=== PATIENT | male | born 1965 | race African-American/Black ===

== ENCOUNTER 2021-11-19 10:07 | Emergency (ER) | payer OTHER, SELFPAY ==
[2021-11-19] VITALS (7 sets, daily range): BP systolic 128–148; BP diastolic 80–95; PULSE 46–59; RESP 17–21; O2SAT 100
--- NOTE | ~2021-11-19 | XR_ITS ---
EXAMINATION: XR chest 2V DATE: 11/19/2021 10:52 INDICATION: Chest pain and difficulty breathing TECHNIQUE: PA and lateral views of the chest were obtained. COMPARISON: None FINDINGS: The lungs are clear with no focal airspace opacities, pulmonary edema, pleural effusion or pneumothor ax. The cardiomediastinal silhouette is normal. There are bridging osteophytes at multiple levels in the spine, consistent with diffuse idiopathic skeletal hyperostosis (DISH). IMPRESSION: 1. No acute cardiopulmonary disease. Reviewed, dictated and finalized at location A.
--- NOTE | 2021-11-19 10:08 | ECG_ITS ---
Measurements Intervals [place] Rate: 58 P: -6 WA: 145 QRS: -30 QRSD: 90 T: 8 QT: 429 QTc: 422 Interpretive Statements SINUS BRADYCARDIA VENTRICULAR TRIGEMINY BORDERLINE R WAVE PROGRESSION, ANTERIOR LEADS BORDERLINE T WAVE ABNORMALITY- INFERIOR LEADS ABNORMAL ECG Electronically Signed On 11-19-2021 12:54:36 CDT by Wes Marx D.O.
[2021-11-19 10:27] LABS: Basophils Percent Auto 0.5 % (0.2-1.2); Eosinophils Absolute Auto 0.1 K/mm3 (0-0.3); Eosinophils Percent Auto 2.1 % (0-4.4); Hematocrit 40.8 % (42.0-52.0); Hemoglobin 13.1 g/dL (14.0-18.0); Immature Granulocyte Absolute 0.01 K/mm3 (0.00-0.031); Immature Granulocyte Percent A 0.2 % (0-0.5); Lymphocytes Absolute Auto 1.36 K/mm3 (0.9-3.2); Lymphocytes Percent Auto 31.4 % (18.3-44.2); Mean Corpuscular HGB Conc 32.1 g/dl (32-36); Mean Corpuscular Hemoglobin 29.8 pg (26-34); Mean Corpuscular Volume 92.7 fl (80-100); Mean Platelet Volume 9.6 fl (7.4-10.4); Monocytes Absolute Auto 0.4 K/mm3 (0.1-0.6); Monocytes Percent Auto 9.2 % (2.6-8.5); Neutrophils Absolute Auto 2.5 K/mm3 (1.3-6.7); Neutrophils Percent Auto 56.6 % (45.5-73.1); Platelet Count Result 197 k/mm3 (150-375); Red Cell Distribution Width 14.6 % (11.5-14.5); White Blood Count 4.3 K/mm3 (4.5-10.0)
[2021-11-19 10:36] LABS: Alanine Aminotransferase 48 U/L (6-50); Albumin Level 3.7 g/dL (3.5-5.1); Alkaline Phosphatase 98 U/L (38-126); Anion Gap 7 mmol/L (8-16); Aspartate Amino Transferase 35 U/L (17-59); Bilirubin,Total 0.2 mg/dL (0.2-1.3); Blood Urea Nitrogen 16 mg/dL (9-20); Calcium 8.6 mg/dL (8.4-10.2); Carbon Dioxide 24 mmol/L (22-30); Chloride 110 mmol/L (98-107); Estimated CRCL calculation 72 ml/min; Estimated Glomerular Filt Rate > 60; Glucose 100 mg/dL (65-110); Potassium 4.1 mmol/L (3.4-5.0); Sodium 141 mmol/L (137-145)
--- NOTE | 2021-11-19 10:58 | ED.CHESTPAIN ---
HPI - Chest Pain General Chief Complaint: Chest Pain <Sushma Nolan PA-C - Last Filed: 11/19/21 15:12> Stated Complaint: difficulty breathing, chest pain <Sushma Nolan PA-C - Last Filed: 11/19/21 15:12> Time Seen by Provider: 11/19/21 10:55 <Sushma Nolan PA-C - Last Filed: 11/19/21 15:12> Source: patient and old records reviewed <MOLLY Avalos Last Filed: 11/19/21 15:12> Mode of arrival: ambulatory <MOLLY Avalos Last Filed: 11/19/21 15:12> Limitations: no limitations <Sushma Nolan PA-C - Last Filed: 11/19/21 15:12> History of Present Illness HPI narrative: Patient is a 56-year-old male who presents the ED with report of chest pain. Patient reports he began to not feel well last Saturday. He reported having diffuse myalgias. He was seen at [facility] emergency department on Saturday and tested negative for COVID at that time. Over the past 2 days, patient has developed pain in his midsternal and right-sided chest. The pain radiates through to his back. He reports having worsening pain with taking a deep breath or with movement, but denies difficulty breathing otherwise. Denies dyspnea on exertion. No exertional CP. Denies any nausea, sweats, fever. Patient has a history of peripheral arterial disease and coronary artery disease. He had a cardiac stent placed in 2004. He does note his current pain seems similar to what he experienced at that time. He sees Dr. Cordvoa and last saw him in August. Patient denies any BLE pain or edema. Denies cough, ZEPEDA, abdominal pain. Per patient's records, patient is on aspirin, Plavix, Xarelto. <MOLLY Avalos Last Filed: 11/19/21 15:12> Related Data Allergies/Adverse Reactions: Allergies Allergy/AdvReac Type Severity Reaction Status Date / Time ibuprofen Allergy Swelling Verified 11/19/21 10:25 nitroglycerin Allergy Swelling Verified 11/19/21 10:25 <Sushma Nolan PA-C - Last Filed: 11/19/21 15:12> Review of Systems Review of Systems: CONSTITUTIONAL: Denies fever, chills, or sweats. CARDIOVASCULAR: Reports midsternal and right-sided chest pain, radiating through to her back. Denies palpitations, BLE edema. RESPIRATORY: Reports pain with taking deep breath. Denies cough or dyspnea. GASTROINTESTINAL: Denies abdominal pain, nausea, vomiting, or diarrhea. MUSCULOSKELETAL: Reports back pain. Denies BLE pain. NEUROLOGIC: Denies headache, numbness, or weakness. <Sushma Nolan PA-C - Last Filed: 11/19/21 15:12> All systems reviewed & are unremarkable except as noted in HPI and below <Sushma Nolan PA-C - Last Filed: 11/19/21 15:12> PMFSH Past Medical History Medical History: Medical History (Updated 11/19/21 @ 15:09 by Mainor Alas DO) Coronary artery disease Hyperlipidemia Hypertension Peripheral arterial disease Peripheral arterial disease with history of revascularization <Sushma Nolan PA-C - Last Filed: 11/19/21 15:12> Surgical History Surgical History: Surgical History (Updated 11/19/21 @ 12:20 by Sushma Nolan PA-C) History of coronary artery stent placement History of heart artery stent <Sushma Nolan PA-C - Last Filed: 11/19/21 15:12> Social History Social History: Social History (Updated 11/19/21 @ 12:20 by Sushma Nolan PA-C) Smoking status: Never smoker <Sushma Nolan PA-C - Last Filed: 11/19/21 15:12> Exam Narrative: GENERAL: Well appearing, well-nourished, non-toxic, in no acute distress. HEAD: Normocephalic, atraumatic. NECK: Supple. No adenopathy, no masses. RESPIRATORY: Airway patent, respirations nonlabored. Clear to auscultation bilaterally, no rales, rhonchi, wheezing. CARDIOVASCULAR: Borderline bradycardic with regular rhythm without murmurs, rubs, or gallops. Peripheral pulses 2+ and equal bilaterally. ABDOMINAL: Soft, nontender, nondistended, no hepatosplenomegaly. Normoactive BS. No pulsatile masses. MUSCULOSKELETAL: M
[2021-11-19 11:23] LABS: D Dimer 0.46 ug/mL (<0.48)
[2021-11-19 11:49] LABS: Troponin I < 0.012 ng/mL (0.000-0.034)
[2021-11-19 13:50] LABS: Troponin I < 0.012 ng/mL (0.000-0.034)
== END 2021-11-19 15:20 | disposition home or self-care (01) ==
PROVIDERS: Physician Assistant; Emergency Provider Emergency Medicine; PCP Family Medicine
DX: J20.9 Acute bronchitis, unspecified (principal); R07.89 Other chest pain; I25.10 Atherosclerotic heart disease of native coronary artery without angina pectoris; I73.9 Peripheral vascular disease, unspecified; E78.5 Hyperlipidemia, unspecified; I10 Essential (primary) hypertension; Z95.5 Presence of coronary angioplasty implant and graft
CPT/HCPCS: 36415; 71046; 80053; 84484; 85025; 85380; 93005; 96365; 99284; J0131

== ENCOUNTER 2022-11-28 19:11 | Emergency (ER) | payer OTHER, MEDICARE, SELFPAY ==
[2022-11-28 19:13] VITALS: BP 117/66; PULSE 75; RESP 16; TEMP 36.8; O2SAT 98
--- NOTE | 2022-11-28 21:08 | ED.BACK ---
HPI - Back Pain/Injury General Chief Complaint: Back Pain/Injury Stated Complaint: back pain Time Seen by Provider: 11/28/22 20:09 History of Present Illness HPI Narrative: 57-year-old male with a history of chronic back pain reports for evaluation of low back pain x3 years, worsening over the past few weeks. Patient states 3 years ago he injured his back at work. He has had multiple x-rays, CT scans and MRIs. States his last MRI was a year ago and showed bulging disks, herniated disks, arthritis. He states his back pain has been flaring up the past few weeks so he came to the ED. He denies new injury or trauma, steroid or immunosuppressant use, fevers, dysuria or hematuria, saddle anesthesia, loss of bowel or bladder control or retention, nuchal rigidity. States his pain starts in his low back and shoots up his neck and down both of his legs to his toes. Reports numbness in both of his feet but states he has had this for 3 years and is unchanged from his baseline. Related Data Allergies Allergy/AdvReac Type Severity Reaction Status Date / Time ibuprofen Allergy Swelling Verified 11/19/21 10:25 nitroglycerin Allergy Swelling Verified 11/19/21 10:25 Review of Systems Review of Systems: CONSTITUTIONAL: Denies fever, chills EYES: Denies visual changes, redness, or discharge. ENT: Denies rhinorrhea, congestion, sore throat, or otalgia. CARDIOVASCULAR: Denies chest pain, palpitations, or edema. RESPIRATORY: Denies cough or dyspnea. GASTROINTESTINAL: Denies abdominal pain, nausea, vomiting, or diarrhea. GENITOURINARY: Denies dysuria or hematuria. SKIN: Denies rash or itching. MUSCULOSKELETAL: See HPI NEUROLOGIC: See HPI PSYCHIATRIC: Denies anxiety or depression. [facility] Past Medical History Medical History Coronary artery disease Hyperlipidemia Hypertension Peripheral arterial disease Peripheral arterial disease with history of revascularization Surgical History Surgical History History of coronary artery stent placement History of heart artery stent Social History Social History Smoking status: Never smoker Exam Narrative: GENERAL: Well-appearing, in no acute distress. Patient resting abdomen exam chair. He is pleasant and conversational HEAD: Normocephalic NECK: Supple. No midline cervical spinous tenderness, step-offs or deformities. Full range of motion of neck. BACK: Midline thoracic and lumbar spinous tenderness without step-offs or deformities. +SLR bilaterally. CHEST: No respiratory distress. Clear to auscultation, no adventitious breath sounds. HEART: Regular rate and rhythm. No murmur heard. Normal peripheral pulses. EXTREMITIES: Normal range of motion. No edema. Sensation intact throughout. No saddle anesthesia. Cap refill less than 2. SKIN: Warm, dry, no rash. NEURO: No focal deficits. Alert and oriented x3. PSYCH: Normal mood and affect. Course Vital Signs Vital signs: Vital Signs Temperature 98.2 F 11/28/22 19:13 Pulse Rate 75 11/28/22 19:13 Respiratory Rate 16 11/28/22 19:13 Blood Pressure 117/66 11/28/22 19:13 Pulse Oximetry 98 11/28/22 19:13 Oxygen Delivery Room Air 11/28/22 19:13 Temperature 98.2 F 11/28/22 19:13 Pulse Rate 61 11/28/22 21:50 Respiratory Rate 14 11/28/22 21:50 Blood Pressure 144/97 H 11/28/22 21:50 Pulse Oximetry 100 11/28/22 21:50 Oxygen Delivery Room Air 11/28/22 19:13 MDM - Back Pain/Injury MDM Narrative Medical decision making narrative: 57-year-old male with a history of chronic back pain reports for evaluation of low back pain x3 years, worsening over the past few weeks. Vital stable, he is afebrile. He is neurovascularly intact on exam, no saddle anesthesia, no loss of bowel or bladder control. No red flag back pain signs. Imagi
[2022-11-28] MEDS: HYDROmorphone HCL INJ (*CRX) 1 MG/ML SYR IM (21:43)
[2022-11-28] MEDS: CYCLOBENZAPRINE HCL 10 MG TABLET PO (21:44)
[2022-11-28 21:50] VITALS: BP 144/97; PULSE 61; RESP 14; O2SAT 100
== END 2022-11-28 21:58 | disposition home or self-care (01) ==
LOC: ANHED 21:16
PROVIDERS: Emergency Provider Physician Assistant; PCP Family Medicine
DX: M54.50 Low back pain, unspecified (principal); G89.21 Chronic pain due to trauma; I25.10 Atherosclerotic heart disease of native coronary artery without angina pectoris; I10 Essential (primary) hypertension; I73.9 Peripheral vascular disease, unspecified; E78.5 Hyperlipidemia, unspecified; Z95.5 Presence of coronary angioplasty implant and graft
CPT/HCPCS: 96372; 99283; A9270; J1170

== ENCOUNTER 2024-06-20 17:39 | Emergency (ER) | payer MEDICARE, OTHER, SELFPAY ==
--- NOTE | ~2024-06-20 | XR_ITS ---
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 RESULT: Lines, tubes, and devices: None. Lungs and pleura: Clear. Cardiomediastinal silhouette: Stable. Other: No acute osseous or upper abdominal finding. IMPRESSION: No acute cardiopulmonary process. Reviewed, dictated and finalized at location K. MBLER ERECTOR
--- OUTSIDE RECORDS SUMMARY | 2024-06-20 17:41 | XMS_ITS | Clinical Summary ---
Author Organization [facility] Address [address] [place] [address] Care Team Providers Care Health Care Facilities Inspector Name Role Phone Unavailable Primary Care Provider Unavailabl e Source Comments [facility],non-owned Affiliates and Associated Physician Practices is amultiple site organization consisting of ambulatory clinics and hospital sitesin [place], [place], [place] and [place]. This disclosure is being madepursuant to the Care Everywhere program and may not contain all information available regarding this patient. Last updated 18.[employer] [facility] Allergies Active Allergy Reactions Criticality Noted Date Comments Oxycodone Other 07/03/2022 Dry throat. Medications * Be aware that medications may not be up to date on this document. Alwaysverify current medications with the patient. Medication Sig Dispensed Refills Start Date End Date Status aspirin (ASPIRIN) 81 MG chew tablet Take 81 mg by mouth DAILY. 02/14/2016 Active Active Problems Problem Noted Date Diagnosed Date Other specified abnormal findings of blood chemi stry 02/13/2016 Social History Tobacco Use Types Packs/Day Years Used Date Smoking Tobacco: Every Day Cigarettes Smokeless Tobacco: Never Tobacco Cessation:Ready to Q uit: Not Asked; Counseling Given: Not Answered Alcohol Use Standard Drinks/Week Comments No 0 (1 standard drink = 0.6 oz pur e alcohol) Sex and Gender Information Value Date Recorded Sex Assigned at Not on file Gender Identity Not on file Sexual Orientation Not on file Last Filed Vital Signs Vital Sign Reading Time Taken Comments Blood Pressure 121/77 07/04/2022 3:58 AM SERVICE DESK SPECIALIST Pulse 71 07/04/2022 3:58 AM SERVICE DESK SPECIALIST Temperature 36.7 C (98 F) 07/04/2022 3:58 AM SERVICE DESK SPECIALIST Respiratory Rate 17 07/04/2022 3:58 AM SERVICE DESK SPECIALIST Oxygen Saturation 98% 07/04/2022 3:58 AM SERVICE DESK SPECIALIST Inhaled Oxygen Concentration - - Weight 85.7 kg (189 lb) 02/14/2016 8:16 AM CDT Height 165.1 cm (5' 5 ) 02/14/2016 8:16 AM CDT Body Mass Index 31.45 02/14/2016 8:16 AM CDT Plan of Treatment Health Maintenance Due Date Last Done Comments COLOGUARD (AGES 45-75) - COL ON CA SCREENING [address] COLONOGRAPHY - COLON CA SCREENING 1965 FIT - COLON CA SCREENING 1965 FLEX SIG - COLON CA SCREENING 1965 LIPID TESTING 1965 MEDICARE AWV 12 MONTHS 1965 HIV SCREENING 1980 HEPATITIS C SCREENING 07/29/1983 DTAP/TDAP/TD VACCINES (1 - Tdap) 1984 HEPATITIS B VACCINE (1 of 3 - 19+ 3-dose series) 1984 PNEUMOCOCCAL VACCINE 50+ (1 of 2 - PCV) 1984 PNEUMOCOCCAL VACCINE (1 of 2 - PCV) 1984 ZOSTER VACCINE (1 of 2) 08/03/2015 COVID-19 VACCINE (1 - 2023-2 5 season) 2024 INFLUENZA VACCINE (#1) 2024 DEPRESSION SCREENING 05/13/2024 COLONOSCOPY - COLON CA SCREENING 06/07/2032 06/07/19 Colorectal Cancer Screening 06/07/2032 HIB VACCINE Aged Out No longer eligi ble based on patient's age to complete this topic HPV VACCINE Aged Out No longer eligi ble based on patient's age to complete this topic MENINGOCOCCAL (Group B) VACCINE Aged Out No longer eligible based on patient's age to complete this topic MENINGOCOCCAL VACCINE Aged Out No christel lily eligible based on patient's age to complete this topic
--- OUTSIDE RECORDS SUMMARY | 2024-06-20 17:41 | XMS_ITS | Referral Summary ---
Author Organization [facility] Address [address] [place] [address] Care Team Providers Care Avionics Systems Repairer Name Role Phone Unavailable Primary Care Provider Unavailabl e Source Comments [facility],non-owned Affiliates and Associated Physician Practices is amultiple site organization consisting of ambulatory clinics and hospital sitesin [place], [place], [place] and [place]. This disclosure is being madepursuant to the Care Everywhere program and may not contain all information available regarding this patient. Last updated 18.[employer] [facility] Allergies Active Allergy Reactions Criticality Noted Date [...] Comments Blood Pressure 121/77 07/04/2022 3:58 AM TILE GRADER Pulse 71 07/04/2022 3:58 AM TILE GRADER Temperature 36.7 C (98 F) 07/04/2022 3:58 AM TILE GRADER Respiratory Rate 17 07/04/2022 3:58 AM TILE GRADER Oxygen Saturation 98% 07/04/2022 3:58 AM TILE GRADER Inhaled Oxygen Concentration - - Weight 85.7 kg (189 lb) 02/14/2016 8:16 AM CDT Height 165.1 cm (5' 5 ) 02/14/2016 8:16 AM CDT Body Mass Index 31.45 02/14/2016 8:16 AM CDT Plan of Treatment Not on file
--- OUTSIDE RECORDS SUMMARY | 2024-06-20 17:41 | XMS_ITS | Encounter Summary ---
Author Organization [facility] Address Formerly [facility] [place] [address] Care Team Providers Care Director Of Vocational Training Name Role Phone None, Provider Primary Care Provider Romaine Minaya PA-C Primary Care Provider Alex Kohli MD Primary Care Provider [phone] Encounter Details Date Type Department Care Team (Late st Contact Info) Description 03/22/2022 [employer] Message Enc [facility] - [address], [address] [place] [id number] [facility], [facility] Provider Information Social History Tobacco Use Types Packs/Day Years Used Date Smoking Tobacco: Some Days Cigarettes Last attempted to quit: 2014 Cigars Smokeless Tobacco: Never Comments:uses an e cigarette with no nicotine Alcohol Use Standard Drinks/Week Comments No 0 (1 standard drink = 0.6 oz pur e alcohol) haven't drank since 2011 AUDIT-C Answer Date Recorded Frequency of Alcohol Consumption Never 02/06/2019 Average Number of Drinks Not on file 019 Frequency of Binge Drinking Not on file 01/12 PHQ-2 Answer Date Recorded PHQ-2 Score - If the patient scores above 3, please move on to questions 3-9 0 03/26/2022 Sex and Gender Information Value Date Recorded Sex Assigned at Male 06/19/2024 8:28 PM WIRE COMMUNICATIONS ENGINEER Legal Sex Male 10:42 PM CDT Gender Identity Not on file Sexual Orientation Straight 06/19/2024 8: 26 PM WIRE COMMUNICATIONS ENGINEER 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 No / Unsure 03/06/2022 11:41 AM CDT documented as of this encounter Functional Status * RETIRED Are you deaf or do you have serious difficulty hearing Answer Date of Assessment Author Status No 02/06/2019 8:07 PM CDT Activ e * RETIRED Are you blind or do you have serious difficulty seeing, even when wearing glasses? Answer Date of Assessment Author Status No 02/06/2019 8:07 PM CDT Activ e * Do you have serious difficulty walking or climbing stairs? Answer Date of Assessment Author Status No 02/06/2019 8:07 PM CDT Natividad Kaiser LPN Active * Do you have difficulty dressing or bathing? Answer Date of Assessment Author Status No 02/06/2019 8:07 PM CDT Natividad Kaiser LPN Active * Because of a physical, mental, or emotional condition, do you have difficulty doing errands alone such as visiting a doctor's office or shopping? Answer Date of Assessment Author Status No 02/06/2019 8:07 PM CDT Natividad Kaiser LPN Active documented as of this encounter Mental Status * Because of a physical, mental, or emotional condition, do you have serious difficulty concentrating, remembering, or making decisions? Answer Entry Date Author Status No 02/06/2019 8:07 PM CDT Natividad Kaiser LPN Active documented in this encounter Plan of Treatment Not on file documented as of this encounter Visit Diagnoses Not on filedocumented in this encounter Additional Health Concerns Assessment Noted Time PHQ-9 Depression Total Score: 5 04/18/20 21 11:10 AM WIRE COMMUNICATIONS ENGINEER documented as of this encounter Care Teams Director Of Vocational Training Relationship Specialty Start Date End Date None, Provider, PCP - General UNKNOWN PHYSICIAN SPECIALTY 03/06/22 05/06/22 Romaine Salguero PA-C [address] [place] [address] PCP - General PHYSICIAN TOUR MANAGER 05/07/22 11/30/22 Alex Kohli MD [address] [address] PCP - General FAMILY PRACTICE 12/01/22 documented as of this encounter
--- OUTSIDE RECORDS SUMMARY | 2024-06-20 17:41 | XMS_ITS | CONTINUITY OF CARE DOCUMENT ---
Author Name rylan fagan Address Unknown Organization [facility] Address [address] [place] [address] Phone [phone] Care Team Providers Care Aoc Plans Intelligence Officer Chief Name Role Phone Franklin DIOP, Delfino Unavailable INSURANCE PROVIDERS Payer name Policy type / Coverage type Rahul red constitution party ID [employer] Medicaid 1 [id number] [place] Medicare [id number]
--- OUTSIDE RECORDS SUMMARY | 2024-06-20 17:41 | XMS_ITS | Patient Health Summary ---
Author Organization [facility] Address [address] [place] [address] Care Team Providers Care Tack Puller Name Role Phone Unavailable Primary Care Provider Unavailabl e Note from [facility],non-owned Affiliates and Associated Physician Practices is amultiple site organization consisting of ambulatory clinics and hospital sitesin [place], [place], [place] and [place]. This disclosure is being madepursuant to the Care Everywhere program and may not contain all information available regarding this patient. Last updated 18.[facility] [employer] Allergies * Oxycodone(Other) Medications * Be aware that medications may not be up to date on this document. Alwaysverify current medications with the patient. * aspirin (ASPIRIN) 81 MG chew tablet(Started 02/14/2016) Take 81 mg by mouth DAILY. Active Problems Problem Noted Date Diagnosed Date [...] Comments Blood Pressure 121/77 07/04/2022 3:58 AM [employer]OCERY TEAM MEMBER Pulse 71 07/04/2022 3:58 AM [employer]OCERY TEAM MEMBER Temperature 36.7 C (98 F) 07/04/2022 3:58 AM [employer]ERY TEAM MEMBER Respiratory Rate 17 07/04/2022 3:58 AM [employer]ERY TEAM MEMBER Oxygen Saturation 98% 07/04/2022 3:58 AM [employer]OCERY TEAM MEMBER Inhaled Oxygen Concentration - - Weight 85.7 kg (189 lb) 02/14/2016 8:16 AM CDT Height 165.1 cm (5' 5 ) 02/14/2016 8:16 AM CDT Body Mass Index 31.45 02/14/2016 8:16 AM CDT Procedures * CARDIAC EKG ORDER(Performed 07/05/2022) * TROPONIN-I HIGH SENSITIVE REFLEX 1HOUR(Performed 07/04/2022) * XR CHEST 2VW(Performed 07/04/2022) Performed for Chest pain, unspecified type * LIPASE BLOOD(Performed 07/03/2022) * PT-INR SLH(Performed 07/03/2022) * B-TYPE NATRIURETIC PEPTIDE(Performed 07/03/2022) * TROPONIN-I HIGH SENSITIVE BASELINE + 1HR(Performed 07/03/2022) * CBC W AUTO DIFFERENTIAL(Performed 07/03/2022) * COMPREHENSIVE METABOLIC PANEL(Performed 07/03/2022) * EKG 12-LEAD(Performed 07/03/2022) Performed for Chest pain, unspecified type * CREATINE BLOOD(Performed 02/14/2016) * CREATININE BLOOD(Performed 02/14/2016) * BASIC METABOLIC PANEL (CALCIUM TOTAL)(Performed 02/14/2016) * SODIUM URINE RANDOM(Performed 02/14/2016) * BASIC METABOLIC PANEL (CALCIUM TOTAL)(Performed 02/13/2016) * CT HEAD WO CONTRAST(Performed 02/13/2016) * B-TYPE NATRIURETIC PEPTIDE(Performed 02/13/2016) * TROPONIN I(Performed 02/13/2016) * CK + CKMB PANEL(Performed 02/13/2016) * ALCOHOL ETHYL BLOOD(Performed 02/13/2016) * COMPREHENSIVE METABOLIC PANEL(Performed 02/13/2016) * CBC W AUTO DIFFERENTIAL(Performed 02/13/2016) * CBC W AUTO DIFFERENTIAL(Performed 02/13/2016) * XR CHEST 2VW(Performed 02/13/2016) * EKG 12-LEAD(Performed 02/13/2016) Results * CARDIAC EKG ORDER (07/05/2022 1:45 PM GROCERY TEAM MEMBER) Narrative 07/05/2022 1:45 PM [employer]ERY TEAM MEMBER Ordered by an unspecified provider. Scanned Document CARDIAC SERVICES ORD ERABLES * TROPONIN-I HIGH SENSITIVE REFLEX 1HOUR (07/04/2022 1:31 AM GROCERY TEAM MEMBER) Troponin I High Sensitive 5 <=35 ng/L 07/04/2022 2:20 AM GROCERY TEAM MEMBER [facility] Delta Troponin I HS 07/04/2022 2:20 AM GROCERY TEAM MEMBER [facility] Comment:Delta value intentio román not calculated. Baseline to 1 hour specimen collection interval exceeded. Blood BLOOD SPECIMEN / Unknown Venipuncture / Unknown 07/04/2022 1:31 AM [employer]ERY TEAM MEMBER 07/04/2022 1:41 AM [employer] TEAM MEMBER Melquiades Burkett PA-C LAB - CHEM ISTRY ORDERABLES [facility] [address] [place] [address], [facility] [phone] * XR CHEST 2VW (07/04/2022 12:08 AM [employer] TEAM MEMBER) Only the most recent of2 resultswithin the time period is included. Anatomical Region Laterality Modality Chest Radiographic Shannan ging 07/04/2022 12:5 1 AM [employer] TEAM MEMBER Narrative 07/04/2022 8:57 AM GR[employer]ERY TEAM MEMBER PROCEDURE: XR CHEST 2VW, DATE/TIME OF EXAM: 07/04/2022 12:08 AM, LOCATION [facility] INDICATION: R07.9: Chest pain, unspecified type ADDITIONAL CLINICAL INFORMATION: Ordering Provider Reason For Exam: Pneumothorax COMPARISON: Chest x-ray dated 02/13/2016 FINDINGS/IMPRESSION: There is no focal consolidation, pleural effusion, or pneumothorax. The cardiac silhouette is mildly enlarged. The mediastinal silhouette is normal. The visible bony thorax is intact. Report dictated by Xavier Panda MD, (radiology administrator). I, Joseph Suarez MD have personally reviewed and interpreted this examination/study. > Interpreting Provider: Joseph Suarez MD on 07/04/2022 8:57 AM Procedure Note Joseph Suarez MD - 07/04/2022 PROCEDURE: XR CHEST 2VW, DATE/TIME OF EXAM: 07/04/2022 12:08 AM, LOCATION [facility] INDICATION: R07.9: Chest pain, unspecified type ADDITIONAL CLINICAL INFORMATION: Ordering Provider Reason For Exam: Pneumothorax COMPARISON: Chest x-ray dated 02/13/2016 FINDINGS/IMPRESSION: There is no focal consolidation, pleural effusion, or pneumothorax. The cardiac silhouette is mildly enlarged. The mediastinal silhouette is normal. The visible bony thorax is intact. Report dictated by Xavier Panda MD, (radiology administrator). I, Joseph Suarez MD have personally reviewed and interpreted this examination/study. > Interpreting Provider: Joseph Suarez MD on 38:57 AM Melquiades Burkett PA-C DIAGNOSTIC IMAGING ORDERABLES * LIPASE BLOOD (07/03/2022 11:57 PM [employer] TE[employer] MEMBER) Lipase 37 8 - 78 U/L 07/04/2022 12:30 AM [facility] Blood BLOOD SPECIMEN / Unknown Venipuncture / Unknown 07/03/2022 11:57 PM [employer] TE[employer] MEMBER 07/04/2022 12:20 AM [employer] TEAM MEMBER Narrative [facility] - 07/04/2022 12:30 AM [employer]ERY TEAM MEMBER Lipase results from the Gonzalez Alinity analyzer may not be comparable with other methodologies. Melquiades Burkett PA-C LAB - CHEM ISTRY ORDERABLES Performing Organization Address City/State/[facility] Co de Phone Number [facility] [address] [place] [phone], [facility] [phone] * PT-INR [facility] (07/03/2022 11:56 PM GROCERY TEAM MEMBER) PT 12.2 12.1 - 14.8 Seconds 07/04/2022 1:26 AM [facility] INR 0.9 See Comment 07/04/2022 1:26 AM [facility] Comment:The suggested therap eutic range for standard coumadin (warfarin) therapy is an INR of 2.0-3.0. For high-risk patients (Mechanical Mitral Valve Prosthesis, etc.), the suggested prophylactic therapeutic range is an INR of 2.5-3.5. Blood BLOOD SPECIMEN / Unknown Venipuncture / Unknown 07/03/2022 11:56 PM [employer] TEAM MEMBER 07/04/2022 12:04 AM [employer] TE[employer]BER Melquiades ALVAREZC LAB - COAG ULATION ORDERABLES Performing Organization Address [facility]/ZIP Co de Phone Number [address] [phone], [facility] [phone] * TROPONIN-I HIGH SENSITIVE BASELINE + 1HR (07/03/2022 11:56 PM [employer] TEAM MEMBER) Troponin I High Sensitive 5 <=35 ng/L 07/04/2022 12:52 AM [facility] Blood BLOOD SPECIMEN / Unknown Venipuncture / Unknown 07/03/2022 11:56 PM [employer] TEAM MEMBER 07/04/2022 12:33 AM [employer] TEAM MEMBER Melquiades PIMENTEL-C LAB - CHEM ISTRY ORDERABLES Performing Organization Address [facility] Co de Phone Number [address] [phone], [facility] [phone] * (ABNORMAL) CBC W AUTO DIFFERENTIAL (07/03/2022 11:56 PM GR[employer] TEAM MEMBER) Only the most recent of3 resultswithin the time period is included. WBC 6.7 3.5 - 10.5 10 3/uL 07/04/2022 12:10 AM [facility] RBC 4.88 4.30 - 5.70 10 6/uL 07/04/2022 12:10 AM [facility] Hemoglobin 14.7 12.0 - 17.6 g/dL 07/04/2022 12:10 AM [facility] Hematocrit 44.8 35.2 - 51.7 % 07/04/2022 12:10 AM [facility] MCV 91.8 80.7 - 98.3 fL 07/04/2022 12:10 AM [facility] MCH 30.1 26.7 - 34.0 pg 07/04/2022 12:10 AM [facility] MCHC 32.8 30.8 - 35.9 g/dL 07/04/2022 12:10 AM [facility] RDW-SD 51.1(H) 36.0 - 50.0 fL 07/04/2022 12:10 AM [facility] RDW-CV 15.2(H) 11.2 - 14.8 % 07/04/2022 12:10 AM [facility] Platelet Count 233 150 - 400 10 3/uL 07/04/2022 12:10 AM [facility] MPV 9.3(L) 9.4 - 12.9 fL 07/04/2022 12:10 AM [facility] nRBC Absolute 0.00 0 10 3/uL 07/04/2022 12:10 AM [facility] nRBC Auto 0.0 0 /100 WBC 07/04/2022 12:10 AM [facility] Neutrophils % 57.2 35.0 - 70.0 % 07/04/2022 12:10 AM [facility] Lymphocytes % 33.1 20.0 - 43.0 % 07/04/2022 12:10 AM [facility] Monocytes % 7.1 5.0 - 13.0 % 07/04/2022 12:10 AM [facility] Eosinophils % 1.5 0.0 - 6.0 % 07/04/2022 12:10 AM [facility] Basophil % 0.5 0.0 - 2.0 % 07/04/2022 12:10 AM [facility] Neutrophils Absolute 3.81 1.60 - 7.00 10 3/uL 07/04/2022 12:10 AM [facility] Lymphocyte Absolute 2.20 1.10 - 3.90 10 3/uL 07/04/2022 12:10 AM [facility] Monocytes Absolute 0.47 0.26 - 1.07 10 3/uL 07/04/2022 12:10 AM [facility] Eosinophils Absolute 0.10 0.00 - 0.47 10 3/uL 07/04/2022 12:10 AM [facility] Basophils Absolute 0.03 0.00 - 0.08 10 3/uL 07/04/2022 12:10 AM [facility] Immature Granulocytes % 0.6 0.0 - 1.0 % 07/04/2022 12:10 AM [facility] Immature Granulocytes Absolute 0.04 07/04/2022 12:10 AM [facility] Blood BLOOD SPECIMEN / Unknown Venipuncture / Unknown 07/03/2022 11:56 PM GROCERY TEAM MEMBER 07/04/2022 12:04 AM [employer] TEAM MEMBER Melquiades ALVAREZC LAB - JAMAR TOLOGY ORDERABLES [facility] [address] [place] [address], [place] [phone] * B-TYPE NATRIURETIC PEPTIDE (07/03/2022 11:56 PM GROCERY TEAM MEMBER) Only the most recent of2 resultswithin the time period is included. BNP 50 <100 pg/mL 07/04/2022 12:36 AM [facility] Comment: A decision threshold of 100 pg/mL has been demonstrated to provide the maximal combination of sensitivity, specificity and predictive value for the diagnosis of congestive heart failure (CHF). Virtually all patients with no evidence of CHF have BNP values less than 100 pg/mL. A BNP value greater than 100 pg/mL is consistent with the diagnosis of CHF in the appropriate clinical setting. In a study of 693 patients (male and female) with diagnosed CHF, the following values were determined based on the NYHA functional classification system: NYHA Functional Class Mean Valule (pg/mL) % >100 pg/mL I 320 58.1 II 432 73.0 III 656 79.0 IV 1635 98.3 Blood BLOOD SPECIMEN / Unknown Venipuncture / Unknown 07/03/2022 11:56 PM GROCERY TEAM MEMBER 07/04/2022 12:04 AM GR[employer] TEAM MEMBER Melquiades Burkett PA-C LAB - CHEM ISTRY ORDERABLES [facility] [address] [place] [address], [place] [phone] * (ABNORMAL) COMPREHENSIVE METABOLIC PANEL (07/03/2022 11:56 PM [facility]) Only the most recent of2 resultswithin the time period is included. BUN 13 7 - 26 mg/dL 07/04/2022 12:30 AM [facility] Creatinine 1.23(H) 0.71 - 1.16 mg/dL 07/04/2022 12:30 AM [facility] Sodium 146(H) 136 - 145 mmol/L 07/04/2022 12:30 AM [facility] Potassium 4.2 3.5 - 4.5 mmol/L 07/04/2022 12:30 AM [facility] Chloride 113(H) 98 - 107 mmol/L 07/04/2022 12:30 AM [facility] CO2 19(L) 22 - 29 mmol/L 07/04/2022 12:30 AM [facility] Glucose 87 70 - 115 mg/dL 07/04/2022 12:30 AM [facility] Calcium 9.1 8.4 - 10.2 mg/dL 07/04/2022 12:30 AM [facility] Protein Total 7.3 6.0 - 8.3 g/dL 07/04/2022 12:30 AM [facility] Albumin 3.7 3.4 - 5.0 g/dL 07/04/2022 12:30 AM [facility] Bilirubin Total 0.2 0.2 - 1.2 mg/dL 07/04/2022 12:30 AM [facility] Alkaline Phosphatase 124 40 - 150 U/L 07/04/2022 12:30 AM [facility] ALT 43 5 - 55 U/L 07/04/2022 12:30 AM [facility] AST 20 5 - 34 U/L 07/04/2022 12:30 AM [facility] Anion Gap 18 8 - 18 07/04/2022 12:30 AM [facility] BUN/Creatinine Ratio 11 7 - 23 07/04/2022 12:30 AM [facility] Osmolality Calculated 301(H) 270 - 300 mOsm/kg 07/04/2022 12:30 AM [facility] Albumin/Globulin Ratio 1.0(L) 1.1 - 2.3 07/04/2022 12:30 AM [facility] eGFR by CKD-EPI 69(L) >=90 mL/min/1.7 3 m2 07/04/2022 12:30 AM [facility] Blood BLOOD SPECIMEN / Unknown Venipuncture / Unknown 07/03/2022 11:56 PM GROCERY TEAM MEMBER 07/04/2022 12:04 AM [employer] TEAM MEMBER Melquiades Burkett PA-C LAB - CHEM ISTRY ORDERABLES [facility] [address] [place] [address], [facility] [phone] * EKG 12-LEAD (07/03/2022 11:43 PM GROCERY TEAM MEMBER) Only the most recent of2 resultswithin the time period is included. Ventricular Rate 63 BPM SL MUSE Atrial Rate 63 BPM [facility] MUSE P-R Interval 162 ms [facility] MUSE QRS Duration ms 78 ms [facility] MUSE Q-T Interval ms 408 ms [facility] MUSE QTC Calculation (Bezet) 417 ms SL MUSE Calculated P [place] 33 degrees SL MUSE Calculated R [place] -91 degrees SL MUSE Calculated T [place] 25 degrees SLH MUSE Interpretation EKG NORMAL SINUS RHYTHM RIGHT SUPERIOR AXIS DEVIATION S1-S2-S3 PATTERN, CONSIDER PULMONARY DISEASE, RVH, OR NORMAL VARIANT RSR' OR QR PATTERN IN V1 SUGGESTS RIGHT VENTRICULAR CONDUCTION DELAY Poor R wave progression in precordial leads SEPTAL INFARCT , AGE UNDETERMINED CANNOT RULE OUT INFERIOR INFARCT (CITED ON OR BEFORE 13-FEB-2016) ABNORMAL ECG WHEN COMPARED WITH ECG OF 13-FEB-2016 19:04, QRS AXIS SHIFTED LEFT CRITERIA FOR SEPTAL INFARCT ARE NOW PRESENT RSR' OR QR PATTERN IN V1 SUGGESTS RIGHT VENTRICULAR CONDUCTION DELAY , NEW Confirmed by AZ CARBAJAL MD ([id number]) on 07/04/2022 5:12:51 AM [facility] MUSE 07/03/2022 11:4 3 PM GROCERY TEAM MEMBER 07/04/2022 5:12 AM [employer] TEAM MEMBER Melquiades Burkett PA-C ECG ORDERA BLES [facility] MUSE * CREATINE BLOOD (02/14/2016 12:19 PM CDT) Creatine 0.4 0.0 - 0.7 mg/dL [facility] ([facility]) Comment: This test was developed and its performance characteristics determined by [facility]. It has not been cleared or approved by the Food and Drug Administration. Blood specimen (specimen) BLOOD SPECIMEN / Unknown 02/14/2016 12:19 PM CDT 02/14/2016 12:47 PM CDT Narrative [facility] ([facility]) - 02/16/2016 5:10 PM CDT Performed at: [address] [place] [address] [id number] Marine Pipefitter: Leoncio Vaughn MD, Phone: [phone] Bill Grace MD LAB - CHEMISTRY [place]ARD[place] Performing Organization Address [facility] Co de Phone Number [facility] ([facility]) * (ABNORMAL) CREATININE BLOOD (02/14/2016 12:19 PM CDT) Creatinine 1.8(H) 0.6 - 1.2 mg/dL [facility] eGFR 49(L) >60 mL/min/1.73 m2 [facility] Blood specimen (specimen) BLOOD SPECIMEN / Unknown 02/14/2016 12:19 PM CDT 02/14/2016 2:25 PM CDT Bill Grace MD LAB - CHEMISTRY [place] Performing Organization Address City/[facility]/ZIP Co de Phone Number [address] [phone] * (ABNORMAL) BASIC METABOLIC PANEL (CALCIUM TOTAL) (02/14/2016 6:06 AM CDT) Only the most recent of2 resultswithin the time period is included. BUN 20 7 - 26 mg/dL [facility] Creatinine 1.8(H) 0.6 - 1.2 mg/dL [facility] Sodium 140 136 - 145 mmol/L [facility] Potassium 3.5 3.5 - 4.5 mmol/L [facility] Chloride 111(H) 98 - 107 mmol/L [facility] CO2 23 22 - 29 mmol/L [facility] Glucose 97 70 - 115 mg/dL [facility] Calcium 8.1(L) 8.4 - 10.2 mg/dL [facility] Anion Gap 10 8 - 18 [facility] BUN/Creatinine Ratio 11 7 - 23 [facility] Osmolality Calculated 293 270 - 300 mOsm/kg [facility] eGFR 49(L) >60 mL/min/1.7 3 m2 [facility] Blood specimen (specimen) BLOOD SPECIMEN / Unknown 02/14/2016 6:06 AM CDT 02/14/2016 6:17 AM CDT Az Hall MD LAB - CHEMISTRY ORDE BRENDAN Performing Organization Address [facility]/ZIP Co de Phone Number [address] [phone] * SODIUM URINE RANDOM (02/14/2016 1:36 AM CDT) Sodium Urine 202 Not Established mmol/L [facility] Urine specimen (specimen) URINE / Unknown 02/14/2016 1:36 AM CDT 02/14/2016 1:36 AM CDT Az Hall MD LAB - URINE CHEMISTR Y ORDERABLES Performing Organization Address City/[facility] Co de Phone Number [address] [phone] * CT HEAD WO CONTRAST (02/13/2016 7:51 PM CDT) Anatomical Region Laterality Modality Head Other Impressions 02/14/2016 7:14 AM CDT IMPRESSION: 1. No acute intracranial process. Preliminary results reported by Dr. Onofre on 02/13/2016 at 8:32 PM. This report was electronically signed by TRISTON PATEL M.D. on 02/14/2016 7:14 AM . Narrative 02/14/2016 7:14 AM CDT EXAMINATION: Computed tomography (CT) of the head without contrast HISTORY: Trauma, pain. TECHNIQUE: CT of the head was performed without contrast according to standard protocol. FINDINGS: No prior study is available for comparison. No acute intra- or extra-axial fluid collections are identified. The ventricles are of normal size, shape, and morphology. The basal cisterns are patent. No mass effect or midline shift is seen. Small foci of hypoattenuation in the basal ganglia bilaterally are nonspecific and may represent old lacunar infarctions or small dilated perivascular spaces. The blackwood-white matter differentiation is normal. Mild mucosal thickening in the paranasal sinuses. Otherwise, the visualized portions of the orbits, paranasal sinuses, and mastoids appear normal. No acute fracture is identified. Procedure Note Triston Patel MD - 08/10/2017 EXAMINATION: Computed tomography (CT) of the head without contrast HISTORY: Trauma, pain. TECHNIQUE: CT of the head was performed without contrast according tostandard protocol. FINDINGS: No prior study is available for comparison. No acute intra- or extra-axial fluid collections are identified. Theventricles are of normal size, shape, and morphology. The basal cisternsare patent. No mass effect or midline shift is seen. Small foci ofhypoattenuation in the basal ganglia bilaterally are nonspecific and may represent old lacunar infarctions orsmall dilated perivascular spaces. The blackwood-white matter differentiationis normal. Mild mucosal thickening in the paranasal sinuses. Otherwise,the visualized portions of the orbits, paranasal sinuses, and mastoids appear normal. No acute fractureis identified. IMPRESSION IMPRESSION: 1. No acute intracranial process. Preliminary results reported by Dr. Onofre on 02/13/2016 at 8:32 PM. This report was electronically signed by TRISTON PATEL M.D. on 02/14/20167:14 AM . Az Hall MD CT ORDERABLES * TROPONIN I (02/13/2016 6:49 PM CDT) Troponin I 0.028 <0.032 ng/mL [facility] Blood specimen (specimen) BLOOD SPECIMEN / Unknown 02/13/2016 6:49 PM CDT 02/13/2016 7:00 PM CDT Az Hall MD LAB - CHEMISTRY [place] Performing Organization Address [facility]/[place] [address], [facility] [phone] * CK + CKMB PANEL (02/13/2016 6:49 PM CDT) Pathologist [facility] CK Total 175 30 - 200 Units/L [facility] CK-MB 1.0 0.0 - 6.6 ng/mL [facility] Blood specimen (specimen) BLOOD SPECIMEN / Unknown 02/13/2016 6:49 PM CDT 02/13/2016 7:00 PM CDT Az Hall MD LAB - CHEMISTRY [place] Performing Organization Address [facility] [place] [address], [facility] [phone] * ALCOHOL ETHYL BLOOD (02/13/2016 6:49 PM CDT) [facility] Interpretation Ethanol None Detected None Detected mg/dL [facility] Comment:Ethanol levels less than 10 mg/dL are resulted as None detected . Blood specimen (specimen) BLOOD SPECIMEN / Unknown 02/13/2016 6:49 PM CDT 02/13/2016 7:00 PM CDT Az Hall MD LAB - CHEMISTRY [place] Performing Organization Address [facility]/State/[place] [address], [facility] [phone]
[2024-06-20 17:42] VITALS: BP 157/82; PULSE 62; RESP 20; TEMP 36.8; O2SAT 100
--- OUTSIDE RECORDS SUMMARY | 2024-06-20 17:42 | XMS_ITS | Clinical Summary ---
Author Organization [facility] Address [address] [place] [address] Care Team Providers Care Parliamentary Archivist Name Role Phone Alex Kohli MD Primary Care Provider [phone] Allergies Active Allergy Reactions Criticality Noted Date Comments Ibuprofen Itching,Swelling High 03/27/2018 Nitroglycerin Shortness of Breath High 09/09/2017 Acetaminophen Itching,Nausea Only 03/27/2018 Medications aspirin EC 81 MG tablet Take 1 tablet (81 mg total) by mouth daily. Active amlodipine 10 MG tablet Take 1 tablet (10 mg total) by mouth nightly. 30 tablet 9 Active Additional Information Patient taking differently:10 mg OralDaily, Reported on 03/31/2024 vitamin D3, cholecalciferol , 5000 UNITS capsule Take 1 capsule (5,000 Units total) by mouth daily. 0 Active rosuvastatin 40 MG tablet Take 1 tablet (40 mg total) by mouth nightly at bedtime. 1 Active traZODone (DESYREL) 50 MG tablet Take 1 tablet (50 mg total) by mouth nightly as needed for Sleep. Active clopidogrel (PLAVIX) 75 MG tablet Take 1 tablet (75 mg total) by mouth daily. Active pantoprazole EC (PROTONIX) 20 MG tablet Take 1 tablet (20 mg total) by mouth daily. Active ezetimibe (ZETIA) 10 MG tablet Take 1 tablet (10 mg total) by mouth daily. 3 Active metoprolol succinate ER (TOPROL-XL) 100 MG 24 hr tablet Take 1 tablet (100 mg total) by mouth daily. Active spironolactone (ALDACTONE) 25 MG tablet Take 1 tablet (25 mg total) by mouth daily. 4 Active cloNIDine (CATAPRES) 0.2 MG tablet Take 1 tablet (0.2 mg total) by mouth nightly. 30 tablet 4 Active acetaminophen (TYLENOL) 325 MG tablet Take 2 tablets (650 mg total) by mouth every 4 (four) hours as needed for Pain. 4 Active polyethylene glycol (GLYCOLAX) packet Take 240 mLs (17 g total) by mouth 2 (two) times daily. Dissolve powder in 240 mL water 60 each 4 Active predniSONE (DELTASONE) 20 MG tablet Take 2 tablets (40 mg total) by mouth daily for 5 days. 10 tablet 5 06/25/19 25 Active melatonin 10 MG tablet Take 1 tablet (10 mg total) by mouth nightly as needed for Sleep. 30 tablet 5 Active Active Problems Problem Noted Date Diagnosed Date YUSEF (acute kidney injury) 03/31/2024 Pyelonephritis 03/31/2024 Chest pain 11/14/2021 Light cigarette smoker (1-9 cigarettes per day) 04/18/2021 Primary insomnia 04/18/2021 Major depressive disorder in full remission, unspecified whether recurrent 04/18/2021 Allergic sinusitis 12/06/2020 Calculus of common bile duct and gallbladder Chronic cervical radiculopathy 12/06/2020 Foraminal stenosis of cervical region 12/06/2020 Hypertensive urgency 12/06/2020 Primary osteoarthritis of right shoulder 021 Syncope due to sick sinus syndrome ([facility]) 12/06/2020 Tobacco dependence syndrome 05/28/2019 Arterial occlusion 02/06/2019 Lumbosacral spondylosis without myelopathy 11/19 Facet arthritis of cervical region 11/19/2018 Left ventricular hypertrophy 08/06/2018 Bulging of intervertebral disc between L4 and L5 05/29/2018 Neuropathy of right upper extremity 04/14/2018 Sciatica 04/08/2018 CKD (chronic kidney disease) stage 3, GFR 30-59 ml/min ([facility]) 10/08/2017 Secondary hyperparathyroidism ([facility]) 10/08/2017 Acne keloidalis nuchae 10/08/2017 Renovascular hypertension 09/24/2017 Renal artery stenosis 09/17/2017 Cerebrovascular accident ([facility]) 09/14 Obstructive sleep apnea syndrome 05/18/2017 Gastroesophageal reflux disease with stricture 0 10/23/2016 Obesity 10/23/2016 Dyspnea on exertion 10/22/2016 Migraine 10/22/2016 Peptic ulcer 10/22/2016 Chronic lower back pain 02/27/2016 Overview (02/10/2019): Transitioned From: Acute low back pain due to trauma Atherosclerotic peripheral vascular disease 08/2015 Overview (02/10/2019): Transitioned From: Claudication Dyslipidemia CAD (coronary artery disease) Essential hypertension Encounters Date Type Department Care Team Description 06/19/2024 8:05 PM FINANCIAL AID ADVISOR - 06/20/2024 12:41 AM FINANCIAL AID ADVISOR Emergency [facility] [place] [address] Sheryl Nieto MD Chest Pain Discharge Disposition: Home or Self Care (Routine Discharge) 06/19/2024 Travel 03/31/2024 11:12 PM FINANCIAL AID ADVISOR Anesthesia Event [facility] [place] [address] Vlaeria Hines MD 03/31/2024 11:00 PM FINANCIAL AID ADVISOR - 04/01/2024 12:01 AM FINANCIAL AID ADVISOR Surgery [facility] [place] [address] Remigio Portillo MD CYSTOSCOPY, LEFT RETROGRADE PYELOGRAM, LEFT URETERAL STENT PLACEMENT, HOLMIUM LASER LITHOTRIPSY 03/31/2024 4:53 PM FINANCIAL AID ADVISOR - 04/03/2024 1:13 PM FINANCIAL AID ADVISOR Hospital Encounter [facility] [place] [address] Nathaniel Ventura, Staci Potter, Bob Ann MD Simpson, Stephanie L, DO Tipton Rae L, PRINT PROJECT MANAGER Vomiting; Abdominal Pain Discharge Disposition: Home or Self Care (Routine Discharge) 03/31/2024 Travel from Last 3 Months Immunizations Name Administration Dates Next Due Tdap (Generic) 10/22/2017 Family History Medical History Relation Comments Heart Disease Father of heart at tack at age 47 No Known Problems Mother Family history is positive f or coronary artery disease. Other Relation Status Comments Father Mother Alive Other Social History Tobacco Use Types Packs/Day Years Used Date Smoking Tobacco: Some Days Cigarettes Last attempted to quit: 2014 Cigars Smokeless Tobacco: Never Tobacco Cessation:Ready to Q uit: Not Asked; Counseling Given: Not Answered Comments:uses an e cigarette with no nicotine Alcohol Use Standard Drinks/Week Comments No 0 (1 standard drink = 0.6 oz pur e alcohol) haven't drank since 2011 [facility] Pure Focus Answer Date Recorded In the past 12 months has e [employer], gas, oil, or water [employer] threatened to shut off services in your home? No 04/01/2024 Humiliation, Afraid, Rape, and Kick questionnair e Answer Date Recorded Within the last year, have y ou been afraid of your partner or ex-partner? No 04/01/2024 Within the last year, have y ou been humiliated or emotionally abused in other ways by your partner or ex-partner? No Within the last year, have y ou been kicked, hit, slapped, or otherwise physically hurt by your partner or ex-partner? No 04/01/2024 Within the last year, have y ou been raped or forced to have any kind of sexual activity by your partner or ex-partner? No 04/01/2024 AUDIT-C Answer Date Recorded Frequency of Alcohol Consumption Never 02/06/2019 Average Number of Drinks Not on file 019 Frequency of Binge Drinking Not on file 01/12 Overall Financial Resource Strain (CARDIA) Answe r Date Recorded How hard is it for you to pa y for the very basics like food, housing, medical care, and heating? Not hard at all 04/01/2024 PHQ-2 Answer Date Recorded PHQ-2 Score - If the patient scores above 3, please move on to questions 3-9 0 03/26/2022 Hunger Vital Sign Answer Date Recorded Within the past 12 months, y ou worried that your food would run out before you got the money to buy more. Never true 04/01/20 24 Within the past 12 months, t he food you bought just didn't last and you didn't have money to get more. Never true 04/01/2024 PRAPARE - Transportation Answer Date Re corded In the past 12 months, has l ack of transportation kept you from medical appointments or from getting medications? No 03/14 In the past 12 months, has l ack of transportation kept you from meetings, work, or from getting things needed for daily living? No 04/01/2024 Housing Stability Vital Sign Answer Loy e Recorded In the last 12 months, was t here a time when you were not able to pay the mortgage or rent on time? No 04/01/2024 In the past 12 months, how m any times have you moved where you were living? 1 04/01/2024 At any time in the past 12 m [facility], were you homeless or living in a skilled nursing (including now)? 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 Not on file Not on file Not on file Not on file Not on file Not on file Not on file Last Filed Vital Signs Vital Sign Reading Time Taken Comments Blood Pressure 138/80 06/19/2024 7:52 PM FINANCIAL AID ADVISOR Pulse 62 06/19/2024 7:52 PM FINANCIAL AID ADVISOR Temperature 37.2 C (99 F) 06/19/2024 7:52 PM FINANCIAL AID ADVISOR Respiratory Rate 18 06/19/2024 7:52 PM FINANCIAL AID ADVISOR Oxygen Saturation 98% 06/19/2024 7:55 PM FINANCIAL AID ADVISOR Inhaled Oxygen Concentration - - Weight 84.8 kg (187 lb) 06/19/2024 7:52 PM FINANCIAL AID ADVISOR Height 165.1 cm (5' 5 ) 06/19/2024 7:52 PM FINANCIAL AID ADVISOR Body Mass Index 31.12 06/19/2024 7:52 PM FINANCIAL AID ADVISOR Plan of Treatment Health Maintenance Due Date Last Done Comments ASCVD Statin 1965 Colorectal Cancer Screening Colonoscopy (10 Years) 1965 Pneumococcal Vaccine: Pediatrics (0 to 5 Years) and At-Risk Patients (6 to 64 Years) (1 of 2 - PCV) 08/03/1971 Hepatitis B Vaccines (1 of 3 - 19+ 3-dose series) 1984 Zoster Vaccines (1 of 2) 08/03/2015 Annual Physical 04/18/2022 04/18/2021 ASCVD LDL 04/19/2022 04/19/2021, 01/12, 10/22/2017, Additional history exists COVID-19 Vaccine (2023- season) 2024 Influenza Adult (#1) 2024 PHQ-2 (Physician [place]ot) 05/13/2024 DTaP, Tdap and Td Vaccines (2 - Td or Tdap) 10/23/2027 10/22/2017 Hepatitis C Completed 04/19/2021 Meningococcal B Vaccine Aged Out No l onger eligible based on patient's age to complete this topic Meningococcal Vaccine Aged Out No christel lily eligible based on patient's age to complete this topic RSV Immunizations Under 20 Months Aged Out No longer eligible based on patient's age to complete this topic Goals Goal Patient Goal Type Associated Problems Recent Progress Patient-Stated? Author Health - patient able to perform ADLs independently Lifestyle No Alayna Lang, RN Medical Devices Implanted Type Area Call Center Support Representative Device Identifier Shelf Expiration Date Model / Serial / Lot Stent Ureteral Contour Vl 4.8fr X 22-30cm - [id number] Implanted:Qty: 1 on 03/31/2024 by Remigio Portillo MD at [facility] Stent Left: Ureter [employer] [id number] 12/22/2026 [id number] / / [id number] Cardiovascular Patch Implanted:Qty: 1 on 02/07/2019 by Dipak Long MD at [facility] Right: Groin 05/12/2023 [id number] / [id number] Procedures Procedure Name Priority Date/Time Associated Diagnosis Comments CTA CHEST PE PROTOCOL STAT 06/19/2024 11:53 PM FINANCIAL AID ADVISOR TROPONIN, QUANT STAT 06/19/2024 10:02 PM FINANCIAL AID ADVISOR ECG 12-LEAD STAT 06/19/2024 10:01 PM FINANCIAL AID ADVISOR Procedure Note - 06/19/2024 10:01 PM CSTThis note is in progress. [facility] Test Date: 2024-06-19 Pat Name: SOURAV NAVA Department: 41 Room: [facility] Gender: Male Environmental Engineering Assistant: [id number] : 1965 Requested By: SHERYL NIETO Order Number: [id number] Reading MD: Measurements Intervals [place] Rate: 58 P: 25 CO: 165 QRS: -78 QRSD: 86 T: 10 QT: 422 QTc: 415 Interpretive Statements SINUS BRADYCARDIA LEFT AXIS DEVIATION [QRS AXIS < -30] POSSIBLE RIGHT VENTRICULAR CONDUCTION DELAY [RSR (QR) IN V1/V2] ANTEROSEPTAL MYOCARDIAL INFARCTION , OF INDETERMINATE AGE [40+ ms Q WAVEIN V1-V4] Compared to ECG 06/19/2024 19:52:26 Sinus rhythm no longer present Myocardial infarct finding still present XR CHEST PORTABLE STAT 06/19/2024 8:3 7 PM FINANCIAL AID ADVISOR TROPONIN, QUANT STAT 06/19/2024 8:01 PM FINANCIAL AID ADVISOR COMPREHENSIVE METABOLIC PANEL STAT 06/19/2024 8:01 PM FINANCIAL AID ADVISOR CBC W/DIFF AUTOMATED STAT 06/19/2024 8:01 PM FINANCIAL AID ADVISOR ECG 12-LEAD STAT 06/19/2024 7:52 PM FINANCIAL AID ADVISOR CBC W/DIFF AUTOMATED Routine 04/03/2024 5:00 AM FINANCIAL AID ADVISOR COMPREHENSIVE METABOLIC PANEL Routine 04/03/2024 5:00 AM FINANCIAL AID ADVISOR CBC W/DIFF AUTOMATED Routine 04/02/2024 5:00 AM FINANCIAL AID ADVISOR COMPREHENSIVE METABOLIC PANEL Routine 04/02/2024 5:00 AM FINANCIAL AID ADVISOR URINE BACTERIA CULTURE Routine 04/01/2024 6:30 AM FINANCIAL AID ADVISOR CULTURE, BACTERIA, BLOOD STAT 04/01/2024 6:30 AM FINANCIAL AID ADVISOR LACTIC ACID W REFLEX (SEPSIS) STAT 04/01/2024 6:30 AM FINANCIAL AID ADVISOR HC URINALYSIS AUTO W/O MICRO STAT 04/01/2024 6:30 AM FINANCIAL AID ADVISOR MAGNESIUM Routine 04/01/2024 5:00 AM FINANCIAL AID ADVISOR CBC W/DIFF AUTOMATED Routine 04/01/2024 5:00 AM FINANCIAL AID ADVISOR BASIC METABOLIC PANEL Routine 04/01/2024 5:00 AM FINANCIAL AID ADVISOR SURG XR RETROGRD UROGRAPHY STAT 03/31/2024 11:53 PM FINANCIAL AID ADVISOR STONE ANALYSIS Routine 03/31/2024 11:40 PM FINANCIAL AID ADVISOR CYSTOSCOPY,INSERT URETERAL STENT 03/31/2024 11:11 PM FINANCIAL AID ADVISOR YUSEF (acute kidney injury) (CMS/HCC) CT ABD+PEL WO CON STAT 03/31/2024 6:2 7 PM FINANCIAL AID ADVISOR LIPASE STAT 03/31/2024 5:03 PM FINANCIAL AID ADVISOR COMPREHENSIVE METABOLIC PANEL STAT 03/31/2024 5:03 PM FINANCIAL AID ADVISOR CBC W/DIFF AUTOMATED STAT 03/31/2024 5:03 PM FINANCIAL AID ADVISOR LIPID PANEL Routine 04/19/2021 7:05 AM FINANCIAL AID ADVISOR Atherosclerotic peripheral vascular disease Dyslipidemia HEPATITIS C ANTIBODY Routine 04/19/2021 7:05 AM FINANCIAL AID ADVISOR Need for hepatitis C screening test from Last 3 Months or Most Recently Relevant to Health Maintenance Results * CTA CHEST PE PROTOCOL (06/19/2024 11:53 PM FINANCIAL AID ADVISOR) Anatomical Region Laterality Modality Chest Computed Tomogra phy 06/20/2024 12:0 6 AM FINANCIAL AID ADVISOR Impressions 06/20/2024 12:10 AM FINANCIAL AID ADVISOR IMPRESSION: Poor opacification of the pulmonary arteries. No large or central filling defects are seen. Referred By: Interpreted By: Elio Ramsay MD, 06/20/2024 12:06 AM Narrative 06/20/2024 12:10 AM FINANCIAL AID ADVISOR [place] [id number] EXAMINATION: CTA CHEST WITH CONTRAST, PULMONARY EMBOLISM INDICATION: Shortness of breath. COMPARISON: 11/29/2020 TECHNIQUE: Computed tomography angiography was performed of the chest after administration of intravenous contrast, 80 mL Isovue-370, according to pulmonary embolism protocol. 3-D reformatted MIPS were constructed at a separate workstation under physician supervision and reviewed. Radiation dose reduction technique(s) were used. FINDINGS: There is poor opacification of the pulmonary arteries. No large or central intraluminal filling defects are demonstrated. Airways are patent. Scattered minimal atelectatic changes in lungs. No pleural effusion, pneumothorax, or consolidation. No suspicious nodule or mass. No cardiomegaly or pericardial effusion. Coronary artery calcification. The thoracic aorta and pulmonary artery are normal in caliber. No mediastinal, hilar, or axillary lymphadenopathy. Incidentally noted severe atrophy of the right kidney. The visualized upper abdomen is otherwise unremarkable. No acute osseous abnormality or destructive bone lesions. Procedure Note Elio Ramsay MD - 06/20/2024 [place] [id number] EXAMINATION: CTA CHEST WITH CONTRAST, PULMONARY EMBOLISM INDICATION: Shortness of breath. COMPARISON: 11/29/2020 TECHNIQUE: Computed tomography angiography was performed of the chestafter administration of intravenous contrast, 80 mL Isovue-370, accordingto pulmonary embolism protocol. 3-D reformatted MIPS were constructed madeline separate workstation under physician supervision and reviewed. Radiationdose reduction technique(s) were used. FINDINGS: There is poor opacification of the pulmonary arteries. No large or centralintraluminal filling defects are demonstrated. Airways are patent. Scattered minimal atelectatic changes in lungs. Nopleural effusion, pneumothorax, or consolidation. No suspicious nodule ormass. No cardiomegaly or pericardial effusion. Coronary artery calcification.The thoracic aorta and pulmonary artery are normal in caliber. Nomediastinal, hilar, or axillary lymphadenopathy. Incidentally noted severe atrophy of the right kidney. The visualizedupper abdomen is otherwise unremarkable. No acute osseous abnormality or destructive bone lesions. IMPRESSION: Poor opacification of the pulmonary arteries. No large or central fillingdefects are seen. Referred By: Interpreted By: Elio Ramsay MD, 06/20/2024 12:06 AM us Sheryl Nieto MD CT Final Resul t * TROPONIN, QUANT (06/19/2024 10:02 PM FINANCIAL AID ADVISOR) Only the most recent of2 resultswithin the time period is included. TROPONIN I HIGH SENSITIVITY 18 <79 ng/L 06/19/2024 10:29 PM FINANCIAL AID ADVISOR [facility] Comment: HIGH DOSES OF BIOTIN, TROPONIN-SPECIFIC AUTOANTIBODIES, AND ANTIBODY THERAPY CONTAINING HAMA MAY INTERFERE WITH THIS TEST RESULT. CORRELATION TO CLINICAL HISTORY AND PRESENTATION RECOMMENDED. 06/19/2024 10:0 2 PM FINANCIAL AID ADVISOR us Sheryl Nieto MD LABORATORY Final Resul t [facility] [address] [place] [address], [place] [phone] * XR CHEST PORTABLE (06/19/2024 8:37 PM FINANCIAL AID ADVISOR) Anatomical Region Laterality Modality Chest Radiographic Shannan ging 06/19/2024 8:41 PM FINANCIAL AID ADVISOR Impressions 06/19/2024 8:42 PM FINANCIAL AID ADVISOR IMPRESSION: No radiographic evidence is seen to suggest acute cardiopulmonary abnormality. Referred By: Interpreted By: Louis Brown DO, 06/19/2024 8:41 PM Narrative 06/19/2024 8:42 PM FINANCIAL AID ADVISOR [address] [address] Examination: XR CHEST PORTABLE Exam time: 06/19/2024 8:20 PM Clinical history: Chest pain. Midsternal chest pressure, heaviness with dizziness, and nausea for 2 weeks. Comparison: Chest radiographs 10/16/2023, 06/25/2023, 03/23/2023, and 05/07/2022. Technique: Upright AP portable radiograph of the chest. Findings: Examination is obtained with the patient in lordotic positioning. The cardiomediastinal silhouette is normal in size. Pulmonary vasculature is appropriately distributed. There are atherosclerotic calcifications of the thoracic aorta. The lungs are clear of active opacities. There is no sizable pleural effusion or pneumothorax. Procedure Note Louis Brown DO - 06/19/[address] [address] Examination: XR CHEST PORTABLE Exam time: 06/19/2024 8:20 PM Clinical history: Chest pain. Midsternal chest pressure, heaviness withdizziness, and nausea for 2 weeks. Comparison: Chest radiographs 10/16/2023, 06/25/2023, 03/23/2023, and05/07/2022. Technique: Upright AP portable radiograph of the chest. Findings: Examination is obtained with the patient in lordotic positioning. Thecardiomediastinal silhouette is normal in size. Pulmonary vasculature isappropriately distributed. There are atherosclerotic calcifications ofthe thoracic aorta. The lungs are clear of active opacities. There is nosizable pleural effusion or pneumothorax. IMPRESSION: No radiographic evidence is seen to suggest acute cardiopulmonaryabnormality. Referred By: Interpreted By: Louis Brown DO, 06/19/2024 8:41 PM Sheryl Nieto MD GENERAL IMAGING Final Resul t * (ABNORMAL) COMPREHENSIVE METABOLIC PANEL (06/19/2024 8:01 PM FINANCIAL AID ADVISOR) Only the most recent of4 resultswithin the time period is included. Pathologist [facility] GLUCOSE 79 70 - 99 MG/DL 06/19/2024 8:35 PM [facility] BUN 16 7 - 18 MG/DL 06/19/2024 8:35 PM [facility] CREATININE S/P/B 1.51(H) 0.7 - 1.3 MG/DL 06/19/2024 8:35 PM [facility] SODIUM S/P/B 143 136 - 145 MMOL/L 06/19/2024 8:35 PM [facility] POTASSIUM S/P/B 4.1 3.5 - 5.1 MMOL/L 06/19/2024 8:35 PM [facility] CHLORIDE S/P/B 114 97 - 115 MMOL/L 06/19/2024 8:35 PM [facility] CO2 22.8 21 - 32 MMOL/L 06/19/2024 8:35 PM [facility] CALCIUM S/P/B 9.0 8.5 - 10.1 MG/DL 06/19/2024 8:35 PM [facility] BILIRUBIN TOTAL S/P/B 0.3 0.2 - 1.2 MG/DL 06/19/2024 8:35 PM [facility] Comment: THIS ASSAY IS NOT RECOMMENDED FOR PATIENTS UNDERGOING TREATMENT WITH ELTROMBOPAG DUE TO THE POTENTIAL FOR FALSELY ELEVATED RESULTS. TOTAL PROTEIN S/P/B 7.2 6.4 - 8.2 G/DL 06/19/2024 8:35 PM [facility] ALBUMIN S/P/B 3.2(L) 3.4 - 5.0 G/DL 06/19/2024 8:35 PM [facility] AST 34 15 - 37 U/L 06/19/2024 8:35 PM [facility] ALT 78(H) 16 - 60 U/L 06/19/2024 8:35 PM [facility] ALKALINE PHOSPHATASE S/P/B 134 50 - 136 U/L 06/19/2024 8:35 PM [facility] ANION GAP 6.2 2 - 10 MMOL/L 06/19/2024 8:35 PM [facility] BUN CREATININE RATIO 10.6 6 - 26 06/19/2024 8:35 PM [facility] A/G RATIO 0.8(L) 1.0 - 2.0 RATIO 06/19/2024 8:35 PM [facility] GFR ESTIMATE 53(L) >90 ML/MIN/1.7 3 M2 06/19/2024 8:35 PM [facility] Comment: NOTE: eGFR is not calculated for patients <18 years of age or gender unknown. This is an estimated GFR calculation using the new CKD EPI creatinine equation without race and so does not require a correction factor for race. This estimated GFR should not be used for calculating drug doses. 06/19/2024 8:01 PM FINANCIAL AID ADVISOR us Sheryl Nieto MD LABORATORY Final Resul t [facility] [address] [place] [address], [place] [phone] * (ABNORMAL) CBC W/DIFF AUTOMATED (06/19/2024 8:01 PM FINANCIAL AID ADVISOR) Only the most recent of5 resultswithin the time period is included. WBC 6.89 4.5 - 11.0 x10'3/uL 06/19/2024 8:20 PM [facility] RBC 4.67(L) 4.70 - 6.10 x10'6/uL 06/19/2024 8:20 PM [facility] HGB 14.0 14.0 - 18.0 G/DL 06/19/2024 8:20 PM [facility] HCT 41.7(L) 43.0 - 54.0 % 06/19/2024 8:20 PM [facility] MCV 89.3 80.0 - 94.0 FL 06/19/2024 8:20 PM [facility] MCH 30.0 27.0 - 31.0 PG 06/19/2024 8:20 PM [facility] MCHC 33.6 32.0 - 36.0 G/DL 06/19/2024 8:20 PM [facility] RDW 14.1 11.5 - 14.5 % 06/19/2024 8:20 PM [facility] PLT 251 130 - 400 x10'3/uL 06/19/2024 8:20 PM [facility] MPV 9.3 9.3 - 12.2 FL 06/19/2024 8:20 PM [facility] DIFFERENTIAL TYPE AUTOMATED DIFFERENTIAL 06/19/2024 8:20 PM [facility] NEUTROPHILS % 63.8 % 06/19/2024 8:20 PM [facility] LYMPHOCYTES % 20.9 % 06/19/2024 8:20 PM [facility] MONOCYTES % 11.9 % 06/19/2024 8:20 PM FINANCIAL AID ADVISOR [facility] EOSINOPHILS 3.0 % 06/19/2024 8:20 PM FINANCIAL AID ADVISOR [facility] BASOPHILS 0.3 % 06/19/2024 8:20 PM FINANCIAL AID ADVISOR [facility] IMMATURE GRANS % 0.1 % 06/19/19 8:20 PM FINANCIAL AID ADVISOR [facility] ABS. NEUTROPHILS 4.39 1.80 - 7.70 x10'3/uL 06/19/2024 8:20 PM FINANCIAL AID ADVISOR [facility] ABS. LYMPHOCYTES 1.44 1.00 - 4.80 x10'3/uL 06/19/2024 8:20 PM FINANCIAL AID ADVISOR [facility] ABS. MONOCYTES 0.82 0.30 - 0.82 x10'3/uL 06/19/2024 8:20 PM FINANCIAL AID ADVISOR [facility] ABS. EOSINOPHILS 0.21 0.04 - 0.54 x10'3/uL 06/19/2024 8:20 PM FINANCIAL AID ADVISOR [facility] ABS. BASOPHILS 0.02 0.01 - 0.08 x10'3/uL 06/19/2024 8:20 PM FINANCIAL AID ADVISOR [facility] ABS. IMMATURE GRANULOCYTES 0.01 0.00 - 0.49 x10'3/uL 06/19/2024 8:20 PM FINANCIAL AID ADVISOR [facility] 06/19/2024 8:01 PM FINANCIAL AID ADVISOR us Sheryl Nieto MD LABORATORY Final Resul t [facility] [address] [place] [address], * ECG 12 lead (06/19/2024 7:52 PM FINANCIAL AID ADVISOR) 06/19/2024 7:52 PM FINANCIAL AID ADVISOR Narrative [facility] ([facility] - 06/19/2024 8:[address] [facility] [facility] [address] [place] [address] Test Date: 2024-06-19 Pat Name: SOURAV NAVA Department: 41 Room: Gender: Male Environmental Engineering Assistant: : 1965 Requested By: SHERYL NIETO Order Number: [id number] Reading MD: Anh Griffin Measurements Intervals [place] Rate: 61 P: 18 CO: 150 QRS: -86 QRSD: 85 T: 26 QT: 385 QTc: 390 Interpretive Statements SINUS RHYTHM LEFT AXIS DEVIATION [QRS AXIS < -30] POSSIBLE RIGHT VENTRICULAR CONDUCTION DELAY [RSR (QR) IN V1/V2] ANTEROSEPTAL MYOCARDIAL INFARCTION , OF INDETERMINATE AGE Compared to ECG 10/16/2023 18:44:13 Left-axis deviation now present Right-axis deviation no longer present Myocardial infarct finding still present NCIAL AID ADVISOR Procedure Note Anh Griffin MD - 06/19/2024 [facility] [address] [place] [address] Test Date: 2024-06-19 Pat Name: SOURAV NAVA Department: 41 Room: Gender: Male Environmental Engineering Assistant: : 1965 Requested By: SHERYL NIETO Order Number: [id number] Reading MD: Anh Griffin Measurements Intervals [place] Rate: 61 P: 18 CO: 150 QRS: -86 QRSD: 85 T: 26 QT: 385 QTc: 390 Interpretive Statements SINUS RHYTHM LEFT AXIS DEVIATION [QRS AXIS < -30] POSSIBLE RIGHT VENTRICULAR CONDUCTION DELAY [RSR (QR) IN V1/V2] ANTEROSEPTAL MYOCARDIAL INFARCTION , OF INDETERMINATE AGE Compared to ECG 10/16/2023 18:44:13 Left-axis deviation now present Right-axis deviation no longer present Myocardial infarct finding still present NCIAL AID ADVISOR us Sheryl Nieto MD ECG ORDERABLES Final Resul t [facility] ([facility] * LACTIC ACID W REFLEX (SEPSIS) (04/01/2024 6:30 AM FINANCIAL AID ADVISOR) LACTIC ACID VENOUS 0.9 0.4 - 2.0 MMOL/L 04/01/2024 7:17 AM FINANCIAL AID ADVISOR [facility] 04/01/2024 6:30 AM FINANCIAL AID ADVISOR us Nathaniel Ventura DO LABORATORY Final Result [facility] [address] [place] [address], [place] [phone] * (ABNORMAL) URINALYSIS (04/01/2024 6:30 AM FINANCIAL AID ADVISOR) SPECIMEN TYPE URINE CLEAN CATCH 04/01/2024 6:36 AM FINANCIAL AID ADVISOR [facility] COLOR (U) BROWN 04/01/2024 7:45 AM FINANCIAL AID ADVISOR [facility] TRANSPARENCY TURBID 04/01/2024 7:45 AM FINANCIAL AID ADVISOR [facility] SPECIFIC GRAVITY (U) 1.010 1.001 - 1.030 04/01/2024 7:45 AM FINANCIAL AID ADVISOR [facility] U PH 5.5 5.0 - 9.0 04/01/2024 7:45 AM [facility] LEUKOCYTES (U) 75(A) NEGATIVE 04/01/2024 7:45 AM FINANCIAL AID ADVISOR [facility] NITRITES NEGATIVE NEGATIVE 04/01/2024 7:45 AM [facility] PROTEIN RANDOM (U) 100(H) <30 MG/DL 04/01/2024 7:45 AM [facility] GLUCOSE (U) NORMAL NORMAL MG/DL 04/01/2024 7:45 AM FINANCIAL AID ADVISOR [facility] KETONES MG/DL (U) NEGATIVE NEGATIVE MG/DL 04/01/2024 7:45 AM FINANCIAL AID ADVISOR [facility] UROBILINOGEN NORMAL NORMAL MG/DL 04/01/2024 7:45 AM [facility] BILIRUBIN (U) NEGATIVE NEGATIVE MG/DL 04/01/2024 7:45 AM FINANCIAL AID ADVISOR [facility] BLOOD (U) 3+(A) NEGATIVE 04/01/2024 7:45 AM FINANCIAL AID ADVISOR [facility] WBC/HPF 43(H) <6 /HPF 04/01/2024 7:45 AM [facility] RBC/HPF >100(H) <6 /HPF 04/01/2024 7:45 AM [facility] BACTERIA (U) MANY(A) NONE /HPF 04/01/2024 7:45 AM FINANCIAL AID ADVISOR [facility] URINE SPECIMEN OBTAINED BY CLEAN CATCH PROCEDURE / Unknown 04/01/2024 6:30 AM FINANCIAL AID ADVISOR Andria PIMENTEL URINE ORDERABLES Final Result [facility] [address] [place] [address], * URINE BACTERIA CULTURE (04/01/2024 6:30 AM FINANCIAL AID ADVISOR) SPEC DESCRIPTION URINE CLEAN CATCH 03/31/2024 10:28 PM FINANCIAL AID ADVISOR [facility] SPECIAL REQUESTS NO SPECIAL REQUEST 03/31/2024 10:28 PM FINANCIAL AID ADVISOR [facility] CULTURE RESULT NO GROWTH 2 DAYS 04/03/2024 7:42 AM FINANCIAL AID ADVISOR [facility] URINE SPECIMEN OBTAINED BY CLEAN CATCH PROCEDURE / Unknown 04/01/2024 6:30 AM FINANCIAL AID ADVISOR 04/01/2024 6:43 AM FINANCIAL AID ADVISOR us Staci Villarreal DO MICROBIOLOGY - GENERAL ORDER OCTAVIA Final Result Performing Organization Address [facility]/ZIP Co de Phone Number [facility] [address] [place] [phone], * CULTURE BACTERIA, BLOOD (04/01/2024 6:30 AM FINANCIAL AID ADVISOR) SPEC DESCRIPTION BLOOD 03/31/2024 10:12 PM FINANCIAL AID ADVISOR [facility] SPECIAL REQUESTS NO SPECIAL REQUEST 03/31/2024 10:12 PM FINANCIAL AID ADVISOR [facility] CULTURE RESULT NO GROWTH 5 DAYS 04/06/2024 6:40 AM FINANCIAL AID ADVISOR [facility] BLOOD SPECIMEN OBTAINED FOR BLOOD CULTURE / Unknown 04/01/2024 6:30 AM FINANCIAL AID ADVISOR 04/01/2024 6:42 AM FINANCIAL AID ADVISOR us Nathaniel Ventura DO MICROBIOLOGY - GENERAL ORDERAB LES Final Result Performing Organization Address [facility]/ZIP Co de Phone Number [facility] [address] [place] [phone], * (ABNORMAL) BASIC METABOLIC PANEL (04/01/2024 5:00 AM FINANCIAL AID ADVISOR) GLUCOSE 93 70 - 99 MG/DL 04/01/2024 6:45 AM FINANCIAL AID ADVISOR [facility] BUN 32(H) 7 - 18 MG/DL 04/01/2024 6:45 AM FINANCIAL AID ADVISOR [facility] CREATININE S/P/B 3.62(H) 0.7 - 1.3 MG/DL 04/01/2024 6:45 AM FINANCIAL AID ADVISOR [facility] SODIUM S/P/B 137 136 - 145 MMOL/L 04/01/2024 6:45 AM [facility] POTASSIUM S/P/B 4.1 3.5 - 5.1 MMOL/L 04/01/2024 6:45 AM [facility] CHLORIDE S/P/B 108 97 - 115 MMOL/L 04/01/2024 6:45 AM [facility] CO2 21.5 21 - 32 MMOL/L 04/01/2024 6:45 AM [facility] CALCIUM S/P/B 8.4(L) 8.5 - 10.1 MG/DL 04/01/2024 6:45 AM [facility] ANION GAP 7.5 2 - 10 MMOL/L 04/01/2024 6:45 AM [facility] BUN CREATININE RATIO 8.8 6 - 26 04/01/2024 6:45 AM [facility] GFR ESTIMATE 19(L) >90 ML/MIN/1.7 3 M2 04/01/2024 6:45 AM [facility] Comment: NOTE: eGFR is not calculated for patients <18 years of age or gender unknown. This is an estimated GFR calculation using the new CKD EPI creatinine equation without race and so does not require a correction factor for race. This estimated GFR should not be used for calculating drug doses. 04/01/2024 5:[address] [facility] Staci Villarreal DO LABORATORY Final Result [facility] [address] [place] [address], [place] [phone] * MAGNESIUM (04/01/2024 5:00 AM FINANCIAL AID ADVISOR) MAGNESIUM 2.1 1.8 - 2.4 MG/DL 04/01/2024 6:45 AM [facility] 04/01/2024 5:00 AM FINANCIAL AID ADVISOR us Staci Villarreal DO LABORATORY Final Result [facility] [address] [place] [address], [place] [phone] * SURG XR RETROGRD UROGRAPHY (03/31/2024 11:53 PM FINANCIAL AID ADVISOR) Anatomical Region Laterality Modality Abdomen Radiographic Hsannan ging 04/01/2024 12:1 0 AM FINANCIAL AID ADVISOR Impressions 04/01/2024 12:10 AM FINANCIAL AID ADVISOR IMPRESSION: Fluoroscopy provided, no interpretation requested, see separate operative report Referred By: Interpreted By: Michele Lorenzana MD, 04/01/2024 12:10 AM Narrative 04/01/2024 12:10 AM FINANCIAL AID ADVISOR [place] [address] INDICATION: Fluoroscopic guidance Procedure Note Eduardo Lorenzana MD - 04/01/2024 [place] [address] INDICATION: Fluoroscopic guidance IMPRESSION: Fluoroscopy provided, no interpretation requested, seeseparate operative report Referred By: Interpreted By: Michele Lorenzana MD, 04/01/2024 12:10 AM Remigio Portillo MD IMAGES ONLY Final Result * STONE ANALYSIS (03/31/2024 11:40 PM FINANCIAL AID ADVISOR) SOURCE URETERAL STONE, LEFT 04/01/2024 7:16 AM FINANCIAL AID ADVISOR [facility] STONE ANALYSIS COMPONENT REPORT 04/11/2024 5:26 PM FINANCIAL AID ADVISOR [employer] KATHRYN YOUNG Comment: Calcium Oxalate Dihydrate (Weddellite) 20% Calcium Oxalate Monohydrate (Whewellite) 80% STONE ANALYSIS WEIGHT 0.028 g 04/11/2024 5:26 PM FINANCIAL AID ADVISOR [employer] KATHRYN YOUNG Comment: This test was developed and its analytical performance characteristics have been determined by [employer]. It has not been cleared or approved by FDA. This assay has been validated pursuant to the CLIA regulations and is used for clinical purposes. Test performed by [facility] [address] [place] [address] Legal Compliance Officer: Litzy Gold MD,PHD,JOHANNA Test Reported by [facility], [address] [place] [address] Sergo Mcnulty M.D., Ph.D., Director of Laboratories , CLIA [id number] STONE (OTHER (type in comments)) 03/31/2024 11:40 PM FINANCIAL AID ADVISOR Remigio Portillo MD BODY FLUIDS AND STOOLS ORDERABLE S Final Result [employer] [address] [address], [place] [phone] [facility] [address] [place] [address], [place] [phone] * CT ABD+PEL WO CON (03/31/2024 6:27 PM FINANCIAL AID ADVISOR) Anatomical Region Laterality Modality Abdomen Computed Tomogra phy 03/31/2024 6:35 PM FINANCIAL AID ADVISOR Impressions 03/31/2024 6:42 PM FINANCIAL AID ADVISOR IMPRESSION: 1. Left-sided hydronephrosis and hydroureter secondary to an obstructing 4-5 mm distal left ureteral calculus. Surrounding perinephric and periureteral stranding. 2. Colonic diverticulosis. Ill-defined inflammation/stranding adjacent to the descending colon could reflect mild acute diverticulitis. No free fluid or free air. 3. Marked asymmetric atrophy of the right kidney with nonobstructing right-sided renal calculi. 4. Dependent gallbladder sludge. 5. Atherosclerosis. Coronary artery calcifications and/or stents. 6. Circumferential bladder wall thickening, possibly in part due to underdistention. Could correlate with urinalysis. 7. Please see above for additional chronic, incidental, and nonemergent findings elsewhere. Referred By: Interpreted By: Jayden Garcia MD, 03/31/2024 6:35 PM Narrative 03/31/2024 6:42 PM FINANCIAL AID ADVISOR [place] [address] EXAMINATION: CT Abdomen and Pelvis without contrast CLINICAL HISTORY: Left-sided abdominal pain. COMPARISON: 05/07/2022 TECHNIQUE: Computed tomography of the abdomen and pelvis was obtained without administration of intravenous contrast according to routine protocol. A dose lowering technique was used for this procedure, which may include, but is not limited to, dose reduction technique, automated exposure control, the use of iterative reconstruction, and ALARA (As Low As Reasonably Achievable) / Image Gently techniques. FINDINGS: Images of the lower chest reveal coronary artery calcifications an/or stents. There is left-sided hydronephrosis and hydroureter secondary to an obstructing 4-5 mm calculus in the distal left ureter. Surrounding perinephric and periureteral stranding. Marked asymmetric atrophy of the right kidney. Nonobstructing right renal calculi versus vascular calcifications. No right-sided hydronephrosis or hydroureter. Dependent sludge suggested within the gallbladder. Liver, spleen, and adrenal glands are unremarkable. Pancreatic parenchyma not well evaluated without intravenous contrast. Atherosclerotic calcifications noted along the aorta and its branches. No bulky mesenteric or retroperitoneal lymphadenopathy. Stomach and small bowel loops are nondilated. Normal appendix. Colonic diverticulosis. Subtle stranding/inflammation noted adjacent to the descending: No free fluid or free air in the abdomen. Sigmoid diverticulosis. Pelvic vascular calcifications. Circumferential bladder wall thickening. No pelvic ascites. No bulky pelvic or inguinal lymphadenopathy. Bilateral femoral artery stents. Degenerative changes noted in the spine. Procedure Note Jayden Garcia MD - 03/31/2024 [facility] [address] [place], [place] [address] EXAMINATION: CT Abdomen and Pelvis without contrast CLINICAL HISTORY: Left-sided abdominal pain. COMPARISON: 05/07/2022 TECHNIQUE: Computed tomography of the abdomen and pelvis was obtainedwithout administration of intravenous contrast according to routineprotocol. A dose lowering technique was used for this procedure, which may include,but is not limited to, dose reduction technique, automated exposurecontrol, the use of iterative reconstruction, and ALARA (As Low AsReasonably Achievable) / Image Gently techniques. FINDINGS: Images of the lower chest reveal coronary artery calcifications an/orstents. There is left-sided hydronephrosis and hydroureter secondary to anobstructing 4- 5 mm calculus in the distal left ureter. Surroundingperinephric and periureteral stranding. Marked asymmetric atrophy of theright kidney. Nonobstructing right renal calculi versus vascularcalcifications. No right-sided hydronephrosis or hydroureter. Dependent sludge suggested within the gallbladder. Liver, spleen, andadrenal glands are unremarkable. Pancreatic parenchyma not well evaluatedwithout intravenous contrast. Atherosclerotic calcifications noted alongthe aorta and its branches. No bulky mesenteric or retroperitoneallymphadenopathy. Stomach and small bowel loops are nondilated. Normal appendix. Colonicdiverticulosis. Subtle stranding/inflammation noted adjacent to thedescending: No free fluid or free air in the abdomen. Sigmoid diverticulosis. Pelvic vascular calcifications. Circumferentialbladder wall thickening. No pelvic ascites. No bulky pelvic or inguinallymphadenopathy. Bilateral femoral artery stents. Degenerative changes noted in the spine. IMPRESSION: 1. Left-sided hydronephrosis and hydroureter secondary to an obstructing4-5 mm distal left ureteral calculus. Surrounding perinephric andperiureteral stranding. 2. Colonic diverticulosis. Ill-defined inflammation/stranding adjacent tothe descending colon could reflect mild acute diverticulitis. No freefluid or free air. 3. Marked asymmetric atrophy of the right kidney with nonobstructingright-sided renal calculi. 4. Dependent gallbladder sludge. 5. Atherosclerosis. Coronary artery calcifications and/or stents. 6. Circumferential bladder wall thickening, possibly in part due tounderdistention. Could correlate with urinalysis. 7. Please see above for additional chronic, incidental, and nonemergentfindings elsewhere. Referred By: Interpreted By: Jayden Garcia MD, 03/31/2024 6:[address] Final Result * LIPASE (03/31/2024 5:03 PM FINANCIAL AID ADVISOR) LIPASE 38 13 - 75 UNITS/L 03/31/2024 5:44 PM FINANCIAL AID ADVISOR [facility] 03/31/2024 5:03 PM FINANCIAL AID ADVISOR Andria PIMENTEL LABORATORY Final Result [facility] [address] [place] [address], [place] [phone] * (ABNORMAL) LIPID PANEL (04/19/2021 7:05 AM FINANCIAL AID ADVISOR) CHOLESTEROL 111 <200 MG/DL 04/19/2021 4:01 PM [facility] TRIGLYCERIDES 51 <150 MG/DL 04/19/2021 4:01 PM [facility] HDL 37(L) >40 MG/DL 04/19/2021 4:01 PM [facility] LDL-C 64 <100 MG/DL 04/19/2021 4:01 PM [facility] VLDL CALCULATION 10 5 - 28 MG/DL 04/19/2021 4:01 PM [facility] CHOL/HDL RATIO 3.0 0.0 - 4.0 04/19/2021 4:01 PM FINANCIAL AID ADVISOR [facility] LDL/HDL 1.7 0.41 - 2.13 04/19/2021 4:01 PM FINANCIAL AID ADVISOR [facility] NON HDL CHOLESTEROL 74 <140 MG/DL 04/19/2021 4:01 PM FINANCIAL AID ADVISOR [facility] 04/19/2021 7:05 AM FINANCIAL AID ADVISOR Moy Constantino MD LABORATORY Final Res ult [facility] [address] [place] [address], [place] [phone] * HEPATITIS C ANTIBODY (04/19/2021 7:05 AM FINANCIAL AID ADVISOR) HEPATITIS C AB NON-REACTI VE NON-REACT ADRIANA 04/19/2021 10:08 PM FINANCIAL AID ADVISOR [facility] Comment: ANTIBODIES TO HCV NOT DETECTED. DOES NOT EXCLUDE THE POSSIBILITY OF EXPOSURE TO HCV. 04/19/2021 7:05 AM FINANCIAL AID ADVISOR Moy Constantino MD LABORATORY Final Res ult [facility] [address] [place] [address], [place] [phone] from Last 3 Months or Most Recently Relevant to Health Maintenance Insurance MEDICAID [facility] Advance Directives Documents on File Type Date Recorded Patient Cottage Parent Expl anation Legal Documents 09/15/2019 11:13 AM COMPLET ED ATTY REQ FOR HB BILLS FOR [facility] FOR [employer] * Full Code (Latest Code Status on File) Date Activated Date Inactivated Comments 03/31/2024 10:27 PM 04/03/2024 3:18 PM * Full Code Date Activated Date Inactivated Comments 11/14/2021 12:41 PM 11/14/2021 7:24 PM * Full Code Date Activated Date Inactivated Comments 02/07/2019 5:28 PM 02/11/2019 1:24 PM Care Teams Parliamentary Archivist Relationship Specialty Start Date End Date Alex Kohli MD PCP - General FAMILY PRACTICE 12/01/22
--- OUTSIDE RECORDS SUMMARY | 2024-06-20 17:42 | XMS_ITS | Encounter Summary ---
Author Organization [facility] Address [facility] [place] [address] Care Team Providers Care Optometry Professor Name Role Phone Alex Kohli MD Primary Care Provider [phone] Encounter Details Date Type Department Care Team (Latest Contact Info) Description 06/19/2024 Travel Social History Tobacco Use Types Packs/Day Years Used Date Smoking Tobacco: Some Days Cigarettes Last attempted to quit: 2014 Cigars Smokeless Tobacco: Never Comments:uses an e cigarette with no nicotine Alcohol Use Standard Drinks/Week Comments No 0 (1 standard drink = 0.6 oz pur e alcohol) haven't drank since 2011 [facility] [employer] Answer Date Recorded In the past 12 months has [employer], gas, oil, or water [employer] threatened to shut off services in your [...] any time in the past 12 m [facility], were you homeless or living in a usp (including now)? 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 Answer Date of Assessment Author Status No 04/01/2024 12:57 AM Sandhya Voss RN Active * Do you have serious difficulty walking or climbing stairs? Answer Date of Assessment Author Status No 04/01/2024 12:57 AM Sandhya Voss RN Active * Do you have difficulty dressing or bathing? Answer Date of Assessment Author Status No 04/01/2024 12:57 AM Sandhya Voss RN Active * Because of a physical, mental, or emotional condition, do you have difficulty doing errands alone such as visiting a doctor's office or shopping? Answer Date of Assessment Author Status No 04/01/2024 12:57 AM Sandhya Voss RN Active documented as of this encounter Mental Status * Because of a physical, mental, or emotional condition, do you have serious difficulty concentrating, remembering, or making decisions? Answer Entry Date Author Status No 04/01/2024 12:57 AM Sandhya Voss RN Active documented in this encounter Plan of Treatment Not on file documented as of this encounter Goals Goal Patient Goal Type Associated Problems Recent Progress Patient-Stated? Author Health - patient able to perform ADLs independently Lifestyle No Alayna Lang RN documented as of this encounter Visit Diagnoses Not on filedocumented in this encounter Additional Health Concerns Assessment Noted Time PHQ-9 Depression Total Score: 5 04/18/20 21 11:10 AM WEB METHODS DEVELOPER documented as of this encounter Care Teams Optometry Professor Relationship Specialty Start Date End Date Alex Kohli MD PCP - General FAMILY PRACTICE 12/01/22 documented as of this encounter
--- OUTSIDE RECORDS SUMMARY | 2024-06-20 17:42 | XMS_ITS | Encounter Summary ---
Author Organization [facility] Address [address] [place] [address] Care Team Providers Care Business Transformation Analyst Name Role Phone Alex Kohli MD Primary Care Provider [phone] Moy Constantino MD Unavailable UnavailMoy Haro MD Primary Care Provider Un available Alex Kohli MD Primary Care Provider [phone] None, Provider Primary Care Provider Unavaila Romaine RoseC Primary Care Provider [phone] Alex Kohli MD Primary Care Provider [phone] Encounter Details Date Type Department Care Team (Late st Contact Info) Description 02/13/2019 Hospital Follow-up Call [facility] [place] [address] Any Kam, Director Of Application Development Social History Tobacco Use Types Packs/Day Years Used Date Smoking Tobacco: Former Cigarettes Q uit: 2015 Electronic Cigarettes Smokeless Tobacco: Current Comments:uses an e cigarette with no nicotine Alcohol Use Standard Drinks/Week Comments No 0 (1 standard drink = 0.6 oz pur e alcohol) haven't drank since 2011 [employer] Answer Date Recorded Frequency of Alcohol Consumption Never 02/06/2019 Average Number of Drinks Not on file 019 Frequency of Binge Drinking Not on file 01/12 Sex and Gender Information Value Date Recorded Sex Assigned at Male 06/19/2024 8:28 PM CARROT HARVESTER Legal Sex Male 10:42 PM CDT Gender Identity Not on file Sexual Orientation Straight 06/19/2024 8: 26 PM CARROT HARVESTER 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 Not on file Not [...] filedocumented in this encounter Additional Health Concerns Infection Onset Date Last Indicated Resolved Time COVID-19 Rule Out 11/14/2021 11/14/2021 11/14/2021 8:34 AM CDT documented as of this encounter Care Teams Business Transformation Analyst Relationship Specialty Start Date End Date Alex Kohli MD PCP - General FAMILY PRACTICE 08/01/18 02/08/21 Moy Constantino MD PCP - Med Group - [facility] Attributed Provider 05/13/15 05/12/21 Moy Constantino MD PCP - General FAMILY PRACTICE 02/09/21 11/13/21 Alex Kohli MD PCP - General FAMILY PRACTICE 11/14/21 03/05/22 None, MD Emerson PCP - General UNKNOWN PHYSICIAN SPECIALTY 03/06/22 05/06/22 Romaine Salguero, ANTONIOC [address] [address] PCP - General PHYSICIAN ASSEMBLER ARRANGER 05/07/22 11/30/22 Alex Kohli MD [address] [address] PCP - General FAMILY PRACTICE 12/01/22 documented as of this encounter
--- OUTSIDE RECORDS SUMMARY | 2024-06-20 17:42 | XMS_ITS | Data Portability ---
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 Name Role Phone BRITTANY MULLER Primary Care Provider [phone] Assessment Encounter Date Assessment Date Assessment LastModified by Organization Details LastModified Time 02/07/2023 02/07/2023 Patient Examined by VIKTOR Alexander, Also Documentation reviewed and approved by supervising physician ayana Not available 02/07/2023 10:50:51 03/01/2023 03/01/2023 Patient Examined by VIKTOR Alexander, Also Documentation reviewed and approved by supervising physician paula Not available 02/28/2023 14:26:16 06/19/2023 06/19/2023 Patient Examined by VIKTOR Alexander, Also Documentation reviewed and approved by supervising physician paula Not available 05/28/2023 13:51:26 Plan of Treatment Reminders Order Date Submit Date Provider Last Modified By Organization Details Last Modified Time Details Appointments ESTABLISH ED PATIENT DETAILED 2024 08:00A M Karan Briceño i, MD Not available Not available Not available Lab None recorded. Referral None recorded. Procedures None recorded. Surgeries None recorded. Imaging None recorded. Medication Orders nicotine 21 mg/24 hr daily transderm al patch 2022 023 [facility] [id number], [address], 02/07/2023 10:56:24 spironola ctone 25 mg tablet 2022 023 [facility] [id number] [place], [address], 02/07/2023 10:56:24 Zetia 10 mg tablet 2022 023 [facility] [id number] In [facility], [address] [facility], [place], [address], 03/01/2023 10:37:09 Zetia 10 mg tablet 2023 024 [facility] [address] [facility], [facility] [place], [id number], 05/29/2024 18:14:11 Patient TargetsNo targets recorded. Patient Instructions Encounter Date Encounter Id Patient Instructions Last Modified By Organization Details Last Modified Time 08/09/2022 [id number] Weight loss 10 pounds Exercise advised Low cholesterol diet advised Low sodium diet advised. [email or web address] Not available 08/09/2022 15:17:07 02/07/2023 [id number] Advised against smoking Exercise advised Low cholesterol diet advised Low sodium diet advised. [email or web address] Not available 02/07/2023 10:55:49 03/01/2023 [id number] Exercise advised Low cholesterol diet advised Low sodium diet advised. [email or web address] Not available 03/01/2023 10:36:42 06/19/2023 [id number] Low cholesterol diet advised Low sodium diet advised. eyassin Not available 06/19/2023 14:07:30 Reason for Referral None Reported. Results Created Date Observation Date Name Description Value Unit Range Abnormal Flag Note LastModifiedBy Organization Detail LastModifiedTime 08/04/1908/03/2020 angio gram (PROC ) No observ ation record ed. [email or web address] Not Available 2022 10:14:25 08/14/1908/09/2022 elect erica diogr am No observ ation record ed. [email or web address] Not Available 2022 09:21:30 09/27/19 23 09/13/2022 US, doppl er, arter ial No observ ation record ed. [email or web address] Not Available 2022 13:46:37 02/14/20 02/07/2023 elect rocar diogr am No observ ation record ed. [email or web address] Not Available 2022 10:53:22 03/11/20 23 03/02/2023 exerc ise stres s test No observ ation record ed. [email or web address] Not Available 2022 12:31:54 11/26/19 24 11/26/2023 elect rocar diogr am No observ ation record ed. [email or web address] Not Available 2023 15:49:33 Result Notes None recorded. Problems Name Problem SNOMED Code Status Onset Date Resolution Date Notes Provider Name and Address Organization Details Recorded Time Chest pain 04745598 Active 2016 Not Available [facility] 4 08:37:14 Syncope 190541108 Active 2016 Not Available [facility] 4 08:37:14 Dyspnea 200644522 Active 2016 Not Available [facility] 4 08:37:14 Benign essential hypertens ion 6331233 Active 2016 Not Available [facility] 4 08:37:14 Hyperlipi demia 58219366 Completed 201607/10/2017 Keri paredes [place] - [facility] 8 13:40:49 Coronary arteriosc lerosis 74343410 Active 2016 s/p PCI/Melecio nting to the LAD Not Available [facility] 4 08:37:15 Peptic ulcer 16009081 Active 2016 Not Available [facility] 4 08:37:14 Osteoarth ritis 649310414 Active 2016 Not Available [facility] 4 08:37:15 Migraine 81349811 Active 2016 Not Available [facility] 4 08:37:15 Obesity 057647032 Active 2016 Not Available [facility] 4 08:37:15 Gastroeso phageal reflux disease 283331584 Active 2016 Not Available [facility] 4 08:37:14 Obstructi ve sleep apnea syndrome 94175396 Active 2017 Not Available [facility] 4 08:37:15 Cerebrova scular accident 090068635 Active 2017 heat stroke per pt Not Available [facility] 4 08:37:14 Hyperlipi demia 52141729 Active 2017 Not Available [facility] 4 08:37:15 Dyspnea on exertion 57160674 Active 2018 Not Available [facility] 4 08:37:15 Near syncope 159278120 Active 2018 Not Available [facility] 4 08:37:15 Left ventricul ar hypertrop hy 87698568 Active 2018 Not Available [facility] 4 08:37:15 Tobacco dependenc e syndrome 87704185 Active 2019 Not Available [facility] 4 08:37:15 Periphera l vascular disease 900968123 Active 2020 Not Available [facility] 4 08:37:15 Notes:Some problems listed i n Documents: #[id number], #[id number], #[id number] could not be added to this patient's chart. Please review these documents and add these problems to the patient's chart manually as needed. Problem Notes None recorded. Procedures Surgical History Date Name Laterality Status Provider Name and Address Organization Details Recorded Time Cardiac Catheterization completed [facility] 05/28/2019 13:46:04 Hernia Repair completed [facility] 10/22/2016 13:39:21 Coronary Artery Stent completed [facility] 10/22/2016 19:26:24 Imaging Results Imaging Date Name Status LastModified by Organization Details LastModified Time 08/03/2020 angiogram (PROC) completed [email or web address] Informat ion not available 08/03/2022 10:14:25 08/09/2022 electrocardiogram completed Informa tion not available 08/13/2022 09:21:30 09/13/2022 US, doppler, arterial completed Information not available 09/26/2022 13:46:37 02/07/2023 electrocardiogram completed Informa tion not available 02/13/2023 10:53:22 03/02/2023 exercise stress test completed Info rmation not available 03/11/2023 12:31:54 11/26/2023 electrocardiogram completed Informa tion not available 11/26/2023 15:49:33 Procedure Notes None recorded. Medical Equipment None Reported. Allergies Allergen ID Allergen Name Allergen Category Reaction Reaction Severity Criticality Documentation Date Start Date Code Code System Note Provider Name and Address Organization Details Recorded Time 4426 nitroglyc sam medicatio n facial swelling severe Not available 10/22/2016 4917 RxNorm Gayle Mesto null, [facility] 7 13:40:11 6204 ibuprofen medicatio n facial swelling severe Not available 09/14/2017 5640 RxNorm Hala Tesfaye null, [facility] 8 13:41:04 Medications Name Sig Start Date Stop Date Status Note LastModified by Organization Details LastModified Time clopidogr el 75 mg tabs 11/26 completed Not Available Not Available Not Available amitripty line hcl 25 mg tabs 04/22 completed Not Available Not Available Not Available baclofen 20 mg tabs 04/22 completed Not Available Not Available Not Available dexametha sone 2 mg tabs 04/22 completed Not Available Not Available Not Available atorvasta tin calcium 80 mg tabs 1 tab qd 01/10 completed Not Available Not Available Not Available pantopraz ole sodium 40 mg tbec 04/22 completed Not Available Not Available Not Available cyclobenz aprine hcl 10 mg tabs 10/08 completed No longer take it 08/06/18 : MA Not Available Not Available Not Available cyclobenz aprine hydrochlo ride 10 mg tabs 10/08 completed No longer take it 08/06/18 : MA Not Available Not Available Not Available amlodipin e besylate 5 mg tabs pt unsure of this med 12/06 completed Not Available Not Available Not Available fluticaso ne propionat e 50 mcg/act susp 03/28 completed 02/22/21 pt doesn't think he is taking this - cji Not Available Not Available Not Available rosuvasta tin calcium 20 mg tabs 10/08 completed Pt take 1 tab 20 mg every 24 hours . 08/06/18 : MA Not Available Not Available Not Available losartan potassium 50 mg tabs 01/10 completed Not Available Not Available Not Available ibuprofen 800 mg tabs 1 TAB QD PRN 01/10 completed Not Available Not Available Not Available hydroxyzi ne hydrochlo ride 25 mg tabs 06/28 completed pt no longer taking 05/27/20 SP Not Available Not Available Not Available atenolol 25 mg tabs 04/22 completed Not Available Not Available Not Available triamtere ne/hydroc hlorothia zide 37.5-25 mg tabs 1 TAB QD 01/10 completed Not Available Not Available Not Available losartan potassium 100 mg tabs 10/08 completed Pt take 1 tab 100 mg every 24 hours . 08/06/18 : MA Not Available Not Available Not Available rosuvasta tin calcium 40 mg tabs 05/27 completed Not Available Not Available Not Available amlodipin e besylate 10 mg tabs 1 tab qd 10/08 completed Pt take 1 tab 10 mg every 24 hours . 08/06/18 : MA Not Available Not Available Not Available sumatript an succinate 25 mg tabs 04/22 completed Not Available Not Available Not Available naproxen 500 mg tabs 01/24 completed Not Available Not Available Not Available clonidine hcl 0.1 mg tabs 05/27 completed Not Available Not Available Not Available gabapenti n 300 mg caps 04/22 completed Not Available Not Available Not Available amlodipin e besylate 10 mg tabs 05/27 completed Not Available Not Available Not Available oxycodone /acetamin ophen 7.5-325 mgtabs 01/24 completed Not Available Not Available Not Available sulfameth oxazole/t rimethopr im ds 800-160 mg tabs 12/24 completed Not Available Not Available Not Available ibuprofen 600 mg tabs 01/24 completed Not Available Not Available Not Available azithromy aman 250 mg tabs 09/17 completed Not Available Not Available Not Available hydrocodo ne/acetam inophen 5-325 mgtabs 10/08 completed No longer take it 08/06/18 : MA Not Available Not Available Not Available calcitrio l 0.25 mcg caps 1 tab qd 10/08 completed No longer take it 08/06/18 : MA Not Available Not Available Not Available tramadol hcl 50 mg tabs 10/08 completed No longer take it 06/23/18 : MA Not Available Not Available Not Available metoprolo l succinate er 50 mg tb24 1 TAB QD 05/21 completed in am Not Available Not Available Not Available metoprolo l succinate er 100 mg tb24 08/06 completed Pt take 1 tab 100 mg every 24 hours . 08/06/18 : MA Not Available Not Available Not Available ramipril 10 mg caps 09/17 completed Not Available Not Available Not Available lisinopri l 10 mg tabs pt unsure of this med 06/23 completed No longer take it 06/23/18 : MA Not Available Not Available Not Available losartan 50 mg tablet TAKE 1 TABLET BY MOUTH EVERY DAY active Not Available Not Available No t Available cyclobenz aprine 10 mg tablet TAKE 1 TABLET BY MOUTH THREE TIMES A DAY NEEDED FOR MUSCLE SPASMS active Not Available Not Available No t Available furosemid e 40 mg tablet TAKE 0.5 TABLETS (20 MG TOTAL) BY MOUTH DAILY NEEDED (LOWER EXTREMIT Y EDEMA SHORTNES S OF BREATHS) active Not Available Not Available No t Available atorvasta tin 80 mg tablet Take 1 tablet every day by oral route. 09/17 completed Not Available Not Available Not Available clonidine HCl 0.1 mg tablet TAKE 1 TABLET BY MOUTH TWICE A DAY 08/09 completed Not Available Not Available Not Available tizanidin e 2 mg tablet TAKE 1 TABLET BY MOUTH EVERY 6 HOURS NEEDED. 08/09 completed Not Available Not Available Not Available trazodone 50 mg tablet TAKE 1.5 TABLETS BY MOUTH EVERY DAY NEEDED FOR 30 DAYS. active Not Available Not Available No t Available azithromy aman 250 mg tablet TAKE 2 TABLETS BY MOUTH TODAY, THEN TAKE 1 TABLET DAILY FOR 4 DAYS 08/09 completed Not Available Not Available Not Available tramadol 37.5 mg-acetam inophen 325 mg tablet TAKE 1 TABLET BY MOUTH EVERY 8 HOURS NEEDED 03/28 completed no longer take Not Available Not Available Not Available tizanidin e 4 mg tablet TAKE 2 TABLETS BY MOUTH EVERY 8 HOURS NEEDED. 08/09 completed Not Available Not Available Not Available metoprolo l succinate ER 50 mg tablet,ex tended release 24 hr TAKE 1 TABLET BY MOUTH EVERY DAY 05/21 completed Not Available Not Available Not Available hydrocodo ne 5 mg-acetam inophen 325 mg tablet TAKE 1 TABLET BY MOUTH EVERY 8 HOURS NEEDED FOR PAIN 08/09 completed Not Available Not Available Not Available sucralfat e 1 gram tablet TAKE 1 TABLET BY MOUTH 4 TIMES DAILY BEFORE MEALS AND NIGHTLY. active Not Available Not Available No t Available prednison e 20 mg tablet TAKE 2 TABLETS BY MOUTH EVERY DAY FOR 5 DAYS active Not Available Not Available No t Available metoprolo l succinate ER 100 mg tablet,ex tended release 24 hr TAKE 1 TABLET BY MOUTH EVERY DAY active Not Available Not Available No t Available hydralazi ne 25 mg tablet Take 1 tablet twice a day by oral route as directed . 11/26 completed pt. no longer takes 0 FH Not Available Not Available Not Available metronida zole 500 mg tablet 11/26 completed pt. no longer takes 0 FH Not Available Not Available Not Available acetamino phen 300 mg-codein e 30 mg tablet TAKE 1 TABLET BY MOUTH EVERY 6 HOURS 03/28 completed Not Available Not Available Not Available clopidogr el 75 mg tablet TAKE ONE TABLET BY MOUTH DAILY AT 9 AM active Not Available Not Available No t Available ciproflox acin 500 mg tablet 11/26 completed pt. no longer takes 0 FH Not Available Not Available Not Available aspirin 81 mg tablet,de layed release TAKE 1 TABLET BY MOUTH EVERY DAY DIRECTED 12/05 completed Not Available Not Available Not Available tramadol 50 mg tablet TAKE 1 TABLET BY MOUTH TWICE A DAY active Not Available Not Available No t Available spironola ctone 25 mg tablet TAKE ONE TABLET BY MOUTH EVERY DAY active Not Available Not Available No t Available pantopraz ole 20 mg tablet,de layed release TAKE 1 TABLET BY MOUTH EVERY DAY DIRECTED FOR 1 MONTH active Not Available Not Available No t Available clonidine HCl 0.2 mg tablet TAKE 1 TABLET BY MOUTH NIGHTLY active Not Available Not Available No t Available amitripty line 10 mg tablet TAKE 1 TABLET BY MOUTH EVERY DAY FOR 30 DAYS active Not Available Not Available No t Available baclofen 10 mg tablet TAKE 1 TABLET (10 MG TOTAL) BY MOUTH 3 (THREE) TIMES DAILY NEEDED (SPASMS) . 08/09 completed Not Available Not Available Not Available amlodipin e 10 mg tablet TAKE ONE TABLET BY MOUTH DAILY AT 9 AM active Not Available Not Available No t Available cephalexi n 500 mg capsule TAKE 1 CAPSULE (500 MG TOTAL) BY MOUTH TWICE A DAY FOR 4 DAYS active Not Available Not Available No t Available pantopraz ole 40 mg tablet,de layed release TAKE 1 TABLET BY MOUTH EVERY DAY active Not Available Not Available No t Available erythromy aman 5 mg/gram (0.5 %) eye ointment PLACE INTO THE RIGHT EYE EVERY 6 (SIX) HOURS FOR 5 DAYS. 06/28 completed Not Available Not Available Not Available lisinopri l 10 mg tablet Take 1 tablet every day by oral route. 10/25 completed Not Available Not Available Not Available losartan 25 mg tablet TAKE 1 TABLET BY MOUTH EVERY DAY 08/19 completed Not Available Not Available Not Available bupropion HCl 75 mg tablet TAKE 1 TABLET BY MOUTH TWICE A DAY active Not Available Not Available No t Available nicotine 21 mg/24 hr daily transderm al patch Apply 1 patch every day by transder mal route. 2022 active Not Available Not Available Not Avai lable gabapenti n 300 mg capsule TAKE TWO CAPSULES BY MOUTH EVERY 8 HOURS @ 6AM-2PM- 10PM active Not Available Not Available No t Available sertralin e 25 mg tablet 10/08 completed Pt take 1 tab 25 mg every 24 hours . 08/06/18 : MA Not Available Not Available Not Available triamtere ne 37.5 mg-hydroc hlorothia zide 25 mg tablet TAKE 1 TABLET BY MOUTH EVERY DAY 06/23 completed No longer take it 06/23/18 : MA Not Available Not Available Not Available omeprazol e 20 mg capsule,d elayed release TAKE 1 CAPSULE BY MOUTH EVERY DAY 12/27 completed 02/22/21 pt says he doesn't take this anymore due to constipa tion - cji Not Available Not Available Not Available hydralazi ne 50 mg tablet Take 1 tablet twice a day by oral route. 08/06 completed Not Available Not Available Not Available furosemid e 20 mg tablet TAKE 1 TABLET BY MOUTH EVERY DAY active Not Available Not Available No t Available levofloxa aman 500 mg tablet TAKE 1 TABLET BY MOUTH EVERY DAY FOR 10 DAYS 03/28 completed Not Available Not Available Not Available zolpidem 10 mg tablet TAKE 1 TABLET BY MOUTH NIGHTLY NEEDED FOR SLEEP active Not Available Not Available No t Available methylpre dnisolone 4 mg tablets in a dose pack TAKE 6 TABLETS ON DAY 1 DIRECTED ON PACKAGE AND DECREASE BY 1 TAB EACH DAY FOR A TOTAL OF 6 DAYS active Not Available Not Available No t Available albuterol sulfate HFA 90 mcg/actua tion aerosol inhaler INHALE 2 PUFFS EVERY 6 HOURS NEEDED FOR WHEEZING active Not Available Not Available No t Available hydroxyzi ne HCl 10 mg tablet 06/28 completed pt no longer taking 05/27/20 SP Not Available Not Available Not Available losartan 100 mg tablet Take 1 tablet every day by oral route. 10/08 completed NOT TAKING;A L 10/08/18 Not Available Not Available Not Available cholecalc iferol (vitamin D3) 125 mcg (5,000 unit) capsule TAKE 1 CAPSULE (5,000 UNITS TOTAL) BY MOUTH DAILY TAKES 125MCG DAILY active Not Available Not Available No t Available calcitrio l 0.25 mcg capsule 06/28 completed pt no longer taking 05/27/20 SP Not Available Not Available Not Available amoxicill in 875 mg-potass ium clavulana te 125 mg tablet 11/26 completed pt. no longer takes 0 FH Not Available Not Available Not Available amoxicill in 500 mg-potass ium clavulana te 125 mg tablet TAKE 1 TABLET BY MOUTH THREE TIMES A DAY 03/28 completed no longer take Not Available Not Available Not Available tobramyci n 0.3 %-dexamet hasone 0.1 % eye drops,[place] [employer] INSTILL 1 DROP INTO AFFECTED EYE(S) EVERY 6 HOURS FOR 5 DAYS active Not Available Not Available No t Available ezetimibe 10 mg tablet TAKE ONE TABLET BY MOUTH DAILY AT 9 AM active Not Available Not Available No t Available rosuvasta tin 20 mg tablet TAKE 1 TABLET BY MOUTH EVERY DAY at bedtime 10/08 completed Not Available Not Available Not Available rosuvasta tin 40 mg tablet TAKE 1 TABLET BY MOUTH EVERYDAY AT BEDTIME 2024 active Not Available Not Available Not Avai lable coenzyme Q10 200 mg capsule Take 1 capsule every day by oral route. 2022 active Not Available Not Available Not Avai lable calcitrio l 0.25 mcg tab, 3 tablet once a week 06/28 completed pt no longer taking 05/27/20 SP Not Available Not Available Not Available Vitamin D3 5000 iu once a day 03/28 completed pt. needs refill Not Available Not Available Not Available Chantix Continuin g Month Box 1 mg tablet Take 1 tablet twice a day by oral route. 12/27 completed Pt is no more on this medicati on 12/06/19 21 sm Not Available Not Available Not Available Chantix Starting Month Box 0.5 mg (11)-1 mg (42) tablets in dose pack Take 1 startr pk by oral route. 12/27 completed Not Available Not Available Not Available One-A-Day Men's 50Plus(gi nkgo) 1 tab qd 06/28 completed No longer take it 06/23/18 : MA Not Available Not Available Not Available Linzess 72 mcg capsule TAKE 1 CAPSULE( S) BY MOUTH DAILY X 3 MONTHS 2022 active Not Available Not Available Not Avai lable Xarelto 2.5 mg tablet TAKE 1 TABLET BY MOUTH TWICE A DAY active Not Available Not Available No t Available aspirin 81 mg capsule Take 1 capsule every day by oral route in the morning. active Not Available Not Available No t Available Vitals Date Recorded Body height Body mass index (BMI) Body weight Heart rate Respiratory rate Oxygen saturation Oxygen saturation in Arterial blood by Pulse oximetry Systolic blood pressure Diastolic blood pressure Provider Name and Address Organization Details Last Updated DateTime 3 165.1 cm 30.6 kg/m2 09050 g 65 /min 16 /min 98 % 98 % 122 mm[Hg] 80 mm[Hg] Ramón Gallegos [facility] 3 14:48:40 Date Recorded Body height Body mass index (BMI) Body weight Heart rate Respiratory rate Oxygen saturation Oxygen saturation in Arterial blood by Pulse oximetry Systolic blood pressure Diastolic blood pressure Provider Name and Address Organization Details Last Updated DateTime 3 165.1 cm 30.5 kg/m2 94809.4 g 67 /min 16 /min 97 % 97 % 140 mm[Hg] 78 mm[Hg] Ramón Gallegos [facility] 3 10:13:24 Date Recorded Body height Body mass index (BMI) Body weight Oxygen saturation Oxygen saturation in Arterial blood by Pulse oximetry Heart rate Systolic blood pressure Diastolic blood pressure Provider Name and Address Organization Details Last Updated DateTime 3 165.1 cm 31.1 kg/m2 23483.7 7 g 97 % 97 % 58 /min 102 mm[Hg] 62 mm[Hg] Skye Mazaran [facility] 3 09:59:43 Date Recorded Body height Body mass index (BMI) Body weight Heart rate Oxygen saturation Oxygen saturation in Arterial blood by Pulse oximetry Systolic blood pressure Diastolic blood pressure Provider Name and Address Organization Details Last Updated DateTime 4 165.1 cm 31.5 kg/m2 84011.0 4 g 65 /min 96 % 96 % 139 mm[Hg] 86 mm[Hg] Krystyna Bah [facility] 4 13:56:40 Date Recorded Body height Body mass index (BMI) Body weight Heart rate Oxygen saturation Oxygen saturation in Arterial blood by Pulse oximetry Systolic blood pressure Diastolic blood pressure Provider Name and Address Organization Details Last Updated DateTime 4 165.1 cm 31.4 kg/m2 33199.1 6 g 64 /min 100 % 100 % 121 mm[Hg] 81 mm[Hg] Krystyna Bah [facility] 4 10:11:00 Social History Question Answer Notes LastModified by Organizat ion Details LastModified Time Tobacco Smoking Status Former Smoker quit 3 years ago Nalini paredes [facility] 10/22/2016 13:41:33 What Is Your Level Of Alcohol Consumption? None Information not available 10/22/2016 What Is Your Level Of Caffeine Consumption? None Information not available 10/25/2016 Do You Or Have You Ever Used E-cigarettes Or Vape? Never Used Electronic Cigarettes Information not available 05/28/2019 Marital Status Informatio n not available 10/22/2016 What Was The Date Of Your Most Recent Tobacco Screening? 10/08/2018 Information not available 12/04/2018 Do You Or Have You Ever Used Smokeless Tobacco? Former Smokeless Tobacco User Information not available 05/28/2019 How Much Tobacco Do You Smoke? 1 PPD Information not available 10/22/2016 How Many Years Have You Smoked Tobacco? 31 Information not available 04/12/2017 Sex: Unknown Functional Status Question Answer Note LastModified by Organization D etails LastModified Time What is your exercise level? None Information not available 10/25/2016 Mental Status None recorded. Family History Relationship Description Onset Age of this Age Resolved Age Notes LastModified by Organization Details LastModified Time Father Father 48 At age 48 of Myocar dial infarc tion . [email or web address] Not available 10/22/2016 13:43:12 Unspecified Relation Hypertensive disorder hmesto Not available 2019 13:47:04 Notes:Hypertension, Prematur e CAD , DM Medical History Condition Response Coronary Artery Disease Y Gastrointestinal Disease Y Hyperlipidemia Y Sleep Apnea Y GERD/Reflux Y Hypertension Y Past Encounters Encounter ID Performer Location Encounter Start Date Encounter Closed Date Diagnosis/Indication Diagnosis SNOMED-CT Code Diagnosis ICD10 Code Diagnosis Note [id number] MD [facility] [address] [place] [address] 10/25/2016 09:36:11 10/25/2016 14:57:30 Syncope 267661577 R55 no recurrence Chest pain 78151068 R07. 9 Cath with patent stent Dyspnea 900280349 R06.00 Hyperlipidemia 80472910 E78.5 with fair control Benign hypertension 1072 5009 I10 Blood pressure is elevated today, but this is only one reading, will keep close follow up, and consider medication change if blood pressure is still elevated next visit. [id number] MD [facility] [address] [facility] [address] [place] [address] 01/24/2017 09:55:05 01/25/2017 12:13:18 Benign essential hypertension 8643021 I10 Coronary arteriosclerosis 83215593 I25.10 [id number] Karan Cordova MD [facility] [address] [place] [address] 04/22/2017 15:31:28 04/23/2017 17:44:45 Benign essential hypertension 1617771 I10 with fair control Coronary arteriosclerosis 50660567 I25.10 Treadmill Myoview Stress test, has high [place] Risk score. Has Known CAD, or CAD risk equivalent . To look for any ischemia. Obstructiv e sleep apnea syndrome 60668365 G47.33 [id number] Karan Cordova MD [facility] [place] [address] 09/17/2017 16:11:02 09/18/2017 15:49:14 Benign essential hypertension 4818898 I10 With fair control Coronary arteriosclerosis 28281436 I25.10 05/14/17 Had negative stress test. Obstructiv e sleep apnea syndrome 00593929 G47.33 sleep study [id number] Karan Cordova MD [facility] [address] [place] [address] 12/06/2017 11:17:23 12/20/2017 03:51:21 Benign essential hypertension 7981042 I10 NO controlled He did not take his meds yetBlood pressure is elevated today, but this is only one reading, will keep close follow up, and consider medication change if blood pressure is still elevated next visit. Coronary arteriosclerosis 23564999 I25.10 05/14/17 Had negative stress test. Cath in 2015 with patent stent Obstructiv e sleep apnea syndrome 40417354 G47.33 sleep study He seems to have snoring with fatigue Dyslipidemia 326164372 E 78.5 25427 Karan Cordova MD [facility] [place] [address] 12/24/2017 09:38:06 05/15/2018 16:13:05 Benign essential hypertension 0802759 I10 Not controlled , 142/98. Stop Lisinopril due to cough, will start Losartan 50 mg once daily. Will get CMP and Mag for follow up. Coronary arteriosclerosis 51014156 I25.10 05/14/17 Had negative stress test. Cath in 2015 with patent stent Obstructiv e sleep apnea syndrome 54282437 G47.33 Was found to have Moderate GURVINDER, will sent him CPAP. He seems to have snoring with fatigue. Dyslipidemia 114574937 E 78.5 Needs to keep LDL less than 70, and HDL more than 40 08/26/17: LDL 113On Atorvastat in 80 mg qd, will change to Crestor 20 Will repeat FLP in 1-2 months [id number] Karan Cordova MD [facility] [address] [place] [address] 01/10/2018 09:24:50 05/19/2018 17:22:16 Benign essential hypertension 2297281 I10 Not controlled , 158/80. Will increase Losartan to 50 bid 01/03/18 CR 1.7 and Mag 2.1 Will get repeat CMP and Mag for follow up. Coronary arteriosclerosis 99617772 I25.10 05/14/17 Had negative stress test. Cath in 2015 with patent stent to LAD Obstructiv e sleep apnea syndrome 46888219 G47.33 Was found to have Moderate GURVINDER, will set him up for a CPAP. He seems to have snoring with fatigue. Dyslipidemia 819730748 E 78.5 Needs to keep LDL less than 70, and HDL more than 40 10/22/17 LDL 52 On Crestor 20 mg 41402 Karan Cordova MD [facility] [place] [address] 04/01/2018 11:38:45 04/01/2018 12:58:10 Benign essential hypertension 8921148 I10 Will increase Losartan to 50 bid 01/03/18 CR 1.7 and Mag 2.1 Will get repeat CMP and Mag for follow up. Coronary arteriosclerosis 91067345 I25.10 05/14/17 Had negative stress test. Cath in 2015 with patent stent to LAD Obstructiv e sleep apnea syndrome 55163748 G47.33 Was found to have Moderate GURVINDER, will set him up for a CPAP. Dyslipidemia 178000612 E 78.5 Needs to keep LDL less than 70, and HDL more than 40 10/22/17 LDL 52 On Crestor 20 mg 39970 Tom Caputo [facility] [address] [place] [address] 06/23/2018 15:33:08 06/23/2018 17:02:41 Benign essential hypertension 6166054 I10 Patient's blood pressure is {{well-con trolled so mewhat well-contr olled not well-contr olled*}} on present medical therapy. Patient is {{tolerati ng, without difficulty ,* having side effects with}} the current medication s. I have {{not made made the following* }} changes to the current regimen. {{ Patient is advised to maintain a blood pressure diary.*}} Patient was advised to eat a low-sodium diet (2 grams sodium or less daily). Previously , had increased Losartan to 50mg bid, but he is not taking. 01/03/18 CR 1.7 and Mag 2.1 Will get repeat CMP and Mag for follow up. He was in [facility] 06/19/18 for hypertensi ve emergency with associated confustion . Had headache 3 weeks prior. Obtain [facility] ED records. Continue metoprolol succinate 100 mg qd.Continu e amlodipine 10 mg qd. Resumed losartan 100 mg qd 06/23/18.Ob tain BMP, Mg 3 wks. Coronary arteriosclerosis 36372009 I25.10 Reports recent resting chest pain. Had 05/14/17 negative stress test. Cath in 2016 with patent stent to LAD. Continue ASA. Obstructiv e sleep apnea syndrome 42011064 G47.33 Was found to have Moderate GURVINDER 1 year ago at [facility]. Begin CPAP. Obtain sleep report. Dyslipidemia 264621070 E 78.5 Needs to keep LDL less than 70, and HDL more than 40 10/22/17 LDL 52 on Crestor 20 mg. Patient stopped Crestor. Resumed Crestor 20 mg qhs 06/23/18. Obtain FLP. Dyspnea on exertion 6084 5006 R06.09 Obtain echo to evaluate for structural /functiona l disease. Near syncope 547942317 R 55 Obtain carotid U/S and 24 Hr. Holter. Obesity 224868705 E66.9 20 lb. weight loss recommende d over the next 2 months. Chest pain 75760680 R07. 2 Patient presents with {{chest* a rm back ja w}} pain {{typical of angina wit h atypical features*} } and exertional dyspnea which can be an anginal equivalent . Given the history, exam findings and {{high* in termediate low}} cardiac risk factors, I {{feel* do not feel}} additional investigat ion is warranted. I have made arrangemen ts in the near future for {{an exercise stress echocardio gram to evaluate for any ischemia, structural heart disease, or exercise induced arrythmia an exercise stress nuclear test an exercise stress nuclear test (stress echo not possible due to COPD or obesity) a n exercise stress nuclear test and an echocardio gram to evaluate for any ischemia or structural heart disease* a pharmacolo gic stress nuclear test due to reduced functional capacity or conduction abnormalit y cardiac catheteriz ation an echocardio gram to evaluate left ventricula r function and any structural heart disease or valvular abnormalit y}}. The procedure was discussed with the patient, and risks, benefits, and alternativ e options were explained. {{ The patient was informed about heart catheteriz ation and interventi onal procedures and agrees to proceed.}} Appropriat e labwork {{has has not*}} been performed recently, therefore I {{have not have*} } made arrangemen ts for further testing: FLP, BMP, Mg in 3 wks. I have asked the patient to curtail exercise and activities until our investigat ion is complete. I have {{made no made the following* }} adjustment s to the present medical regimen. {{ Patient has been started on daily aspirin.}} {{ Patient has been given a prescripti on for sublingual nitroglyce rin.}} [id number] [facility] [place] [address] 08/06/2018 15:24:26 08/06/2018 17:20:52 Coronary arteriosclerosis 35040269 I25.10 No recent chest pain. Had Jennifer Stress 07/09/2018 Adequate stress with lexiscan. Negative lexiscan stress test for ischemia. Normal LV systolic function. Artifact noted. Compared to last study in 05/14/2017 there are no changes Had 05/14/17 negative stress test. Cath in 2015 with patent stent to LAD. Continue ASA. Chest pain 79144071 R07. 2 Resolved. Mitral valve prolapse cannot be ruled out. Had ECHO 07/09/18: LV chamber size is normal, LV wall thickness is moderately increased, there is normal global systolic function, EF 55-60%, Normal LV atrial pressure with grade I diastolic dysfunctio n, Left atrium chamber is mildly dilated,mi tral valve prolapse cannot be ruled out, there is mild thickening of mitral valve anterior and posterior leaflets,t here is trace mitral regurgitat ion,there is mild pulmonic regurgitat ion. Regular exercise, caffeine reduction, stress reduction advised. Had Jennifer Stress 07/09/2018 Adequate stress with lexiscan. Negative lexiscan stress test for ischemia. Normal LV systolic function. Artifact noted. Compared to last study in 05/14/2017 there are no changes Obtain TSH, Mg, BMP, FLP. {{ Patient has been given a prescripti on for sublingual nitroglyce rin.}} Dyspnea on exertion 6084 5006 R06.09 Stable. Had ECHO 07/09/18: LV chamber size is normal, LV wall thickness is moderately increased, there is normal global systolic function, EF 55-60%, Normal LV atrial pressure with grade I diastolic dysfunctio n, Left atrium chamber is mildly dilated,mi tral valve prolapse cannot be ruled out, there is mild thickening of mitral valve anterior and posterior leaflets,t here is trace mitral regurgitat ion,there is mild pulmonic regurgitat ion. Benign ess ential hypertension 4903194 I10 LV wall thickness is moderately increased. Patient's blood pressure is {{well-con trolled so mewhat well-contr olled not well-contr olled*}} on present medical therapy. Patient is {{tolerati ng, without difficulty ,* having side effects with}} the current medication s. I have {{not made made the following* }} changes to the current regimen. {{ Patient is advised to maintain a blood pressure diary.*}} Patient was advised to eat a low-sodium diet (2 grams sodium or less daily). Previously , had increased Losartan to 50mg bid, but he is not taking. 01/03/18 CR 1.7 and Mag 2.1 Will get repeat CMP and Mag for follow up. He was in [facility] ED 06/19/18 for hypertensi ve emergency with associated confustion . Had headache 3 weeks prior. Obtain [facility] ED records. Continue metoprolol succinate 100 mg qd.Continu e amlodipine 10 mg qd. Resumed losartan 100 mg qd 06/23/18.Ob tain BMP, Mg, TSH 3 wks. Began hydralazin e 25 mg bid 08/06/18. Obstructiv e sleep apnea syndrome 15009968 G47.33 Was found to have Moderate GURVINDER 1 year ago at [facility]. Begin CPAP. Dyslipidemia 709832470 E 78.5 Needs to keep LDL less than 70, and HDL more than 40 10/22/17 LDL 52 on Crestor 20 mg. Patient stopped Crestor. Resumed Crestor 20 mg qhs 06/23/18. Obtain FLP. Near syncope 823283513 R 55 Resolved. Carotid US 07/09/2018 Antegrade flow noted in both vertebral arteries. Very mild bilateral internal carotid artery stenosis with less than 15% diameter stenosis. Had Holter done in 07/09/18 showed Normal sinus rhythm. Frequent PVC's and PAC's but not correlated with symptoms. Sinus virgilio and tachycardi a. 1 episode of SVT run (7 beats @ 148 bpm). Obtain TSH, Mg, BMP, FLP. Obesity 388365025 E66.9 20 lb. weight loss recommende d over the next 2 months. Left ventr icular hypertrophy 22402647 I51.7 LV wall thickness is moderately increased. Optimize BP control. 49697 Tom Colonhman [facility] [address] [place] [address] 10/08/2018 12:45:22 10/08/2018 14:23:06 Coronary arteriosclerosis 58357232 I25.10 No recent chest pain. Had Jennifer Stress 07/09/2018 Adequate stress with lexiscan. Negative lexiscan stress test for ischemia. Normal LV systolic function. Artifact noted. Compared to last study in 05/14/2017 there are no changes Had 05/14/17 negative stress test. Cath in 2015 with patent stent to LAD. Continue ASA and statin. Chest pain 35844457 R07. 2 Resolved. Mitral valve prolapse cannot be ruled out. Had ECHO 07/09/18: LV chamber size is normal, LV wall thickness is moderately increased, there is normal global systolic function, EF 55-60%, Normal LV atrial pressure with grade I diastolic dysfunctio n, Left atrium chamber is mildly dilated,mi tral valve prolapse cannot be ruled out, there is mild thickening of mitral valve anterior and posterior leaflets,t here is trace mitral regurgitat ion,there is mild pulmonic regurgitat ion. Regular exercise, caffeine reduction, stress reduction advised. Had Jennifer Stress 07/09/2018 Adequate stress with lexiscan. Negative lexiscan stress test for ischemia. Normal LV systolic function. Artifact noted. Compared to last study in 05/14/2017 there are no changes Had 08/26/18: Cr 1.3, K 3.8, LDL 89. {{ Patient has been given a prescripti on for sublingual nitroglyce rin.}} Dyspnea on exertion 6084 5006 R06.09 Stable. Had ECHO 07/09/18: LV chamber size is normal, LV wall thickness is moderately increased, there is normal global systolic function, EF 55-60%, Normal LV atrial pressure with grade I diastolic dysfunctio n, Left atrium chamber is mildly dilated,mi tral valve prolapse cannot be ruled out, there is mild thickening of mitral valve anterior and posterior leaflets,t here is trace mitral regurgitat ion,there is mild pulmonic regurgitat ion. Left ventr icular hypertrophy 25695892 I51.7 LV wall thickness is moderately increased. Optimize BP control. Benign ess ential hypertension 5353062 I10 LV wall thickness is moderately increased. Patient's blood pressure is {{well-con trolled so mewhat well-contr olled not well-contr olled*}} on present medical therapy. Patient is {{tolerati ng, without difficulty ,* having side effects with}} the current medication s. I have {{not made made the following* }} changes to the current regimen. {{ Patient is advised to maintain a blood pressure diary.*}} Patient was advised to eat a low-sodium diet (2 grams sodium or less daily). Previously , had increased Losartan to 50mg bid, but he is not taking. 01/03/18 CR 1.7 and Mag 2.1 Will get repeat CMP and Mag for follow up. He was in [facility] ED 06/19/18 for hypertensi ve emergency with associated confustion . Had headache 3 weeks prior. Obtain [facility] ED records. Continue metoprolol succinate 100 mg qd.Continu e amlodipine 10 mg qd. Resumed losartan 100 mg qd 06/23/18.Ob tain BMP, Mg, TSH 3 wks. Began hydralazin e 25 mg bid 08/06/18 but patient not sure if took recently. Patient missed one of his BP meds for 2 days due to cost. Bring all meds in bag. Obstructiv e sleep apnea syndrome 22034253 G47.33 Was found to have Moderate GURVINDER 1 year ago at [facility]. Begin CPAP. Dyslipidemia 472260152 E 78.5 Needs to keep LDL less than 70, and HDL more than 40 10/22/17 LDL 52 on Crestor 20 mg. Patient stopped Crestor. Resumed Crestor 20 mg qhs 06/23/18. Had 08/26/18: LDL 89. Increased to Crestor 40 mg qHS 10/08/18. Needs FLP 1 mo. Near syncope 644488094 R 55 Resolved. Carotid US 07/09/2018 Antegrade flow noted in both vertebral arteries. Very mild bilateral internal carotid artery stenosis with less than 15% diameter stenosis. Had Holter done in 07/09/18 showed Normal sinus rhythm. Frequent PVC's and PAC's but not correlated with symptoms. Sinus virgilio and tachycardi a. 1 episode of SVT run (7 beats @ 148 bpm). Had 08/26/18: Cr 1.3, K 3.8, LDL 89. Obtain TSH, Mg, with next blood draw for FLP. Obesity 770059207 E66.9 20 lb. weight loss recommende d over the next 2 months. [id number] MD [facility] [address] [facility] [address] 03/04/2019 14:19:10 03/04/2019 15:23:08 Coronary arteriosclerosis 74816128 I25.10 No recent chest pain. Had Jennifer Stress 07/09/2018 Adequate stress with lexiscan. Negative lexiscan stress test for ischemia. Normal LV systolic function. Artifact noted. Compared to last study in 05/14/2017 there are no changes Had 05/14/17 negative stress test. Cath in 2015 with patent stent to LAD. Continue ASA and statin. Chest pain 05983552 R07. 2 Resolved. Mitral valve prolapse cannot be ruled out. Had ECHO 07/09/18: LV chamber size is normal, LV wall thickness is moderately increased, there is normal global systolic function, EF 55-60%, Normal LV atrial pressure with grade I diastolic dysfunctio n, Left atrium chamber is mildly dilated,mi tral valve prolapse cannot be ruled out, there is mild thickening of mitral valve anterior and posterior leaflets,t here is trace mitral regurgitat ion,there is mild pulmonic regurgitat ion. Regular exercise, caffeine reduction, stress reduction advised. Had Jennifer Stress 07/09/2018 Adequate stress with lexiscan. Negative lexiscan stress test for ischemia. Normal LV systolic function. Artifact noted. Compared to last study in 05/14/2017 there are no changes Had 08/26/18: Cr 1.3, K 3.8, LDL 89. {{ Patient has been given a prescripti on for sublingual nitroglyce rin.}} Dyspnea on exertion 6084 5006 R06.09 Stable. Had ECHO 07/09/18: LV chamber size is normal, LV wall thickness is moderately increased, there is normal global systolic function, EF 55-60%, Normal LV atrial pressure with grade I diastolic dysfunctio n, Left atrium chamber is mildly dilated,mi tral valve prolapse cannot be ruled out, there is mild thickening of mitral valve anterior and posterior leaflets,t here is trace mitral regurgitat ion,there is mild pulmonic regurgitat ion. Left ventr icular hypertrophy 42734697 I51.7 LV wall thickness is moderately increased. Optimize BP control. Benign ess ential hypertension 7816360 I10 LV wall thickness is moderately increased. Patient's blood pressure is {{well-con trolled so mewhat well-contr olled not well-contr olled*}} on present medical therapy. Patient is {{tolerati ng, without difficulty ,* having side effects with}} the current medication s. I have {{not made made the following* }} changes to the current regimen. {{ Patient is advised to maintain a blood pressure diary.*}} Patient was advised to eat a low-sodium diet (2 grams sodium or less daily). Previously , had increased Losartan to 50mg bid, but he is not taking. 01/03/18 CR 1.7 and Mag 2.1 Will get repeat CMP and Mag for follow up. He was in [facility] ED 06/19/18 for hypertensi ve emergency with associated confustion . Had headache 3 weeks prior. Obtain [facility] ED records. Continue metoprolol succinate 100 mg qd.Continu e amlodipine 10 mg qd. Resumed losartan 100 mg qd 06/23/18.Ob tain BMP, Mg, TSH 3 wks. Began hydralazin e 25 mg bid 08/06/18 but patient not sure if took recently. Patient missed one of his BP meds for 2 days due to cost. Bring all meds in bag. Obstructiv e sleep apnea syndrome 53274165 G47.33 Was found to have Moderate GURVINDER 1 year ago at [facility]. Begin CPAP. Dyslipidemia 418338812 E 78.5 Needs to keep LDL less than 70, and HDL more than 40 10/22/17 LDL 52 on Crestor 20 mg. Patient stopped Crestor. Resumed Crestor 20 mg qhs 06/23/18. Had 08/26/18: LDL 89. Increased to Crestor 40 mg qHS 10/08/18. Needs FLP 1 mo. Near syncope 021795534 R 55 Resolved. Carotid US 07/09/2018 Antegrade flow noted in both vertebral arteries. Very mild bilateral internal carotid artery stenosis with less than 15% diameter stenosis. Had Holter done in 07/09/18 showed Normal sinus rhythm. Frequent PVC's and PAC's but not correlated with symptoms. Sinus virgilio and tachycardi a. 1 episode of SVT run (7 beats @ 148 bpm). Had 08/26/18: Cr 1.3, K 3.8, LDL 89. Obtain TSH, Mg, with next blood draw for FLP. Obesity 458232614 E66.9 20 lb. weight loss recommende d over the next 2 months. Peripheral vascular disease 058263145 I73.9 Had angiogram at [facility] will review and plan [employer] with atherectom [place] [id number] Karan Cordova MD [facility] [address] [place] [address] 03/31/2019 14:40:50 04/01/2019 16:44:37 Coronary arteriosclerosis 39804761 I25.10 No recent chest pain. Had Jennifer Stress 07/09/2018 Adequate stress with lexiscan. Negative lexiscan stress test for ischemia. Normal LV systolic function. Artifact noted. Compared to last study in 05/14/2017 there are no changes Had 05/14/17 negative stress test. Cath in 2016 with patent stent to LAD. Continue ASA and statin. Chest pain 02898296 R07. 2 Resolved. Mitral valve prolapse cannot be ruled out. Had ECHO 07/09/18: LV chamber size is normal, LV wall thickness is moderately increased, there is normal global systolic function, EF 55-60%, Normal LV atrial pressure with grade I diastolic dysfunctio n, Left atrium chamber is mildly dilated,mi tral valve prolapse cannot be ruled out, there is mild thickening of mitral valve anterior and posterior leaflets,t here is trace mitral regurgitat ion,there is mild pulmonic regurgitat ion. Regular exercise, caffeine reduction, stress reduction advised. Had Jennifer Stress 07/09/2018 Adequate stress with lexiscan. Negative lexiscan stress test for ischemia. Normal LV systolic function. Artifact noted. Compared to last study in 05/14/2017 there are no changes Had 08/26/18: Cr 1.3, K 3.8, LDL 89. {{ Patient has been given a prescripti on for sublingual nitroglyce rin.}} Dyspnea on exertion 6084 5006 R06.09 Stable. Had ECHO 07/09/18: LV chamber size is normal, LV wall thickness is moderately increased, there is normal global systolic function, EF 55-60%, Normal LV atrial pressure with grade I diastolic dysfunctio n, Left atrium chamber is mildly dilated,mi tral valve prolapse cannot be ruled out, there is mild thickening of mitral valve anterior and posterior leaflets,t here is trace mitral regurgitat ion,there is mild pulmonic regurgitat ion. Left ventr icular hypertrophy 67139743 I51.7 LV wall thickness is moderately increased. Optimize BP control. Benign ess ential hypertension 6358636 I10 LV wall thickness is moderately increased. Patient's blood pressure is {{well-con trolled so mewhat well-contr olled not well-contr olled*}} on present medical therapy. Patient is {{tolerati ng, without difficulty ,* having side effects with}} the current medication s. I have {{not made made the following* }} changes to the current regimen. {{ Patient is advised to maintain a blood pressure diary.*}} Patient was advised to eat a low-sodium diet (2 grams sodium or less daily). Previously , had increased Losartan to 50mg bid, but he is not taking. 01/03/18 CR 1.7 and Mag 2.1 Will get repeat CMP and Mag for follow up. He was in [facility] ED 06/19/18 for hypertensi ve emergency with associated confustion . Had headache 3 weeks prior. Obtain [facility] ED records. Continue metoprolol succinate 100 mg qd.Continu e amlodipine 10 mg qd. Resumed losartan 100 mg qd 06/23/18.Ob tain BMP, Mg, TSH 3 wks. Began hydralazin e 25 mg bid 08/06/18 but patient not sure if took recently. Patient missed one of his BP meds for 2 days due to cost. Bring all meds in bag. Obstructiv e sleep apnea syndrome 10166823 G47.33 Was found to have Moderate GURVINDER 1 year ago at [facility]. Begin CPAP. Dyslipidemia 516913386 E 78.5 Needs to keep LDL less than 70, and HDL more than 40 10/22/17 LDL 52 on Crestor 20 mg. Patient stopped Crestor. Resumed Crestor 20 mg qhs 06/23/18. Had 08/26/18: LDL 89. Increased to Crestor 40 mg qHS 10/08/18. Will order fasting lipids for follow up. Near syncope 138444457 R 55 Resolved. Carotid US 07/09/2018 Antegrade flow noted in both vertebral arteries. Very mild bilateral internal carotid artery stenosis with less than 15% diameter stenosis. Had Holter done in 07/09/18 showed Normal sinus rhythm. Frequent PVC's and PAC's but not correlated with symptoms. Sinus virgilio and tachycardi a. 1 episode of SVT run (7 beats @ 148 bpm). Had 08/26/18: Cr 1.3, K 3.8, LDL 89. Obtain TSH, Mg, with next blood draw for FLP. Obesity 618258825 E66.9 20 lb. weight loss recommende d over the next 2 months. Peripheral vascular disease 926737367 I73.9 Will schedule patient for [employer]STRUCTION ENGINEER to left SFA ( 9) He has bilateral total occlusion of SFA Tobacco de pendence syndrome 81663223 F17.200 Patient agrees to take Chantix [id number] Karan Cordova MD [facility] [address] [place] [address] 04/14/2019 09:53:47 04/16/2019 17:16:02 Peripheral vascular disease 789264033 I73.9 s/p CONSTRUCTION ENGINEER to left SFA with balloon angioplast y and stenting x2 ( 9) with improvemen t in claudicati on. Will plan for CONSTRUCTION ENGINEER of right SFA in 2 weeks. Continue ASA and Plavix. Coronary arteriosclerosis 16532950 I25.10 No recent chest pain. Had Jennifer Stress 07/09/2018 Adequate stress with lexiscan. Negative lexiscan stress test for ischemia. Normal LV systolic function. Artifact noted. Compared to last study in 05/14/2017 there are no changes Had 05/14/17 negative stress test. Cath in 2015 with patent stent to LAD. Continue ASA and statin. Left ventr icular hypertrophy 87534591 I51.7 LV wall thickness is moderately increased. Optimize BP control. Benign ess ential hypertension 3906622 I10 Blood pressure is elevated today, but this is only one reading, will keep close follow up, and consider medication change if blood pressure is still elevated next visit. He did not take his medication s this AM. Blood pressure diary. Obstructiv e sleep apnea syndrome 04236950 G47.33 Was found to have Moderate GURVINDER 1 year ago at [facility]. Reports improved sleeping now with weight loss. Dyslipidemia 473778539 E 78.5 Needs to keep LDL less than 70, and HDL more than 40 10/22/17 LDL 52 on Crestor 20 mg. Patient stopped Crestor. Resumed Crestor 20 mg qhs 06/23/18. Had 08/26/18: LDL 89. Increased to Crestor 40 mg qHS 10/08/18. Will order fasting lipids for follow up. Tobacco de pendence syndrome 51106328 F17.200 Recently picked up Chantix Rx, will start today. [id number] Karan Cordova MD [facility] [address] [place] [address] 06/05/2019 09:10:53 06/05/2019 09:58:40 Peripheral vascular disease 525966192 I73.9 s/p CONSTRUCTION ENGINEER to Jose Rafael SFA with balloon angioplast y and stenting x2 ( 9) with improvemen t in claudicati on. Follow up duplex in 3 months Coronary arteriosclerosis 51446536 I25.10 No recent chest pain. Had Jennifer Stress 07/09/2018 Adequate stress with lexiscan. Negative lexiscan stress test for ischemia. Normal LV systolic function. Artifact noted. Compared to last study in 05/14/2017 there are no changes Had 05/14/17 negative stress test. Cath in 2015 with patent stent to LAD. Continue ASA and statin. Left ventr icular hypertrophy 54964941 I51.7 LV wall thickness is moderately increased. Optimize BP control. Benign ess ential hypertension 2627099 I10 Blood pressure is elevated today, but this is only one reading, will keep close follow up, and consider medication change if blood pressure is still elevated next visit. He did not take his medication s this AM. Blood pressure diary. Obstructiv e sleep apnea syndrome 02420998 G47.33 Was found to have Moderate GURVINDER 1 year ago at [facility]. Reports improved sleeping now with weight loss. Dyslipidemia 546301741 E 78.5 Needs to keep LDL less than 70, and HDL more than 40 10/22/17 LDL 52 on Crestor 20 mg. Patient stopped Crestor. Resumed Crestor 20 mg qhs 06/23/18. Had 08/26/18: LDL 89. Increased to Crestor 40 mg qHS 10/08/18. Will order fasting lipids for follow up. Tobacco de pendence syndrome 10172458 F17.200 he quit [id number] [facility] [address] [place] [address] 11/27/2019 11:00:46 11/27/2019 11:39:21 Peripheral vascular disease 989141855 I73.9 11/27/2019H as started taking his medication s as ordered, reports dramatic decrease in pain. s/p CONSTRUCTION ENGINEER to Jose Rafael SFA with balloon angioplast y and stenting x2 ( 9) with improvemen t in claudicati on. Follow up duplex in 3 months Coronary arteriosclerosis 95924910 I25.10 11/27/2019N o recent chest pain. Had Jennifer Stress 07/09/2018 Adequate stress with lexiscan. Negative lexiscan stress test for ischemia. Normal LV systolic function. Artifact noted. Compared to last study in 05/14/2017 there are no changes Had 05/14/17 negative stress test. Cath in 2016 with patent stent to LAD. Continue ASA and statin. Left ventr icular hypertrophy 61274576 I51.7 LV wall thickness is moderately increased. Optimize BP control. Benign ess ential hypertension 1204964 I10 11/27/2019R eports has started taking medication as ordered. Obstructiv e sleep apnea syndrome 17475120 G47.33 11/27/2019D oes not own a CPAP Was found to have Moderate GURVINDER 1 year ago at [facility]. Reports improved sleeping now with weight loss. Dyslipidemia 622690347 E 78.5 11/27/2019 LDL 51. Keep taking Crestor. Needs to keep LDL less than 70, and HDL more than 40 10/22/17 LDL 52 on Crestor 20 mg. Patient stopped Crestor. Resumed Crestor 20 mg qhs 06/23/18. Had 08/26/18: LDL 89. Increased to Crestor 40 mg qHS 10/08/18. Will order fasting lipids for follow up. Tobacco de pendence syndrome 75492914 F17.200 11/27/2019R eports occasional use of e-cigarett e. Educated on the options and need to quit. [id number] Karan Cordova MD [facility] [address] [place] [address] 05/27/2020 10:31:26 05/27/2020 11:00:28 Peripheral vascular disease 285392412 I73.9 Obtain Arterial duplex s/p CONSTRUCTION ENGINEER to Jose Rafael SFA with balloon angioplast y and stenting x2 ( 9) with improvemen t in claudicati on. Follow up duplex Coronary arteriosclerosis 93516623 I25.10 Treadmill Myoview Stress test, has high [place] Risk score. Has Known CAD, or CAD risk equivalent . To look for any ischemia. Left ventr icular hypertrophy 78723906 I51.7 LV wall thickness is moderately increased. Optimize BP control. Benign ess ential hypertension 1882387 I10 Blood pressure is elevated today, but this is only one reading, will keep close follow up, and consider medication change if blood pressure is still elevated next visit. Obstructiv e sleep apnea syndrome 02185193 G47.33 Does not own a CPAP Was found to have Moderate GURVINDER 1 year ago at [facility]. Reports improved sleeping now with weight loss. Dyslipidemia 492904276 E 78.17 May 2019 LDL 51. Keep taking Crestor. Needs to keep LDL less than 70, and HDL more than 40 10/22/17 LDL 52 on Crestor 20 mg. Patient stopped Crestor. Resumed Crestor 20 mg qhs 06/23/18. Had 08/26/18: LDL 89. Increased to Crestor 40 mg qHS 10/08/18. Will order fasting lipids for follow up. Tobacco de pendence syndrome 08944470 F17.200 Reports occasional use of e-cigarett e. Educated on the options and need to quit. [id number] Antoinette Schafer [employer] [facility] [place] [address] 07/12/2020 11:45:15 07/12/2020 12:08:09 Peripheral vascular disease 930190259 I73.9 Arterial duplex 06/21/2020 : Mild PVD. Patent bilateral SFA stent with left sided moderate to severe in stent restenosis . s/p CONSTRUCTION ENGINEER to bilateral SFA with balloon angioplast y and stenting x 2 ( 9) Coronary arteriosclerosis 72676767 I25.10 s/p LAD stent [facility] 10/17/2016 : Patent stent in the LAD with mild LAD disease. Normal LV systolic function. Mild to moderate valve regurgitat ion. TDM 06/13/2020 : Positive stress test. Reversible defect consistent with ischemia in anterior area. Exercise tolerance: Average. LVEF 45%. The patient will be scheduled for left heart catheteriz ation, with coronary angiogram, and possible PTCA/Stent . The procedure was discussed with the patient, and risks, benefits, and alternativ e options were explained. The patient was given informatio n about heart catheteriz ation and interventi onal procedures . The patient agrees to proceed. Left ventr icular hypertrophy 80055758 I51.7 Echo 07/09/2018 : LV chamber size is normal. LV wall thickness is moderately increased. There is normal global systolic function. EF 55-60%. Normal LV atrial pressure with grade I diastolic dysfunctio n. Left atrium chamber is mildly dilated. Mitral valve prolapse cannot be ruled out. There is mild thickening of mitral valve anterior and posterior leaflets. There is trace mitral regurgitat ion. There is mild pulmonic regurgitat ion. Benign ess ential hypertension 4689274 I10 Increase losartan to 50mg 07/12/2020 Obstructiv e sleep apnea syndrome 69776703 G47.33 Not using CPAP following weight loss Dyslipidemia 085359579 E 78.5 Needs to keep LDL less than 70, and HDL more than 40. 06/05/2019 LDL 51 Continue Crestor 40 mg nightly Will get fasting lipids for follow-up. Tobacco de pendence syndrome 06740282 F17.200 Reports occasional use of e-cigarett e. Educated on the options and need to quit. [id number] Lisa Sanders [facility] [address] [place] [address] 08/19/2020 09:37:00 08/19/2020 14:42:05 Peripheral vascular disease 972801437 I73.9 Arterial duplex 06/21/2020 : Mild PVD. Patent bilateral SFA stent with left sided moderate to severe in stent restenosis . s/p CONSTRUCTION ENGINEER to bilateral SFA with balloon angioplast y and stenting x 2 ( 9) Coronary arteriosclerosis 45200186 I25.10 s/p LAD stent [facility] 10/17/2016 : Patent stent in the LAD with mild LAD disease. Normal LV systolic function. Mild to moderate valve regurgitat ion. TDM 06/13/2020 : Positive stress test. Reversible defect consistent with ischemia in anterior area. Exercise tolerance: Average. LVEF 45%. Had [facility] 08/03 without interventi on. Report pending. Left ventr icular hypertrophy 69028986 I51.7 Echo 07/09/2018 : LV chamber size is normal. LV wall thickness is moderately increased. There is normal global systolic function. EF 55-60%. Normal LV atrial pressure with grade I diastolic dysfunctio n. Left atrium chamber is mildly dilated. Mitral valve prolapse cannot be ruled out. There is mild thickening of mitral valve anterior and posterior leaflets. There is trace mitral regurgitat ion. There is mild pulmonic regurgitat ion. Benign ess ential hypertension 9911054 I10 Increase losartan to 50mg 07/12/2020 Obstructiv e sleep apnea syndrome 43415187 G47.33 Not using CPAP following weight loss Dyslipidemia 782023066 E 78.5 Needs to keep LDL less than 70, and HDL more than 40. 06/05/2019 LDL 51 Continue Crestor 40 mg nightly Will get fasting lipids for follow-up. Tobacco de pendence syndrome 58945095 F17.200 Reports occasional use of e-cigarett e. Educated on the options and need to quit. 328[address] Lisa Sanders [facility] [address] [place] [address] 09/16/2020 09:46:10 09/16/2020 11:33:09 Peripheral vascular disease 012513326 I73.9 Reports increase in pain to bilateral legs, worse on the left, both worse with walking. Will schedule for Left SFA with IVUS Arterial duplex 06/21/2020 : Mild PVD. Patent bilateral SFA stent with left sided moderate to severe in stent restenosis . s/p CONSTRUCTION ENGINEER to bilateral SFA with balloon angioplast y and stenting x 2 ( 9) Coronary arteriosclerosis 96542648 I25.10 s/p LAD stent [facility] 10/17/2016 : Patent stent in the LAD with mild LAD disease. Normal LV systolic function. Mild to moderate valve regurgitat ion. TDM 06/13/2020 : Positive stress test. Reversible defect consistent with ischemia in anterior area. Exercise tolerance: Average. LVEF 45%. Had [facility] 08/03 without interventi on. Report pending. Left ventr icular hypertrophy 69222703 I51.7 Echo 07/09/2018 : LV chamber size is normal. LV wall thickness is moderately increased. There is normal global systolic function. EF 55-60%. Normal LV atrial pressure with grade I diastolic dysfunctio n. Left atrium chamber is mildly dilated. Mitral valve prolapse cannot be ruled out. There is mild thickening of mitral valve anterior and posterior leaflets. There is trace mitral regurgitat ion. There is mild pulmonic regurgitat ion. Benign ess ential hypertension 1978239 I10 Increase losartan to 50mg 07/12/2020 Obstructiv e sleep apnea syndrome 25086483 G47.33 Not using CPAP following weight loss Dyslipidemia 896732737 E 78.5 Needs to keep LDL less than 70, and HDL more than 40. 06/05/2019 LDL 51 Continue Crestor 40 mg nightly Will get fasting lipids for follow-up. Tobacco de pendence syndrome 14128593 F17.200 Reports occasional use of e-cigarett e. Educated on the options and need to quit. Requests help to quit. Will start Chantix [id number] Antoinette Schafer [facility] [address] [place] [address] 10/20/2020 10:09:06 10/20/2020 10:40:57 Peripheral vascular disease 738022619 I73.9 s/p CONSTRUCTION ENGINEER to proximal and mid SFA (06/02/202 1) s/p CONSTRUCTION ENGINEER to bilateral SFA with balloon angioplast y and stenting x 2 ( 9) Now asymptomat ic, maximal medical treatment Coronary arteriosclerosis 82784498 I25.10 s/p LAD stent Stable, remains asymptomat ic. [facility] 08/03/2020: 1. No significan t obstructiv e coronary artery disease. One mild vessel coronary artery disease, mid LAD 40% stenosis 2. Normal left ventricula r size and systolic function. TDM 06/13/2020 : Positive stress test. Reversible defect consistent with ischemia in anterior area. Exercise tolerance: Average. LVEF 45%. Continue maximal medical treatment Left ventr icular hypertrophy 90528926 I51.7 Echo 07/09/2018 : LV chamber size is normal. LV wall thickness is moderately increased. There is normal global systolic function. EF 55-60%. Normal LV atrial pressure with grade I diastolic dysfunctio n. Left atrium chamber is mildly dilated. Mitral valve prolapse cannot be ruled out. There is mild thickening of mitral valve anterior and posterior leaflets. There is trace mitral regurgitat ion. There is mild pulmonic regurgitat ion. Benign ess ential hypertension 5403283 I10 Well controlled on current regimen Obstructiv e sleep apnea syndrome 30159488 G47.33 Not using CPAP following weight loss Dyslipidemia 666806824 E 78.5 Needs to keep LDL less than 70, and HDL more than 40. 2020 LDL 52 Continue Crestor 40 mg nightly Will get fasting lipids for follow-up. Tobacco de pendence syndrome 85809663 F17.200 Now on Chantix, has not smoked in ~ 1 week. [id number] Lisa Franc[facility] Office [address] [address] 12/05/2020 10:58:45 12/05/2020 11:50:05 Benign essential hypertension 7116899 I10 Well controlled on current regimen Cerebrovas cular accident 815479913 I63.9 On Plavix and Xarelto.No t on ASA Obstructiv e sleep apnea syndrome 31662359 G47.33 Not using CPAP following weight loss Peripheral vascular disease 774142276 I73.9 s/p CONSTRUCTION ENGINEER to proximal and mid SFA ( 1) s/p CONSTRUCTION ENGINEER to bilateral SFA with balloon angioplast y and stenting x 2 ( 9) Now asymptomat ic, maximal medical treatment Coronary arteriosclerosis 60182927 I25.10 s/p LAD stent Stable, remains asymptomat ic. [facility] 08/03/2020: 1. No significan t obstructiv e coronary artery disease. One mild vessel coronary artery disease, mid LAD 40% stenosis 2. Normal left ventricula r size and systolic function. TDM 06/13/2020 : Positive stress test. Reversible defect consistent with ischemia in anterior area. Exercise tolerance: Average. LVEF 45%. Continue maximal medical treatmentE R visit for chest pain. Start Omeprazole . Reports that it happens after eating, when he lays down at night. Left ventr icular hypertrophy 43802738 I51.7 Echo 07/09/2018 : LV chamber size is normal. LV wall thickness is moderately increased. There is normal global systolic function. EF 55-60%. Normal LV atrial pressure with grade I diastolic dysfunctio n. Left atrium chamber is mildly dilated. Mitral valve prolapse cannot be ruled out. There is mild thickening of mitral valve anterior and posterior leaflets. There is trace mitral regurgitat ion. There is mild pulmonic regurgitat ion. Dyslipidemia 855770006 E 78.5 Needs to keep LDL less than 70, and HDL more than 40. 2020 LDL 52 Continue Crestor 40 mg nightly Tobacco de pendence syndrome 71358526 F17.200 Reports recall on chantix and has not taken. He is going to ask PCP for wellbutrin . [id number] MD [facility] [address] [place] [address] 02/22/2021 13:41:25 02/22/2021 14:27:14 Benign essential hypertension 7119292 I10 Well controlled on current regimen Cerebrovas cular accident 452941166 I63.9 On Plavix and Xarelto.No t on ASA Obstructiv e sleep apnea syndrome 52131810 G47.33 Not using CPAP following weight loss Peripheral vascular disease 454172909 I73.9 s/p CONSTRUCTION ENGINEER to proximal and mid SFA () s/p CONSTRUCTION ENGINEER to bilateral SFA with balloon angioplast y and stenting x 2 ( 9)Will get arterial duplex, to evaluate severity of peripheral vascular disease Coronary arteriosclerosis 69079144 I25.10 s/p LAD stent Stable, remains asymptomat ic. [facility] 08/03/2020: 1. No significan t obstructiv e coronary artery disease. One mild vessel coronary artery disease, mid LAD 40% stenosis 2. Normal left ventricula r size and systolic function. TDM 06/13/2020 : Positive stress test. Reversible defect consistent with ischemia in anterior area. Exercise tolerance: Average. LVEF 45%. Continue maximal medical treatmentE R visit for chest pain. Start Omeprazole . Reports that it happens after eating, when he lays down at night. Left ventr icular hypertrophy 86135945 I51.7 Echo 07/09/2018 : LV chamber size is normal. LV wall thickness is moderately increased. There is normal global systolic function. EF 55-60%. Normal LV atrial pressure with grade I diastolic dysfunctio n. Left atrium chamber is mildly dilated. Mitral valve prolapse cannot be ruled out. There is mild thickening of mitral valve anterior and posterior leaflets. There is trace mitral regurgitat ion. There is mild pulmonic regurgitat ion. Dyslipidemia 517553857 E 78.5 Needs to keep LDL less than 70, and HDL more than 40. 2020 LDL 52 Continue Crestor 40 mg nightly Tobacco de pendence syndrome 84054367 F17.200 Reports recall on chantix and has not taken. He is going to ask PCP for wellbutrin . [id number] Mega Francois Office [address] [place] [address] 05/29/2021 11:36:48 05/29/2021 12:20:17 Benign essential hypertension 7892976 I10 Well controlled on current regimen Cerebrovas cular accident 419557917 I63.9 On Plavix and Xarelto.No t on ASA Obstructiv e sleep apnea syndrome 00371722 G47.33 Not using CPAP following weight loss Peripheral vascular disease 314778629 I73.9 s/p CONSTRUCTION ENGINEER to proximal and mid SFA ( 1) s/p CONSTRUCTION ENGINEER to bilateral SFA with balloon angioplast y and stenting x 2 ( 9)Will get arterial duplex, to evaluate severity of peripheral vascular disease Coronary arteriosclerosis 64367690 I25.10 s/p LAD stent Stable, remains asymptomat ic. [facility] 08/03/2020: 1. No significan t obstructiv e coronary artery disease. One mild vessel coronary artery disease, mid LAD 40% stenosis 2. Normal left ventricula r size and systolic function. TDM 06/13/2020 : Positive stress test. Reversible defect consistent with ischemia in anterior area. Exercise tolerance: Average. LVEF 45%. Continue maximal medical treatmentE R visit for chest pain. Start Omeprazole . Reports that it happens after eating, when he lays down at night. Left ventr icular hypertrophy 61297171 I51.7 Echo 07/09/2018 : LV chamber size is normal. LV wall thickness is moderately increased. There is normal global systolic function. EF 55-60%. Normal LV atrial pressure with grade I diastolic dysfunctio n. Left atrium chamber is mildly dilated. Mitral valve prolapse cannot be ruled out. There is mild thickening of mitral valve anterior and posterior leaflets. There is trace mitral regurgitat ion. There is mild pulmonic regurgitat ion. Dyslipidemia 862784934 E 78.5 Needs to keep LDL less than 70, and HDL more than 40. 2020 LDL 52 Continue Crestor 40 mg nightly Tobacco de pendence syndrome 99590535 F17.200 Reports recall on chantix and has not taken. He is going to ask PCP for wellbutrin . [id number] MD [facility] [address] [place] [address] 08/28/2021 11:01:19 08/28/2021 11:35:36 Benign essential hypertension 0250854 I10 Well controlled on current regimen Cerebrovas cular accident 230804378 I63.9 On Plavix and Xarelto.No t on ASA Obstructiv e sleep apnea syndrome 63326697 G47.33 Not using CPAP following weight loss Peripheral vascular disease 150798739 I73.9 s/p CONSTRUCTION ENGINEER to proximal and mid SFA ( 1) s/p CONSTRUCTION ENGINEER to bilateral SFA with balloon angioplast y and stenting x 2 ( 9)Will get arterial duplex, to evaluate severity of peripheral vascular disease Coronary arteriosclerosis 47261209 I25.10 s/p LAD stent Stable, remains asymptomat ic. [facility] 08/03/2020: 1. No significan t obstructiv e coronary artery disease. One mild vessel coronary artery disease, mid LAD 40% stenosis 2. Normal left ventricula r size and systolic function. TDM 06/13/2020 : Positive stress test. Reversible defect consistent with ischemia in anterior area. Exercise tolerance: Average. LVEF 45%. Continue maximal medical treatmentE R visit for chest pain. Start Omeprazole . Reports that it happens after eating, when he lays down at night. Left ventr icular hypertrophy 12669212 I51.7 Echo 07/09/2018 : LV chamber size is normal. LV wall thickness is moderately increased. There is normal global systolic function. EF 55-60%. Normal LV atrial pressure with grade I diastolic dysfunctio n. Left atrium chamber is mildly dilated. Mitral valve prolapse cannot be ruled out. There is mild thickening of mitral valve anterior and posterior leaflets. There is trace mitral regurgitat ion. There is mild pulmonic regurgitat ion. Dyslipidemia 171926996 E 78.5 Needs to keep LDL less than 70, and HDL more than 40. 2020 LDL 52 Continue Crestor 40 mg nightly Tobacco de pendence syndrome 33715082 F17.200 Reports recall on chantix and has not taken. He is going to ask PCP for wellbutrin . [id number] RYAN Francois Office [address] [address] 12/27/2021 13:45:33 12/27/2021 14:49:42 Benign essential hypertension 2059203 I10 Blood pressure is elevated today, but this is only one reading, will keep close follow up, and consider medication change if blood pressure is still elevated next visit. Cerebrovas cular accident 946227575 I63.9 On Plavix and ASAHe stopped xarelto Obstructiv e sleep apnea syndrome 76461875 G47.33 need to be fitted for CPAP if he did not loss weight by next visit Peripheral vascular disease 553133664 I73.9 s/p CONSTRUCTION ENGINEER to proximal and mid SFA ( 1) s/p CONSTRUCTION ENGINEER to bilateral SFA with balloon angioplast y and stenting x 2 ( 9) Coronary arteriosclerosis 57003037 I25.10 s/p LAD stent Stable, remains asymptomat ic. [facility] 08/03/2020: 1. No significan t obstructiv e coronary artery disease. One mild vessel coronary artery disease, mid LAD 40% stenosis 2. Normal left ventricula r size and systolic function. TDM 06/13/2020 : Positive stress test. Reversible defect consistent with ischemia in anterior area. Exercise tolerance: Average. LVEF 45%. Continue maximal medical treatmentE R visit for chest pain. Start Omeprazole . Reports that it happens after eating, when he lays down at night. Left ventr icular hypertrophy 49057985 I51.7 US, echocardio gramECHO 06/12/21:L V chamber size a normal,LV wall thickness is mildly increased, LVEF is 65-70%,LV relaxation is impaired,l eft atrium is mildly dilated . sinus bradycardi a. Dyslipidemia 682840287 E 78.5 Needs to keep LDL less than 70, and HDL more than 40. 2020 LDL 52 Continue Crestor 40 mg nightlywe will order fasting blood work to evaluate Tobacco de pendence syndrome 24262761 F17.200 advised to stop smoking [id number] MD [facility] Office [address] [place] [address] 03/28/2022 14:38:58 03/28/2022 15:05:01 Benign essential hypertension 6754539 I10 Blood pressure is elevated today, but this is only one reading, will keep close follow up, and consider medication change if blood pressure is still elevated next visit. Cerebrovas cular accident 346048325 I63.9 On Plavix and ASAHe stopped xarelto Obstructiv e sleep apnea syndrome 16278696 G47.33 need to be fitted for CPAP if he did not loss weight by next visit Peripheral vascular disease [id number] I73.9 s/p CONSTRUCTION ENGINEER to proximal and mid SFA () s/p CONSTRUCTION ENGINEER to bilateral SFA with balloon angioplast y and stenting x 2 ( 9) Coronary arteriosclerosis [id number] I25.10 s/p LAD stent Stable, remains asymptomat ic. [facility] 08/03/2020: 1. No significan t obstructiv e coronary artery disease. One mild vessel coronary artery disease, mid LAD 40% stenosis 2. Normal left ventricula r size and systolic function. TDM 06/13/2020 : Positive stress test. Reversible defect consistent with ischemia in anterior area. Exercise tolerance: Average. LVEF 45%. Continue maximal medical treatmentE R visit for chest pain. Start Omeprazole . Reports that it happens after eating, when he lays down at night. Left ventr icular hypertrophy 11520489 I51.7 US, echocardio gramECHO 06/12/21:L V chamber size a normal,LV wall thickness is mildly increased, LVEF is 65-70%,LV relaxation is impaired,l eft atrium is mildly dilated . sinus bradycardi a. Dyslipidemia 670673943 E 78.5 Needs to keep LDL less than 70, and HDL more than 40. 2020 LDL 52 Continue Crestor 40 mg nightlywe will order fasting blood work to evaluate Tobacco de pendence syndrome [id number] F17.200 advised to stop smoking [id number] Karan Cordova MD [facility] [address] [place] [address] 08/09/2022 14:33:57 08/09/2022 15:21:06 Benign essential hypertension 9485816 I10 Blood pressure is elevated today, but this is only one reading, will keep close follow up, and consider medication change if blood pressure is still elevated next visit. Cerebrovas cular accident [id number] I63.9 On Plavix and ASAHe stopped xarelto Obstructiv e sleep apnea syndrome 52355061 G47.33 need to be fitted for CPAP if he did not loss weight by next visit Peripheral vascular disease 190757679 I73.9 s/p CONSTRUCTION ENGINEER to proximal and mid SFA ( 1) s/p CONSTRUCTION ENGINEER to bilateral SFA with balloon angioplast y and stenting x 2 ( 9)Will get arterial doppler, to evaluate severity of peripheral vascular disease Coronary arteriosclerosis 11805538 I25.10 s/p LAD stent Stable, remains asymptomat ic. [facility] 08/03/2020: 1. No significan t obstructiv e coronary artery disease. One mild vessel coronary artery disease, mid LAD 40% stenosis 2. Normal left ventricula r size and systolic function. TDM 06/13/2020 : Positive stress test. Reversible defect consistent with ischemia in anterior area. Exercise tolerance: Average. LVEF 45%. Continue maximal medical treatmentE R visit for chest pain. Start Omeprazole . Reports that it happens after eating, when he lays down at night. Left ventr icular hypertrophy 53127090 I51.7 US, echocardio gramECHO 06/12/21:L V chamber size a normal,LV wall thickness is mildly increased, LVEF is 65-70%,LV relaxation is impaired,l eft atrium is mildly dilated . sinus bradycardi a. Dyslipidemia 036533426 E 78.5 Needs to keep LDL less than 70, and HDL more than 40. 2020 LDL 52 Continue Crestor 40 mg nightlywe will order fasting blood work to evaluate Tobacco de pendence syndrome 14512974 F17.200 advised to stop smoking [id number] [facility] [address] [place] [address] 02/07/2023 09:57:27 02/07/2023 10:57:00 Benign essential hypertension 2472922 I10 mildly elevated today 140/78will start him on spironolac tone 25 mg Cerebrovas cular accident 813600216 I63.9 On Plavix and ASAHe stopped xarelto Obstructiv e sleep apnea syndrome 87196930 G47.33 on CPAP Peripheral vascular disease 695990625 I73.9 s/p CONSTRUCTION ENGINEER to proximal and mid SFA () s/p CONSTRUCTION ENGINEER to bilateral SFA with balloon angioplast y and stenting x 2 ( 9)US, doppler, arterial Severe peripheral arterial disease of the right lower extremity. Severe peripheral arterial disease of the left lower extremity. stop smoking and continue with aspirin and plavix Coronary arteriosclerosis 19498157 I25.10 Treadmill Myoview Stress test, has high Marl[place] Risk score. Has Known CAD, or CAD risk equivalent . To look for any ischemia. s/p LAD stent Stable, remains asymptomat ic. [facility] 08/03/2020: 1. No significan t obstructiv e coronary artery disease. One mild vessel coronary artery disease, mid LAD 40% stenosis 2. Normal left ventricula r size and systolic function. TDM 06/13/2020 : Positive stress test. Reversible defect consistent with ischemia in anterior area. Exercise tolerance: Average. LVEF 45%. Continue maximal medical treatmentE R visit for chest pain. Start Omeprazole . Reports that it happens after eating, when he lays down at night. Left ventr icular hypertrophy 89757751 I51.7 US, echocardio gram ECHO 06/12/21:L V chamber size a normal,LV wall thickness is mildly increased, LVEF is 65-70%,LV relaxation is impaired,l eft atrium is mildly dilated . sinus bradycardi a. Dyslipidemia 018114338 E 78.5 Needs to keep LDL less than 70, and HDL more than 40. 2020 LDL 52 Continue Crestor 40 mg nightlywe will order fasting blood work to evaluate Tobacco de pendence syndrome 89271249 F17.200 advised to stop smokingsta rt nicotine patches [id number] [facility] [address] [place] [address] 03/01/2023 09:45:01 03/01/2023 10:41:21 Benign essential hypertension 2369246 I10 well controlled today Cerebrovas cular accident [id number] I63.9 On Plavix and ASAHe stopped xarelto Obstructiv e sleep apnea syndrome 16290183 G47.33 not using his CPAP Peripheral vascular disease 795449599 I73.9 improving after he stopped smoking s/p CONSTRUCTION ENGINEER to proximal and mid SFA ( 1) s/p CONSTRUCTION ENGINEER to bilateral SFA with balloon angioplast y and stenting x 2 ( 9)US, doppler, arterial Severe peripheral arterial disease of the right lower extremity. Severe peripheral arterial disease of the left lower extremity. continue with aspirin and plavix Coronary arteriosclerosis 91673037 I25.10 Treadmill Myoview Stress test, has high [place] Risk score. Has Known CAD, or CAD risk equivalent . To look for any ischemia. s/p LAD stent Stable, remains asymptomat ic. [facility] 08/03/2020: 1. No significan t obstructiv e coronary artery disease. One mild vessel coronary artery disease, mid LAD 40% stenosis 2. Normal left ventricula r size and systolic function. TDM 06/13/2020 : Positive stress test. Reversible defect consistent with ischemia in anterior area. Exercise tolerance: Average. LVEF 45%. Continue maximal medical treatmentE R visit for chest pain. Start Omeprazole . Reports that it happens after eating, when he lays down at night. Left ventr icular hypertrophy 35955960 I51.7 US, echocardio gram ECHO 06/12/21:L V chamber size a normal,LV wall thickness is mildly increased, LVEF is 65-70%,LV relaxation is impaired,l eft atrium is mildly dilated . sinus bradycardi a. Dyslipidemia 968213325 E 78.5 Needs to keep LDL less than 70, and HDL more than 40. 02/2023 , LDL 86 Continue Crestor 40 mg nightly and start zetiawe will order fasting blood work to evaluate [id number] RYAN TENAGUMARO [facility] [address] [place] [address] 06/19/2023 13:43:35 06/19/2023 14:12:10 Benign essential hypertension 2297694 I10 well controlled today Cerebrovas cular accident 500915893 I63.9 On Plavix and ASAHe stopped xarelto Obstructiv e sleep apnea syndrome 47367681 G47.33 not using his CPAP Peripheral vascular disease 354478378 I73.9 improving after he stopped smoking s/p CONSTRUCTION ENGINEER to proximal and mid SFA () s/p CONSTRUCTION ENGINEER to bilateral SFA with balloon angioplast y and stenting x 2 ( 9)US, doppler, arterial Severe peripheral arterial disease of the right lower extremity. Severe peripheral arterial disease of the left lower extremity. continue with aspirin and plavix Coronary arteriosclerosis 60580207 I25.10 negative stress test 2022 s/p LAD stent Stable, remains asymptomat ic. [facility] 08/03/2020: 1. No significan t obstructiv e coronary artery disease. One mild vessel coronary artery disease, mid LAD 40% stenosis 2. Normal left ventricula r size and systolic function. TDM 06/13/2020 : Positive stress test. Reversible defect consistent with ischemia in anterior area. Exercise tolerance: Average. LVEF 45%. Continue maximal medical treatmentE R visit for chest pain. Start Omeprazole . Reports that it happens after eating, when he lays down at night. Left ventr icular hypertrophy 22954479 I51.7 US, echocardio gram ECHO 06/12/21:L V chamber size a normal,LV wall thickness is mildly increased, LVEF is 65-70%,LV relaxation is impaired,l eft atrium is mildly dilated . sinus bradycardi a. Dyslipidemia 029792645 E 78.5 Needs to keep LDL less than 70, and HDL more than 40. 02/2023 , LDL 86 Continue Crestor 40 mg nightly and start zetiawe will order fasting blood work to evaluate [id number] Karan Cordova MD [facility] [address] [place] [address] 11/26/2023 09:48:53 11/26/2023 10:40:49 Benign essential hypertension 4488819 I10 well controlled today Cerebrovas cular accident 897249461 I63.9 On Plavix and ASAHe stopped xarelto Obstructiv e sleep apnea syndrome 91691092 G47.33 not using his CPAP Peripheral vascular disease 451141719 I73.9 improving after he stopped smoking s/p CONSTRUCTION ENGINEER to proximal and mid SFA () s/p CONSTRUCTION ENGINEER to bilateral SFA with balloon angioplast y and stenting x 2 ( 9)US, doppler, arterial Severe peripheral arterial disease of the right lower extremity. Severe peripheral arterial disease of the left lower extremity. continue with aspirin and plavix Coronary arteriosclerosis 06858796 I25.10 negative stress test 2022 s/p LAD stent Stable, remains asymptomat ic. [facility] 08/03/2020: 1. No significan t obstructiv e coronary artery disease. One mild vessel coronary artery disease, mid LAD 40% stenosis 2. Normal left ventricula r size and systolic function. TDM 06/13/2020 : Positive stress test. Reversible defect consistent with ischemia in anterior area. Exercise tolerance: Average. LVEF 45%. Continue maximal medical treatmentE R visit for chest pain. Start Omeprazole . Reports that it happens after eating, when he lays down at night. Left ventr icular hypertrophy 12060241 I51.7 US, echocardio gram ECHO 06/12/21:L V chamber size a normal,LV wall thickness is mildly increased, LVEF is 65-70%,LV relaxation is impaired,l eft atrium is mildly dilated . sinus bradycardi a. Dyslipidemia 650350465 E 78.5 Needs to keep LDL less than 70, and HDL more than 40. 02/2023 , LDL 86 Continue Crestor 40 mg nightly and start zetia [facility] Concerns Section Related Observation LastModified by Organization Detai ls LastModified Time None Recorded Concern Status LastModified by Organization Details LastModified Time None Recorded Advance Directives Directive None Recorded Payers Encounter Date Sequence Insurance Name Policy Number Policy Elliott Covered Member ID Elliott Member ID Guarantor Name 08/09/2022 2 [place] [facility] Sourav D D Maitland [id number] Sourav D Elijah 08/09/2022 1 [place] Sourav D Maitland [id number] Sourav D Maitland 02/07/2023 2 [place] [facility] Sourav D D Maitland [id number] Sourav D Elijah 02/07/2023 1 [place] Sourav D Maitland [id number] Sourav D Elijah 03/01/2023 2 [place] [employer] Sourav D D Elijah [id number] Sourav D Elijah 03/01/2023 1 [place] Sourav D Maitland [id number] Sourav D Elijah 06/19/2023 1 [facility] (MEDICARE REPLACEMENT/A DVANTAGE - PPO) [id number] Sourav D Elijah [id number] Sourav D Elijah 06/19/2023 2 [place] Sourav D D Maitland [id number] Sourav D Elijah 11/26/2023 1 [facility] (MEDICARE REPLACEMENT/A DVANTAGE - PPO) [id number] Sourav D Maitland [id number] Sourav D Elijah 11/26/2023 2 [place] [facility] Sourav D D Elijah [id number] Sourav D Elijah Notes Date Note Type Note Provider Name and Address Organization Details Recorded Time 3 text/html 08/09/22CC : Cardiac follow upHPI: 57-year-old -Italian man with h/o Coronary artery disease s/p Myocardial infarction and s/p PCI/Stenting to LAD ([address] @ [facility] by Dr Dewayne Perez), Hypertension, Hyperlipidemia, GURVINDER, and alcohol dependence (quit alcohol 8 yrs ago), is here for 6 month follow-up.He was last seen in the clinic on 03/28/22, since then he is can't beath after taking 1 of his night pills Denies chest pain.Denies shortness of breath at rest. Has mild dyspnea on exertion.No orthopnea. No PNDs.Denies heart palpitations.Denies dizziness. Denies syncope or near syncope.No ankle or leg edema.No major bleeding events.No reported side effects from medications. Taking medications as prescribed with no missed doses.Denies snoring, daytime somnolence and AM headache.*Last LDL was 55 done on 12/28/21.Pt takes rosuvastatin 40 mg. Previously:He went to the ED with dyspnea and chest pain.He recently diagnosed with sleep apnea and need CPAP but he is willing to loss weight before he he got fitted for CPAP.He is waking up in the middle of the night with SOB. His blood pressure is elevated today. *Had ECHO done on 06/12/21 showed LV chamber size a normal,LV wall thickness is mildly increased,LVEF is 65-70%,LV relaxation is impaired,left atrium is mildly dilated . sinus bradycardia. He had CONSTRUCTION ENGINEER and stents to SFA, now he feels better, but he gets left leg pain with exertion *Peripheral angiogram 10/12/2020: 1. Severe peripheral vascular disease with total occlusion of the ostium of the SFA extending all the way to the distal portion of the SFA. 2. Successful laser atherectomy, balloon angioplasty stent placement to the distal SFA and proximal popliteal and successful drug eluting balloon to the proximal and mid SFA with final good result. *06/13/20 TDM STRESS TEST: Positive stress test. Reversible defect consistent with ischemia in anterior area. Exercise tolerance: Average. LVEF 45%. *Had Carotid US done in 07/09/18 showed Antegrade flow noted in both vertebral arteries. Very mild bilateral internal carotid artery stenosis with less than 15% diameter stenosis. *Had CATH on 10/18/15 revealed patent stent in the LAD (2004) with mild LAD disease , Normal LV systolic function, Mild to moderate mitral valve regurgitationResults from this visit, or from the past:10/11/2020 PTT 27 CMP, serum or plasma 10-11-2020 NA 140, K 4.3, Chloride 108, Co2 26, Anion Gap 6(L), Glucose 97, BUN 17, Cr 1.2, GFR 81, Calcium 9.2 CBC w/ diff 10-11-2020 WBC 5.3, RBC 4.77, HGB 14.3, HCT 43.7, PLT 195 08/02/20:Na 144,k 4.5,Cl 111,Co2 27,Glu 102,Bun 18,Cr 1.4 CBC 2020 WBC 7.0 RBC 4.91 HGB 14.8 HCT 45.6 PLT 221 LIPID 2020 TR 62 CH 108 HDL 44 LDL 52 BMP 2020 NA 144 K 4.5 CH 111 CO2 27 GL 102 BUN 18 CR 1.4 CA 8.9 PT 13.4 INR 0.98 PTT 24 lipid panel, blood 06-05-2019 06/05/19: TC 105 ,TG 49 ,HDL 44,LDL 51 , CMP, serum or plasma 06-05-2019 06/05/19: Na 141 ,K 4.4, CL 107 ,CO2 26 , GLU 97 ,BUN 14 , CR 1.3, AST 21,ALT 49,CK 168 PT/INR 03-31-2019 03/31/19: PT 13.4 , INR 0.99, PTT 26 CMP, serum or plasma 03-31-2019 03/31/19: Na 143 , K 4.0, CL 108 ,CO2 24, GLU 87 , BUN 16, CR 1.2, PT 13.4, INR 0.99 CBC w/ diff 03-31-2019 03/31/19: HB 14.0, HT 42.7 BMP, serum or plasma 03-16-2019 PT/INR 03-16-2019 03/16/19 PT/INR: PT 13.2, INR 0.97 CBC w/ diff 03-04-2019 03/04/19 ; WBC 5.3,RBC 4.67,HGB 13.7,HCT 42.3,PLT 259 Vitamin D 26,PTH intact 91 09/24/18 CMP: NA 139, K 4.2, CL 101, CO2 30, GLU 150, BUN 10, CR .7, AST 13, ALT 10 08/26/18 LIPID: TC 154, TR 81, HDL 49, LDL 89 08/26/18 CBC: WBC 6.7, HGB 14.8, HCT 45.7, PLT 257 08/07/18 BMP: NA 143, K 4, CL 107, CO2 26, GLU 92, BUN 15, CR 1.3 Vitamin D 05/28/2018 13 BMP 05/28/2018 NA 144 K 4.1 GL 87 05/28/2018 Vitamin D 13 CBC 05/28/2018 WBC 5.6 RBC 4.83 HGB 14.2 HCT 43.6 PLT 262 01/03/18: Na 143 ,K 5.0 ,CL 108 ,CO2 28 ,GLU 90 ,BUN 20 , CR 1.7,AST 33 ,ALT 95, 11/12/2017: SOD 143, K 4.0, CL 106, CO2 25, GL 86, BUN 17, CR 1. 11/12/2017: WBC 5.1, HGB 13.6, HCT 40.2, PLT 271 08/26/17:SOD 139,K 3.5,CL 102,CO2 23,GLU 116,BUN 17,CR 1.4,AST 14,ALT 23 . 08/26/17: TG 132,TC 180,HDL 41,LDL 113. 04/13/17: SOD 139, K 4.1, CL 103, CO2 25, GL 93, BUN 18, CR 1.3 04/11/17: PT 12.9, INR 0.97, PTT 26 10/17/16 : PT 13.2, INR 0.99, PTT 28. 10/16/16 : SOD 143,K 3.4,CL 104,CO2 22,GLU 110,BUN 16,CR 1.3,AST 22,ALT 51,TC 132,TG 54,HDL 46,LDL 75.Angiogram 10/12/2020 Severe peripheral vascular disease with total occlusion of the ostium of the SFA extending all the way to the distal portion of the SFA. Successful laser artherectomy, balloon angioplasty stent placement to the distal SFA and proximal popliteal and successful drug eluting balloon to the proximal and mid SFA with final good result.angiogram (PROC) 08-03-2020 Peripheral Angiogram: Patent stents with mild in stent re-stenosis. Maximal medical treatment with risk factor modification. 03/18/19 Peripheral Angiogram: Bilateral SFA total occlusion. [facility] renal artery total occlustion. Will plan CONSTRUCTION ENGINEER to right and left SFA. Will consult with 06/21/20 LE ARTERIAL DUPLEX: Mild PVD. Patent Jose Rafael SFA stent with left sided moderate to severe in stent restenosis. 06/13/20 TDM STRESS TEST: Positive stress test. Reversible defect consistent with ischemia in anterior area. Exercise tolerance: Average. LVEF 45% 05/22/2019 Arterial Doppler Study ; Normal ankle brachial index (JENIFER) ankle brachial index 02-06-2019 JENIFER 02/06/2019 JENIFER right leg 0.47 with toe index 0.25 in the range of severe ischemia, rest pain, possible ulceration. JENIFER left leg 0.82 with toe index Holter Monitor 07/09/18 : Normal sinus rhythm. Frequent PVC's and PAC's but not correlated with symptoms. Sinus virgilio and tachycardia. 1 07/09/18-Adequate Stress with Lexiscan. Negative Lexiscan stress test for ischemia. Normal LV systolic function. Artifact noted. Compared to last study in 09/16/20 EKG P normal QRS extreme right inferior axis deviation RVH R/S >1 in V1 R/S <1 in V# V$ V% septal infarct QS in V2 R < 0.[address]-T normal conclusion abnormal ECG 05/27/20 EKG: NSR 03/04/19 : EKG Probably old anterior myocardial infarction EKG 06/23/18 : Probably old anterior myocardial infarction. EKG 12/06/17: right ventricular hypertrophy Probably old myocardial infarction Non-Specific Inverted T waves inferior leads EKG 08/26/17: Normal sinus rhythm,possible left atrial enlargement,right superior axis deviation,inferior infarct in or before 04/11/17, abnormal EKG . EK04/12/17 Normal sinus rhythm. Right superior axis deviation. Inferior infarct cited on or before 11-APR-2017. T wave abnormality, consider lateral ischemia. Abnormal ECG when compared with ECG of 11-APR-2017. T wave inversion now evident in lateral leads. EK01/24/17 Sinus rhythm. Right sided conduction defect and right axis. Possible right ventricular hypertrophy or posterior fascicular block. Old anteroseptal infarct. Negative T waves. Possible anterolateral ischemia. EKG 10/16/16 : Normal sinus rhythm , right axis deviation , abnormal QRS-T angle consider primary T wave abnormality . US, duplex, arterial, lower extremity 06-21-2020 06/21/20 LE ARTERIAL DUPLEX: Mild PVD. Patent Jose Rafael SFA stent with left sided moderate to severe in stent restenosis. 06/30/19 Lower Ext Arterial Duplex-Patent bilateral SFA stents Holter Monitor 07/09/18 : Normal sinus rhythm. Frequent PVC's and PAC's but not correlated with symptoms. Sinus virgilio and tachycardia. 1 episode of SV run (7 beats @ 148 bpm). CHEST: 04/11/17 No acute cardiopulmonary process. Had positive stress test done in 06/13/20 with ischemia in anterior area.LVEF 45%. 07/09/18-Adequate Stress with Lexiscan. Negative Lexiscan stress test for ischemia. Normal LV systolic function. Artifact noted. Compared to last study in 05/14/2017, there are no changes. Carotid US 07/09/2018 Antegrade flow noted in both vertebral arteries. Very mild bilateral internal carotid artery stenosis with less than 15% diameter stenosis. Had Holter done in 07/09/18 showed Normal sinus rhythm. Frequent PVC's and PAC's but not correlated with symptoms. Sinus virgilio and tachycardia. 1 episode of SVT run (7 beats @ 148 bpm). Had ECHO 07/09/18: LV chamber size is normal, LV wall thickness is moderately increased,there is normal global systolic function, EF 55-60%, Normal LV atrial pressure with grade I diastolic dysfunction, Left atrium chamber is mildly dilated,mitral valve prolapse cannot be ruled out, there is mild thickening of mitral valve anterior and posterior leaflets,there is trace mitral regurgitation,there is mild pulmonic regurgitation. ECHO: 04/12/17 Compared to prior study, there is no significant change. The study was technically difficult. The left ventricle is normal in size. There is borderline concentric left ventricular hypertrophy. Left ventricular systolic function is normal. Ejection Fraction = 55-60%. The left atrium is moderately dilated. There is trace mitral regurgitation. There is mild tricuspid regurgitation. Trace pulmonic valvular regurgitation. Grade I diastolic dysfunction (abnormal relaxation pattern). ECHO 10/17/16 : mild LVH, LV systolic function is normal , EF 55-60% . Treadmill Nuclear Stress Test 05/14/17 : negative stress test. Normal LV systolic function. Exercise tolerance is average. LVEF 44%. Myocardial Perfusion Study 10/17/16: Abnormal myocardial perfusion study, findings suspicious for ischemia , 5% lateral wall left circumflex distribution , Left ventricular EF 67% poststress, normal LV wall motion . 08/03/20 [facility] 1. No significant obstructive coronary artery disease. One mild vessel coronary artery disease, mid 40% stenosis 2. Normal left ventricular size and systolic function. CATH 10/17/16 : Patent stent in the LAD with mild LAD disease, normal LV systolic function, Mild to moderate valve regurgitation. 06/30/19 Lower Ext Arterial Duplex-Patent bilateral SFA stent 05/22/2019 Arterial Doppler Study ; Normal ankle brachial index venography Successful treatment of the chronic total occlusion of the SFA with long occlusion but treated with laser atherectomy then balloon angioplasty and then stent placement with excellent results. 03/18/19 Peripheral Angiogram: Bilateral SFA total occlusion. [facility] renal artery total occlustion. Will plan CONSTRUCTION ENGINEER to right and left SFA. Will consult with nephrology about benefit of right renal occlution treatment. JENIFER 02/06/2019 JENIFER right leg 0.47 with toe index 0.25 in the range of severe ischemia, rest pain, possible ulceration. JENIFER left leg 0.82 with toe index 0.53 in the range of mild ischemia, asymptomatic PAD. Waveforms suggestive of femoral popliteal disease, infrageniculate disease. XR, Chest 08/26/17 : No acute cardiopulmonary abnormality . Myocardial Perfusion Study 10/17/16: Abnormal myocardial perfusion study, findings suspicious for ischemia , 5% lateral wall left circumflex distribution , Left ventricular EF 67% poststress, normal LV wall motion . Karan Cordova MD [address] [place], [address], [facility] 08/09/2022 15:17:25 3 text/html 02/07/23CC : Cardiac follow up dyspnea on exertionHPI: 57-year-old -Italian man with h/o Coronary artery disease s/p Myocardial infarction and s/p PCI/Stenting to LAD ([address] [facility] by Dr Dewayne Perez), Hypertension, Hyperlipidemia, GURVINDER, and alcohol dependence (quit alcohol 8 yrs ago), is here for 6 month follow-up.He was last seen in the clinic on 08/09/22, since then he is doing. He went to ED due to SOB and he got lasix IV and his SOB improved. *Last LDL was 55 done on 12/28/21.Pt takes rosuvastatin 40 mg.He denies ER visits and hospitalizations since he was last seen. Today reports:Denies chest pain.Denies shortness of breath at rest. Has mild dyspnea on exertion.No orthopnea. No PNDs.Denies heart palpitations.Denies dizziness. Denies syncope or near syncope.No ankle or leg edema. on lasixNo major bleeding events.No reported side effects from medications. Taking medications as prescribed with no missed doses.Denies snoring, daytime somnolence and AM headache.*Last LDL was 55 done on 12/28/21.Pt takes rosuvastatin 40 mg. *Had Us, Doppler, Arterial on 09/13/22 showed Severe peripheral arterial disease of the right lower extremity. Severe peripheral arterial disease of the left lower extremity. Previously:He is can't beath after taking 1 of his night pillsHe went to the ED with dyspnea and chest pain.He recently diagnosed with sleep apnea and need CPAP but he is willing to loss weight before he he got fitted for CPAP.He is waking up in the middle of the night with SOB. His blood pressure is elevated today. *Had ECHO done on 06/12/21 showed LV chamber size a normal,LV wall thickness is mildly increased,LVEF is 65-70%,LV relaxation is impaired,left atrium is mildly dilated . sinus bradycardia. He had CONSTRUCTION ENGINEER and stents to SFA, now he feels better, but he gets left leg pain with exertion *Peripheral angiogram 10/12/2020: 1. Severe peripheral vascular disease with total occlusion of the ostium of the SFA extending all the way to the distal portion of the SFA. 2. Successful laser atherectomy, balloon angioplasty stent placement to the distal SFA and proximal popliteal and successful drug eluting balloon to the proximal and mid SFA with final good result. *06/13/20 TDM STRESS TEST: Positive stress test. Reversible defect consistent with ischemia in anterior area. Exercise tolerance: Average. LVEF 45%. *Had Carotid US done in 07/09/18 showed Antegrade flow noted in both vertebral arteries. Very mild bilateral internal carotid artery stenosis with less than 15% diameter stenosis. *Had CATH on 10/18/15 revealed patent stent in the LAD (2004) with mild LAD disease , Normal LV systolic function, Mild to moderate mitral valve regurgitationResults from this visit, or from the past:10/11/2020 PTT 27 CMP, serum or plasma 10-11-2020 NA 140, K 4.3, Chloride 108, Co2 26, Anion Gap 6(L), Glucose 97, BUN 17, Cr 1.2, GFR 81, Calcium 9.2 CBC w/ diff 10-11-2020 WBC 5.3, RBC 4.77, HGB 14.3, HCT 43.7, PLT 195 08/02/20:Na 144,k 4.5,Cl 111,Co2 27,Glu 102,Bun 18,Cr 1.4 CBC 2020 WBC 7.0 RBC 4.91 HGB 14.8 HCT 45.6 PLT 221 LIPID 2020 TR 62 CH 108 HDL 44 LDL 52 BMP 2020 NA 144 K 4.5 CH 111 CO2 27 GL 102 BUN 18 CR 1.4 CA 8.9 PT 13.4 INR 0.98 PTT 24 lipid panel, blood 06-05-2019 06/05/19: TC 105 ,TG 49 ,HDL 44,LDL 51 , CMP, serum or plasma 06-05-2019 06/05/19: Na 141 ,K 4.4, CL 107 ,CO2 26 , GLU 97 ,BUN 14 , CR 1.3, AST 21,ALT 49,CK 168 PT/INR 03-31-2019 03/31/19: PT 13.4 , INR 0.99, PTT 26 CMP, serum or plasma 03-31-2019 03/31/19: Na 143 , K 4.0, CL 108 ,CO2 24, GLU 87 , BUN 16, CR 1.2, PT 13.4, INR 0.99 CBC w/ diff 03-31-2019 03/31/19: HB 14.0, HT 42.7 BMP, serum or plasma 03-16-2019 PT/INR 03-16-2019 03/16/19 PT/INR: PT 13.2, INR 0.97 CBC w/ diff 03-04-2019 03/04/19 ; WBC 5.3,RBC 4.67,HGB 13.7,HCT 42.3,PLT 259 Vitamin D 26,PTH intact 91 09/24/18 CMP: NA 139, K 4.2, CL 101, CO2 30, GLU 150, BUN 10, CR .7, AST 13, ALT 10 08/26/18 LIPID: TC 154, TR 81, HDL 49, LDL 89 08/26/18 CBC: WBC 6.7, HGB 14.8, HCT 45.7, PLT 257 08/07/18 BMP: NA 143, K 4, CL 107, CO2 26, GLU 92, BUN 15, CR 1.3 Vitamin D 05/28/2018 13 BMP 05/28/2018 NA 144 K 4.1 GL 87 05/28/2018 Vitamin D 13 CBC 05/28/2018 WBC 5.6 RBC 4.83 HGB 14.2 HCT 43.6 PLT 262 01/03/18: Na 143 ,K 5.0 ,CL 108 ,CO2 28 ,GLU 90 ,BUN 20 , CR 1.7,AST 33 ,ALT 95, 11/12/2017: SOD 143, K 4.0, CL 106, CO2 25, GL 86, BUN 17, CR 1. 11/12/2017: WBC 5.1, HGB 13.6, HCT 40.2, PLT 271 08/26/17:SOD 139,K 3.5,CL 102,CO2 23,GLU 116,BUN 17,CR 1.4,AST 14,ALT 23 . 08/26/17: TG 132,TC 180,HDL 41,LDL 113. 04/13/17: SOD 139, K 4.1, CL 103, CO2 25, GL 93, BUN 18, CR 1.3 04/11/17: PT 12.9, INR 0.97, PTT 26 10/17/16 : PT 13.2, INR 0.99, PTT 28. 10/16/16 : SOD 143,K 3.4,CL 104,CO2 22,GLU 110,BUN 16,CR 1.3,AST 22,ALT 51,TC 132,TG 54,HDL 46,LDL 75.Angiogram 10/12/2020 Severe peripheral vascular disease with total occlusion of the ostium of the SFA extending all the way to the distal portion of the SFA. Successful laser artherectomy, balloon angioplasty stent placement to the distal SFA and proximal popliteal and successful drug eluting balloon to the proximal and mid SFA with final good result.angiogram (PROC) 08-03-2020 Peripheral Angiogram: Patent stents with mild in stent re-stenosis. Maximal medical treatment with risk factor modification. 03/18/19 Peripheral Angiogram: Bilateral SFA total occlusion. [facility] renal artery total occlustion. Will plan CONSTRUCTION ENGINEER to right and left SFA. Will consult with 06/21/20 LE ARTERIAL DUPLEX: Mild PVD. Patent Jose Rafael SFA stent with left sided moderate to severe in stent restenosis. 06/13/20 TDM STRESS TEST: Positive stress test. Reversible defect consistent with ischemia in anterior area. Exercise tolerance: Average. LVEF 45% 05/22/2019 Arterial Doppler Study ; Normal ankle brachial index (JENIFER) ankle brachial index 02-06-2019 JENIFER 02/06/2019 JENIFER right leg 0.47 with toe index 0.25 in the range of severe ischemia, rest pain, possible ulceration. JENIFER left leg 0.82 with toe index Holter Monitor 07/09/18 : Normal sinus rhythm. Frequent PVC's and PAC's but not correlated with symptoms. Sinus virgilio and tachycardia. 1 07/09/18-Adequate Stress with Lexiscan. Negative Lexiscan stress test for ischemia. Normal LV systolic function. Artifact noted. Compared to last study in 09/16/20 EKG P normal QRS extreme right inferior axis deviation RVH R/S >1 in V1 R/S <1 in V# V$ V% septal infarct QS in V2 R < 0.[address]-T normal conclusion abnormal ECG 05/27/20 EKG: NSR 03/04/19 : EKG Probably old anterior myocardial infarction EKG 06/23/18 : Probably old anterior myocardial infarction. EKG 12/06/17: right ventricular hypertrophy Probably old myocardial infarction Non-Specific Inverted T waves inferior leads EKG 08/26/17: Normal sinus rhythm,possible left atrial enlargement,right superior axis deviation,inferior infarct in or before 04/11/17, abnormal EKG . EK04/12/17 Normal sinus rhythm. Right superior axis deviation. Inferior infarct cited on or before 11-APR-2017. T wave abnormality, consider lateral ischemia. Abnormal ECG when compared with ECG of 11-APR-2017. T wave inversion now evident in lateral leads. EK01/24/17 Sinus rhythm. Right sided conduction defect and right axis. Possible right ventricular hypertrophy or posterior fascicular block. Old anteroseptal infarct. Negative T waves. Possible anterolateral ischemia. EKG 10/16/16 : Normal sinus rhythm , right axis deviation , abnormal QRS-T angle consider primary T wave abnormality . US, duplex, arterial, lower extremity 06-21-2020 06/21/20 LE ARTERIAL DUPLEX: Mild PVD. Patent Jose Rafael SFA stent with left sided moderate to severe in stent restenosis. 06/30/19 Lower Ext Arterial Duplex-Patent bilateral SFA stents Holter Monitor 07/09/18 : Normal sinus rhythm. Frequent PVC's and PAC's but not correlated with symptoms. Sinus virgilio and tachycardia. 1 episode of SV run (7 beats @ 148 bpm). CHEST: 04/11/17 No acute cardiopulmonary process. Had positive stress test done in 06/13/20 with ischemia in anterior area.LVEF 45%. 07/09/18-Adequate Stress with Lexiscan. Negative Lexiscan stress test for ischemia. Normal LV systolic function. Artifact noted. Compared to last study in 05/14/2017, there are no changes. Carotid US 07/09/2018 Antegrade flow noted in both vertebral arteries. Very mild bilateral internal carotid artery stenosis with less than 15% diameter stenosis. Had Holter done in 07/09/18 showed Normal sinus rhythm. Frequent PVC's and PAC's but not correlated with symptoms. Sinus virgilio and tachycardia. 1 episode of SVT run (7 beats @ 148 bpm). Had ECHO 07/09/18: LV chamber size is normal, LV wall thickness is moderately increased,there is normal global systolic function, EF 55-60%, Normal LV atrial pressure with grade I diastolic dysfunction, Left atrium chamber is mildly dilated,mitral valve prolapse cannot be ruled out, there is mild thickening of mitral valve anterior and posterior leaflets,there is trace mitral regurgitation,there is mild pulmonic regurgitation. ECHO: 04/12/17 Compared to prior study, there is no significant change. The study was technically difficult. The left ventricle is normal in size. There is borderline concentric left ventricular hypertrophy. Left ventricular systolic function is normal. Ejection Fraction = 55-60%. The left atrium is moderately dilated. There is trace mitral regurgitation. There is mild tricuspid regurgitation. Trace pulmonic valvular regurgitation. Grade I diastolic dysfunction (abnormal relaxation pattern). ECHO 10/17/16 : mild LVH, LV systolic function is normal , EF 55-60% . Treadmill Nuclear Stress Test 05/14/17 : negative stress test. Normal LV systolic function. Exercise tolerance is average. LVEF 44%. Myocardial Perfusion Study 10/17/16: Abnormal myocardial perfusion study, findings suspicious for ischemia , 5% lateral wall left circumflex distribution , Left ventricular EF 67% poststress, normal LV wall motion . 08/03/20 [facility] 1. No significant obstructive coronary artery disease. One mild vessel coronary artery disease, mid 40% stenosis 2. Normal left ventricular size and systolic function. CATH 10/17/16 : Patent stent in the LAD with mild LAD disease, normal LV systolic function, Mild to moderate valve regurgitation. 06/30/19 Lower Ext Arterial Duplex-Patent bilateral SFA stent 05/22/2019 Arterial Doppler Study ; Normal ankle brachial index venography Successful treatment of the chronic total occlusion of the SFA with long occlusion but treated with laser atherectomy then balloon angioplasty and then stent placement with excellent results. 03/18/19 Peripheral Angiogram: Bilateral SFA total occlusion. [facility] renal artery total occlustion. Will plan CONSTRUCTION ENGINEER to right and left SFA. Will consult with nephrology about benefit of right renal occlution treatment. JENIFER 02/06/2019 JENIFER right leg 0.47 with toe index 0.25 in the range of severe ischemia, rest pain, possible ulceration. JENIFER left leg 0.82 with toe index 0.53 in the range of mild ischemia, asymptomatic PAD. Waveforms suggestive of femoral popliteal disease, infrageniculate disease. XR, Chest 08/26/17 : No acute cardiopulmonary abnormality . Myocardial Perfusion Study 10/17/16: Abnormal myocardial perfusion study, findings suspicious for ischemia , 5% lateral wall left circumflex distribution , Left ventricular EF 67% poststress, normal LV wall motion . RYAN paredes [place] - [facility] 02/07/2023 10:56:26 3 text/html 02/07/23CC : Cardiac follow up dyspnea on exertionHPI: 57-year-old -Italian man with h/o Coronary artery disease s/p Myocardial infarction and s/p PCI/Stenting to LAD ([address] @ [facility] by Dr Dewayne Perez), Hypertension, Hyperlipidemia, GURVINDER, and alcohol dependence (quit alcohol 8 yrs ago), is here for 3 week follow-up with labs results.He was last seen in the clinic on 02/07/23, since then he is doing well. He denied chest pain or dyspnea on exertion. He stopped smoking and sleeping well he is not using his CPAP. *Last LDL was 87 done on 02/12/23.Pt takes rosuvastatin 40 mg. He denies ER visits and hospitalizations since he was last seen. Today reports:Denies chest pain.Denies shortness of breath at rest. Has mild dyspnea on exertion.No orthopnea. No PNDs.Denies heart palpitations.Denies dizziness. Denies syncope or near syncope.No ankle or leg edema.No major bleeding events.No reported side effects from medications. Taking medications as prescribed with no missed doses.Denies snoring, daytime somnolence and AM headache.*Last LDL was 87 done on 02/12/23.Pt takes rosuvastatin 40 mg. 3CMP-NA 140 K 4.5 BUN 20 CR 1.40 GL 89 CA 9.3 Total [id number] 160 TRIG 82 HDL 57 LDL 87 ,[id number] Previously:He went to ED due to SOB and he got lasix IV and his SOB improved. *Had Us, Doppler, Arterial on 09/13/22 showed Severe peripheral arterial disease of the right lower extremity. Severe peripheral arterial disease of the left lower extremity. He is can't beath after taking 1 of his night pillsHe went to the ED with dyspnea and chest pain.He recently diagnosed with sleep apnea and need CPAP but he is willing to loss weight before he he got fitted for CPAP.He is waking up in the middle of the night with SOB. His blood pressure is elevated today. *Had ECHO done on 06/12/21 showed LV chamber size a normal,LV wall thickness is mildly increased,LVEF is 65-70%,LV relaxation is impaired,left atrium is mildly dilated . sinus bradycardia. He had CONSTRUCTION ENGINEER and stents to SFA, now he feels better, but he gets left leg pain with exertion *Peripheral angiogram 10/12/2020: 1. Severe peripheral vascular disease with total occlusion of the ostium of the SFA extending all the way to the distal portion of the SFA. 2. Successful laser atherectomy, balloon angioplasty stent placement to the distal SFA and proximal popliteal and successful drug eluting balloon to the proximal and mid SFA with final good result. *06/13/20 TDM STRESS TEST: Positive stress test. Reversible defect consistent with ischemia in anterior area. Exercise tolerance: Average. LVEF 45%. *Had Carotid US done in 07/09/18 showed Antegrade flow noted in both vertebral arteries. Very mild bilateral internal carotid artery stenosis with less than 15% diameter stenosis. *Had CATH on 10/18/15 revealed patent stent in the LAD (2004) with mild LAD disease , Normal LV systolic function, Mild to moderate mitral valve regurgitationResults from this visit, or from the past:10/11/2020 PTT 27 CMP, serum or plasma 10-11-2020 NA 140, K 4.3, Chloride 108, Co2 26, Anion Gap 6(L), Glucose 97, BUN 17, Cr 1.2, GFR 81, Calcium 9.2 CBC w/ diff 10-11-2020 WBC 5.3, RBC 4.77, HGB 14.3, HCT 43.7, PLT 195 08/02/20:Na 144,k 4.5,Cl 111,Co2 27,Glu 102,Bun 18,Cr 1.4 CBC 2020 WBC 7.0 RBC 4.91 HGB 14.8 HCT 45.6 PLT 221 LIPID 2020 TR 62 CH 108 HDL 44 LDL 52 BMP 2020 NA 144 K 4.5 CH 111 CO2 27 GL 102 BUN 18 CR 1.4 CA 8.9 PT 13.4 INR 0.98 PTT 24 lipid panel, blood 06-05-2019 06/05/19: TC 105 ,TG 49 ,HDL 44,LDL 51 , CMP, serum or plasma 06-05-2019 06/05/19: Na 141 ,K 4.4, CL 107 ,CO2 26 , GLU 97 ,BUN 14 , CR 1.3, AST 21,ALT 49,CK 168 PT/INR 03-31-2019 03/31/19: PT 13.4 , INR 0.99, PTT 26 CMP, serum or plasma 03-31-2019 03/31/19: Na 143 , K 4.0, CL 108 ,CO2 24, GLU 87 , BUN 16, CR 1.2, PT 13.4, INR 0.99 CBC w/ diff 03-31-2019 03/31/19: HB 14.0, HT 42.7 BMP, serum or plasma 03-16-2019 PT/INR 03-16-2019 03/16/19 PT/INR: PT 13.2, INR 0.97 CBC w/ diff 03-04-2019 03/04/19 ; WBC 5.3,RBC 4.67,HGB 13.7,HCT 42.3,PLT 259 Vitamin D 26,PTH intact 91 09/24/18 CMP: NA 139, K 4.2, CL 101, CO2 30, GLU 150, BUN 10, CR .7, AST 13, ALT 10 08/26/18 LIPID: TC 154, TR 81, HDL 49, LDL 89 08/26/18 CBC: WBC 6.7, HGB 14.8, HCT 45.7, PLT 257 08/07/18 BMP: NA 143, K 4, CL 107, CO2 26, GLU 92, BUN 15, CR 1.3 Vitamin D 05/28/2018 13 BMP 05/28/2018 NA 144 K 4.1 GL 87 05/28/2018 Vitamin D 13 CBC 05/28/2018 WBC 5.6 RBC 4.83 HGB 14.2 HCT 43.6 PLT 262 01/03/18: Na 143 ,K 5.0 ,CL 108 ,CO2 28 ,GLU 90 ,BUN 20 , CR 1.7,AST 33 ,ALT 95, 11/12/2017: SOD 143, K 4.0, CL 106, CO2 25, GL 86, BUN 17, CR 1. 11/12/2017: WBC 5.1, HGB 13.6, HCT 40.2, PLT 271 08/26/17:SOD 139,K 3.5,CL 102,CO2 23,GLU 116,BUN 17,CR 1.4,AST 14,ALT 23 . 08/26/17: TG 132,TC 180,HDL 41,LDL 113. 04/13/17: SOD 139, K 4.1, CL 103, CO2 25, GL 93, BUN 18, CR 1.3 04/11/17: PT 12.9, INR 0.97, PTT 26 10/17/16 : PT 13.2, INR 0.99, PTT 28. 10/16/16 : SOD 143,K 3.4,CL 104,CO2 22,GLU 110,BUN 16,CR 1.3,AST 22,ALT 51,TC 132,TG 54,HDL 46,LDL 75.Angiogram 10/12/2020 Severe peripheral vascular disease with total occlusion of the ostium of the SFA extending all the way to the distal portion of the SFA. Successful laser artherectomy, balloon angioplasty stent placement to the distal SFA and proximal popliteal and successful drug eluting balloon to the proximal and mid SFA with final good result.angiogram (PROC) 08-03-2020 Peripheral Angiogram: Patent stents with mild in stent re-stenosis. Maximal medical treatment with risk factor modification. 03/18/19 Peripheral Angiogram: Bilateral SFA total occlusion. [facility] renal artery total occlustion. Will plan CONSTRUCTION ENGINEER to right and left SFA. Will consult with 06/21/20 LE ARTERIAL DUPLEX: Mild PVD. Patent Jose Rafael SFA stent with left sided moderate to severe in stent restenosis. 06/13/20 TDM STRESS TEST: Positive stress test. Reversible defect consistent with ischemia in anterior area. Exercise tolerance: Average. LVEF 45% 05/22/2019 Arterial Doppler Study ; Normal ankle brachial index (JENIFER) ankle brachial index 02-06-2019 JENIFER 02/06/2019 JENIFER right leg 0.47 with toe index 0.25 in the range of severe ischemia, rest pain, possible ulceration. JENIFER left leg 0.82 with toe index Holter Monitor 07/09/18 : Normal sinus rhythm. Frequent PVC's and PAC's but not correlated with symptoms. Sinus virgilio and tachycardia. 1 07/09/18-Adequate Stress with Lexiscan. Negative Lexiscan stress test for ischemia. Normal LV systolic function. Artifact noted. Compared to last study in 09/16/20 EKG P normal QRS extreme right inferior axis deviation RVH R/S >1 in V1 R/S <1 in V# V$ V% septal infarct QS in V2 R < 0.[address]-T normal conclusion abnormal ECG 05/27/20 EKG: NSR 03/04/19 : EKG Probably old anterior myocardial infarction EKG 06/23/18 : Probably old anterior myocardial infarction. EKG 12/06/17: right ventricular hypertrophy Probably old myocardial infarction Non-Specific Inverted T waves inferior leads EKG 08/26/17: Normal sinus rhythm,possible left atrial enlargement,right superior axis deviation,inferior infarct in or before 04/11/17, abnormal EKG . EK04/12/17 Normal sinus rhythm. Right superior axis deviation. Inferior infarct cited on or before 11-APR-2017. T wave abnormality, consider lateral ischemia. Abnormal ECG when compared with ECG of 11-APR-2017. T wave inversion now evident in lateral leads. EK01/24/17 Sinus rhythm. Right sided conduction defect and right axis. Possible right ventricular hypertrophy or posterior fascicular block. Old anteroseptal infarct. Negative T waves. Possible anterolateral ischemia. EKG 10/16/16 : Normal sinus rhythm , right axis deviation , abnormal QRS-T angle consider primary T wave abnormality . US, duplex, arterial, lower extremity 06-21-2020 06/21/20 LE ARTERIAL DUPLEX: Mild PVD. Patent Jose Rafael SFA stent with left sided moderate to severe in stent restenosis. 06/30/19 Lower Ext Arterial Duplex-Patent bilateral SFA stents Holter Monitor 07/09/18 : Normal sinus rhythm. Frequent PVC's and PAC's but not correlated with symptoms. Sinus virgilio and tachycardia. 1 episode of SV run (7 beats @ 148 bpm). CHEST: 04/11/17 No acute cardiopulmonary process. Had positive stress test done in 06/13/20 with ischemia in anterior area.LVEF 45%. 07/09/18-Adequate Stress with Lexiscan. Negative Lexiscan stress test for ischemia. Normal LV systolic function. Artifact noted. Compared to last study in 05/14/2017, there are no changes. Carotid US 07/09/2018 Antegrade flow noted in both vertebral arteries. Very mild bilateral internal carotid artery stenosis with less than 15% diameter stenosis. Had Holter done in 07/09/18 showed Normal sinus rhythm. Frequent PVC's and PAC's but not correlated with symptoms. Sinus virgilio and tachycardia. 1 episode of SVT run (7 beats @ 148 bpm). Had ECHO 07/09/18: LV chamber size is normal, LV wall thickness is moderately increased,there is normal global systolic function, EF 55-60%, Normal LV atrial pressure with grade I diastolic dysfunction, Left atrium chamber is mildly dilated,mitral valve prolapse cannot be ruled out, there is mild thickening of mitral valve anterior and posterior leaflets,there is trace mitral regurgitation,there is mild pulmonic regurgitation. ECHO: 04/12/17 Compared to prior study, there is no significant change. The study was technically difficult. The left ventricle is normal in size. There is borderline concentric left ventricular hypertrophy. Left ventricular systolic function is normal. Ejection Fraction = 55-60%. The left atrium is moderately dilated. There is trace mitral regurgitation. There is mild tricuspid regurgitation. Trace pulmonic valvular regurgitation. Grade I diastolic dysfunction (abnormal relaxation pattern). ECHO 10/17/16 : mild LVH, LV systolic function is normal , EF 55-60% . Treadmill Nuclear Stress Test 05/14/17 : negative stress test. Normal LV systolic function. Exercise tolerance is average. LVEF 44%. Myocardial Perfusion Study 10/17/16: Abnormal myocardial perfusion study, findings suspicious for ischemia , 5% lateral wall left circumflex distribution , Left ventricular EF 67% poststress, normal LV wall motion . 08/03/20 [facility] 1. No significant obstructive coronary artery disease. One mild vessel coronary artery disease, mid 40% stenosis 2. Normal left ventricular size and systolic function. CATH 10/17/16 : Patent stent in the LAD with mild LAD disease, normal LV systolic function, Mild to moderate valve regurgitation. 06/30/19 Lower Ext Arterial Duplex-Patent bilateral SFA stent 05/22/2019 Arterial Doppler Study ; Normal ankle brachial index venography Successful treatment of the chronic total occlusion of the SFA with long occlusion but treated with laser atherectomy then balloon angioplasty and then stent placement with excellent results. 03/18/19 Peripheral Angiogram: Bilateral SFA total occlusion. [facility] renal artery total occlustion. Will plan CONSTRUCTION ENGINEER to right and left SFA. Will consult with nephrology about benefit of right renal occlution treatment. JENIFER 02/06/2019 JENIFER right leg 0.47 with toe index 0.25 in the range of severe ischemia, rest pain, possible ulceration. JENIFER left leg 0.82 with toe index 0.53 in the range of mild ischemia, asymptomatic PAD. Waveforms suggestive of femoral popliteal disease, infrageniculate disease. XR, Chest 08/26/17 : No acute cardiopulmonary abnormality . Myocardial Perfusion Study 10/17/16: Abnormal myocardial perfusion study, findings suspicious for ischemia , 5% lateral wall left circumflex distribution , Left ventricular EF 67% poststress, normal LV wall motion . RYAN paredes [place] - [facility] 03/01/2023 10:37:18 4 text/html 06/19/23CC : Cardiac follow up dyspnea on exertionHPI: 57-year-old -Italian man with h/o Coronary artery disease s/p Myocardial infarction and s/p PCI/Stenting to LAD ([address] @ [facility] by Dr Dewayne Perez), Hypertension, Hyperlipidemia, GURVINDER, and alcohol dependence (quit alcohol 8 yrs ago), is here for 3 month follow-up with stress test results.He was last seen in the clinic on 03/01/23, since then he is doing well.He denies ER visits and hospitalizations since he was last seen.*Last LDL was 87 done on 02/12/23.Pt takes rosuvastatin 40 mg. Today reports:pt is complaining about alot of flym in his throat at night .Denies chest pain.Denies shortness of breath at rest. Has mild dyspnea on exertion.No orthopnea. No PNDs.Denies heart palpitations.Denies dizziness. Denies syncope or near syncope.No ankle or leg edema.No major bleeding events.No reported side effects from medications. Taking medications as prescribed with no missed doses.Denies snoring, daytime somnolence and AM headache.*Last LDL was 87 done on 02/12/23.Pt takes rosuvastatin 40 mg. *Had negative stress test on 03/02/23 with Normal LV systolic function. Exercise tolerance: Average. LVEF: 64%. Previously:He was last seen in the clinic on 02/07/23, since then he is doing well. He denied chest pain or dyspnea on exertion. He stopped smoking and sleeping well he is not using his CPAP. *Last LDL was 87 done on 02/12/23.Pt takes rosuvastatin 40 mg. 3CMP-NA 140 K 4.5 BUN 20 CR 1.40 GL 89 CA 9.3 Total [id number] 160 TRIG 82 HDL 57 LDL 87 ,[id number] He went to ED due to SOB and he got lasix IV and his SOB improved. *Had Us, Doppler, Arterial on 09/13/22 showed Severe peripheral arterial disease of the right lower extremity. Severe peripheral arterial disease of the left lower extremity. He is can't beath after taking 1 of his night pillsHe went to the ED with dyspnea and chest pain.He recently diagnosed with sleep apnea and need CPAP but he is willing to loss weight before he he got fitted for CPAP.He is waking up in the middle of the night with SOB. His blood pressure is elevated today. *Had ECHO done on 06/12/21 showed LV chamber size a normal,LV wall thickness is mildly increased,LVEF is 65-70%,LV relaxation is impaired,left atrium is mildly dilated . sinus bradycardia. He had CONSTRUCTION ENGINEER and stents to SFA, now he feels better, but he gets left leg pain with exertion *Peripheral angiogram 10/12/2020: 1. Severe peripheral vascular disease with total occlusion of the ostium of the SFA extending all the way to the distal portion of the SFA. 2. Successful laser atherectomy, balloon angioplasty stent placement to the distal SFA and proximal popliteal and successful drug eluting balloon to the proximal and mid SFA with final good result. *06/13/20 TDM STRESS TEST: Positive stress test. Reversible defect consistent with ischemia in anterior area. Exercise tolerance: Average. LVEF 45%. *Had Carotid US done in 07/09/18 showed Antegrade flow noted in both vertebral arteries. Very mild bilateral internal carotid artery stenosis with less than 15% diameter stenosis. *Had CATH on 10/18/15 revealed patent stent in the LAD (2004) with mild LAD disease , Normal LV systolic function, Mild to moderate mitral valve regurgitationResults from this visit, or from the past:10/11/2020 PTT 27 CMP, serum or plasma 10-11-2020 NA 140, K 4.3, Chloride 108, Co2 26, Anion Gap 6(L), Glucose 97, BUN 17, Cr 1.2, GFR 81, Calcium 9.2 CBC w/ diff 10-11-2020 WBC 5.3, RBC 4.77, HGB 14.3, HCT 43.7, PLT 195 08/02/20:Na 144,k 4.5,Cl 111,Co2 27,Glu 102,Bun 18,Cr 1.4 CBC 2020 WBC 7.0 RBC 4.91 HGB 14.8 HCT 45.6 PLT 221 LIPID 2020 TR 62 CH 108 HDL 44 LDL 52 BMP 2020 NA 144 K 4.5 CH 111 CO2 27 GL 102 BUN 18 CR 1.4 CA 8.9 PT 13.4 INR 0.98 PTT 24 lipid panel, blood 06-05-2019 06/05/19: TC 105 ,TG 49 ,HDL 44,LDL 51 , CMP, serum or plasma 06-05-2019 06/05/19: Na 141 ,K 4.4, CL 107 ,CO2 26 , GLU 97 ,BUN 14 , CR 1.3, AST 21,ALT 49,CK 168 PT/INR 03-31-2019 03/31/19: PT 13.4 , INR 0.99, PTT 26 CMP, serum or plasma 03-31-2019 03/31/19: Na 143 , K 4.0, CL 108 ,CO2 24, GLU 87 , BUN 16, CR 1.2, PT 13.4, INR 0.99 CBC w/ diff 03-31-2019 03/31/19: HB 14.0, HT 42.7 BMP, serum or plasma 03-16-2019 PT/INR 03-16-2019 03/16/19 PT/INR: PT 13.2, INR 0.97 CBC w/ diff 03-04-2019 03/04/19 ; WBC 5.3,RBC 4.67,HGB 13.7,HCT 42.3,PLT 259 Vitamin D 26,PTH intact 91 09/24/18 CMP: NA 139, K 4.2, CL 101, CO2 30, GLU 150, BUN 10, CR .7, AST 13, ALT 10 08/26/18 LIPID: TC 154, TR 81, HDL 49, LDL 89 08/26/18 CBC: WBC 6.7, HGB 14.8, HCT 45.7, PLT 257 08/07/18 BMP: NA 143, K 4, CL 107, CO2 26, GLU 92, BUN 15, CR 1.3 Vitamin D 05/28/2018 13 BMP 05/28/2018 NA 144 K 4.1 GL 87 05/28/2018 Vitamin D 13 CBC 05/28/2018 WBC 5.6 RBC 4.83 HGB 14.2 HCT 43.6 PLT 262 01/03/18: Na 143 ,K 5.0 ,CL 108 ,CO2 28 ,GLU 90 ,BUN 20 , CR 1.7,AST 33 ,ALT 95, 11/12/2017: SOD 143, K 4.0, CL 106, CO2 25, GL 86, BUN 17, CR 1. 11/12/2017: WBC 5.1, HGB 13.6, HCT 40.2, PLT 271 08/26/17:SOD 139,K 3.5,CL 102,CO2 23,GLU 116,BUN 17,CR 1.4,AST 14,ALT 23 . 08/26/17: TG 132,TC 180,HDL 41,LDL 113. 04/13/17: SOD 139, K 4.1, CL 103, CO2 25, GL 93, BUN 18, CR 1.3 04/11/17: PT 12.9, INR 0.97, PTT 26 10/17/16 : PT 13.2, INR 0.99, PTT 28. 10/16/16 : SOD 143,K 3.4,CL 104,CO2 22,GLU 110,BUN 16,CR 1.3,AST 22,ALT 51,TC 132,TG 54,HDL 46,LDL 75.Angiogram 10/12/2020 Severe peripheral vascular disease with total occlusion of the ostium of the SFA extending all the way to the distal portion of the SFA. Successful laser artherectomy, balloon angioplasty stent placement to the distal SFA and proximal popliteal and successful drug eluting balloon to the proximal and mid SFA with final good result.angiogram (PROC) 08-03-2020 Peripheral Angiogram: Patent stents with mild in stent re-stenosis. Maximal medical treatment with risk factor modification. 03/18/19 Peripheral Angiogram: Bilateral SFA total occlusion. [facility] renal artery total occlustion. Will plan CONSTRUCTION ENGINEER to right and left SFA. Will consult with 06/21/20 LE ARTERIAL DUPLEX: Mild PVD. Patent Jose Rafael SFA stent with left sided moderate to severe in stent restenosis. 06/13/20 TDM STRESS TEST: Positive stress test. Reversible defect consistent with ischemia in anterior area. Exercise tolerance: Average. LVEF 45% 05/22/2019 Arterial Doppler Study ; Normal ankle brachial index (JENIFER) ankle brachial index 02-06-2019 JENIFER 02/06/2019 JENIFER right leg 0.47 with toe index 0.25 in the range of severe ischemia, rest pain, possible ulceration. JENIFER left leg 0.82 with toe index Holter Monitor 07/09/18 : Normal sinus rhythm. Frequent PVC's and PAC's but not correlated with symptoms. Sinus virgilio and tachycardia. 1 07/09/18-Adequate Stress with Lexiscan. Negative Lexiscan stress test for ischemia. Normal LV systolic function. Artifact noted. Compared to last study in 09/16/20 EKG P normal QRS extreme right inferior axis deviation RVH R/S >1 in V1 R/S <1 in V# V$ V% septal infarct QS in V2 R < 0.[address]-T normal conclusion abnormal ECG 05/27/20 EKG: NSR 03/04/19 : EKG Probably old anterior myocardial infarction EKG 06/23/18 : Probably old anterior myocardial infarction. EKG 12/06/17: right ventricular hypertrophy Probably old myocardial infarction Non-Specific Inverted T waves inferior leads EKG 08/26/17: Normal sinus rhythm,possible left atrial enlargement,right superior axis deviation,inferior infarct in or before 04/11/17, abnormal EKG . EK04/12/17 Normal sinus rhythm. Right superior axis deviation. Inferior infarct cited on or before 11-APR-2017. T wave abnormality, consider lateral ischemia. Abnormal ECG when compared with ECG of 11-APR-2017. T wave inversion now evident in lateral leads. EK01/24/17 Sinus rhythm. Right sided conduction defect and right axis. Possible right ventricular hypertrophy or posterior fascicular block. Old anteroseptal infarct. Negative T waves. Possible anterolateral ischemia. EKG 10/16/16 : Normal sinus rhythm , right axis deviation , abnormal QRS-T angle consider primary T wave abnormality . US, duplex, arterial, lower extremity 06-21-2020 06/21/20 LE ARTERIAL DUPLEX: Mild PVD. Patent Jose Rafael SFA stent with left sided moderate to severe in stent restenosis. 06/30/19 Lower Ext Arterial Duplex-Patent bilateral SFA stents Holter Monitor 07/09/18 : Normal sinus rhythm. Frequent PVC's and PAC's but not correlated with symptoms. Sinus virgilio and tachycardia. 1 episode of SV run (7 beats @ 148 bpm). CHEST: 04/11/17 No acute cardiopulmonary process. Had positive stress test done in 06/13/20 with ischemia in anterior area.LVEF 45%. 07/09/18-Adequate Stress with Lexiscan. Negative Lexiscan stress test for ischemia. Normal LV systolic function. Artifact noted. Compared to last study in 05/14/2017, there are no changes. Carotid US 07/09/2018 Antegrade flow noted in both vertebral arteries. Very mild bilateral internal carotid artery stenosis with less than 15% diameter stenosis. Had Holter done in 07/09/18 showed Normal sinus rhythm. Frequent PVC's and PAC's but not correlated with symptoms. Sinus virgilio and tachycardia. 1 episode of SVT run (7 beats @ 148 bpm). Had ECHO 07/09/18: LV chamber size is normal, LV wall thickness is moderately increased,there is normal global systolic function, EF 55-60%, Normal LV atrial pressure with grade I diastolic dysfunction, Left atrium chamber is mildly dilated,mitral valve prolapse cannot be ruled out, there is mild thickening of mitral valve anterior and posterior leaflets,there is trace mitral regurgitation,there is mild pulmonic regurgitation. ECHO: 04/12/17 Compared to prior study, there is no significant change. The study was technically difficult. The left ventricle is normal in size. There is borderline concentric left ventricular hypertrophy. Left ventricular systolic function is normal. Ejection Fraction = 55-60%. The left atrium is moderately dilated. There is trace mitral regurgitation. There is mild tricuspid regurgitation. Trace pulmonic valvular regurgitation. Grade I diastolic dysfunction (abnormal relaxation pattern). ECHO 10/17/16 : mild LVH, LV systolic function is normal , EF 55-60% . Treadmill Nuclear Stress Test 05/14/17 : negative stress test. Normal LV systolic function. Exercise tolerance is average. LVEF 44%. Myocardial Perfusion Study 10/17/16: Abnormal myocardial perfusion study, findings suspicious for ischemia , 5% lateral wall left circumflex distribution , Left ventricular EF 67% poststress, normal LV wall motion . 08/03/20 LHC 1. No significant obstructive coronary artery disease. One mild vessel coronary artery disease, mid 40% stenosis 2. Normal left ventricular size and systolic function. CATH 10/17/16 : Patent stent in the LAD with mild LAD disease, normal LV systolic function, Mild to moderate valve regurgitation. 06/30/19 Lower Ext Arterial Duplex-Patent bilateral SFA stent 05/22/2019 Arterial Doppler Study ; Normal ankle brachial index venography Successful treatment of the chronic total occlusion of the SFA with long occlusion but treated with laser atherectomy then balloon angioplasty and then stent placement with excellent results. 03/18/19 Peripheral Angiogram: Bilateral SFA total occlusion. [facility] renal artery total occlustion. Will plan CONSTRUCTION ENGINEER to right and left SFA. Will consult with nephrology about benefit of right renal occlution treatment. JENIFER 02/06/2019 JENIFER right leg 0.47 with toe index 0.25 in the range of severe ischemia, rest pain, possible ulceration. JENIFER left leg 0.82 with toe index 0.53 in the range of mild ischemia, asymptomatic PAD. Waveforms suggestive of femoral popliteal disease, infrageniculate disease. XR, Chest 08/26/17 : No acute cardiopulmonary abnormality . Myocardial Perfusion Study 10/17/16: Abnormal myocardial perfusion study, findings suspicious for ischemia , 5% lateral wall left circumflex distribution , Left ventricular EF 67% poststress, normal LV wall motion . RYAN paredes, [place] - [facility] 06/19/2023 14:09:39 4 text/html fasting blood work11/26/23CC : Cardiac follow upHPI: 58-year-old -Italian man with h/o Coronary artery disease s/p Myocardial infarction and s/p PCI/Stenting to LAD ([address] @ [facility] by Dr Dewayne Perez), Hypertension, Hyperlipidemia, GURVINDER, and alcohol dependence (quit alcohol 8 yrs ago), is here for 6 month follow-up. He was last seen in the clinic on 06/19/23, since then heHe denies ER visits and hospitalizations since he was last seen. Today reports:no ccDenies chest pain.Denies shortness of breath at rest. Has mild dyspnea on exertion.No orthopnea. No PNDs.Denies heart palpitations.Denies dizziness. Denies syncope or near syncope.No ankle or leg edema.No major bleeding events.No reported side effects from medications. Taking medications as prescribed with no missed doses.Denies snoring, daytime somnolence and AM headache.*Last LDL was 87 done on 02/12/23.Pt takes rosuvastatin 40 mg. Previously:*Had negative stress test on 03/02/23 with Normal LV systolic function. Exercise tolerance: Average. LVEF: 64%.He stopped smoking and sleeping well he is not using his CPAP. He went to ED due to SOB and he got lasix IV and his SOB improved. *Had Us, Doppler, Arterial on 09/13/22 showed Severe peripheral arterial disease of the right lower extremity. Severe peripheral arterial disease of the left lower extremity. He recently diagnosed with sleep apnea and need CPAP but he is willing to loss weight before he he got fitted for CPAP. *Had ECHO done on 06/12/21 showed LV chamber size a normal,LV wall thickness is mildly increased,LVEF is 65-70%,LV relaxation is impaired,left atrium is mildly dilated . sinus bradycardia. He had CONSTRUCTION ENGINEER and stents to SFA, now he feels better, but he gets left leg pain with exertion *Peripheral angiogram 10/12/2020: 1. Severe peripheral vascular disease with total occlusion of the ostium of the SFA extending all the way to the distal portion of the SFA. 2. Successful laser atherectomy, balloon angioplasty stent placement to the distal SFA and proximal popliteal and successful drug eluting balloon to the proximal and mid SFA with final good result. *06/13/20 TDM STRESS TEST: Positive stress test. Reversible defect consistent with ischemia in anterior area. Exercise tolerance: Average. LVEF 45%. *Had Carotid US done in 07/09/18 showed Antegrade flow noted in both vertebral arteries. Very mild bilateral internal carotid artery stenosis with less than 15% diameter stenosis. *Had CATH on 10/18/15 revealed patent stent in the LAD (2004) with mild LAD disease , Normal LV systolic function, Mild to moderate mitral valve regurgitationResults from this visit, or from the past:10/11/2020 PTT 27 CMP, serum or plasma 10-11-2020 NA 140, K 4.3, Chloride 108, Co2 26, Anion Gap 6(L), Glucose 97, BUN 17, Cr 1.2, GFR 81, Calcium 9.2 CBC w/ diff 10-11-2020 WBC 5.3, RBC 4.77, HGB 14.3, HCT 43.7, PLT 195 08/02/20:Na 144,k 4.5,Cl 111,Co2 27,Glu 102,Bun 18,Cr 1.4 CBC 2020 WBC 7.0 RBC 4.91 HGB 14.8 HCT 45.6 PLT 221 LIPID 2020 TR 62 CH 108 HDL 44 LDL 52 BMP 2020 NA 144 K 4.5 CH 111 CO2 27 GL 102 BUN 18 CR 1.4 CA 8.9 PT 13.4 INR 0.98 PTT 24 lipid panel, blood 06-05-2019 06/05/19: TC 105 ,TG 49 ,HDL 44,LDL 51 , CMP, serum or plasma 06-05-2019 06/05/19: Na 141 ,K 4.4, CL 107 ,CO2 26 , GLU 97 ,BUN 14 , CR 1.3, AST 21,ALT 49,CK 168 PT/INR 03-31-2019 03/31/19: PT 13.4 , INR 0.99, PTT 26 CMP, serum or plasma 03-31-2019 03/31/19: Na 143 , K 4.0, CL 108 ,CO2 24, GLU 87 , BUN 16, CR 1.2, PT 13.4, INR 0.99 CBC w/ diff 03-31-2019 03/31/19: HB 14.0, HT 42.7 BMP, serum or plasma 03-16-2019 PT/INR 03-16-2019 03/16/19 PT/INR: PT 13.2, INR 0.97 CBC w/ diff 03-04-2019 03/04/19 ; WBC 5.3,RBC 4.67,HGB 13.7,HCT 42.3,PLT 259 Vitamin D 26,PTH intact 91 09/24/18 CMP: NA 139, K 4.2, CL 101, CO2 30, GLU 150, BUN 10, CR .7, AST 13, ALT 10 08/26/18 LIPID: TC 154, TR 81, HDL 49, LDL 89 08/26/18 CBC: WBC 6.7, HGB 14.8, HCT 45.7, PLT 257 08/07/18 BMP: NA 143, K 4, CL 107, CO2 26, GLU 92, BUN 15, CR 1.3 Vitamin D 05/28/2018 13 BMP 05/28/2018 NA 144 K 4.1 GL 87 05/28/2018 Vitamin D 13 CBC 05/28/2018 WBC 5.6 RBC 4.83 HGB 14.2 HCT 43.6 PLT 262 01/03/18: Na 143 ,K 5.0 ,CL 108 ,CO2 28 ,GLU 90 ,BUN 20 , CR 1.7,AST 33 ,ALT 95, 11/12/2017: SOD 143, K 4.0, CL 106, CO2 25, GL 86, BUN 17, CR 1. 11/12/2017: WBC 5.1, HGB 13.6, HCT 40.2, PLT 271 08/26/17:SOD 139,K 3.5,CL 102,CO2 23,GLU 116,BUN 17,CR 1.4,AST 14,ALT 23 . 08/26/17: TG 132,TC 180,HDL 41,LDL 113. 04/13/17: SOD 139, K 4.1, CL 103, CO2 25, GL 93, BUN 18, CR 1.3 04/11/17: PT 12.9, INR 0.97, PTT 26 10/17/16 : PT 13.2, INR 0.99, PTT 28. 10/16/16 : SOD 143,K 3.4,CL 104,CO2 22,GLU 110,BUN 16,CR 1.3,AST 22,ALT 51,TC 132,TG 54,HDL 46,LDL 75.Angiogram 10/12/2020 Severe peripheral vascular disease with total occlusion of the ostium of the SFA extending all the way to the distal portion of the SFA. Successful laser artherectomy, balloon angioplasty stent placement to the distal SFA and proximal popliteal and successful drug eluting balloon to the proximal and mid SFA with final good result.angiogram (PROC) 08-03-2020 Peripheral Angiogram: Patent stents with mild in stent re-stenosis. Maximal medical treatment with risk factor modification. 03/18/19 Peripheral Angiogram: Bilateral SFA total occlusion. [facility] renal artery total occlustion. Will plan CONSTRUCTION ENGINEER to right and left SFA. Will consult with 06/21/20 LE ARTERIAL DUPLEX: Mild PVD. Patent Jose Rafael SFA stent with left sided moderate to severe in stent restenosis. 06/13/20 TDM STRESS TEST: Positive stress test. Reversible defect consistent with ischemia in anterior area. Exercise tolerance: Average. LVEF 45% 05/22/2019 Arterial Doppler Study ; Normal ankle brachial index (JENIFER) ankle brachial index 02-06-2019 JENIFER 02/06/2019 JENIFER right leg 0.47 with toe index 0.25 in the range of severe ischemia, rest pain, possible ulceration. JENIFER left leg 0.82 with toe index Holter Monitor 07/09/18 : Normal sinus rhythm. Frequent PVC's and PAC's but not correlated with symptoms. Sinus virgilio and tachycardia. 1 07/09/18-Adequate Stress with Lexiscan. Negative Lexiscan stress test for ischemia. Normal LV systolic function. Artifact noted. Compared to last study in 09/16/20 EKG P normal QRS extreme right inferior axis deviation RVH R/S >1 in V1 R/S <1 in V# V$ V% septal infarct QS in V2 R < 0.[address]-T normal conclusion abnormal ECG 05/27/20 EKG: NSR 03/04/19 : EKG Probably old anterior myocardial infarction EKG 06/23/18 : Probably old anterior myocardial infarction. EKG 12/06/17: right ventricular hypertrophy Probably old myocardial infarction Non-Specific Inverted T waves inferior leads EKG 08/26/17: Normal sinus rhythm,possible left atrial enlargement,right superior axis deviation,inferior infarct in or before 04/11/17, abnormal EKG . EK04/12/17 Normal sinus rhythm. Right superior axis deviation. Inferior infarct cited on or before 11-APR-2017. T wave abnormality, consider lateral ischemia. Abnormal ECG when compared with ECG of 11-APR-2017. T wave inversion now evident in lateral leads. EK01/24/17 Sinus rhythm. Right sided conduction defect and right axis. Possible right ventricular hypertrophy or posterior fascicular block. Old anteroseptal infarct. Negative T waves. Possible anterolateral ischemia. EKG 10/16/16 : Normal sinus rhythm , right axis deviation , abnormal QRS-T angle consider primary T wave abnormality . US, duplex, arterial, lower extremity 06-21-2020 06/21/20 LE ARTERIAL DUPLEX: Mild PVD. Patent Jose Rafael SFA stent with left sided moderate to severe in stent restenosis. 06/30/19 Lower Ext Arterial Duplex-Patent bilateral SFA stents Holter Monitor 07/09/18 : Normal sinus rhythm. Frequent PVC's and PAC's but not correlated with symptoms. Sinus virgilio and tachycardia. 1 episode of SV run (7 beats @ 148 bpm). CHEST: 04/11/17 No acute cardiopulmonary process. Had positive stress test done in 06/13/20 with ischemia in anterior area.LVEF 45%. 07/09/18-Adequate Stress with Lexiscan. Negative Lexiscan stress test for ischemia. Normal LV systolic function. Artifact noted. Compared to last study in 05/14/2017, there are no changes. Carotid US 07/09/2018 Antegrade flow noted in both vertebral arteries. Very mild bilateral internal carotid artery stenosis with less than 15% diameter stenosis. Had Holter done in 07/09/18 showed Normal sinus rhythm. Frequent PVC's and PAC's but not correlated with symptoms. Sinus virgilio and tachycardia. 1 episode of SVT run (7 beats @ 148 bpm). Had ECHO 07/09/18: LV chamber size is normal, LV wall thickness is moderately increased,there is normal global systolic function, EF 55-60%, Normal LV atrial pressure with grade I diastolic dysfunction, Left atrium chamber is mildly dilated,mitral valve prolapse cannot be ruled out, there is mild thickening of mitral valve anterior and posterior leaflets,there is trace mitral regurgitation,there is mild pulmonic regurgitation. ECHO: 04/12/17 Compared to prior study, there is no significant change. The study was technically difficult. The left ventricle is normal in size. There is borderline concentric left ventricular hypertrophy. Left ventricular systolic function is normal. Ejection Fraction = 55-60%. The left atrium is moderately dilated. There is trace mitral regurgitation. There is mild tricuspid regurgitation. Trace pulmonic valvular regurgitation. Grade I diastolic dysfunction (abnormal relaxation pattern). ECHO 10/17/16 : mild LVH, LV systolic function is normal , EF 55-60% . Treadmill Nuclear Stress Test 05/14/17 : negative stress test. Normal LV systolic function. Exercise tolerance is average. LVEF 44%. Myocardial Perfusion Study 10/17/16: Abnormal myocardial perfusion study, findings suspicious for ischemia , 5% lateral wall left circumflex distribution , Left ventricular EF 67% poststress, normal LV wall motion . 08/03/20 LHC 1. No significant obstructive coronary artery disease. One mild vessel coronary artery disease, mid 40% stenosis 2. Normal left ventricular size and systolic function. CATH 10/17/16 : Patent stent in the LAD with mild LAD disease, normal LV systolic function, Mild to moderate valve regurgitation. 06/30/19 Lower Ext Arterial Duplex-Patent bilateral SFA stent 05/22/2019 Arterial Doppler Study ; Normal ankle brachial index venography Successful treatment of the chronic total occlusion of the SFA with long occlusion but treated with laser atherectomy then balloon angioplasty and then stent placement with excellent results. 03/18/19 Peripheral Angiogram: Bilateral SFA total occlusion. [facility] renal artery total occlustion. Will plan CONSTRUCTION ENGINEER to right and left SFA. Will consult with nephrology about benefit of right renal occlution treatment. JENIFER 02/06/2019 JENIFER right leg 0.47 with toe index 0.25 in the range of severe ischemia, rest pain, possible ulceration. JENIFER left leg 0.82 with toe index 0.53 in the range of mild ischemia, asymptomatic PAD. Waveforms suggestive of femoral popliteal disease, infrageniculate disease. XR, Chest 08/26/17 : No acute cardiopulmonary abnormality . Myocardial Perfusion Study 10/17/16: Abnormal myocardial perfusion study, findings suspicious for ischemia , 5% lateral wall left circumflex distribution , Left ventricular EF 67% poststress, normal LV wall motion . Karan Cordova MD [id number] [place], [id number], [place] - [facility] 11/26/2023 10:39:13
--- OUTSIDE RECORDS SUMMARY | 2024-06-20 17:42 | XMS_ITS | Referral Summary ---
Author Organization [facility] Address [address] [place] [address] Care Team Providers Care Housekeeping Lead Name Role Phone Alex Kohli MD Primary Care Provider [phone] Encounters Date Type Department Care Team Description 04/20/2024 10:05 AM STRATEGY ANALYST Lab [facility] [address] [place] [id number] from Last 3 Months Allergies Active Allergy Reactions Criticality Noted Date Comments Acetaminophen Itching Low 03/27/2018 Ibuprofen Itching Low 03/27/2018 Nitroglycerin Swelling Medium 06/19/2018 Oxycodone Unknown 07/03/2022 Dry throat. Medications clopidogreL (PLAVIX) 75 mg tabletIndications :Vascular claudication (HCC) Take 1 tablet (75 mg total) by mouth daily 90 tablet 3 0 Active aspirin 81 mg enteric coated tablet Take 1 tablet (81 mg total) by mouth daily 90 tablet 3 0 Active amLODIPine (NORVASC) 10 mg tabletIndications :Essential hypertension Take 1 tablet (10 mg total) by mouth daily 90 tablet 3 0 Active losartan (COZAAR) 50 mg tablet Take 1 tablet (50 mg total) by mouth daily 2 Active cholecalciferol (VITAMIN D-3) 1,000 unit capsule Take 1 capsule (1,000 Units total) by mouth nightly Active cloNIDine (CATAPRES) 0.2 mg tablet Take 1 tablet (0.2 mg total) by mouth 2 (two) times a day Active lidocaine (LIDODERM) 5 % Place 1 patch on the skin daily Remove & discard patch within 12 hours or as directed by MD. Active metoprolol XL (TOPROL-XL) 100 mg 24 hr tablet Take 1 tablet (100 mg total) by mouth daily Active rosuvastatin (CRESTOR) 40 mg tablet Take 1 tablet (40 mg total) by mouth nightly Active nicotine (NICODERM CQ) 21 mgIndications:Christopher otine Dependence Place 1 patch on the skin daily for 15 days 15 patch 3 Active albuterol HFA (PROVENTIL HFA,VENTOLIN HFA,PROAIR HFA) 90 mcg/actuation inhaler Inhale 2 puffs every 6 (six) hours as needed for wheezing 1 each 3 Active furosemide (LASIX) 40 mg tablet Take 0.5 tablets (20 mg total) by mouth daily as needed (Lower extremity edema shortness of breaths) 15 tablet 3 Active vitamin E 400 unit capsule Take 1 capsule (400 Units total) by mouth Active Active Problems Problem Noted Date Diagnosed Date Gastroesophageal reflux disease 04/09/2023 Esophageal dysphagia 04/09/2023 CHF (congestive heart failur e), NYHA class I, acute on chronic, combined 01/29/2023 Shortness of breath 01/28/2023 Suspected congestive heart failure 01/28/2023 Lumbar foraminal stenosis 03/14/2022 Assessment & Plan (06/04/2022 4:38 PM STRATEGY ANALYST): Chronic uncontrolled malia siciatic Start norco 5/ 325mg q8 hr prn #60 Refer to [facility] neurosurgical . Assessment & Plan (03/14/2022 2:11 PM CDT): Chronic and worsening Persistent malia leg paresthesia Intermittent weakness in legs Order mri l/s spine [facility] Give Kenalog 80 mg IM Hypersomnia 01/30/2022 Dyslipidemia 09/05/2021 Light cigarette smoker (1-9 cigarettes per day) 04/18/2021 Major depressive disorder in full remission 11/2020 Assessment & Plan (09/12/2021 3:38 PM CDT): Chronic condition stable well controlled continue with Wellbutrin. Primary insomnia 04/18/2021 Assessment & Plan (01/30/2022 11:46 AM CDT): The problem of recurrent insomnia is discussed. Avoidance of caffeine sources is strongly encouraged. The patient will begin cognitive behavior therapy for insomnia. Sleep hygiene issues are reviewed. The use of sedative hypnotics for temporary relief is appropriate; we discussed the addictive nature of these drugs, and the patient was provided a prescription of Ambien 10 mg nightly from primary care physician. The patient was provided 2 pamphlets as written by the [employer] on sleeping better and insomnia. Acute on chronic renal failure 12/06/2020 Atypical exanthem 12/06/2020 Chronic cervical radiculopathy 12/06/2020 Foraminal stenosis of cervical region 12/06/2020 Gastroesophageal reflux disease with stricture 0 12/06/2020 Obesity, Class I, BMI 30-34.9 12/06/2020 Primary osteoarthritis of right shoulder 021 Syncope due to sick sinus syndrome (CMS/HCC) Arteriosclerosis of coronary artery 12/06/2020 Dyslipidemia, goal LDL below 100 12/06/2020 Moderate essential hypertension 12/06/2020 Assessment & Plan (09/12/2021 3:39 PM CDT): Chronic condition stable well controlled. Continue with clonidine amlodipine and losartan Tobacco dependence syndrome 05/28/2019 Facet arthritis of cervical region 11/19/2018 Cervicalgia 11/19/2018 Lumbosacral spondylosis without myelopathy 11/19 Assessment & Plan (10/19/2022 9:10 AM CDT): Chronic refer to neurosurgical CAD (coronary artery disease) 08/15/2018 Hyperlipidemia 08/15/2018 Left ventricular hypertrophy 08/06/2018 Bulging of intervertebral disc between L4 and L5 05/29/2018 Assessment & Plan (10/19/2022 9:11 AM CDT): Chronic secondary to work injury Refer to neurosurgical Assessment & Plan (07/31/2022 3:26 PM CDT): Chronic Order malia ncs/emg malia le Neuropathy of right upper extremity 04/14/2018 Sciatica of left side 04/08/2018 Sciatica, right side 04/08/2018 Essential hypertension 10/08/2017 Assessment & Plan (03/14/2022 2:10 PM CDT): Chronic condition stable well controlled continue amlodipine clonidine metoprolol CKD (chronic kidney disease) stage 3, GFR 30-59 ml/min 10/08/2017 Secondary hyperparathyroidism 10/08/2017 Acne keloidalis nuchae 10/08/2017 Renovascular hypertension 09/24/2017 Assessment & Plan (07/31/2022 3:25 PM CDT): Chronic not well controlled Hold losartan with concern of sob after taking Increase clonidine 0.2mg bid Renal artery stenosis 09/17/2017 Assessment & Plan (11/15/2021 3:16 PM CDT): Refer to vascular with changes on ct scan to show worsening of renal atrophy Refer to nephrology Cerebrovascular accident 09/14/2017 Obstructive sleep apnea syndrome 05/18/2017 Assessment & Plan (01/30/2022 11:45 AM CDT): Due to the hypersomnia and apneic episodes, I have ordered a nocturnal polysomnogram with split night protocol no MSLT. The patient and I also discussed an in-home nocturnal polysomnogram as an option. Both procedures were detailed in depth. Patient is agreeable. Dyspnea on exertion 10/22/2016 Migraine 10/22/2016 Peptic ulcer 10/22/2016 Chronic lower back pain 02/27/2016 Overview (12/06/2020): Transitioned From: Acute low back pain due to trauma Atherosclerotic peripheral vascular disease 08/2015 Overview (12/06/2020): Transitioned From: Claudication Assessment & Plan (07/31/2022 3:24 PM CDT): Order malia le arterial Resolved Problems Problem Noted Date Diagnosed Date Resolved Date SOB (shortness of breath) 01/28/2023 Acute superficial gastritis with hemorrhage 05/09/2022 01/28/2023 Blood in the stool 05/09/2022 3 Snoring 01/30/2022 01/30/2022 Chest pain 11/14/2021 01/28/2023 Allergic sinusitis 12/06/2020 3 Calculus of common bile duct and gallbladder 01/28/2023 Chest pain with high risk fo r cardiac etiology 12/06/2020 01/28/2023 Acute low back pain due to trauma 12/06/2020 01/28/2023 Hypertensive urgency 12/06/2020 023 Pain of lower extremity 12/06/202001/11 New onset of headaches after age 50 12/06/2020 01/28/2023 Arterial occlusion 02/06/2019 3 Immunizations Name Administration Dates Next Due Influenza, Unspecified 01/11/2022(Deferred: Nat ent Refused) Tdap 10/22/2017 Social History Tobacco Use Types Packs/Day Years Used Date Smoking Tobacco: Former Cigarettes 0.1 43.5 S tarted: 12/06/1980 Cigars E-cigarettes Smokeless Tobacco: Never Tobacco Cessation:Counseling Given: Not Answered Comments:started again few days ago. Does smoke e-cigarette Alcohol Use Standard Drinks/Week Comments Not Currently 0 (1 standard drink = 0.6 oz pure alcohol) did 12 step recovery, quit 2012 Social Connection and Isolation Panel [NHANES] A nswer Date Recorded In a typical week, how many times do you talk on the phone with family, friends, or neighbors? Three times a week 01/29/20 How often do you get togethe r with friends or relatives? Three times a week 01/28/2023 How often do you attend chur or hoahaoism services? Never 01/28/2023 Do you belong to any clubs o r organizations such as hindu groups, unions, fraternal or athletic groups, or school groups? No 01/28/2023 How often do you attend meet ings of the clubs or organizations you belong to? Never 01/28/2023 Are you , , di vorced, , never , or living with a partner? Living with partner 01/28/2023 AUDIT-C Answer Date Recorded Q1: How often do you have a drink containing alcohol? Never 10/19/2022 Q2: How many drinks containi ng alcohol do you have on a typical day when you are drinking? Patient does not drink Q3: How often do you have si x or more drinks on one occasion? Never 10/19/2022 Overall Financial Resource Strain (CARDIA) Answe r Date Recorded How hard is it for you to pa y for the very basics like food, housing, medical care, and heating? Not hard at all 01/28/2023 PHQ-2 Answer Date Recorded PHQ-2 Total Score (If total score is 3 or more points, staff should administer the PHQ-9) 0 06/04/2022 Hunger Vital Sign Answer Date Recorded Within the past 12 months, y ou worried that your food would run out before you got the money to buy more. Never true 01/29/20 23 Within the past 12 months, t he food you bought just didn't last and you didn't have money to get more. Never true 01/28/2023 PRAPARE - Transportation Answer Date Re corded In the past 12 months, has l ack of transportation kept you from medical appointments or from getting medications? No 01/11 In the past 12 months, has l ack of transportation kept you from meetings, work, or from getting things needed for daily living? No 01/28/2023 Housing Stability Vital Sign Answer Loy e Recorded In the last 12 months, was t here a time when you were not able to pay the mortgage or rent on time? No 01/28/2023 In the last 12 months, how many places have you lived? 1 01/28/2023 In the last 12 months, was t here a time when you did not have a steady place to sleep or slept in a chcf (including now)? No 01/28/2023 Personal Safety Answer Date Recorded Have you ever been in or are you currently in a harmful physical or emotional relationship or is someone making you feel afraid or unsafe? Denies 04/30/2023 Sex and Gender Information Value Date Recorded Sex Assigned at Not on file Legal Sex Male 1:29 AM STRATEGY ANALYST Gender Identity Not on file Sexual Orientation Not on file Last Filed Vital Signs Vital Sign Reading Time Taken Comments Blood Pressure 133/103 06/20/2023 12:41 AM STRATEGY ANALYST Pulse 69 06/20/2023 12:41 AM STRATEGY ANALYST Temperature 36.7 C (98 F) 06/19/2023 8:38 PM STRATEGY ANALYST Respiratory Rate 20 06/19/2023 8:38 PM STRATEGY ANALYST Oxygen Saturation 98% 06/20/2023 12:41 AM STRATEGY ANALYST Inhaled Oxygen Concentration - - Weight 83.7 kg (184 lb 8.4 oz) 04/16/2023 4:23 A M STRATEGY ANALYST Height 165.1 cm (5' 5 ) 04/16/2023 4:23 AM STRATEGY ANALYST Body Mass Index 30.71 04/16/2023 4:23 AM STRATEGY ANALYST Plan of Treatment Not on file Goals Goal Patient Goal Type Associated Problems Recent Progress Patient-Stated? Author CCM Chronic Pain Care Plan Chronic Care Management No Dory Mcconnell NP Note: Problem: Chronic Pain Goals: 1. Minimize further functional decline 2. Maximize quality of life 3. Control pain Strategies: - Activity/exercise program recommendation - Conservative stepwise pain medicine strategy with multi-disciplinary approach - Recommend healthy lifestyle strategies and compensatory methods as needed Medical Devices Implanted Type Area Publications Writer Device Identifier Shelf Expiration Date Model / Serial / Lot Stent Stent N/A: Heart Procedures Procedure Name Priority Date/Time Associated Diagnosis Comments EGFR Routine 04/20/2024 10:30 AM STRATEGY ANALYST DIFFERENTIAL AUTO Routine 04/20/2024 10: 30 AM STRATEGY ANALYST PSA SCREEN Routine 04/20/2024 10:30 AM STRATEGY ANALYST COMPREHENSIVE METABOLIC PANEL Routine 04/20/2024 10:30 AM STRATEGY ANALYST LIPID PANEL Routine 04/20/2024 10:30 AM STRATEGY ANALYST CBC WITH AUTO DIFFERENTIAL Routine 04/20/2024 10:30 AM STRATEGY ANALYST COLONOSCOPY Routine 06/07/2022 from Last 3 Months or Most Recently Relevant to Health Maintenance Results * eGFR (04/20/2024 10:30 AM STRATEGY ANALYST) eGFR 63 >=60 mL/min/1. 73 m2 Comment: Interpretive Data Reference Interval Normal >/= 90 mL/min/1.73m2 Mildly decreased* 60 - 89 mL/min/1.73m2 Mildly to moderately decreased 45 - 59 mL/min/1.73m2 Moderately to severely decreased 30 - 44 mL/min/1.73m2 Severely decreased 15 - 29 mL/min/1.73m2 Kidney Failure < 15 mL/min/1.73m2 *Relative to young adult level Estimated glomerular filtration rate is determined by the 2020 CKD-EPI equation recommended by the National Kidney Foundation (A Unifying Approach to GFR Estimation: Recommendations of the NKF-ASK Task Force on Reassessing the Inclusion of Race in Diagnosing Kidney Disease, JASN 2020). The CKD-EPI equation should not be used for patients with unstable renal function and has not been validated in children and those over 70. Current interpretive data was last reviewed 2021. Blood 04/20/2024 10:3 0 AM STRATEGY ANALYST 04/20/2024 11:11 AM STRATEGY ANALYST us Alex Kohli MD LAB BLOOD ORDERABLES Final Resu lt [facility] [address] Department [place] [address] * Differential, auto (04/20/2024 10:30 AM STRATEGY ANALYST) Pathologist [facility] Neutrophil abs 4.0 1.5 - 6.5 K/cumm Imm gran abs 0.0 0.0 - 0.1 K/cumm [facility] Lymphocyte abs 1.6 0.8 - 3.3 K/cumm [facility] Monocyte abs 0.7 0.2 - 0.8 K/cumm [facility] Eosinophil abs 0.2 0.0 - 0.5 K/cumm [facility] Basophil abs 0.1 0.0 - 0.1 K/cumm [facility] Neutrophil pct 60.9 % [facility] Comment: Interpretive Data Percent cell count reference ranges are not reported, since discordance with absolute values may lead to misinterpretation of CBC data. Current Interpretive Data was last revised on 2017. Imm gran pct 0.5 % [facility] Comment: Interpretive Data Percent cell count reference ranges are not reported, since discordance with absolute values may lead to misinterpretation of CBC data. Current Interpretive Data was last revised on 2017. Lymphocyte pct 24.2 % [facility] Comment: Interpretive Data Percent cell count reference ranges are not reported, since discordance with absolute values may lead to misinterpretation of CBC data. Current Interpretive Data was last revised on 2017. Monocyte pct 11.3 % [facility] Comment: Interpretive Data Percent cell count reference ranges are not reported, since discordance with absolute values may lead to misinterpretation of CBC data. Current Interpretive Data was last revised on 2017. Eosinophil pct 2.3 % [facility] Comment: Interpretive Data Percent cell count reference ranges are not reported, since discordance with absolute values may lead to misinterpretation of CBC data. Current Interpretive Data was last revised on 2017. Basophil pct 0.8 % [facility] Comment: Interpretive Data Percent cell count reference ranges are not reported, since discordance with absolute values may lead to misinterpretation of CBC data. Current Interpretive Data was last revised on 2017. Blood 04/20/2024 10:3 0 AM STRATEGY ANALYST 04/20/2024 11:11 AM STRATEGY ANALYST us Alex Kohli MD LAB BLOOD ORDERABLES Final Resu lt [facility] [address] [place] [address] * PSA screen (04/20/2024 10:30 AM STRATEGY ANALYST) PSA-Total 1.35 <=3.90 ng/mL Comment: Interpretive Data AGE SEX REFERENCE INTERVAL 0 minutes-150 years Female None 0 minutes-49 years Male None 50-59 years Male 0-3.90 60-69 years Male 0-5.40 70-79 years Male 0-6.20 80-150 years Male 0-6.20 The Reinaldo PSA Total assay procedure was used. Results from different manufacturers or methods may not be comparable. Serial testing should be performed using the same method. Current interpretive data last revised 21. Blood 04/20/2024 10:3 0 AM STRATEGY ANALYST 04/20/2024 11:11 AM STRATEGY ANALYST Alex Kohli MD LAB BLOOD ORDERABLES Final Resu lt Performing Organization Address [facility] de Phone Number [facility] [address] [employer] [place] [address] * (ABNORMAL) CBC with auto differential (04/20/2024 10:30 AM STRATEGY ANALYST) WBC 6.5 3.8 - 9.9 K/cumm Hgb 14.4 13.0 - 17.5 g/dL [facility] Hct 45.0 38.9 - 50.3 % [facility] Plt 222 150 - 400 K/cumm [facility] MPV 9.6 9.1 - 12.3 fL [facility] RBC 4.74 4.30 - 5.80 M/cumm [facility] MCV 94.9 81.3 - 96.4 fL [facility] MCH 30.4 27.1 - 33.3 pg [facility] MCHC 32.0(L) 32.3 - 35.7 g/dL [facility] RDW CV 14.6 11.1 - 14.9 % [facility] RDW SD 51.2(H) 35.7 - 48.1 fL [facility] NRBC abs 0.00 0.00 - 0.01 K/cumm [facility] Blood 04/20/2024 10:3 0 AM STRATEGY ANALYST 04/20/2024 11:11 AM STRATEGY ANALYST Alex Kohli MD LAB BLOOD ORDERABLES Final Resu lt Performing Organization Address [facility] de Phone Number [facility] [address] [employer] [place] [address] * Lipid panel (04/20/2024 10:30 AM STRATEGY ANALYST) Cholesterol 111 30 - 199 mg/dL Comment: Interpretive Data Ages < or = 19 years Acceptable: <170 mg/dL Borderline high: 170-199 mg/dL High: >or= 200 mg/dL Ages > or = 20 years Desirable: <200 mg/dL Borderline high: 200-239 mg/dL High: >or= 240 mg/dL Literature References: 1. Expert Panel on Integrated Guidelines for Cardiovascular Health and Risk Reduction in Children and Adolescents. Pediatrics 2011;128:S213 2. NCEP Expert Panel. Circulation 2004;110:227 Current Interpretive Data was last revised on 2017. Triglycerides 48 <=149 mg/dL [facility] Comment: Interpretive Data Ages < or = 9 years Acceptable: <75 mg/dL Borderline high: 75-99 mg/dL High: >or= 100 mg/dL Ages 10 to 20 years Acceptable: <90 mg/dL Borderline high: 90-129 mg/dL High: >or= 130 mg/dL Ages > or = 20 years Desirable: <150 mg/dL Borderline high: 150-199 mg/dL High: 200-499 mg/dL Very high: >or= 499 mg/dL Literature References: 1. Expert Panel on Integrated Guidelines for Cardiovascular Health and Risk Reduction in Children and Adolescents. Pediatrics 2011;128:S213 2. NCEP Expert Panel. Circulation 2004;110:227 Current Interpretive Data was last revised on 2017. HDL 52 >=40 mg/dL [facility] Comment: Interpretive Data Ages < or = 19 years Acceptable: >45 mg/dL Borderline low: 40-45 mg/dL Low: <40 mg/dL Ages > or = 20 years Desirable: >or= 60 mg/dL Low: <40 mg/dL Literature References: 1. Expert Panel on Integrated Guidelines for Cardiovascular Health and Risk Reduction in Children and Adolescents. Pediatrics 2011;128:S213 2. NCEP Expert Panel. Circulation 2004;110:227 Current Interpretive Data was last revised on 2017. LDL, calculated 47 <=129 mg/dL [facility] Comment: Interpretive Data Ages < or = 19 years Acceptable: <110 mg/dL Borderline high: 110-129 mg/dL High: >or= 130 mg/dL Ages > or = 20 years Optimal: <100 mg/dL Near optimal: 100-129 mg/dL Borderline high: 130-159 mg/dL High: >160 mg/dL Calculated using the Cirilo LDL-C estimating equation. This equation was implemented on 2024. Prior to this date LDL-C was estimated using the Friedewald equation. Literature References: 1. Expert Panel on Integrated Guidelines for Cardiovascular Health and Risk Reduction in Children and Adolescents. Pediatrics 2011;128:S213 2. NCEP Expert Panel. Circulation 2004;110:227 3. Cirilo Hurst et al. MANDI Cardiol. 2020 September 10;5(5):540-548. doi: 10.1001/jamacardio.2020.0013 Current Interpretive Data was last revised on 2024. Non-HDL Cholesterol 59 mg/dL [facility] Comment: Interpretive Data Ages < or = 19 years Acceptable: <120 mg/dL Borderline high: 120-144 mg/dL High: >145 mg/dL Ages > or = 20 years When triglycerides are >200 mg/dL, Non-HDL cholesterol is a secondary target of therapy with treatment goals that are 30 mg/dL greater than the LDL cholesterol target. Literature References: 1. Expert Panel on Integrated Guidelines for Cardiovascular Health and Risk Reduction in Children and Adolescents. Pediatrics 2011;128:S213 2. NCEP Expert Panel. Circulation 2004;110:227 Current Interpretive Data was last revised on 2017. Chol/HDL ratio 2 [facility] Blood 04/20/2024 10:3 0 AM STRATEGY ANALYST 04/20/2024 11:11 AM STRATEGY ANALYST us Alex Kohli MD LAB BLOOD ORDERABLES Final Resu lt [facility] [address] [place] [address] * (ABNORMAL) Comprehensive metabolic panel (04/20/2024 10:30 AM STRATEGY ANALYST) Sodium 142 135 - 145 mmol/L Potassium, pl 4.5 3.3 - 4.9 mmol/L [facility] Chloride 111(H) 97 - 110 mmol/L [facility] CO2 25 22 - 32 mmol/L [facility] Anion gap 6 2 - 15 mmol/L [facility] BUN 13 6 - 25 mg/dL [facility] Creatinine 1.32(H) 0.80 - 1.30 mg/dL [facility] Glucose 97 70 - 199 mg/dL [facility] Comment: Interpretive Data Fasting glucose >/= 126 mg/dl is diagnostic for diabetes. Fasting is defined as no caloric intake for at least 8 hours. Fasting glucose between 100 mg/dl to 125 mg/dl is diagnostic of prediabetes. In a patient with classic symptoms of hyperglycemia or hyperglycemic crisis, a random glucose >/= 200 mg/dl is diagnostic for diabetes. In the absence of unequivocal hyperglycemia, results should be confirmed by repeat testing. The classification and Diagnosis of Diabetes Diabetes Care 202; 46: S19-S40. Current interpretive data was last revised 2022. Calcium 8.9 8.5 - 10.3 mg/dL [facility] Bilirubin, total 0.4 0.1 - 1.2 mg/dL [facility] Protein, pl 6.7 6.5 - 8.5 g/dL [facility] Albumin 3.9 3.5 - 5.0 g/dL [facility] Alk phos 145(H) 40 - 130 Units/L [facility] ALT 111(H) 7 - 55 Units/L [facility] AST 48 10 - 50 Units/L [facility] Blood 04/20/2024 10:3 0 AM STRATEGY ANALYST 04/20/2024 11:11 AM STRATEGY ANALYST Alex Kohli MD LAB BLOOD ORDERABLES Final Resu lt Performing Organization Address City/State/[facility] Co de Phone Number [facility] [address] Department [place] [address] * Colonoscopy (06/07/2022) Anatomical Region Laterality Modality Other Historical Provider ENDOSCOPY PROCEDURES Fela marques Result from Last 3 Months or Most Recently Relevant to Health Maintenance Insurance MEDICARE IDPA MEDICARE IDWI IDPA MEDICARE SOLUTIONS [facility] WORKERS COMPENSATION GENERIC COMPENSATION WORKERS COMPENSATION GENERIC COMPENSATION WORKERS COMPENSATION GENERIC COMPENSATION Advance Directives For more information, please contact: [phone] * Full Code (Latest Code Status on File) Date Activated Date Inactivated Comments 01/28/2023 6:23 AM 01/30/2023 7:18 PM Care Teams Housekeeping Lead Relationship Specialty Start Date End Date Alex Kohli MD PCP - General Family Medicine 11/06/22
--- OUTSIDE RECORDS SUMMARY | 2024-06-20 17:42 | XMS_ITS | Data Portability ---
Author Organization [facility] Address [address] [facility] [place] [address] Assessment No assessment recorded. Plan of Treatment Reminders Order Date Submit Date Provider Last Modified By Organization Details Last Modified Time Details Appointments ANY 15 2024 07:30A Aris Kohli MD Not available Not available Not available Lab rf (rheumato id factor), serum 2023 024 [facility], [address] [place] [address], [address], [place], [address], 06/13/2023 11:15:27 erythrocy te sedimenta tion rate by claudio n method 2023 024 [facility], [address] [place] [address], [address], [place], [address], 06/13/2023 11:15:26 POPPY (antinucl ear antibodie s) screen, serum 2023 024 [facility], [address] [place] [address], [address], [place], [address], 06/13/2023 11:15:25 dsDNA Ab, serum 2023 024 [facility], [address] [place] [address], [address], [place], [address], 06/13/2023 11:15:28 sjogren antibody panel (ssa, ssb, ro, la), serum 2023 [facility], [address] [facility], [address], [place], [address], 06/13/2023 11:15:27 PSA, total, serum or plasma [address] [facility], [address] [place] [address] [place], [address], 04/15/2024 09:12:37 lipid panel, serum [address] [facility], [address] [place] [address] [place], [address], 04/15/2024 09:12:37 CMP, serum or plasma 2023 024 [facility], [address] [place] [address] [place], [address], 04/20/2024 14:29:11 CBC w/ auto diff [address] [facility], [address] [place] [address] [place], [address], 04/15/2024 09:12:37 Referral None recorded. Procedures None recorded. Surgeries None recorded. Imaging None recorded. Medication Orders amitripty line 10 mg tablet 2023 024 [facility] [address], [address], 04/15/2024 08:42:57 Medrol (Adrian) 4 mg tablets in a dose pack 2023 024 [email or web address] [address] In [facility], [address] [place] [address], [address], 04/15/2024 08:42:10 ketorolac 60 mg/2 mL intramusc ular solution 2023 024 [email or web address] [address] In [facility], [address] [place] [address], [address], 03/17/2024 08:05:28 Kenalog-8 0 80 mg/mL suspensio n for injection 2023 024 [email or web address] Not available 01/06/2024 15:23:06 tramadol 50 mg tablet 2023 024 [email or web address] [facility] [address] In [facility], [address] [place] [address], [address], 04/15/2024 08:44:17 Medrol (Adrian) 4 mg tablets in a dose pack 2023 024 [facility] [address] In [facility], [address] [place] [address], [address], 04/15/2024 08:42:12 ketorolac 60 mg/2 mL intramusc ular solution 2023 024 [email or web address] [address], [address], 03/17/2024 08:05:28 triamcino lone acetonide 40 mg/mL suspensio n for injection 2023 024 [email or web address] [address], [address], 03/17/2024 08:05:37 Patient TargetsNo targets recorded. Patient Instructions Encounter Date Encounter Id Patient Instructions Last Modified By Organization Details Last Modified Time 06/12/2023 [id number] Quitting Tobacco : Care Instructions Not available 06/12/2023 14:56:43 10/03/2023 [id number] A healthy lifestyle: care instructions Not available 10/03/2023 13:28:51 Quitting Tobacco : Care Instructions Not available 10/03/2023 13:28:51 04/15/2024 [id number] A healthy lifestyle: care instructions Not available 04/15/2024 09:12:37 Reason for Referral None Reported. Results Created Date Observation Date Name Description Value Unit Range Abnormal Flag Note LastModifiedBy Organization Detail LastModifiedTime 06/12/19 24 06/13/2023 ANTIN UCLEA R AB MULTI PLEX RFX 9 POPPY direct Negati ve negati ve Not Available [facility] ([facility]) [address] [place], [address], 06/13/2023 11:15:25 06/12/19 24 06/13/2023 SEDIM ENTAT ION RATE- WESTE RGREN sedimentatio n rate-westerg wen 10 mm/HR 0-30 Not Available [facility] ([facility]) [address] [place], [address], 06/13/2023 11:15:26 06/12/19 24 06/13/2023 RHEUM ATOID FACTO R (RF) rheumatoid factor (rf) <10.0 Not Available [facility]) [address] [place], [address], 06/13/2023 11:15:27 06/12/19 24 06/13/2023 SJOGR EN'S AB, ANTI- SS-A/ -SS-B sjogren's anti-ss-A <0.2 ai 0.0-0. 9 Not Available [facility] ([facility]) [address] [place], [address], 06/13/2023 11:15:27 06/12/19 24 06/13/2023 SJOGR EN'S AB, ANTI- SS-A/ -SS-B sjogren's anti-ss-B <0.2 Not Available [facility] ([facility]) [address] [place], [address], 06/13/2023 11:15:27 06/12/19 24 06/13/2023 ANTI- DSDNA ANTIB ODIES anti-DNA (ds) Ab qn <1 Negat blayne <5 Equiv ocal 5 - 9 Posit blayne >9 Not Available [facility] ([facility]) [address] [facility], [place], [place], [address], 06/13/2023 11:15:28 06/19/19 24 06/19/2023 XR, chest , 2 view No observ ation record ed. [email or web address] [facility] [address] [facility] , [place], [address], 06/20/2023 10:58:52 06/25/19 24 XR, chest [facility] ONE [facility] [place] [address] Indica tion: Shortn ess of breath COMPAR JANETT: 2022 FINDIN GS: Single view chest. There are vascul ar calcif icatio ns. There is no focal consol idatio n or pleura l effusi on. The cardia c silhou ette, medias tinum, and pulmon kevin vascul ature are within normal limits . IMPRES SARAH: No eviden ce of acute cardio pulmon kevin diseas e Referr ed By: González onbernadette ly Signed By: Michele Lorenzana MD on 3:43 AM Interp reted By: Michele Lorenzana MD, 3:42 AM [email or web address] [facility] [address] [facility], [place], [address], 06/25/2023 08:17:28 06/25/19 24 ECG 12-le ad [facility] [place] [address] [facility] [address] [place] Test Date: 06-25 Pat Name: PEPE Adrien Miller Depart ment: 41 Patien t ID: [id number] Room: [facility] 13 Gender : Male Techni obdulia: : 3- Reques denise By: RUFINO VALENZUELA Order Number : [id number] Vianey little MD: Danyell hadley Measur ements Interv als [place] Rate: 65 P: 38 ID: 168 QRS: 258 QRSD: 84 T: -3 QT: 378 QTc: 394 Interp retive Statem ents SINUS RHYTHM ABNORM AL QRS-T ANGLE [QRS-T AXIS DIFFER ENCE > 60] Compar ed to ECG 2021 19:55: 37 Left-a xis deviat ion no longer presen t Other ischem ic change s, not STEMI Prelim inary EKG Interp retati on by Rufino valenzuela MD Electr onical ly signed by Danyell hadley at 22:04: 41 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 [email or web address] [facility] [address] [facility], [place], [address], 06/26/2023 08:14:03 06/25/19 24 ECG 12-le ad [facility] ONE [facility] [place] [address] [facility] [place] [address] [place], [place] Test Date: 06-25 Pat Name: PEPE Miller Depart ment: 41 Pat[address] t ID: [id number] Room: [place] [address] Gender : Male Techni obdulia: : 1966-0 08-02 Reques denise By: RUFINO VALENZUELA Order Number : [id number] Vianey little MD: Danyell hadley Measur ements Interv als [place] Rate: 65 P: 38 ID: 168 QRS: 258 QRSD: 84 T: -3 QT: 378 QTc: 394 Interp retive Statem ents SINUS RHYTHM ABNORM AL QRS-T ANGLE [QRS-T AXIS DIFFER ENCE > 60] Compar ed to ECG 2021 19:55: 37 Left-a xis deviat ion no longer presen t Other ischem ic change s, not STEMI Prelim inary EKG Interp retati on by Rufino valenzuela MD Electr onical ly signed by Danyell hadley at 2-13-2 024 22:04: 41 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 Additi onal ross l and sagitt al reform atted images were genera denise at a [employer] [facility]. A dose loweri ng techni que was used for this proced ure, which may includ e, but is not limite d to, dose reduct ion techni que, automa denise exposu re contro l, iterat blayne recons tructi on, ALARA (As Low As Reason ably Achiev able), or Image Gently techni ques. FINDIN GS: There is no acute intrac ranial hemorr immanuel. There is no extra- axial fluid collec tion. Preser sabine blackowod-w raymundo matter differ entiat ion. The ventri cles are normal in size. The basal cister ns appear normal . The orbita l conten ts appear normal . Parana nicole sinuse s and mastoi d air cells are well aerate d. There is no acute fractu re nor destru ctive proces s of the visual ized osseou s struct ures. IMPRES SARAH: No CT eviden ce of an acute intrac ranial abnorm ality. Ordere d By: DANYELL CORRAL Electr onical ly Signed By: Dipak Corbin MD on 10/16/19 6:01 PM Interp reted By: Dipak Corbin MD, 10/16/19 6:00 PM [email or web address] [facility] [address], [place], [address], 10/16/2023 19:04:38 10/16/19 24 xr chest Pa or AP 1V [facility] [address] [place] [address] Examin ation: XR CHEST PA OR AP 1V Exam time: 10/16/19 5:46 PM Indica tion: Chest pain. Compar janett: 024 Techni que: Portab le AP view the chest, one image Findin gs: Medias tinal silhou ette and pulmon kevin vascul ature are within normal limits for techni que. Slight ly patchy right infrah ilar opacit y is favore d to be second kevin to patien t rotati on to atelec tasis or early infect ion are not exclud ed. No pneumo thorax , large pleura l effusi on, or focal consol idatio n. No acute osseou s abnorm ality. IMPRES SARAH: 1. No convin cing radiog raphic eviden ce of active chest diseas e. 2. Patchy right infrah ilar opacit y is favore d to be second kevin to patien t rotati on though atelec tasis or early infect ion cannot be entire ly exclud ed. Ordere d By: ARBEN Claudio onical ly Signed By: Elio wolf MD on 10/16/19 24 6:20 PM Interp reted By: Elio wolf MD, 10/16/19 6:19 PM [email or web address] [facility] [address], [place], [address], 10/16/2023 19:52:10 10/17/19 24 ECG 12-le ad [facility] [address] [place] [address] [facility] [place] [address] [place], [place] Test Date: 10-15 Pat Name: PEPE BUENO Angela Depart ment: 41 [address] ID: [id number] Room: EXAM24 Gender : Male Techni obdulia: [id number] : [birth year] Reques denise By: ARBEN Rao Order Number : [id number] Vianey little MD: Raj Alanisur ements Interv als [place] Rate: 75 P: 4 ID: [id number] QRS: -87 QRSD: 86 T: 7 QT: 389 QTc: 435 Interp retive Statem ents SINUS RHYTHM MARKED LEFT AXIS DEVIAT ION [QRS AXIS < -30] POSSIB LE ANTERI OR MYOCAR DIAL INFARC TION [30 ms Q WAVE IN V3/V4, OR R < 0.2 mV IN V4], OF INDETE RMINAT E AGE WARNIN G: DATA QUALIT Y MAY AFFECT INTERP RETATI ON Compar ed to ECG 2023 03:16: 54 Left-a xis deviat ion now presen t Myocar dial infarc t findin g now presen t Other ischem ic change s, not STEMI Prelim inary EKG Interp retati on by LOREN Navarro Electr onical ly signed by Raj Perez at 10-17-19 5:52:0 6 CDT [email or web address] [facility] [address] [facility], [place], [address], 10/17/2023 08:52:38 10/17/19 24 ECG 12-le ad [facility] [place] [address] [facility] [place] [address], [place] Test Date: 10-15 Pat Name: PEPE BUENO Angela Depart ment: 41 [address] ID: [id number] Room: EXAM24 Gender : Male Techni obdulia: [id number] : [birth year] Reques denise By: ARBEN Rao Order Number : [id number] Vianey little MD: Raj Perez Measur ements Interv als [place] Rate: 75 P: 4 ID: 149 QRS: -87 QRSD: 86 T: 7 QT: 389 QTc: 435 Interp retive Statem ents SINUS RHYTHM MARKED LEFT AXIS DEVIAT ION [QRS AXIS < -30] POSSIB LE ANTERI OR MYOCAR DIAL INFARC TION [30 ms Q WAVE IN V3/V4, OR R < 0.2 mV IN V4], OF INDETE RMINAT E AGE WARNIN G: DATA QUALIT Y MAY AFFECT INTERP RETATI ON Compar ed to ECG 2023 03:16: 54 Left-a xis deviat ion now presen t Myocar dial infarc t findin g now presen t Other ischem ic change s, not STEMI Prelim inary EKG Interp retati on by LOREN Navarro Electr onical ly signed by Raj Perez at 10-17-19 5:52:0 6 CDT [email or web address] [facility] [address] [facility], [place], [address], 10/17/2023 08:52:38 10/17/19 24 ECG 12-le ad [facility] ONE [facility] [place] [address] [facility] [place] [address] [place], [place] Test Date: 10-15 Pat Name: PEPE Miller Depart ment: 41 Patien t ID: [id number] Room: [facility] Gender : Male Techni obdulia: [id number] : [birth year] Reques denise By: ARBEN Rao Order Number : [id number] Vianey little MD: Raj Perez Measur ements Interv als [place] Rate: 75 P: -1 ID: 152 QRS: -86 QRSD: 82 T: 4 QT: 385 QTc: 431 Interp retive Statem ents SINUS RHYTHM MARKED LEFT AXIS DEVIAT ION [QRS AXIS < -30] POSSIB LE ANTERI OR MYOCAR DIAL INFARC TION [30 ms Q WAVE IN V3/V4, OR R < 0.2 mV IN V4], PROBAB LY OLD Compar ed to ECG 2023 03:16: 54 Left-a xis deviat ion now presen t Myocar dial infarc t findin g now presen t Electr onical ly signed by Raj Perez at 10-17-19 6:02:2 9 CDT [email or web address] [facility] [address] [facility], [place], [address], 10/17/2023 08:52:38 10/17/19 24 ECG 12-le ad [facility] [address] [facility] [place] [address] [facility] [place] [address] [facility] [place], [place] Test Date: 10-15 Pat Name: PEPE Miller Depart ment: Charito rocha ID: [id number] Room: [facility] Gender : Male Techni obdulia: [id number] : [birth year] Reques denise By: ARBEN Rao Order Number : [id number] Vianey little MD: Raj Perez Measur ements Interv als [place] Rate: 75 P: -1 ID: 152 QRS: -86 QRSD: 82 T: 4 QT: 385 QTc: 431 Interp retive Statem ents SINUS RHYTHM MARKED LEFT AXIS DEVIAT ION [QRS AXIS < -30] POSSIB LE ANTERI OR MYOCAR DIAL INFARC TION [30 ms Q WAVE IN V3/V4, OR R < 0.2 mV IN V4], PROBAB LY OLD Compar ed to ECG 2023 03:16: 54 Left-a xis deviat ion now presen t Myocar dial infarc t findin g now presen t Electr onical ly signed by Raj Perez at 10-17-19 6:02:2 9 CDT [email or web address] [facility] [address] [facility], [place], [address], 10/17/2023 08:52:38 10/18/19 24 ECG 12-le ad [facility] [place] [address] [facility] [place] [address] [place] Test Date: 10-15 Pat Name: PEPE BUENO Angela Depart ment: 41 Patien t ID: [id number] Room: [id number] 24 Gender : Male Techni obdulia: : [birth year] Reques denise By: RUFINO VALENZUELA Order Number : [id number] Vianey little MD: Anh Griffin Measur ements Interv als [place] Rate: 72 P: 21 ID: 152 QRS: 246 QRSD: 88 T: -3 QT: 391 QTc: 429 Interp retive Statem ents SINUS RHYTHM POSSIB LE LEFT ATRIAL ENLARG EMENT [-0.1m V P-WAVE IN V1/V2] Right axis deviat ion POSSIB LE ANTERI OR MYOCAR DIAL INFARC TION , PROBAB LY OLD [30 ms Q WAVE IN V3/V4, OR R < 0.2 mV IN V4] Compar ed to ECG 2023 16:34: 06 Atrial abnorm ality now presen t Left-a xis deviat ion no longer presen t Myocar dial infarc t findin g still presen t Electr onical ly signed by Anh Griffin at 10-18-19 19:37: 35 CDT [email or web address] [facility] [address] [place], [address], 10/21/2023 08:20:31 10/18/19 24 ECG 12-le ad [facility] [address] [facility] [place] [address] [facility] [place] Test Date: 10-15 Pat Name: PEPE HORNEAIDA Miller Depart ment: 41 Patien t ID: [id number] Room: [id number] 24 Gender : Male Techni obdulia: : [birth year] Reques denise By: RUFINO VALENZUELA Order Number : [id number] Vianey little MD: Anh Griffin Measur ements Interv als [place] Rate: 72 P: 21 ID: 152 QRS: 246 QRSD: 88 T: -3 QT: 391 QTc: 429 Interp retive Statem ents SINUS RHYTHM POSSIB LE LEFT ATRIAL ENLARG EMENT [-0.1m V P-WAVE IN V1/V2] Right axis deviat ion POSSIB LE ANTERI OR MYOCAR DIAL INFARC TION , PROBAB LY OLD [30 ms Q WAVE IN V3/V4, OR R < 0.2 mV IN V4] Compar ed to ECG 2023 16:34: 06 Atrial abnorm ality now presen t Left-a xis deviat ion no longer presen t Myocar dial infarc t findin g still presen t Electr onical ly signed by Anh Griffin at 10-18-19 19:37: 35 CDT [email or web address] [facility] [address] [facility], [place], [address], 10/21/2023 08:20:32 03/31/[address] ABD+p el wo con [facility] [place] [address] [facility] [place] [address] [facility] [address] [place], [place] [address] EXAMIN ATION: CT Abdome n and Pelvis withou t contra st CLINIC AL HISTOR Y: Left-s ided abdomi nal pain. COMPAR JANETT: 2021 TECHNI QUE: Comput ed tomogr aphy of the abdome n and pelvis was obtain ed withou t admini strati on of intrav enous contra st accord ing to routin e protoc ol. A dose loweri ng techni que was used for this proced ure, which may includ e, but is not limite d to, dose reduct ion techni que, automa denise exposu re contro l, the use of iterat blayne recons tructi on, and ALARA (As Low As Reason ably Achiev able) / Image Gently techni ques. FINDIN GS: Images of the lower chest reveal ross ry artery calcif icatio ns an/or stents . There is left-s ided hydron ephros is and hydrou reter second kevin to an obstru cting 4-5 mm calcul us in the distal left ureter . Surrou nding perine phric and periur eteral strand ing. Marked asymme tric atroph y of the right kidney . Nonobs tructi ng right renal calcul i versus vascul ar calcif icatio ns. No right- sided hydron ephros is or hydrou reter. Depend ent sludge sugges denise within the gallbl adder. Liver, spleen , and adrena l glands are unrema rkable . Pancre atic parenc hyma not well evalua denise withou t intrav enous contra st. Athero sclero tic calcif icatio ns noted along the aorta and its branch es. No bulky mesent isaiah or retrop eriton eal lympha denopa thy. Stomac h and small bowel loops are nondil ated. Normal append ix. Coloni c divert iculos is. Subtle strand ing/in flamma tion noted adjace nt to the descen ding: No free fluid or free air in the abdome n. Sigmoi d divert iculos is. Pelvic vascul ar calcif icatio ns. Circum ferent ial bladde r wall thicke melina. No pelvic ascite s. No bulky pelvic or inguin al lympha denopa thy. Bilate ral femora l artery stents . Degene rative change s noted in the spine. IMPRES SARAH: 1. Left-s ided hydron ephros is and hydrou reter second kevin to an obstru cting 4-5 mm distal left ureter al calcul us. Surrou nding perine phric and periur eteral strand ing. 2. Coloni c divert iculos is. Ill-de fined inflam mation /stran ding adjace nt to the descen ding colon could reflec t mild acute divert iculit is. No free fluid or free air. 3. Marked asymme tric atroph y of the right kidney with nonobs tructi ng right- sided renal calcul i. 4. Depend ent gallbl adder sludge . 5. Athero sclero sis. Ross ry artery calcif icatio ns and/or stents . 6. Circum ferent ial bladde r wall thicke melina, possib ly in part due to underd istent ion. Could correl ate with urinal ysis. 7. Please see above for additi onal chroni c, incide ntal, and noneme rgent findin gs elsew ere. Referr ed By: González fong Signed By: Jayden Garcia MD on 2023 6:42 PM Interp reted By: Jayden Garcia MD, 2023 6:35 PM [email or web address] [address], [place], [address], 04/01/2024 08:17:04 04/01/20 24 surg xr retro grd urogr aphy [facility] ONE [facility] [place] [address] [facility] [place] [address] [facility] [address] [place] [address] INDICA TION: Fluoro scopic guidan ce IMPRES SARAH: Fluoro scopy provid ed, no interp retati on reques denise, see separa te operat blayne report Referr ed By: González fong Signed By: Michele Lorenzana MD on 2023 12:10 AM Interp reted By: Michele Lorenzana MD, 2023 12:10 AM [email or web address] [address], [place], [address], 04/01/2024 18:42:50 Result Notes None recorded. Problems Name Problem SNOMED Code Status Onset Date Resolution Date Notes Provider Name and Address Organization Details Recorded Time Depressive disorder 88307668 Active 2022 Not Available [employer] 23:46:55 Chronic insomnia 796538405 Active 2022 Not Available [employer] 23:46:56 Gastroesophag eal reflux disease without esophagitis 789387321 Active 2022 Not Available [employer] 23:46:55 Hypercholeste rolemia 60714879 Active 2022 Not Available [facility] 4 23:46:55 Benign essential hypertension 0970431 Active 2022 Not Available [facility] 4 23:46:55 Lumbago-sciat ica due to displacement of lumbar intervertebra l disc 62029024 Active 2022 Not Available [facility] 4 23:46:55 Swelling of hand 371136770 Active 2022 Not Available [facility] 4 23:46:55 Smoker 35568248 Active 2022 Not Available [facility] 4 23:46:56 Pain in throat 158222489 Active 2022 Not Available [facility] 4 23:46:55 Esophageal dysphagia 38138152 Active 2022 Not Available [facility] 4 23:46:55 Obesity 968629481 Active 2023 Alex Kohli MD Attn: Accounting ,[address] [place], [address] , [facility] 08:49:48 Notes:Some problems listed i n Document: #[id number] could not be added to this patient's chart. Please review this document and add these problems to the patient's chart manually as needed. Problem Notes None recorded. Procedures Surgical History None recorded. Imaging Results Imaging Date Name Status LastModified by [facility] Details LastModified Time 06/19/2023 XR, chest, 2 view completed [address] [facility] [place], [address], 06/20/2023 10:58:52 06/25/2023 XR, chest completed [address], [address], 06/25/2023 08:17:28 06/25/2023 ECG 12-lead completed [address], [address], 06/26/2023 08:14:03 06/25/2023 ECG 12-lead completed [address], [place], [address], 06/26/2023 08:14:03 10/16/2023 CT, head, w/o contrast completed [address], [place], [address], 10/16/2023 19:04:38 10/16/2023 xr chest Pa or AP 1V completed [address], [place], [address], 10/16/2023 19:52:10 10/17/2023 ECG 12-lead completed [address], [place], [address], 10/17/2023 08:52:38 10/17/2023 ECG 12-lead completed [address], [place], [address], 10/17/2023 08:52:38 10/17/2023 ECG 12-lead completed [address], [place], [address], 10/17/2023 08:52:38 10/17/2023 ECG 12-lead completed [address], [place], [address], 10/17/2023 08:52:38 10/18/2023 ECG 12-lead completed [address], [place], [address], 10/21/2023 08:20:31 10/18/2023 ECG 12-lead completed [address], [address], 10/21/2023 08:20:32 03/31/2024 CT ABD+pel wo con completed [address], [address], 04/01/2024 08:17:04 04/01/2024 surg xr retrogrd urography completed [address], [address], 04/01/2024 18:42:50 Procedure Notes None recorded. Medical Equipment None Reported. Allergies Allergen ID Allergen Name Allergen Category Reaction Reaction Severity Criticality Documentation Date Start Date Code Code System Note Provider Name and Address Organization Details Recorded Time [id number] nitroglyc sam medicatio n Not available Not available Not available 01/07/2023 4917 RxNorm Not Available Not Available Not Available [id number] ibuprofen medicatio n Not available Not available Not available 01/07/2023 5640 RxNorm Not Available Not Available Not Available Medications Name Sig Start Date Stop Date Status Note LastModified by Organization Details LastModified Time atorvastati n calcium 80 mg tabs 11/06 completed Not Available Not Available Not Available amlodipine besylate 5 mg tabs 11/06 completed Not Available Not Available Not Available cyclobenzap rine hydrochlori de 10 mg tabs 11/06 completed Not Available Not Available Not Available rosuvastati n calcium 20 mg tabs 11/06 completed Not Available Not Available Not Available losartan potassium 50 mg tabs 11/06 completed Not Available Not Available Not Available ibuprofen 800 mg tabs 04/15 completed Not Available Not Available Not Available triamterene /hydrochlor othiazide 37.5-25 mg tabs 04/15 completed Not Available Not Available Not Available losartan potassium 100 mg tabs 11/06 completed Not Available Not Available Not Available amlodipine besylate 10 mg tabs 11/06 completed Not Available Not Available Not Available sulfamethox azole/trime thoprim ds 800-160 mg tabs 11/06 completed Not Available Not Available Not Available azithromyci n 250 mg tabs 11/06 completed Not Available Not Available Not Available hydrocodone /acetaminop hen 5-325 mgtabs 11/06 completed Not Available Not Available Not Available calcitriol 0.25 mcg caps 11/06 completed Not Available Not Available Not Available tramadol hcl 50 mg tabs 11/06 completed Not Available Not Available Not Available metoprolol succinate er 50 mg tb24 11/06 completed Not Available Not Available Not Available metoprolol succinate er 100 mg tb24 11/06 completed Not Available Not Available Not Available lisinopril 10 mg tabs 11/06 completed Not Available Not Available Not Available losartan 50 mg tablet TAKE 1 TABLET BY MOUTH EVERY DAY 04/15 completed Not Available Not Available Not Available cyclobenzap rine 10 mg tablet TAKE 1 TABLET BY MOUTH TWICE A DAY NEEDED FOR MUSCLE SPASMS 04/15 completed Not Available Not Available Not Available furosemide 40 mg tablet TAKE 0.5 TABLETS (20 MG TOTAL) BY MOUTH DAILY NEEDED (LOWER EXTREMITY EDEMA SHORTNESS OF BREATHS) 03/25 completed Not Available Not Available Not Available clonidine HCl 0.1 mg tablet TAKE 1 TABLET BY MOUTH TWICE A DAY 11/06 completed Not Available Not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
--- OUTSIDE RECORDS SUMMARY | 2024-06-20 17:42 | XMS_ITS | Clinical Summary ---
Author Organization [facility] Address [address] [place] [address] Care Team Providers Care Ship Manager Name Role Phone Alex Kohli MD Primary Care Provider [phone] Allergies Active Allergy Reactions Criticality Noted Date [...] 03/14/2022 Assessment & Plan (06/04/2022 4:38 PM ELECTRONIC EQUIPMENT TRADES WORKER): Chronic uncontrolled malia siciatic Start norco 5/ 325mg q8 hr prn #60 Refer to [facility] neurosurgical . 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 3 Encounters Date Type Department Care Team Description 04/20/2024 10:05 AM ELECTRONIC EQUIPMENT TRADES WORKER Lab [facility] [address] [place] [id number] from Last 3 Months Immunizations Name Administration Dates Next Due Influenza, Unspecified 01/11/2022(Deferred: Nat ent Refused) Tdap 10/22/2017 Surgical History Surgery Date Site/Laterality Comments HERNIA REPAIR 05/13/1980 - 05/12/1981 Hernia repair CORONARY ANGIOPLASTY WITH ST ENT PLACEMENT 05/13/2004 - 05/12/2005 US ABDOMEN COMPLETE W LIVER DOPPLER (C) 05/17/2018 Right Medical History Medical History Date Comments Hx Other Medical 2006 heart stent Cardiovascular disease Coronary artery disease Hypertension Coronary artery disease Anxiety Chest pain History of transfusion Seizures (HCC) Stroke (HCC) Sinus infection Depression Hyperlipidemia Myocardial infarction (HCC) Chronic kidney disease, stage III (moderate) (HC C) RICCO (renal artery stenosis) (HCC) Anemia Secondary hyperparathyroidism (HCC) Vitamin D deficiency Sleep apnea Heart disease Family History Medical History Relation Name Comments No Known Problems Daughter 1 No Known Problems Daughter 2 Heart attack Father No Known Problems Mother Diabetes Other Family history of Diabetes mellitus; Diabetes Sister 1 No Known Problems Son 1 No Known Problems Son 2 No Known Problems Son 3 No Known Problems Son 4 Relation Name Status Comments Daughter 1 Alive Daughter 2 Alive Father Mother Alive Other Sister 1 Sister 2 Alive Son 1 Alive Son 2 Alive Son 3 Alive Son 4 Alive Social History Tobacco Use Types Packs/Day Years Used Date Smoking Tobacco: Former Cigarettes 0.1 43.5 S tarted: 12/06/1980 Cigars E-cigarettes Smokeless Tobacco: Never Tobacco Cessation:Counseling Given: Not Answered Comments:started again few days ago. Does smoke e-cigarette Alcohol Use Standard Drinks/Week Comments Not Currently 0 (1 standard drink = 0.6 oz pure alcohol) did 12 step recovery, quit 2011 Social Connection and Isolation Panel [NHANES] A nswer Date Recorded In a typical week, how many times do you talk on the phone with family, friends, or neighbors? Three times a week 01/29/20 How often do you get togethe r with friends or relatives? Three times a week 01/28/2023 How often do you attend chur or restorationism services? Never 01/28/2023 Do you belong to any clubs o r organizations such as restoration groups, unions, fraternal or athletic groups, or [...] place to sleep or slept in a senior care (including now)? No 01/28/2023 Personal Safety Answer Date Recorded Have you ever been in or are you currently in a harmful physical or emotional relationship or is someone making you feel afraid or unsafe? Denies 04/30/2023 Sex and Gender Information Value Date Recorded Sex Assigned at Not on file Legal Sex Male 1:29 AM ELECTRONIC EQUIPMENT TRADES WORKER Gender Identity Not on file Sexual Orientation Not on file Obstetrics History Last Filed Vital Signs Vital Sign Reading Time Taken Comments Blood Pressure 133/103 06/20/2023 12:41 AM ELECTRONIC EQUIPMENT TRADES WORKER Pulse 69 06/20/2023 12:41 AM ELECTRONIC EQUIPMENT TRADES WORKER Temperature 36.7 C (98 F) 06/19/2023 8:38 PM ELECTRONIC EQUIPMENT TRADES WORKER Respiratory Rate 20 06/19/2023 8:38 PM ELECTRONIC EQUIPMENT TRADES WORKER Oxygen Saturation 98% 06/20/2023 12:41 AM ELECTRONIC EQUIPMENT TRADES WORKER Inhaled Oxygen Concentration - - Weight 83.7 kg (184 lb 8.4 oz) 04/16/2023 4:23 A M [employer]IC EQUIPMENT TRADES WORKER Height 165.1 cm (5' 5 ) 04/16/2023 4:23 AM ELECTRONIC EQUIPMENT TRADES WORKER Body Mass Index 30.71 04/16/2023 4:23 AM ELECTRONIC EQUIPMENT TRADES WORKER Plan of Treatment Health Maintenance Due Date Last Done Comments Hepatitis C Screening 1965 Pneumococcal vaccine <65 (1 of 2 - PCV) 08/03/1971 Hepatitis B Screening 08/03/1983 Zoster Vaccine (1 of 2) 08/03/2015 Regular Well Visit/Exam 18-64 03/17/2021 03/17/2020 Depression Screening 06/04/2023 06/04/2022, 09/05/2021, 03/17/2020, Additional history exists Influenza Vaccine (#1) 2024 Colon Cancer Screening-Colonoscopy 06/07/2025 06/07/2022 Prostate Cancer Screening-PSA 04/20/2026, 11/06/2022, 04/19/2021 DTaP/Tdap/Td Vaccine (2 - Td or Tdap) 10/23/2027 10/22/2017 Colon Cancer Screening-CT Colonography Discontinued 06/07/2022 Colon Cancer Screening-DNA Stool Discontinued 06/07/19 Colon Cancer Screening-FIT Discontinued 06/07/2022 Colon Cancer Screening-Sigmoidoscopy Discontinued 06/07/2022 Goals Goal Patient Goal Type Associated Problems [...] as needed Medical Devices Implanted Type Area Anesthesiology Medical Doctor Device Identifier Shelf Expiration Date Model / Serial / Lot Stent Stent N/A: Heart Procedures Procedure Name Priority Date/Time Associated Diagnosis Comments EGFR Routine 04/20/2024 10:30 AM ELECTRONIC EQUIPMENT TRADES WORKER DIFFERENTIAL AUTO Routine 04/20/2024 10: 30 AM ELECTRONIC EQUIPMENT TRADES WORKER PSA SCREEN Routine 04/20/2024 10:30 AM ELECTRONIC EQUIPMENT TRADES WORKER COMPREHENSIVE METABOLIC PANEL Routine 04/20/2024 10:30 AM ELECTRONIC EQUIPMENT TRADES WORKER LIPID PANEL Routine 04/20/2024 10:30 AM ELECTRONIC EQUIPMENT TRADES WORKER CBC WITH AUTO DIFFERENTIAL Routine 04/20/2024 10:30 AM ELECTRONIC EQUIPMENT TRADES WORKER COLONOSCOPY Routine 06/07/2022 from Last 3 Months or Most Recently Relevant to Health Maintenance Results * eGFR (04/20/2024 10:30 AM ELECTRONIC EQUIPMENT TRADES WORKER) Pathologist [facility] eGFR 63 >=60 mL/min/1. 73 m2 Comment: [...] reviewed 2021. Blood 04/20/2024 10:3 0 AM ELECTRONIC EQUIPMENT TRADES WORKER 04/20/2024 11:11 AM ELECTRONIC EQUIPMENT TRADES WORKER us Alex Kohli MD LAB BLOOD ORDERABLES Final Resu lt [facility] [address] [facility] Department [place] [address] * Differential, auto (04/20/2024 10:30 AM ELECTRONIC EQUIPMENT TRADES WORKER) Pathologist [facility] Neutrophil abs 4.0 1.5 - 6.5 K/cumm Imm gran abs 0.0 0.0 - 0.1 K/cumm [facility] Lymphocyte abs 1.6 0.8 - 3.3 K/cumm [facility] Monocyte abs 0.7 0.2 - 0.8 K/cumm [facility] Eosinophil abs 0.2 0.0 - 0.5 K/cumm [facility] Basophil abs 0.1 0.0 - 0.1 K/cumm [facility] Neutrophil pct 60.9 % [facility] Comment: Interpretive Data Percent cell count reference ranges are not reported, since discordance with absolute values may lead to misinterpretation of CBC data. Current Interpretive Data was last revised on 2017. Imm gran pct 0.5 % [facility] Comment: Interpretive Data Percent cell count reference ranges are not reported, since discordance with absolute values may lead to misinterpretation of CBC data. Current Interpretive Data was last revised on 2017. Lymphocyte pct 24.2 % [facility] Comment: Interpretive Data Percent cell count reference ranges are not reported, since discordance with absolute values may lead to misinterpretation of CBC data. Current Interpretive Data was last revised on 2017. Monocyte pct 11.3 % [facility] Comment: Interpretive Data Percent cell count reference ranges are not reported, since discordance with absolute values may lead to misinterpretation of CBC data. Current Interpretive Data was last revised on 2017. Eosinophil pct 2.3 % [facility] Comment: Interpretive Data Percent cell count reference ranges are not reported, since discordance with absolute values may lead to misinterpretation of CBC data. Current Interpretive Data was last revised on 2017. Basophil pct 0.8 % [facility] Comment: Interpretive Data Percent cell count reference ranges are not reported, since discordance with absolute values may lead to misinterpretation of CBC data. Current Interpretive Data was last revised on 2017. Blood 04/20/2024 10:3 0 AM ELECTRONIC EQUIPMENT TRADES WORKER 04/20/2024 11:11 AM ELECTRONIC EQUIPMENT TRADES WORKER us Alex Kohli MD LAB BLOOD ORDERABLES Final Resu lt [facility] [address] [facility] Department [place] [address] * PSA screen (04/20/2024 10:30 AM ELECTRONIC EQUIPMENT TRADES WORKER) PSA-Total 1.35 <=3.90 ng/mL Comment: Interpretive Data [...] revised 21. Blood 04/20/2024 10:3 0 AM ELECTRONIC EQUIPMENT TRADES WORKER 04/20/2024 11:11 AM ELECTRONIC EQUIPMENT TRADES WORKER Alex Kohli MD LAB BLOOD ORDERABLES Final Resu lt Performing Organization Address [facility] Co de Phone Number IRIS [address] [place] [address] * (ABNORMAL) CBC with auto differential (04/20/2024 10:30 AM ELECTRONIC EQUIPMENT TRADES WORKER) WBC 6.5 3.8 - 9.9 K/cumm Hgb 14.4 13.0 - 17.5 g/dL [facility] Hct 45.0 38.9 - 50.3 % [facility] Plt 222 150 - 400 K/cumm [facility] MPV 9.6 9.1 - 12.3 fL [facility] RBC 4.74 4.30 - 5.80 M/cumm [facility] MCV 94.9 81.3 - 96.4 fL [facility] MCH 30.4 27.1 - 33.3 pg [facility] MCHC 32.0(L) 32.3 - 35.7 g/dL [facility] RDW CV 14.6 11.1 - 14.9 % [facility] RDW SD 51.2(H) 35.7 - 48.1 fL [facility] NRBC abs 0.00 0.00 - 0.01 K/cumm [facility] Blood 04/20/2024 10:3 0 AM ELECTRONIC EQUIPMENT TRADES WORKER 04/20/2024 11:11 AM ELECTRONIC EQUIPMENT TRADES WORKER Alex Kohli MD LAB BLOOD ORDERABLES Final Resu lt Performing Organization Address [facility] Co de Phone Number IRIS [address] [place] [address] * Lipid panel (04/20/2024 10:30 AM ELECTRONIC EQUIPMENT TRADES WORKER) Cholesterol 111 30 - 199 mg/dL Comment: [...] mg/dL High: >160 mg/dL Calculated using the Kerr LDL-C estimating equation. This equation was implemented on 2024. Prior to this date LDL-C was estimated using the Friedewald equation. Literature References: 1. Expert Panel on Integrated Guidelines for Cardiovascular Health and Risk Reduction in Children and Adolescents. Pediatrics 2011;128:S213 2. NCEP Expert Panel. Circulation 2004;110:227 3. Cirilo Hurst et al. MANDI Cardiol. 2019September 10;5(5):540-548. doi: 10.1001/jamacardio.2020.0013 Current Interpretive Data was [...] last revised on 2017. Chol/HDL ratio 2 [facility] Blood 04/20/2024 10:3 0 AM ELECTRONIC EQUIPMENT TRADES WORKER 04/20/2024 11:11 AM ELECTRONIC EQUIPMENT TRADES WORKER us Alex Kohli MD LAB BLOOD ORDERABLES Final Resu lt [facility] [address] [facility] Department of Laboratories [place], [place] [id number] * (ABNORMAL) Comprehensive metabolic panel (04/20/2024 10:30 AM ELECTRONIC EQUIPMENT TRADES WORKER) Sodium 142 135 - 145 mmol/L Potassium, pl 4.5 3.3 - 4.9 mmol/L [facility] Chloride 111(H) 97 - 110 mmol/L [facility] CO2 25 22 - 32 mmol/L [facility] Anion gap 6 2 - 15 mmol/L [facility] BUN 13 6 - 25 mg/dL [facility] Creatinine 1.32(H) 0.80 - 1.30 mg/dL [facility] Glucose 97 70 - 199 mg/dL [facility] Comment: Interpretive Data Fasting glucose >/= 126 [...] 2022. Calcium 8.9 8.5 - 10.3 mg/dL [facility] Bilirubin, total 0.4 0.1 - 1.2 mg/dL [facility] Protein, pl 6.7 6.5 - 8.5 g/dL [facility] Albumin 3.9 3.5 - 5.0 g/dL [facility] Alk phos 145(H) 40 - 130 Units/L [facility] ALT 111(H) 7 - 55 Units/L [facility] AST 48 10 - 50 Units/L [facility] Blood 04/20/2024 10:3 0 AM ELECTRONIC EQUIPMENT TRADES WORKER 04/20/2024 11:11 AM ELECTRONIC EQUIPMENT TRADES WORKER Alex Kohli MD LAB BLOOD ORDERABLES Final Resu lt [facility] [address] [facility] Department [place] [address] * Colonoscopy (06/07/2022) Anatomical Region Laterality Modality Other Historical Provider ENDOSCOPY PROCEDURES Fela l Result from Last 3 Months or Most Recently Relevant to Health Maintenance Insurance MEDICARE IDPA MEDICARE IDPA IDIN MEDICARE [employer] [facility] MEDICARE Address: [address] [address] [place] [address] [facility] COMPENSATION WORKERS COMPENSATION GENERIC COMPENSATION * Guarantor: Sourav Nava Account Type Relation to Patient Date of Phone Billing Address Workers Comp Self [address] [place], [place] [id number] WORKERS COMPENSATION GENERIC COMPENSATION Advance Directives For more information, please contact: [phone] * Full Code (Latest Code Status on File) Date Activated Date Inactivated Comments 01/28/2023 6:23 AM 01/30/2023 7:18 PM Care Teams Ship Manager Relationship Specialty Start Date End Date Alex Kohli MD PCP - General Family Medicine 11/06/22
--- OUTSIDE RECORDS SUMMARY | 2024-06-20 17:42 | XMS_ITS | Encounter Summary ---
Author Organization [facility] Address [address] [place] [address] Care Team Providers Care Skates Operator Name Role Phone Alex Kohli MD Primary Care Provider Reason for Referral * Imaging (Emergency) - New Request Specialty Diagnoses / Procedures Referred By Bela rocha Referred To Contact RADIOLOGY Procedures CTA CHEST PE PROTOCOL Sheryl Nieto MD [address] [address] Phone: tel: fax: Referral ID Status Reason Start Date Expiration Date V isits Requested Visits Authorized [id number] New Request 06/19/2024 06/19/2025 1 1 ICIDE SPRAYER Reason for Visit * Reason Comments Chest Pain Encounter Details Date Type Department Care Team (Late st Contact Info) Description 06/19/2024 8:05 PM HERBICIDE SPRAYER - 06/20/2024 12:41 AM HERBICIDE SPRAYER Emergency [facility] [place] [address] Sheryl Nieto MD [address] [address] Chest Pain Discharge Disposition: Home or Self Care (Routine Discharge) Social History Tobacco Use Types Packs/Day Years Used Date Smoking Tobacco: Some Days Cigarettes Last attempted to quit: 2014 Cigars Smokeless Tobacco: Never Comments:uses an e cigarette with no nicotine Alcohol Use Standard Drinks/Week Comments No 0 (1 standard drink = 0.6 oz pur e alcohol) haven't drank since 2011 [facility] Utilities Answer Date Recorded In the past 12 months has th e electric, gas, oil, or water company threatened to shut off services in your [...] any time in the past 12 m [facility], were you homeless or living in a long-term (including now)? No 04/01/2024 Sex and Gender Information Value Date Recorded Sex Assigned at Male 06/19/2024 8:28 PM HERBICIDE SPRAYER Legal Sex Male 10:42 PM CDT Gender Identity Not on file Sexual Orientation Straight 06/19/2024 8: 26 PM HERBICIDE SPRAYER Occupation Industry Job Start Date Job End Date [employer] member Not on file Not on file Not on file Not on file Not on file Not on file Not on file documented as of this encounter Last Filed Vital Signs Vital Sign Reading Time Taken Comments Blood Pressure 138/80 06/19/2024 7:52 PM HERBICIDE SPRAYER Pulse 62 06/19/2024 7:52 PM HERBICIDE SPRAYER Temperature 37.2 C (99 F) 06/19/2024 7:52 PM HERBICIDE SPRAYER Respiratory Rate 18 06/19/2024 7:52 PM HERBICIDE SPRAYER Oxygen Saturation 98% 06/19/2024 7:55 PM HERBICIDE SPRAYER Inhaled Oxygen Concentration - - Weight 84.8 kg (187 lb) 06/19/2024 7:52 PM HERBICIDE SPRAYER Height 165.1 cm (5' 5 ) 06/19/2024 7:52 PM HERBICIDE SPRAYER Body Mass Index 31.12 06/19/2024 7:52 PM HERBICIDE SPRAYER documented in this encounter Functional Status * Are you [...] Voss RN Active documented in this encounter Discharge Instructions * Attachments The following attachments cannot be sent through Care Everywhere. * Shortness of Breath (Dyspnea) Discharge Instructions (Micronesian) documented in this encounter Medications at Time of Discharge melatonin 10 MG tablet Take 1 tablet (10 mg total) by mouth nightly as needed for Sleep. 30 tablet 06/20/2024 predniSONE (DELTASONE) 20 MG tablet Take 2 tablets (40 mg total) by mouth daily for 5 days. 10 tablet 06/20/2024 06/25/2024 acetaminophen (TYLENOL) 325 MG tablet Take 2 tablets (650 mg total) by mouth every 4 (four) hours as needed for Pain. 04/03/2024 amlodipine 10 MG tablet Take 1 tablet (10 mg total) by mouth nightly. 30 tablet 02/11/2019 aspirin EC 81 MG tablet Take 1 tablet (81 mg total) by mouth daily. cloNIDine (CATAPRES) 0.2 MG tablet Take 1 tablet (0.2 mg total) by mouth nightly. 30 tablet 04/03/2024 clopidogrel (PLAVIX) 75 MG tablet Take 1 tablet (75 mg total) by mouth daily. ezetimibe (ZETIA) 10 MG tablet Take 1 tablet (10 mg total) by mouth daily. 03/01/2023 metoprolol succinate ER (TOPROL-XL) 100 MG 24 hr tablet Take 1 tablet (100 mg total) by mouth daily. pantoprazole EC (PROTONIX) 20 MG tablet Take 1 tablet (20 mg total) by mouth daily. polyethylene glycol (GLYCOLAX) packet Take 240 mLs (17 g total) by mouth 2 (two) times daily. Dissolve powder in 240 mL water 60 each 04/03/2024 rosuvastatin 40 MG tablet Take 1 tablet (40 mg total) by mouth nightly at bedtime. 09/26/2020 spironolactone (ALDACTONE) 25 MG tablet Take 1 tablet (25 mg total) by mouth daily. 08/09/2023 traZODone (DESYREL) 50 MG tablet Take 1 tablet (50 mg total) by mouth nightly as needed for Sleep. vitamin D3, cholecalciferol, 5000 UNITS capsule Take 1 capsule (5,000 Units total) by mouth daily. 12/07/2019 documented as of this encounter ED Notes * Sheryl Nieto MD - 06/19/2024 11:39 PM CST Chief Complaint Chief Complaint Patient presents with Chest Pain History of Present Illness Chest Pain Associated symptoms: cough and shortness of breath 58y M here with c/o chest pain and shortness of breath. This episode has been present for over a week but has been having similar episodes for months. Has associated productive cough. No fevers. Paindescribed as sharp. Medical History ALLERGIES: Review of patient's allergies indicates: Allergen Reactions Ibuprofen Itching and Swelling Nitroglycerin Shortness of Breath Tylenol [Acetaminophen] Itching and Nausea Only MEDICATIONS: Prior to Admission medications Medication Sig Start Date End Date Taking? Authorizing Provider melatonin 10 MG tablet Take 1 tablet (10 mg total) by mouth nightly as needed for Sleep. 06/20/24 YesSheryl Nieto MD predniSONE (DELTASONE) 20 MG tablet Take 2 tablets (40 mg total) by mouth daily for 5 days. 06/20/24 06/25/24 Yes Sheryl Nieto MD acetaminophen (TYLENOL) 325 MG tablet Take 2 tablets (650 mg total) by mouth every 4 (four) hours as needed for Pain. 04/03/24 Rae Tipton NP amlodipine 10 MG tablet Take 1 tablet (10 mg total) by mouth nightly. Patient taking differently: Take 1 tablet (10 mg total) by mouth daily. 02/11/19 Saira Kamara MD aspirin EC 81 MG tablet Take 1 tablet (81 mg total) by mouth daily. [facility] cloNIDine (CATAPRES) 0.2 MG tablet Take 1 tablet (0.2 mg total) by mouth nightly. 04/03/24 Gonzalo Tipton NP clopidogrel (PLAVIX) 75 MG tablet Take 1 tablet (75 mg total) by mouth daily. Default History Genericprovider ezetimibe (ZETIA) 10 MG tablet Take 1 tablet (10 mg total) by mouth daily. Patient not taking: Reported on 03/31/2024 03/01/23 Default History Genericprovider metoprolol succinate ER (TOPROL-XL) 100 MG 24 hr tablet Take 1 tablet (100 mg total) by mouth daily. Default History Genericprovider pantoprazole EC (PROTONIX) 20 MG tablet Take 1 tablet (20 mg total) by mouth daily. Default HistoryGenericprovider polyethylene glycol (GLYCOLAX) packet Take 240 mLs (17 g total) by mouth 2 (two) times daily. Dissolve powder in 240 mL water 04/03/24 Rae Tipton NP rosuvastatin 40 MG tablet Take 1 tablet (40 mg total) by mouth nightly at bedtime. 09/26/20 [facility] spironolactone (ALDACTONE) 25 MG tablet Take 1 tablet (25 mg total) by mouth daily. 08/09/23 DefaultHistory Genericprovider traZODone (DESYREL) 50 MG tablet Take 1 tablet (50 mg total) by mouth nightly as needed for Sleep. Default History Genericprovider vitamin D3, cholecalciferol, 5000 UNITS capsule Take 1 capsule (5,000 Units total) by mouth daily. 12/07/19 [facility] PAST MEDICAL HISTORY: Past Medical History: Diagnosis Date Arthritis CAD (coronary artery disease) Chronic back pain Chronic kidney disease CVA (cerebral vascular accident) ([facility] 2012 no residue deficit DVT (deep venous thrombosis) ([facility]) right leg Essential hypertension Heart attack ([facility]) one stent Hyperlipidemia IBS (irritable bowel syndrome) PVD (peripheral vascular disease) ([facility]) Renal disorder Sleep apnea PAST SURGICAL HISTORY: Past Surgical History: Procedure Laterality Date HERNIA REPAIR OTHER PROCEDURE pt states he has multiple stents in legs over last 1.5 year VASCULAR SURGERY Left 03/13/2019 FAMILY HISTORY: Family History Problem Relation Name Age of Onset No Known Problems Mother Heart Disease Father of heart attack at age 47 Other (Family history is positive for coronary artery disease.) Other SOCIAL HISTORY: Social History Tobacco Use Smoking status: Some Days Current packs/day: 0.00 Types: Cigarettes, Cigars Last attempt to quit: 2015 Years since quittin.1 Smokeless tobacco: Never Tobacco comments: uses an e cigarette with no nicotine Vaping Use Vaping status: Former Substance Use Topics Alcohol use: No Comment: haven't drank since 2011 Drug use: Yes Types: Marijuana Comment: for pain Review of Systems Review of Systems Respiratory: Positive for cough and shortness of breath. Cardiovascular: Positive for chest pain. Physical Exam Filed Vitals: 06/19/24195106/19/241954 BP: 138/80 Pulse: 62 Resp: 18 Temp: 99 ??F (37.2 ??C) TempSrc: Temporal SpO2: 98% Weight: 84.8 kg (187 lb) Height: 1.651 m (5' 5 ) Physical Exam Vitals and nursing note reviewed. HENT: Head: Normocephalic. Nose: Nose normal. Cardiovascular: Rate and Rhythm: Normal rate and regular rhythm. Heart sounds: Normal heart sounds. Pulmonary: Effort: Pulmonary effort is normal. Breath sounds: Normal breath sounds. Abdominal: General: There is no distension. Palpations: Abdomen is soft. Tenderness: There is no abdominal tenderness. Musculoskeletal: Cervical back: Neck supple. Skin: General: Skin is warm and dry. Neurological: Mental Status: He is alert. Diagnostic Studies / Procedures ELECTROCARDIOGRAMS: Results for orders placed or performed during the hospital encounter of 06/19/24 ECG 12 lead Narrative [place] Test Date: 2024-06-19 Pat Name: SOURAV NAVA Department: 41 Room: Gender: Male Call Out Operator: : 1965 Requested By: SHERYL NIETO Order Number: [id number] Reading MD: Anh Griffin Measurements Intervals [place] Rate: 61 P: 18 SD: 150 QRS: -86 QRSD: 85 T: 26 QT: 385 QTc: 390 Interpretive Statements SINUS RHYTHM LEFT AXIS DEVIATION [QRS AXIS < -30] POSSIBLE RIGHT VENTRICULAR CONDUCTION DELAY [RSR (QR) IN V1/V2] ANTEROSEPTAL MYOCARDIAL INFARCTION , OF INDETERMINATE AGE Compared to ECG 10/16/2023 18:44:13 Left-axis deviation now present Right-axis deviation no longer present Myocardial infarct finding still present ICIDE SPRAYER ECG [address] [facility] [address] [facility] Test Date: 2024-06-19 Pat Name: SOURAV NAVA Department: 41 Room: [facility] Gender: Male Call Out Operator: [id number] : 1965 Requested By: SHERYL NIETO Order Number: [id number] Reading MD: Measurements Intervals [place] Rate: 58 P: 25 SD: 165 QRS: -78 QRSD: 86 T: 10 QT: 422 QTc: 415 Interpretive Statements SINUS BRADYCARDIA LEFT AXIS DEVIATION [QRS AXIS < -30] POSSIBLE RIGHT VENTRICULAR CONDUCTION DELAY [RSR (QR) IN V1/V2] ANTEROSEPTAL MYOCARDIAL INFARCTION , OF INDETERMINATE AGE [40+ ms Q WAVE IN V1-V4] Compared to ECG 06/19/2024 19:52:26 Sinus rhythm no longer present Myocardial infarct finding still present LABORATORY STUDIES: Results for orders placed or performed during the hospital encounter of 06/19/24 CBC W/DIFF AUTOMATED Result Value Ref Range WBC 6.89 4.5 - 11.0 x10'3/uL RBC 4.67 (L) 4.70 - 6.10 x10'6/uL HGB 14.0 14.0 - 18.0 G/DL HCT 41.7 (L) 43.0 - 54.0 % MCV 89.3 80.0 - 94.0 FL MCH 30.0 27.0 - 31.0 PG MCHC 33.6 32.0 - 36.0 G/DL RDW 14.1 11.5 - 14.5 % PLT 251 130 - 400 x10'3/uL MPV 9.3 9.3 - 12.2 FL DIFFERENTIAL TYPE AUTOMATED DIFFERENTIAL NEUTROPHILS % 63.8 % LYMPHOCYTES % 20.9 % MONOCYTES % 11.9 % EOSINOPHILS 3.0 % BASOPHILS 0.3 % IMMATURE GRANS % 0.1 % ABS. NEUTROPHILS 4.39 1.80 - 7.70 x10'3/uL ABS. LYMPHOCYTES 1.44 1.00 - 4.80 x10'3/uL ABS. MONOCYTES 0.82 0.30 - 0.82 x10'3/uL ABS. EOSINOPHILS 0.21 0.04 - 0.54 x10'3/uL ABS. BASOPHILS 0.02 0.01 - 0.08 x10'3/uL ABS. IMMATURE GRANULOCYTES 0.01 0.00 - 0.49 x10'3/uL COMPREHENSIVE METABOLIC PANEL Result Value Ref Range GLUCOSE 79 70 - 99 MG/DL BUN 16 7 - 18 MG/DL CREATININE S/P/B 1.51 (H) 0.7 - 1.3 MG/DL SODIUM S/P/B 143 136 - 145 MMOL/L POTASSIUM S/P/B 4.1 3.5 - 5.1 MMOL/L CHLORIDE S/P/B 114 97 - 115 MMOL/L CO2 22.8 21 - 32 MMOL/L CALCIUM S/P/B 9.0 8.5 - 10.1 MG/DL BILIRUBIN TOTAL S/P/B 0.3 0.2 - 1.2 MG/DL TOTAL PROTEIN S/P/B 7.2 6.4 - 8.2 G/DL ALBUMIN S/P/B 3.2 (L) 3.4 - 5.0 G/DL AST 34 15 - 37 U/L ALT 78 (H) 16 - 60 U/L ALKALINE PHOSPHATASE S/P/B 134 50 - 136 U/L ANION GAP 6.2 2 - 10 MMOL/L BUN CREATININE RATIO 10.6 6 - 26 A/G RATIO 0.8 (L) 1.0 - 2.0 RATIO GFR ESTIMATE 53 (L) >90 ML/MIN/1.73 M2 TROPONIN, QUANT Result Value Ref Range TROPONIN I HIGH SENSITIVITY 15 <79 ng/L TROPONIN, QUANT Result Value Ref Range TROPONIN I HIGH SENSITIVITY 18 <79 ng/L IMAGING STUDIES CTA CHEST PE PROTOCOL Final Result by User, [email or web address] (06/20 10) [facility] [address] [place], [place] [address] EXAMINATION: CTA CHEST WITH CONTRAST, PULMONARY EMBOLISM [...] By: Elio Ramsay MD, 06/20/2024 12:06 AM XR CHEST PORTABLE Final Result by User, [email or web address] (06/19 2042) [address] [address] Examination: XR CHEST PORTABLE Exam time: 06/19/2024 [...] is no sizable pleural effusion or pneumothorax. IMPRESSION: No radiographic evidence is seen to suggest acute cardiopulmonary abnormality. Referred By: Interpreted By: Louis Brown DO, 06/19/2024 8:41 PM ED Course / Medical Decision Making Medical Decision Making Serial trops negative. CTA negative. Plan outpt f/u Problems Addressed: Chest pain, unspecified type: acute illness or injury Shortness of breath: chronic illness or injury Subacute cough: chronic illness or injury Amount and/or Complexity of Data Reviewed Labs: ordered. Radiology: ordered. ECG/medicine tests: ordered. Risk Prescription drug management. Clinical Impression Chest pain, unspecified type (Primary) Shortness of breath Subacute cough Disposition: Discharge Sheryl Nieto MD 06/20/24 0250 ICIDE SPRAYER * Jessica Rm RN - 06/19/2024 7:49 PM CST Pt stating he has not slept in a month. Pt c/o 2 weeks of mid sternal chest pressure, heaviness with dizziness and nausea. Pt verbalized he feels like something is stuck in my throat and when I tryto cough is when it really hurts Denies any ain at this time.verbalized I just feels like I was going to pass out with coughing so hard ICIDE SPRAYER documented in this encounter Plan of Treatment Pending Results Name Type Priority Associated Diagnoses Date /Time ECG 12 lead EKG-NonRad STAT 06/19/2024 10 :01 PM HERBICIDE SPRAYER documented as of this encounter Goals Goal Patient Goal Type Associated Problems Recent Progress Patient-Stated? Author Health - patient able to perform ADLs independently Lifestyle No Alayna Lang, RN documented as of this encounter Procedures Procedure Name Priority Date/Time Associated Diagnosis Comments CTA CHEST PE PROTOCOL STAT 06/19/2024 11:53 PM HERBICIDE SPRAYER TROPONIN, QUANT STAT 06/19/2024 10:02 PM HERBICIDE SPRAYER ECG 12-LEAD STAT 06/19/2024 10:01 PM HERBICIDE SPRAYER Procedure Note - 06/19/2024 10:01 PM CSTThis note is in progress. [facility] [address] Test Date: 2024-06-19 Pat Name: SOURAV NAVA Department: 41 Room: [facility] Gender: Male Call Out Operator: [id number] : 1965 Requested By: SHERYL NIETO Order Number: [id number] Yolanda MD: Measurements Intervals [place] Rate: 58 P: 25 SD: 165 QRS: -78 QRSD: 86 T: 10 [...] CHEST PORTABLE STAT 06/19/2024 8:3 7 PM HERBICIDE SPRAYER COMPREHENSIVE METABOLIC PANEL STAT 06/19/2024 8:01 PM HERBICIDE SPRAYER CBC W/DIFF AUTOMATED STAT 06/19/2024 8:01 PM HERBICIDE SPRAYER TROPONIN, QUANT STAT 06/19/2024 8:01 PM HERBICIDE SPRAYER ECG 12-LEAD STAT 06/19/2024 7:52 PM HERBICIDE SPRAYER documented in this encounter Results * CTA CHEST PE PROTOCOL (06/19/2024 11:53 PM HERBICIDE SPRAYER) Anatomical Region Laterality Modality Chest Computed Tomogra phy 06/20/2024 12:0 6 AM HERBICIDE SPRAYER Impressions 06/20/2024 12:10 AM HERBICIDE SPRAYER IMPRESSION: Poor opacification of the pulmonary arteries. No large or central filling defects are seen. Referred By: Interpreted By: Elio Ramsay MD, 06/20/2024 12:06 AM Narrative 06/20/2024 12:10 AM HERBICIDE SPRAYER [address] [address] EXAMINATION: CTA CHEST WITH CONTRAST, PULMONARY EMBOLISM [...] Procedure Note Elio Ramsay MD - 06/20/[address] [address] EXAMINATION: CTA CHEST WITH CONTRAST, PULMONARY EMBOLISM [...] t * TROPONIN, QUANT (06/19/2024 10:02 PM HERBICIDE SPRAYER) TROPONIN I HIGH SENSITIVITY 18 <79 ng/L 06/19/2024 10:29 PM HERBICIDE SPRAYER [facility] Comment: HIGH DOSES OF BIOTIN, TROPONIN-SPECIFIC AUTOANTIBODIES, AND ANTIBODY THERAPY CONTAINING HAMA MAY INTERFERE WITH THIS TEST RESULT. CORRELATION TO CLINICAL HISTORY AND PRESENTATION RECOMMENDED. 06/19/2024 10:0 2 PM HERBICIDE SPRAYER Sheryl Nieto MD LABORATORY Final Resul t [facility] [address] [place] [address], [place] [phone] * XR CHEST PORTABLE (06/19/2024 8:37 PM HERBICIDE SPRAYER) Anatomical Region Laterality Modality Chest Radiographic Shannan ging 06/19/2024 8:41 PM HERBICIDE SPRAYER Impressions 06/19/2024 8:42 PM HERBICIDE SPRAYER IMPRESSION: No radiographic evidence is seen to suggest acute cardiopulmonary abnormality. Referred By: Interpreted By: Louis Brown DO, 06/19/2024 8:41 PM Narrative 06/19/2024 8:42 PM HERBICIDE SPRAYER [facility] [address] [place], [place] [address] Examination: XR CHEST PORTABLE Exam time: 06/19/2024 [...] Procedure Note Louis Brown DO - 06/19/2024 [facility] [address] [place], [place] [address] Examination: XR CHEST PORTABLE Exam time: 06/19/2024 [...] By: Louis Brown DO, 06/19/2024 8:41 PM us Sheryl Nieto MD GENERAL IMAGING Final Resul t * TROPONIN, QUANT (06/19/2024 8:01 PM HERBICIDE SPRAYER) TROPONIN I HIGH SENSITIVITY 15 <79 ng/L 06/19/2024 8:35 PM HERBICIDE SPRAYER [facility] Comment: HIGH DOSES OF BIOTIN, TROPONIN-SPECIFIC AUTOANTIBODIES, AND ANTIBODY THERAPY CONTAINING HAMA MAY INTERFERE WITH THIS TEST RESULT. CORRELATION TO CLINICAL HISTORY AND PRESENTATION RECOMMENDED. 06/19/2024 8:01 PM HERBICIDE SPRAYER us Sheryl Nieto MD LABORATORY Final Resul t [facility] [address] [place] [address], [place] [phone] * (ABNORMAL) COMPREHENSIVE METABOLIC PANEL (06/19/2024 8:01 PM HERBICIDE SPRAYER) [facility] GLUCOSE 79 70 - 99 MG/DL 06/19/2024 8:35 PM [facility] BUN 16 7 - 18 MG/DL 06/19/2024 8:35 PM [facility] CREATININE S/P/B 1.51(H) 0.7 - 1.3 MG/DL 06/19/2024 8:35 PM [facility] SODIUM S/P/B 143 136 - 145 MMOL/L 06/19/2024 8:35 PM [facility] POTASSIUM S/P/B 4.1 3.5 - 5.1 MMOL/L 06/19/2024 8:35 PM [facility] CHLORIDE S/P/B 114 97 - 115 MMOL/L 06/19/2024 8:35 PM [facility] CO2 22.8 21 - 32 MMOL/L 06/19/2024 8:35 PM [facility] CALCIUM S/P/B 9.0 8.5 - 10.1 MG/DL 06/19/2024 8:35 PM [facility] BILIRUBIN TOTAL S/P/B 0.3 0.2 - 1.2 MG/DL 06/19/2024 8:35 PM [facility] Comment: THIS ASSAY IS NOT RECOMMENDED FOR PATIENTS UNDERGOING TREATMENT WITH ELTROMBOPAG DUE TO THE POTENTIAL FOR FALSELY ELEVATED RESULTS. TOTAL PROTEIN S/P/B 7.2 6.4 - 8.2 G/DL 06/19/2024 8:35 PM [facility] ALBUMIN S/P/B 3.2(L) 3.4 - 5.0 G/DL 06/19/2024 8:35 PM [facility] AST 34 15 - 37 U/L 06/19/2024 8:35 PM HERBICIDE SPRAYER [facility] ALT 78(H) 16 - 60 U/L 06/19/2024 8:35 PM [facility] ALKALINE PHOSPHATASE S/P/B 134 50 - 136 U/L 06/19/2024 8:35 PM [facility] ANION GAP 6.2 2 - 10 MMOL/L 06/19/2024 8:35 PM [facility] BUN CREATININE RATIO 10.6 6 - 26 06/19/2024 8:35 PM [facility] A/G RATIO 0.8(L) 1.0 - 2.0 RATIO 06/19/2024 8:35 PM [facility] GFR ESTIMATE 53(L) >90 ML/MIN/1.7 3 M2 06/19/2024 8:35 PM [facility] Comment: NOTE: eGFR is not calculated for patients <18 years of age or gender unknown. This is an estimated GFR calculation using the new CKD EPI creatinine equation without race and so does not require a correction factor for race. This estimated GFR should not be used for calculating drug doses. 06/19/2024 8:01 PM HERBICIDE SPRAYER Sheryl Nieto MD LABORATORY Final Resul t [facility] [address] [place] [address], [place] [phone] * (ABNORMAL) CBC W/DIFF AUTOMATED (06/19/2024 8:01 PM HERBICIDE SPRAYER) WBC 6.89 4.5 - 11.0 x10'3/uL 06/19/2024 8:20 PM [facility] RBC 4.67(L) 4.70 - 6.10 x10'6/uL 06/19/2024 8:20 PM [facility] HGB 14.0 14.0 - 18.0 G/DL 06/19/2024 8:20 PM [facility] HCT 41.7(L) 43.0 - 54.0 % 06/19/2024 8:20 PM [facility] MCV 89.3 80.0 - 94.0 FL 06/19/2024 8:20 PM [facility] MCH 30.0 27.0 - 31.0 PG 06/19/2024 8:20 PM [facility] MCHC 33.6 32.0 - 36.0 G/DL 06/19/2024 8:20 PM [facility] RDW 14.1 11.5 - 14.5 % 06/19/2024 8:20 PM [facility] PLT 251 130 - 400 x10'3/uL 06/19/2024 8:20 PM [facility] MPV 9.3 9.3 - 12.2 FL 06/19/2024 8:20 PM [facility] DIFFERENTIAL TYPE AUTOMATED DIFFERENTIAL 06/19/2024 8:20 PM [facility] NEUTROPHILS % 63.8 % 06/19/2024 8:20 PM [facility] LYMPHOCYTES % 20.9 % 06/19/2024 8:20 PM [facility] MONOCYTES % 11.9 % 06/19/2024 8:20 PM [facility] EOSINOPHILS 3.0 % 06/19/2024 8:20 PM [facility] BASOPHILS 0.3 % 06/19/2024 8:20 PM [facility] IMMATURE GRANS % 0.1 % 06/19/19 8:20 PM [facility] ABS. NEUTROPHILS 4.39 1.80 - 7.70 x10'3/uL 06/19/2024 8:20 PM HERBICIDE SPRAYER [facility] ABS. LYMPHOCYTES 1.44 1.00 - 4.80 x10'3/uL 06/19/2024 8:20 PM HERBICIDE SPRAYER [facility] ABS. MONOCYTES 0.82 0.30 - 0.82 x10'3/uL 06/19/2024 8:20 PM HERBICIDE SPRAYER [facility] ABS. EOSINOPHILS 0.21 0.04 - 0.54 x10'3/uL 06/19/2024 8:20 PM HERBICIDE SPRAYER [facility] ABS. BASOPHILS 0.02 0.01 - 0.08 x10'3/uL 06/19/2024 8:20 PM HERBICIDE SPRAYER [facility] ABS. IMMATURE GRANULOCYTES 0.01 0.00 - 0.49 x10'3/uL 06/19/2024 8:20 PM HERBICIDE SPRAYER [facility] 06/19/2024 8:01 PM HERBICIDE SPRAYER Sheryl Nieto MD LABORATORY Final Resul t [facility] [address] [place] [address], * ECG 12 lead (06/19/2024 7:52 PM HERBICIDE SPRAYER) 06/19/2024 7:52 PM HERBICIDE SPRAYER Narrative [facility] RAD - 06/19/2024 8:21 PM HERBICIDE SPRAYER [address] Test Date: 2024-06-19 Pat Name: SOURAV NAVA Department: 41 Room: Gender: Male Call Out Operator: : 1965 Requested By: SHERYL Saez Number: [id number] Reading : Anh Griffin Measurements Intervals [place] Rate: 61 P: 18 SD: 150 QRS: -86 QRSD: 85 T: 26 QT: 385 QTc: 390 Interpretive Statements SINUS RHYTHM LEFT AXIS DEVIATION [QRS AXIS < -30] POSSIBLE RIGHT VENTRICULAR CONDUCTION DELAY [RSR (QR) IN V1/V2] ANTEROSEPTAL MYOCARDIAL INFARCTION , OF INDETERMINATE AGE Compared to ECG 10/16/2023 18:44:13 Left-axis deviation now present Right-axis deviation no longer present Myocardial infarct finding still present ICIDE SPRAYER Procedure Note Anh Griffin MD - 06/19/[address] [facility] [facility] Test Date: 2024-06-19 Pat Name: SOURAV NAVA Department: 41 Room: Gender: Male Call Out Operator: : 1965 Requested By: SHERYL NIETO Order Number: [id number] Reading MD: Anh Griffin Measurements Intervals [place] Rate: 61 P: 18 SD: 150 QRS: -86 QRSD: 85 T: 26 QT: 385 QTc: 390 Interpretive Statements SINUS RHYTHM LEFT AXIS DEVIATION [QRS AXIS < -30] POSSIBLE RIGHT VENTRICULAR CONDUCTION DELAY [RSR (QR) IN V1/V2] ANTEROSEPTAL MYOCARDIAL INFARCTION , OF INDETERMINATE AGE Compared to ECG 10/16/2023 18:44:13 Left-axis deviation now present Right-axis deviation no longer present Myocardial infarct finding still present ICIDE SPRAYER us Sheryl Nieto MD ECG ORDERABLES Final Resul t [facility] ([facility] documented in this encounter Visit Diagnoses Diagnosis Chest pain, unspecified type- Primary Shortness of breath Subacute cough Cough documented in this encounter Administered Medications Inactive Administered Medications - up to 3 most recent administrations Medication Order MAR Action Action Date Dose Rate Site iopamidol (ISOVUE-370) 76 % injection 80 mL 80 mL, Intravenous, IMG once as needed, Contrast, 1 dose, Starting on Sat06/19/24 at 2353, Until Sat06/19/24 at 2354 Given 06/19/2024 11:54 PM HERBICIDE SPRAYER 80 mLs maalox plus-lidocaine viscous (GI COCKTAIL PLAIN) 45 mL suspension Oral, Once, 1 dose, On Sat06/19/24 at 1999 Given 06/19/2024 11:15 PM HERBICIDE SPRAYER pantoprazole (PROTONIX) injection 40 mg 40 mg, Intravenous, Once, 1 dose, On Sat06/19/24 at 1999, Reconstitute each 40 mg vial with 10 mL normal saline to a final concentration of 4 mg/mL. Administer intravenously over a period of a least 2 minutes. Given 06/19/2024 11:15 PM HERBICIDE SPRAYER 40 mg documented in this encounter Active and Recently Administered Medications Times are shown in HERBICIDE SPRAYER. Scheduled Medication Order 06/18/2024 06/19/2024 06/20/2024 aspirin chewable tablet 324 mg 324 mg, Oral, Once, 1 dose, On Sat06/19/24 at 1999, If not given by EMS or taken immediately prior to arrival 0040 (Not Given - Provider: Kindra Dominguez RN - Reason: Patient/family declined) maalox plus-lidocaine viscous (GI COCKTAIL PLAIN) 45 mL suspension (COMPLETED) Oral, Once, 1 dose, On Sat06/19/24 at 1999 2315 (Given - Provider: Kindra Dominguez, NEELIMA) pantoprazole (PROTONIX) injection 40 mg (COMPLETED) 40 mg, Intravenous, Once, 1 dose, On Sat06/19/24 at 1999, Reconstitute each 40 mg vial with 10 mL normal saline to a final concentration of 4 mg/mL. Administer intravenously over a period of a least 2 minutes. 2315 (Given - Provider: Kindra Dominguez RN) PRN Medication Order 06/18/2024 06/19/2024 06/20/2024 iopamidol (ISOVUE-370) 76 % injection 80 mL (COMPLETED) 80 mL, Intravenous, IMG once as needed, Contrast, 1 dose, Starting on Sat06/19/24 at 2353, Until Sat06/19/24 at 2354 2354 (Given - Provider: Yovany Crow RTR) documented in this encounter Additional Health Concerns Assessment Noted Time PHQ-9 Depression Total Score: 5 04/18/20 21 11:10 AM HERBICIDE SPRAYER documented as of this encounter Care Teams Skates Operator Relationship Specialty Start Date End Date Alex Kohli MD PCP - General FAMILY PRACTICE 12/01/22 documented as of this encounter
[2024-06-20 17:49] VITALS: PULSE 70; RESP 21; O2SAT 100
[2024-06-20 17:50] VITALS: BP 146/77; PULSE 58; RESP 17; O2SAT 100
[2024-06-20 18:06] VITALS: O2SAT 99
--- NOTE | 2024-06-20 18:06 | ECG_ITS ---
Test Date: 2024-06-20 18:10:51 Measurements Intervals Lowry Rate: 55 P: -1 MS: 159 QRS: -51 QRSD: 89 T: -5 QT: 415 QTc: 400 Interpretive Statements SINUS BRADYCARDIA MINIMAL Q WAVES- INFERIOR LEADS ANTEROSEPTAL INFARCT, AGE INDETERMINATE BORDERLINE ST-T WAVE ABNORMALITY- INFERIOR LEADS BASELINE ARTIFACT- I, II, III ABNORMAL ECG No previous ECG available for comparison Electronically Signed On 06-20-2024 19:29:36 TURNAROUND ENGINEER by Wes Marx D.O.
--- OUTSIDE RECORDS SUMMARY | 2024-06-20 18:26 | XMS_ITS | CONTINUITY OF CARE DOCUMENT ---
Author Name rylan fagan Address Unknown Organization [facility] Address [address] [place] [address] Phone [phone] Care Team Providers Care Bench Loom Weaver Name Role Phone Franklin DIOP, Delfino Unavailable [phone] INSURANCE PROVIDERS Payer name Policy type / Coverage type Rahul red green party ID [employer] Medicaid 1 [id number] [place] Medicare [id number]
--- OUTSIDE RECORDS SUMMARY | 2024-06-20 18:26 | XMS_ITS | Clinical Summary ---
Author Organization [facility] Address [address] [place] [address] Care Team Providers Care Filter Filler Name Role Phone Unavailable Primary Care Provider Unavailabl e Source Comments [facility],non-owned Affiliates and Associated Physician Practices is amultiple site organization consisting of ambulatory clinics and hospital sitesin [place], [place], [place]. This disclosure is being madepursuant to the Care Everywhere program and may not contain all information available regarding this patient. Last updated 18.[employer] [facility] Allergies Active Allergy Reactions Criticality Noted Date [...] Comments Blood Pressure 121/77 07/04/2022 3:58 AM OCCUPATIONAL PSYCHOLOGIST Pulse 71 07/04/2022 3:58 AM OCCUPATIONAL PSYCHOLOGIST Temperature 36.7 C (98 F) 07/04/2022 3:58 AM OCCUPATIONAL PSYCHOLOGIST Respiratory Rate 17 07/04/2022 3:58 AM OCCUPATIONAL PSYCHOLOGIST Oxygen Saturation 98% 07/04/2022 3:58 AM OCCUPATIONAL PSYCHOLOGIST Inhaled Oxygen Concentration - - Weight 85.7 [...]
--- OUTSIDE RECORDS SUMMARY | 2024-06-20 18:26 | XMS_ITS | Encounter Summary ---
Author Organization [facility] Address [facility] [address] [place] [address] Care Team Providers Care Sole Sewer Hand Name Role Phone None, Provider Primary Care Provider Romaine Minaya PA-C Primary Care Provider Alex Kohli MD Primary Care Provider Encounter Details Date Type Department Care Team (Late st Contact Info) Description 03/22/2022 Nimbula Message Enc [facility] Multispecialty Care - [address], [address] [place] [id number] [facility], [facility] Provider Information Social History Tobacco [...] Sex Assigned at Male 06/19/2024 8:28 PM SOFTWARE TOOLS ENGINEER Legal Sex Male 10:42 PM CDT Gender Identity Not on file Sexual Orientation Straight 06/19/2024 8: 26 PM SOFTWARE TOOLS ENGINEER 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
--- OUTSIDE RECORDS SUMMARY | 2024-06-20 18:26 | XMS_ITS | Referral Summary ---
Author Organization [facility] Address [address] [place] [address] Care Team Providers Care Retail Sales Assistant Name Role Phone Unavailable Primary Care Provider Unavailabl e Source Comments [facility],non-owned Affiliates and Associated Physician Practices is amultiple site organization consisting of ambulatory clinics and hospital sitesin [place], [place], [place] and [place]. This disclosure is being madepursuant to the Care Everywhere program and may not contain all information available regarding this patient. Last updated 18.[employer] [address] [facility] Allergies Active Allergy Reactions Criticality Noted Date [...] Comments Blood Pressure 121/77 07/04/2022 3:58 AM POISING INSPECTOR Pulse 71 07/04/2022 3:58 AM POISING INSPECTOR Temperature 36.7 C (98 F) 07/04/2022 3:58 AM POISING INSPECTOR Respiratory Rate 17 07/04/2022 3:58 AM POISING INSPECTOR Oxygen Saturation 98% 07/04/2022 3:58 AM POISING INSPECTOR Inhaled Oxygen Concentration - - Weight 85.7 kg (189 lb) 02/14/2016 8:16 AM CDT Height 165.1 cm (5' 5 ) 02/14/2016 8:16 AM CDT Body Mass Index 31.45 02/14/2016 8:16 AM CDT Plan of Treatment Not on file
--- OUTSIDE RECORDS SUMMARY | 2024-06-20 18:26 | XMS_ITS | Encounter Summary ---
Author Organization [facility] Address [facility] [place] [address] Care Team Providers Care Hand Roller Engraver Name Role Phone Alex Kohli MD Primary Care Provider Encounter [...] pur e alcohol) haven't drank since 2011 [facility] [employer] Answer Date Recorded In the past 12 months has [employer], gas, oil, or water [employer] threatened to shut off services in your [...] any time in the past 12 m [facility], were you homeless or living in a detention (including now)? 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
--- OUTSIDE RECORDS SUMMARY | 2024-06-20 18:26 | XMS_ITS | Clinical Summary ---
Author Organization [facility] Address [address] [place] [address] Care Team Providers Care Hotel Supplies Salesperson Name Role Phone Alex Kohli MD Primary Care Provider [phone] Allergies Active Allergy Reactions Criticality Noted Date [...] 021 Syncope due to sick sinus syndrome ([facility]) 12/06/2020 Tobacco dependence syndrome 05/28/2019 Arterial occlusion 02/06/2019 Lumbosacral spondylosis without myelopathy 11/19 Facet arthritis of cervical region 11/19/2018 Left ventricular hypertrophy 08/06/2018 Bulging of intervertebral disc between L4 and L5 05/29/2018 Neuropathy of right upper extremity 04/14/2018 Sciatica 04/08/2018 CKD (chronic kidney disease) stage 3, GFR 30-59 ml/min ([facility]) 10/08/2017 Secondary hyperparathyroidism ([facility]) 10/08/2017 Acne keloidalis nuchae 10/08/2017 Renovascular hypertension 09/24/2017 Renal artery stenosis 09/17/2017 Cerebrovascular accident ([facility]) 09/14 Obstructive sleep apnea syndrome 05/18/2017 Gastroesophageal [...] Department Care Team Description 06/19/2024 8:05 PM RETAIL LOAN ORIGINATOR ASSISTANT - 06/20/2024 12:41 AM RETAIL LOAN ORIGINATOR ASSISTANT Emergency [facility] [place] [address] Sheryl Nieto MD Chest Pain Discharge Disposition: Home or Self Care (Routine Discharge) 06/19/2024 Travel 03/31/2024 11:12 PM RETAIL LOAN ORIGINATOR ASSISTANT Anesthesia Event [facility] [place] [address] Valeria Hines MD 03/31/2024 11:00 PM RETAIL LOAN ORIGINATOR ASSISTANT - 04/01/2024 12:01 AM RETAIL LOAN ORIGINATOR ASSISTANT Surgery [facility] [place] [address] Remigio Portillo MD CYSTOSCOPY, LEFT RETROGRADE PYELOGRAM, LEFT URETERAL STENT PLACEMENT, HOLMIUM LASER LITHOTRIPSY 03/31/2024 4:53 PM RETAIL LOAN ORIGINATOR ASSISTANT - 04/03/2024 1:13 PM RETAIL LOAN ORIGINATOR ASSISTANT Hospital Encounter [facility] [place] [address] Nathaniel Ventura, Staci Potter, Bob Ann MD Simpson, Stephanie L, DO Tipton Rae L, SPOT WELDER Vomiting; Abdominal Pain Discharge Disposition: Home or [...] pur e alcohol) haven't drank since 2011 [facility] [employer] Answer Date Recorded In the past 12 months has e [employer], gas, oil, or water [employer] threatened to shut off services in your [...] any time in the past 12 m [facility], were you homeless or living in a senior living (including now)? 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 Not on file Not on file Not on file Not on file Not on file Not on file Not on file Last Filed Vital Signs Vital Sign Reading Time Taken Comments Blood Pressure 138/80 06/19/2024 7:52 PM RETAIL LOAN ORIGINATOR ASSISTANT Pulse 62 06/19/2024 7:52 PM RETAIL LOAN ORIGINATOR ASSISTANT Temperature 37.2 C (99 F) 06/19/2024 7:52 PM RETAIL LOAN ORIGINATOR ASSISTANT Respiratory Rate 18 06/19/2024 7:52 PM RETAIL LOAN ORIGINATOR ASSISTANT Oxygen Saturation 98% 06/19/2024 7:55 PM RETAIL LOAN ORIGINATOR ASSISTANT Inhaled Oxygen Concentration - - Weight 84.8 kg (187 lb) 06/19/2024 7:52 PM RETAIL LOAN ORIGINATOR ASSISTANT Height 165.1 cm (5' 5 ) 06/19/2024 7:52 PM RETAIL LOAN ORIGINATOR ASSISTANT Body Mass Index 31.12 06/19/2024 7:52 PM RETAIL LOAN ORIGINATOR ASSISTANT Plan of Treatment Health Maintenance Due Date [...] 2024 Influenza Adult (#1) 2024 PHQ-2 (Physician [place]) 05/13/2024 DTaP, Tdap and Td Vaccines (2 [...] Lang, RN Medical Devices Implanted Type Area Correctional Classification Counselor Device Identifier Shelf Expiration Date Model / Serial / Lot Stent Ureteral Contour Vl 4.8fr X 22-30cm - [id number] Implanted:Qty: 1 on 03/31/2024 by Remigio Portillo MD at [facility] Stent Left: Ureter [employer] [id number] 12/22/2026 [id number] / / [id number] Cardiovascular Patch Implanted:Qty: 1 on 02/07/2019 by Dipak Long MD at [facility] Right: Groin 05/12/2023 [id number] / [id number] Procedures Procedure Name Priority Date/Time Associated Diagnosis Comments CTA CHEST PE PROTOCOL STAT 06/19/2024 11:53 PM RETAIL LOAN ORIGINATOR ASSISTANT TROPONIN, QUANT STAT 06/19/2024 10:02 PM RETAIL LOAN ORIGINATOR ASSISTANT ECG 12-LEAD STAT 06/19/2024 10:01 PM RETAIL LOAN ORIGINATOR ASSISTANT Procedure Note - 06/19/2024 10:01 PM CSTThis note is in progress. [facility] Test Date: 2024-06-19 Pat Name: SOURAV NAVA Department: 41 Room: [facility] Gender: Male Picture Frames Inspector: [id number] : 1965 Requested By: SHERYL NIETO Order Number: [id number] Reading MD: Measurements Intervals [place] Rate: 58 P: 25 DC: 165 QRS: -78 QRSD: 86 T: 10 [...] CHEST PORTABLE STAT 06/19/2024 8:3 7 PM RETAIL LOAN ORIGINATOR ASSISTANT TROPONIN, QUANT STAT 06/19/2024 8:01 PM RETAIL LOAN ORIGINATOR ASSISTANT COMPREHENSIVE METABOLIC PANEL STAT 06/19/2024 8:01 PM RETAIL LOAN ORIGINATOR ASSISTANT CBC W/DIFF AUTOMATED STAT 06/19/2024 8:01 PM RETAIL LOAN ORIGINATOR ASSISTANT ECG 12-LEAD STAT 06/19/2024 7:52 PM RETAIL LOAN ORIGINATOR ASSISTANT CBC W/DIFF AUTOMATED Routine 04/03/2024 5:00 AM RETAIL LOAN ORIGINATOR ASSISTANT COMPREHENSIVE METABOLIC PANEL Routine 04/03/2024 5:00 AM RETAIL LOAN ORIGINATOR ASSISTANT CBC W/DIFF AUTOMATED Routine 04/02/2024 5:00 AM RETAIL LOAN ORIGINATOR ASSISTANT COMPREHENSIVE METABOLIC PANEL Routine 04/02/2024 5:00 AM RETAIL LOAN ORIGINATOR ASSISTANT URINE BACTERIA CULTURE Routine 04/01/2024 6:30 AM RETAIL LOAN ORIGINATOR ASSISTANT CULTURE, BACTERIA, BLOOD STAT 04/01/2024 6:30 AM RETAIL LOAN ORIGINATOR ASSISTANT LACTIC ACID W REFLEX (SEPSIS) STAT 04/01/2024 6:30 AM RETAIL LOAN ORIGINATOR ASSISTANT HC URINALYSIS AUTO W/O MICRO STAT 04/01/2024 6:30 AM RETAIL LOAN ORIGINATOR ASSISTANT MAGNESIUM Routine 04/01/2024 5:00 AM RETAIL LOAN ORIGINATOR ASSISTANT CBC W/DIFF AUTOMATED Routine 04/01/2024 5:00 AM RETAIL LOAN ORIGINATOR ASSISTANT BASIC METABOLIC PANEL Routine 04/01/2024 5:00 AM RETAIL LOAN ORIGINATOR ASSISTANT SURG XR RETROGRD UROGRAPHY STAT 03/31/2024 11:53 PM RETAIL LOAN ORIGINATOR ASSISTANT STONE ANALYSIS Routine 03/31/2024 11:40 PM RETAIL LOAN ORIGINATOR ASSISTANT CYSTOSCOPY,INSERT URETERAL STENT 03/31/2024 11:11 PM RETAIL LOAN ORIGINATOR ASSISTANT YUSEF (acute kidney injury) (CMS/HCC) CT ABD+PEL WO CON STAT 03/31/2024 6:2 7 PM RETAIL LOAN ORIGINATOR ASSISTANT LIPASE STAT 03/31/2024 5:03 PM RETAIL LOAN ORIGINATOR ASSISTANT COMPREHENSIVE METABOLIC PANEL STAT 03/31/2024 5:03 PM RETAIL LOAN ORIGINATOR ASSISTANT CBC W/DIFF AUTOMATED STAT 03/31/2024 5:03 PM RETAIL LOAN ORIGINATOR ASSISTANT LIPID PANEL Routine 04/19/2021 7:05 AM RETAIL LOAN ORIGINATOR ASSISTANT Atherosclerotic peripheral vascular disease Dyslipidemia HEPATITIS C ANTIBODY Routine 04/19/2021 7:05 AM RETAIL LOAN ORIGINATOR ASSISTANT Need for hepatitis C screening test from Last 3 Months or Most Recently Relevant to Health Maintenance Results * CTA CHEST PE PROTOCOL (06/19/2024 11:53 PM RETAIL LOAN ORIGINATOR ASSISTANT) Anatomical Region Laterality Modality Chest Computed Tomogra phy 06/20/2024 12:0 6 AM RETAIL LOAN ORIGINATOR ASSISTANT Impressions 06/20/2024 12:10 AM RETAIL LOAN ORIGINATOR ASSISTANT IMPRESSION: Poor opacification of the pulmonary arteries. No large or central filling defects are seen. Referred By: Interpreted By: Elio Ramsay MD, 06/20/2024 12:06 AM Narrative 06/20/2024 12:10 AM RETAIL LOAN ORIGINATOR ASSISTANT [place] [id number] EXAMINATION: CTA CHEST WITH CONTRAST, PULMONARY EMBOLISM [...] Procedure Note Elio Ramsay MD - 06/20/2024 [place] [id number] EXAMINATION: CTA CHEST WITH CONTRAST, PULMONARY EMBOLISM [...] t * TROPONIN, QUANT (06/19/2024 10:02 PM RETAIL LOAN ORIGINATOR ASSISTANT) Only the most recent of2 resultswithin the time period is included. TROPONIN I HIGH SENSITIVITY 18 <79 ng/L 06/19/2024 10:29 PM RETAIL LOAN ORIGINATOR ASSISTANT [facility] Comment: HIGH DOSES OF BIOTIN, TROPONIN-SPECIFIC AUTOANTIBODIES, AND ANTIBODY THERAPY CONTAINING HAMA MAY INTERFERE WITH THIS TEST RESULT. CORRELATION TO CLINICAL HISTORY AND PRESENTATION RECOMMENDED. 06/19/2024 10:0 2 PM RETAIL LOAN ORIGINATOR ASSISTANT us Sheryl Nieto MD LABORATORY Final Resul t [facility] [address] [place] [address], [place] [phone] * XR CHEST PORTABLE (06/19/2024 8:37 PM RETAIL LOAN ORIGINATOR ASSISTANT) Anatomical Region Laterality Modality Chest Radiographic Shannan ging 06/19/2024 8:41 PM RETAIL LOAN ORIGINATOR ASSISTANT Impressions 06/19/2024 8:42 PM RETAIL LOAN ORIGINATOR ASSISTANT IMPRESSION: No radiographic evidence is seen to suggest acute cardiopulmonary abnormality. Referred By: Interpreted By: Louis Brown DO, 06/19/2024 8:41 PM Narrative 06/19/2024 8:42 PM RETAIL LOAN ORIGINATOR ASSISTANT [address] [address] Examination: XR CHEST PORTABLE Exam time: 06/19/2024 [...] Procedure Note Louis Brown DO - 06/19/[address] [address] Examination: XR CHEST PORTABLE Exam time: 06/19/2024 [...] (ABNORMAL) COMPREHENSIVE METABOLIC PANEL (06/19/2024 8:01 PM RETAIL LOAN ORIGINATOR ASSISTANT) Only the most recent of4 resultswithin the time period is included. Pathologist [facility] GLUCOSE 79 70 - 99 MG/DL 06/19/2024 8:35 PM [facility] BUN 16 7 - 18 MG/DL 06/19/2024 8:35 PM [facility] CREATININE S/P/B 1.51(H) 0.7 - 1.3 MG/DL 06/19/2024 8:35 PM [facility] SODIUM S/P/B 143 136 - 145 MMOL/L 06/19/2024 8:35 PM [facility] POTASSIUM S/P/B 4.1 3.5 - 5.1 MMOL/L 06/19/2024 8:35 PM [facility] CHLORIDE S/P/B 114 97 - 115 MMOL/L 06/19/2024 8:35 PM [facility] CO2 22.8 21 - 32 MMOL/L 06/19/2024 8:35 PM [facility] CALCIUM S/P/B 9.0 8.5 - 10.1 MG/DL 06/19/2024 8:35 PM [facility] BILIRUBIN TOTAL S/P/B 0.3 0.2 - 1.2 MG/DL 06/19/2024 8:35 PM [facility] Comment: THIS ASSAY IS NOT RECOMMENDED FOR PATIENTS UNDERGOING TREATMENT WITH ELTROMBOPAG DUE TO THE POTENTIAL FOR FALSELY ELEVATED RESULTS. TOTAL PROTEIN S/P/B 7.2 6.4 - 8.2 G/DL 06/19/2024 8:35 PM [facility] ALBUMIN S/P/B 3.2(L) 3.4 - 5.0 G/DL 06/19/2024 8:35 PM [facility] AST 34 15 - 37 U/L 06/19/2024 8:35 PM [facility] ALT 78(H) 16 - 60 U/L 06/19/2024 8:35 PM [facility] ALKALINE PHOSPHATASE S/P/B 134 50 - 136 U/L 06/19/2024 8:35 PM [facility] ANION GAP 6.2 2 - 10 MMOL/L 06/19/2024 8:35 PM [facility] BUN CREATININE RATIO 10.6 6 - 26 06/19/2024 8:35 PM [facility] A/G RATIO 0.8(L) 1.0 - 2.0 RATIO 06/19/2024 8:35 PM [facility] GFR ESTIMATE 53(L) >90 ML/MIN/1.7 3 M2 06/19/2024 8:35 PM [facility] Comment: NOTE: eGFR is not calculated for patients <18 years of age or gender unknown. This is an estimated GFR calculation using the new CKD EPI creatinine equation without race and so does not require a correction factor for race. This estimated GFR should not be used for calculating drug doses. 06/19/2024 8:01 PM RETAIL LOAN ORIGINATOR ASSISTANT us Sheryl Nieto MD LABORATORY Final Resul t [facility] [address] [place] [address], [place] [phone] * (ABNORMAL) CBC W/DIFF AUTOMATED (06/19/2024 8:01 PM RETAIL LOAN ORIGINATOR ASSISTANT) Only the most recent of5 resultswithin the time period is included. WBC 6.89 4.5 - 11.0 x10'3/uL 06/19/2024 8:20 PM [facility] RBC 4.67(L) 4.70 - 6.10 x10'6/uL 06/19/2024 8:20 PM [facility] HGB 14.0 14.0 - 18.0 G/DL 06/19/2024 8:20 PM [facility] HCT 41.7(L) 43.0 - 54.0 % 06/19/2024 8:20 PM [facility] MCV 89.3 80.0 - 94.0 FL 06/19/2024 8:20 PM [facility] MCH 30.0 27.0 - 31.0 PG 06/19/2024 8:20 PM [facility] MCHC 33.6 32.0 - 36.0 G/DL 06/19/2024 8:20 PM [facility] RDW 14.1 11.5 - 14.5 % 06/19/2024 8:20 PM [facility] PLT 251 130 - 400 x10'3/uL 06/19/2024 8:20 PM [facility] MPV 9.3 9.3 - 12.2 FL 06/19/2024 8:20 PM [facility] DIFFERENTIAL TYPE AUTOMATED DIFFERENTIAL 06/19/2024 8:20 PM [facility] NEUTROPHILS % 63.8 % 06/19/2024 8:20 PM [facility] LYMPHOCYTES % 20.9 % 06/19/2024 8:20 PM [facility] MONOCYTES % 11.9 % 06/19/2024 8:20 PM RETAIL LOAN ORIGINATOR ASSISTANT [facility] EOSINOPHILS 3.0 % 06/19/2024 8:20 PM RETAIL LOAN ORIGINATOR ASSISTANT [facility] BASOPHILS 0.3 % 06/19/2024 8:20 PM RETAIL LOAN ORIGINATOR ASSISTANT [facility] IMMATURE GRANS % 0.1 % 06/19/19 8:20 PM RETAIL LOAN ORIGINATOR ASSISTANT [facility] ABS. NEUTROPHILS 4.39 1.80 - 7.70 x10'3/uL 06/19/2024 8:20 PM RETAIL LOAN ORIGINATOR ASSISTANT [facility] ABS. LYMPHOCYTES 1.44 1.00 - 4.80 x10'3/uL 06/19/2024 8:20 PM RETAIL LOAN ORIGINATOR ASSISTANT [facility] ABS. MONOCYTES 0.82 0.30 - 0.82 x10'3/uL 06/19/2024 8:20 PM RETAIL LOAN ORIGINATOR ASSISTANT [facility] ABS. EOSINOPHILS 0.21 0.04 - 0.54 x10'3/uL 06/19/2024 8:20 PM RETAIL LOAN ORIGINATOR ASSISTANT [facility] ABS. BASOPHILS 0.02 0.01 - 0.08 x10'3/uL 06/19/2024 8:20 PM RETAIL LOAN ORIGINATOR ASSISTANT [facility] ABS. IMMATURE GRANULOCYTES 0.01 0.00 - 0.49 x10'3/uL 06/19/2024 8:20 PM RETAIL LOAN ORIGINATOR ASSISTANT [facility] 06/19/2024 8:01 PM RETAIL LOAN ORIGINATOR ASSISTANT us Sheryl Nieto MD LABORATORY Final Resul t [facility] [address] [place] [address], * ECG 12 lead (06/19/2024 7:52 PM RETAIL LOAN ORIGINATOR ASSISTANT) 06/19/2024 7:52 PM RETAIL LOAN ORIGINATOR ASSISTANT Narrative [facility] - 06/19/2024 8:21 PM RETAIL LOAN ORIGINATOR ASSISTANT [facility] [address] [place] [address] Test Date: 2024-06-19 Pat Name: SOURAV NAVA Department: 41 Room: Gender: Male Picture Frames Inspector: : 1965 Requested By: SHERYL NIETO Order Number: [id number] Reading MD: Anh Griffin Measurements Intervals [place] Rate: 61 P: 18 DC: 150 QRS: -86 QRSD: 85 T: 26 QT: 385 QTc: 390 Interpretive Statements SINUS RHYTHM LEFT AXIS DEVIATION [QRS AXIS < -30] POSSIBLE RIGHT VENTRICULAR CONDUCTION DELAY [RSR (QR) IN V1/V2] ANTEROSEPTAL MYOCARDIAL INFARCTION , OF INDETERMINATE AGE Compared to ECG 10/16/2023 18:44:13 Left-axis deviation now present Right-axis deviation no longer present Myocardial infarct finding still present [place] LOAN ORIGINATOR ASSISTANT Procedure Note Anh Griffin MD - 06/19/2024 [facility] [address] [place] [address] Test Date: 2024-06-19 Pat Name: SOURAV NAVA Department: 41 Room: Gender: Male Picture Frames Inspector: : 1965 Requested By: SHERYL NIETO Order Number: [id number] Reading MD: Anh Griffin Measurements Intervals [place] Rate: 61 P: 18 DC: 150 QRS: -86 QRSD: 85 T: 26 QT: 385 QTc: 390 Interpretive Statements SINUS RHYTHM LEFT AXIS DEVIATION [QRS AXIS < -30] POSSIBLE RIGHT VENTRICULAR CONDUCTION DELAY [RSR (QR) IN V1/V2] ANTEROSEPTAL MYOCARDIAL INFARCTION , OF INDETERMINATE AGE Compared to ECG 10/16/2023 18:44:13 Left-axis deviation now present Right-axis deviation no longer present Myocardial infarct finding still present [place] LOAN ORIGINATOR ASSISTANT us Sheryl Nieto MD ECG ORDERABLES Final Resul t [facility] * LACTIC ACID W REFLEX (SEPSIS) (04/01/2024 6:30 AM RETAIL LOAN ORIGINATOR ASSISTANT) LACTIC ACID VENOUS 0.9 0.4 - 2.0 MMOL/L 04/01/2024 7:17 AM RETAIL LOAN ORIGINATOR ASSISTANT [facility] 04/01/2024 6:30 AM RETAIL LOAN ORIGINATOR ASSISTANT us Nathaniel Ventura DO LABORATORY Final Result [facility] [address] [place] [address], [place] [phone] * (ABNORMAL) URINALYSIS (04/01/2024 6:30 AM RETAIL LOAN ORIGINATOR ASSISTANT) SPECIMEN TYPE URINE CLEAN CATCH 04/01/2024 6:36 AM RETAIL LOAN ORIGINATOR ASSISTANT [facility] COLOR (U) BROWN 04/01/2024 7:45 AM RETAIL LOAN ORIGINATOR ASSISTANT [facility] TRANSPARENCY TURBID 04/01/2024 7:45 AM RETAIL LOAN ORIGINATOR ASSISTANT [facility] SPECIFIC GRAVITY (U) 1.010 1.001 - 1.030 04/01/2024 7:45 AM RETAIL LOAN ORIGINATOR ASSISTANT [facility] U PH 5.5 5.0 - 9.0 04/01/2024 7:45 AM [facility] LEUKOCYTES (U) 75(A) NEGATIVE 04/01/2024 7:45 AM RETAIL LOAN ORIGINATOR ASSISTANT [facility] NITRITES NEGATIVE NEGATIVE 04/01/2024 7:45 AM [facility] PROTEIN RANDOM (U) 100(H) <30 MG/DL 04/01/2024 7:45 AM [facility] GLUCOSE (U) NORMAL NORMAL MG/DL 04/01/2024 7:45 AM RETAIL LOAN ORIGINATOR ASSISTANT [facility] KETONES MG/DL (U) NEGATIVE NEGATIVE MG/DL 04/01/2024 7:45 AM RETAIL LOAN ORIGINATOR ASSISTANT [facility] UROBILINOGEN NORMAL NORMAL MG/DL 04/01/2024 7:45 AM [facility] BILIRUBIN (U) NEGATIVE NEGATIVE MG/DL 04/01/2024 7:45 AM RETAIL LOAN ORIGINATOR ASSISTANT [facility] BLOOD (U) 3+(A) NEGATIVE 04/01/2024 7:45 AM RETAIL LOAN ORIGINATOR ASSISTANT [facility] WBC/HPF 43(H) <6 /HPF 04/01/2024 7:45 AM [facility] RBC/HPF >100(H) <6 /HPF 04/01/2024 7:45 AM [facility] BACTERIA (U) MANY(A) NONE /HPF 04/01/2024 7:45 AM RETAIL LOAN ORIGINATOR ASSISTANT [facility] URINE SPECIMEN OBTAINED BY CLEAN CATCH PROCEDURE / Unknown 04/01/2024 6:30 AM RETAIL LOAN ORIGINATOR ASSISTANT Andria PIMENTEL URINE ORDERABLES Final Result [facility] [address] [place] [address], * URINE BACTERIA CULTURE (04/01/2024 6:30 AM RETAIL LOAN ORIGINATOR ASSISTANT) SPEC DESCRIPTION URINE CLEAN CATCH 03/31/2024 10:28 PM RETAIL LOAN ORIGINATOR ASSISTANT [facility] SPECIAL REQUESTS NO SPECIAL REQUEST 03/31/2024 10:28 PM RETAIL LOAN ORIGINATOR ASSISTANT [facility] CULTURE RESULT NO GROWTH 2 DAYS 04/03/2024 7:42 AM RETAIL LOAN ORIGINATOR ASSISTANT [facility] URINE SPECIMEN OBTAINED BY CLEAN CATCH PROCEDURE / Unknown 04/01/2024 6:30 AM RETAIL LOAN ORIGINATOR ASSISTANT 04/01/2024 6:43 AM RETAIL LOAN ORIGINATOR ASSISTANT us Staci Villarreal DO MICROBIOLOGY - GENERAL ORDER OCTAVIA Final Result Performing Organization Address [facility]/ZIP Co de Phone Number [facility] [address] [place] [id number], * CULTURE BACTERIA, BLOOD (04/01/2024 6:30 AM RETAIL LOAN ORIGINATOR ASSISTANT) SPEC DESCRIPTION BLOOD 03/31/2024 10:12 PM RETAIL LOAN ORIGINATOR ASSISTANT [facility] SPECIAL REQUESTS NO SPECIAL REQUEST 03/31/2024 10:12 PM RETAIL LOAN ORIGINATOR ASSISTANT [facility] CULTURE RESULT NO GROWTH 5 DAYS 04/06/2024 6:40 AM RETAIL LOAN ORIGINATOR ASSISTANT [facility] BLOOD SPECIMEN OBTAINED FOR BLOOD CULTURE / Unknown 04/01/2024 6:30 AM RETAIL LOAN ORIGINATOR ASSISTANT 04/01/2024 6:42 AM RETAIL LOAN ORIGINATOR ASSISTANT us Nathaniel Ventura DO MICROBIOLOGY - GENERAL ORDERAB LES Final Result Performing Organization Address [facility]/ZIP Co de Phone Number [facility] [address] [place] [id number], * (ABNORMAL) BASIC METABOLIC PANEL (04/01/2024 5:00 AM RETAIL LOAN ORIGINATOR ASSISTANT) GLUCOSE 93 70 - 99 MG/DL 04/01/2024 6:45 AM RETAIL LOAN ORIGINATOR ASSISTANT [facility] BUN 32(H) 7 - 18 MG/DL 04/01/2024 6:45 AM RETAIL LOAN ORIGINATOR ASSISTANT [facility] CREATININE S/P/B 3.62(H) 0.7 - 1.3 MG/DL 04/01/2024 6:45 AM RETAIL LOAN ORIGINATOR ASSISTANT [facility] SODIUM S/P/B 137 136 - 145 MMOL/L 04/01/2024 6:45 AM [facility] POTASSIUM S/P/B 4.1 3.5 - 5.1 MMOL/L 04/01/2024 6:45 AM [facility] CHLORIDE S/P/B 108 97 - 115 MMOL/L 04/01/2024 6:45 AM [facility] CO2 21.5 21 - 32 MMOL/L 04/01/2024 6:45 AM [facility] CALCIUM S/P/B 8.4(L) 8.5 - 10.1 MG/DL 04/01/2024 6:45 AM [facility] ANION GAP 7.5 2 - 10 MMOL/L 04/01/2024 6:45 AM [facility] BUN CREATININE RATIO 8.8 6 - 26 04/01/2024 6:45 AM [facility] GFR ESTIMATE 19(L) >90 ML/MIN/1.7 3 M2 04/01/2024 6:45 AM [facility] Comment: NOTE: eGFR is not calculated for patients <18 years of age or gender unknown. This is an estimated GFR calculation using the new CKD EPI creatinine equation without race and so does not require a correction factor for race. This estimated GFR should not be used for calculating drug doses. 04/01/2024 5:00 AM [facility] Staci Villarreal DO LABORATORY Final Result [facility] [address] [place] [address], [place] [phone] * MAGNESIUM (04/01/2024 5:00 AM RETAIL LOAN ORIGINATOR ASSISTANT) MAGNESIUM 2.1 1.8 - 2.4 MG/DL 04/01/2024 6:45 AM [facility] 04/01/2024 5:00 AM RETAIL LOAN ORIGINATOR ASSISTANT us Staci Villarreal DO LABORATORY Final Result [facility] [address] [place] [address], [place] [phone] * SURG XR RETROGRD UROGRAPHY (03/31/2024 11:53 PM RETAIL LOAN ORIGINATOR ASSISTANT) Anatomical Region Laterality Modality Abdomen Radiographic Shannan ging 04/01/2024 12:1 0 AM RETAIL LOAN ORIGINATOR ASSISTANT Impressions 04/01/2024 12:10 AM RETAIL LOAN ORIGINATOR ASSISTANT IMPRESSION: Fluoroscopy provided, no interpretation requested, see separate operative report Referred By: Interpreted By: Michele Lorenzana MD, 04/01/2024 12:10 AM Narrative 04/01/2024 12:10 AM RETAIL LOAN ORIGINATOR ASSISTANT [place] [id number] INDICATION: Fluoroscopic guidance Procedure Note Eduardo Lorenzana MD - 04/01/2024 [place] [id number] INDICATION: Fluoroscopic guidance IMPRESSION: Fluoroscopy provided, no interpretation requested, seeseparate operative report Referred By: Interpreted By: Michele Lorenzana MD, 04/01/2024 12:10 AM Remigio Portillo MD IMAGES ONLY Final Result * STONE ANALYSIS (03/31/2024 11:40 PM RETAIL LOAN ORIGINATOR ASSISTANT) SOURCE URETERAL STONE, LEFT 04/01/2024 7:16 AM RETAIL LOAN ORIGINATOR ASSISTANT [facility] STONE ANALYSIS COMPONENT REPORT 04/11/2024 5:26 PM RETAIL LOAN ORIGINATOR ASSISTANT [employer] KATHRYN YOUNG Comment: Calcium Oxalate Dihydrate (Weddellite) 20% Calcium Oxalate Monohydrate (Whewellite) 80% STONE ANALYSIS WEIGHT 0.028 g 04/11/2024 5:26 PM RETAIL LOAN ORIGINATOR ASSISTANT [employer] KATHRYN YOUNG Comment: This test was developed and its analytical performance characteristics have been determined by [employer]. It has not been cleared or approved by FDA. This assay has been validated pursuant to the CLIA regulations and is used for clinical purposes. Test performed by [employer] [place] [address] [place] [address] [employer]: Litzy Gold MD,PHD,JOHANNA Test Reported by [facility] [facility], [employer] [facility], [address] [place] [address] Sergo Mcnulty M.D., Ph.D., Director of Laboratories , CLIA [id number] STONE (OTHER (type in comments)) 03/31/2024 11:40 PM RETAIL LOAN ORIGINATOR ASSISTANT Remigio Portillo MD BODY FLUIDS AND STOOLS ORDERABLE S Final Result Iconfinder [address] [address], [place] [phone] [facility] [address] [place] [address], [place] [phone] * CT ABD+PEL WO CON (03/31/2024 6:27 PM RETAIL LOAN ORIGINATOR ASSISTANT) Anatomical Region Laterality Modality Abdomen Computed Tomogra phy 03/31/2024 6:35 PM RETAIL LOAN ORIGINATOR ASSISTANT Impressions 03/31/2024 6:42 PM RETAIL LOAN ORIGINATOR ASSISTANT IMPRESSION: 1. Left-sided hydronephrosis and hydroureter secondary [...] 03/31/2024 6:35 PM Narrative 03/31/2024 6:42 PM RETAIL LOAN ORIGINATOR ASSISTANT [place] [id number] EXAMINATION: CT Abdomen and Pelvis without contrast [...] Procedure Note Jayden Garcia MD - 03/31/2024 [facility] [address] [place], [place] [address] EXAMINATION: CT Abdomen and Pelvis without contrast [...] Final Result * LIPASE (03/31/2024 5:03 PM RETAIL LOAN ORIGINATOR ASSISTANT) LIPASE 38 13 - 75 UNITS/L 03/31/2024 5:44 PM RETAIL LOAN ORIGINATOR ASSISTANT [facility] 03/31/2024 5:03 PM RETAIL LOAN ORIGINATOR ASSISTANT Andria P[facility] Final Result [facility] [address] [place] [address], [place] [phone] * (ABNORMAL) LIPID PANEL (04/19/2021 7:05 AM RETAIL LOAN ORIGINATOR ASSISTANT) CHOLESTEROL 111 <200 MG/DL 04/19/2021 4:01 PM [facility] TRIGLYCERIDES 51 <150 MG/DL 04/19/2021 4:01 PM [facility] HDL 37(L) >40 MG/DL 04/19/2021 4:01 PM [facility] LDL-C 64 <100 MG/DL 04/19/2021 4:01 PM [facility] VLDL CALCULATION 10 5 - 28 MG/DL 04/19/2021 4:01 PM [facility] CHOL/HDL RATIO 3.0 0.0 - 4.0 04/19/2021 4:01 PM RETAIL LOAN ORIGINATOR ASSISTANT [facility] LDL/HDL 1.7 0.41 - 2.13 04/19/2021 4:01 PM RETAIL LOAN ORIGINATOR ASSISTANT [facility] NON HDL CHOLESTEROL 74 <140 MG/DL 04/19/2021 4:01 PM RETAIL LOAN ORIGINATOR ASSISTANT [facility] 04/19/2021 7:05 AM RETAIL LOAN ORIGINATOR ASSISTANT Moy Constantino MD LABORATORY Final Res ult [facility] [address] [place] [address], [place] [phone] * HEPATITIS C ANTIBODY (04/19/2021 7:05 AM RETAIL LOAN ORIGINATOR ASSISTANT) HEPATITIS C AB NON-REACTI VE NON-REACT ADRIANA 04/19/2021 10:08 PM RETAIL LOAN ORIGINATOR ASSISTANT [facility] Comment: ANTIBODIES TO HCV NOT DETECTED. DOES NOT EXCLUDE THE POSSIBILITY OF EXPOSURE TO HCV. 04/19/2021 7:05 AM RETAIL LOAN ORIGINATOR ASSISTANT Moy Constantino MD LABORATORY Final Res ult [facility] [address] [place] [address], [place] [phone] [id number] from Last 3 Months or Most Recently Relevant to Health Maintenance Insurance MEDICAID [facility] Advance Directives Documents on File Type Date Recorded Patient Database Specialist Expl anation Legal Documents 09/15/2019 11:13 AM [...] 5:28 PM 02/11/2019 1:24 PM Care Teams Hotel Supplies Salesperson Relationship Specialty Start Date End Date Alex Kohli MD PCP - General FAMILY PRACTICE 12/01/22
--- OUTSIDE RECORDS SUMMARY | 2024-06-20 18:26 | XMS_ITS | Patient Health Summary ---
Author Organization [facility] Address [address] [facility] [place] [address] Care Team Providers Care Aesthetician Name Role Phone Unavailable Primary Care Provider Unavailabl e Note from [facility],non-owned Affiliates and Associated Physician Practices is amultiple site organization consisting of ambulatory clinics and hospital sitesin [place], [place], [place] and [place]. This disclosure is being madepursuant to the Care Everywhere program and may not contain all information available regarding this patient. Last updated 18.[facility] [employer] Allergies * Oxycodone(Other) Medications * Be aware [...] Comments Blood Pressure 121/77 07/04/2022 3:58 AM CREDIT CARD SPECIALIST Pulse 71 07/04/2022 3:58 AM CREDIT CARD SPECIALIST Temperature 36.7 C (98 F) 07/04/2022 3:58 AM CREDIT CARD SPECIALIST Respiratory Rate 17 07/04/2022 3:58 AM CREDIT CARD SPECIALIST Oxygen Saturation 98% 07/04/2022 3:58 AM CREDIT CARD SPECIALIST Inhaled Oxygen Concentration - - Weight [...] * CARDIAC EKG ORDER (07/05/2022 1:45 PM CREDIT CARD SPECIALIST) Narrative 07/05/2022 1:45 PM CREDIT CARD SPECIALIST Ordered by an unspecified provider. Scanned Document CARDIAC SERVICES ORD ERABLES * TROPONIN-I HIGH SENSITIVE REFLEX 1HOUR (07/04/2022 1:31 AM CREDIT CARD SPECIALIST) Troponin I High Sensitive 5 <=35 ng/L 07/04/2022 2:20 AM CREDIT CARD SPECIALIST [facility] Delta Troponin I HS 07/04/2022 2:20 AM CREDIT CARD SPECIALIST [facility] Comment:Delta value intentio román not calculated. Baseline to 1 hour specimen collection interval exceeded. Blood BLOOD SPECIMEN / Unknown Venipuncture / Unknown 07/04/2022 1:31 AM CREDIT CARD SPECIALIST 07/04/2022 1:41 AM CREDIT CARD SPECIALIST Melquiades Burkett PA-C LAB - CHEM ISTRY ORDERABLES [facility] [address] [place] [address], [facility] [phone] * XR CHEST 2VW (07/04/2022 12:08 AM CREDIT CARD SPECIALIST) Only the most recent of2 resultswithin the time period is included. Anatomical Region Laterality Modality Chest Radiographic Shannan ging 07/04/2022 12:5 1 AM CREDIT CARD SPECIALIST Narrative 07/04/2022 8:57 AM CREDIT CARD SPECIALIST PROCEDURE: XR CHEST 2VW, DATE/TIME OF EXAM: 07/04/2022 12:08 AM, LOCATION [facility] INDICATION: R07.9: Chest pain, unspecified type ADDITIONAL CLINICAL INFORMATION: Ordering Provider Reason For Exam: Pneumothorax COMPARISON: Chest x-ray dated 02/13/2016 FINDINGS/IMPRESSION: There is no focal consolidation, pleural effusion, or pneumothorax. The cardiac silhouette is mildly enlarged. The mediastinal silhouette is normal. The visible bony thorax is intact. Report dictated by Xavier Panda MD, (finance vice president). I, Joseph Suarez MD have personally reviewed and interpreted this examination/study. > Interpreting Provider: Joseph Suarez MD on 07/04/2022 8:57 AM Procedure Note Joseph Suarez MD - 07/04/2022 PROCEDURE: XR CHEST 2VW, DATE/TIME OF EXAM: 07/04/2022 12:08 AM, LOCATION [facility] INDICATION: R07.9: Chest pain, unspecified type ADDITIONAL CLINICAL INFORMATION: Ordering Provider Reason For Exam: Pneumothorax COMPARISON: Chest x-ray dated 02/13/2016 FINDINGS/IMPRESSION: There is no focal consolidation, pleural effusion, or pneumothorax. The cardiac silhouette is mildly enlarged. The mediastinal silhouette is normal. The visible bony thorax is intact. Report dictated by Xavier Panda MD, (finance vice president). I, Joseph Suarez MD have personally reviewed and interpreted this examination/study. > Interpreting Provider: Joseph Suarez MD on 38:57 AM Melquiades Burkett PA-C DIAGNOSTIC IMAGING ORDERABLES * LIPASE BLOOD (07/03/2022 11:57 PM CREDIT CARD SPECIALIST) Lipase 37 8 - 78 U/L 07/04/2022 12:30 AM [facility] Blood BLOOD SPECIMEN / Unknown Venipuncture / Unknown 07/03/2022 11:57 PM CREDIT CARD SPECIALIST 07/04/2022 12:20 AM CREDIT CARD SPECIALIST Narrative [facility] - 07/04/2022 12:30 AM CREDIT CARD SPECIALIST Lipase results from the Gonzalez Alinity analyzer may not be comparable with other methodologies. Melquiades Burkett PA-C LAB - CHEM ISTRY ORDERABLES Performing Organization Address City/State/[facility] Co de Phone Number [facility] [address] [place] [phone], [facility] [phone] * PT-INR [facility] (07/03/2022 11:56 PM CREDIT CARD SPECIALIST) PT 12.2 12.1 - 14.8 Seconds 07/04/2022 1:26 AM [facility] INR 0.9 See Comment 07/04/2022 1:26 AM [facility] Comment:The suggested therap eutic range for standard coumadin (warfarin) therapy is an INR of 2.0-3.0. For high-risk patients (Mechanical Mitral Valve Prosthesis, etc.), the suggested prophylactic therapeutic range is an INR of 2.5-3.5. Blood BLOOD SPECIMEN / Unknown Venipuncture / Unknown 07/03/2022 11:56 PM CREDIT CARD SPECIALIST 07/04/2022 12:04 AM CREDIT CARD SPECIALIST Melquiades ALVAREZC LAB - COAG ULATION ORDERABLES Performing Organization Address [facility]/ZIP Co de Phone Number [address] [address], [facility] [phone] * TROPONIN-I HIGH SENSITIVE BASELINE + 1HR (07/03/2022 11:56 PM CREDIT CARD SPECIALIST) Troponin I High Sensitive 5 <=35 ng/L 07/04/2022 12:52 AM [facility] Blood BLOOD SPECIMEN / Unknown Venipuncture / Unknown 07/03/2022 11:56 PM CREDIT CARD SPECIALIST 07/04/2022 12:33 AM CREDIT CARD SPECIALIST Melquiades PIMENTEL-C LAB - CHEM ISTRY ORDERABLES Performing Organization Address [facility] Co de Phone Number [address] [address], [facility] [phone] * (ABNORMAL) CBC W AUTO DIFFERENTIAL (07/03/2022 11:56 PM CREDIT CARD SPECIALIST) Only the most recent of3 resultswithin the time period is included. WBC 6.7 3.5 - 10.5 10 3/uL 07/04/2022 12:10 AM [facility] RBC 4.88 4.30 - 5.70 10 6/uL 07/04/2022 12:10 AM [facility] Hemoglobin 14.7 12.0 - 17.6 g/dL 07/04/2022 12:10 AM [facility] Hematocrit 44.8 35.2 - 51.7 % 07/04/2022 12:10 AM [facility] MCV 91.8 80.7 - 98.3 fL 07/04/2022 12:10 AM [facility] MCH 30.1 26.7 - 34.0 pg 07/04/2022 12:10 AM [facility] MCHC 32.8 30.8 - 35.9 g/dL 07/04/2022 12:10 AM [facility] RDW-SD 51.1(H) 36.0 - 50.0 fL 07/04/2022 12:10 AM [facility] RDW-CV 15.2(H) 11.2 - 14.8 % 07/04/2022 12:10 AM [facility] Platelet Count 233 150 - 400 10 3/uL 07/04/2022 12:10 AM [facility] MPV 9.3(L) 9.4 - 12.9 fL 07/04/2022 12:10 AM [facility] nRBC Absolute 0.00 0 10 3/uL 07/04/2022 12:10 AM [facility] nRBC Auto 0.0 0 /100 WBC 07/04/2022 12:10 AM [facility] Neutrophils % 57.2 35.0 - 70.0 % 07/04/2022 12:10 AM [facility] Lymphocytes % 33.1 20.0 - 43.0 % 07/04/2022 12:10 AM [facility] Monocytes % 7.1 5.0 - 13.0 % 07/04/2022 12:10 AM [facility] Eosinophils % 1.5 0.0 - 6.0 % 07/04/2022 12:10 AM [facility] Basophil % 0.5 0.0 - 2.0 % 07/04/2022 12:10 AM [facility] Neutrophils Absolute 3.81 1.60 - 7.00 10 3/uL 07/04/2022 12:10 AM [facility] Lymphocyte Absolute 2.20 1.10 - 3.90 10 3/uL 07/04/2022 12:10 AM [facility] Monocytes Absolute 0.47 0.26 - 1.07 10 3/uL 07/04/2022 12:10 AM [facility] Eosinophils Absolute 0.10 0.00 - 0.47 10 3/uL 07/04/2022 12:10 AM [facility] Basophils Absolute 0.03 0.00 - 0.08 10 3/uL 07/04/2022 12:10 AM [facility] Immature Granulocytes % 0.6 0.0 - 1.0 % 07/04/2022 12:10 AM [facility] Immature Granulocytes Absolute 0.04 07/04/2022 12:10 AM [facility] Blood BLOOD SPECIMEN / Unknown Venipuncture / Unknown 07/03/2022 11:56 PM CREDIT CARD SPECIALIST 07/04/2022 12:04 AM CREDIT CARD SPECIALIST Melquiades ALVAREZC LAB - JAMAR TOLOGY ORDERABLES [facility] [address] [place] [address], [place] [phone] * B-TYPE NATRIURETIC PEPTIDE (07/03/2022 11:56 PM CREDIT CARD SPECIALIST) Only the most recent of2 resultswithin the time period is included. BNP 50 <100 pg/mL 07/04/2022 12:36 AM [facility] Comment: A decision threshold of 100 pg/mL [...] Unknown Venipuncture / Unknown 07/03/2022 11:56 PM CREDIT CARD SPECIALIST 07/04/2022 12:04 AM CREDIT CARD SPECIALIST Melquiades Burkett PA-C LAB - CHEM ISTRY ORDERABLES [facility] [address] [place] [address], [place] [phone] * (ABNORMAL) COMPREHENSIVE METABOLIC PANEL (07/03/2022 11:56 PM [facility]) Only the most recent of2 resultswithin the time period is included. BUN 13 7 - 26 mg/dL 07/04/2022 12:30 AM [facility] Creatinine 1.23(H) 0.71 - 1.16 mg/dL 07/04/2022 12:30 AM [facility] Sodium 146(H) 136 - 145 mmol/L 07/04/2022 12:30 AM [facility] Potassium 4.2 3.5 - 4.5 mmol/L 07/04/2022 12:30 AM [facility] Chloride 113(H) 98 - 107 mmol/L 07/04/2022 12:30 AM [facility] CO2 19(L) 22 - 29 mmol/L 07/04/2022 12:30 AM [facility] Glucose 87 70 - 115 mg/dL 07/04/2022 12:30 AM [facility] Calcium 9.1 8.4 - 10.2 mg/dL 07/04/2022 12:30 AM [facility] Protein Total 7.3 6.0 - 8.3 g/dL 07/04/2022 12:30 AM [facility] Albumin 3.7 3.4 - 5.0 g/dL 07/04/2022 12:30 AM [facility] Bilirubin Total 0.2 0.2 - 1.2 mg/dL 07/04/2022 12:30 AM [facility] Alkaline Phosphatase 124 40 - 150 U/L 07/04/2022 12:30 AM [facility] ALT 43 5 - 55 U/L 07/04/2022 12:30 AM [facility] AST 20 5 - 34 U/L 07/04/2022 12:30 AM [facility] Anion Gap 18 8 - 18 07/04/2022 12:30 AM [facility] BUN/Creatinine Ratio 11 7 - 23 07/04/2022 12:30 AM [facility] Osmolality Calculated 301(H) 270 - 300 mOsm/kg 07/04/2022 12:30 AM [facility] Albumin/Globulin Ratio 1.0(L) 1.1 - 2.3 07/04/2022 12:30 AM [facility] eGFR by CKD-EPI 69(L) >=90 mL/min/1.7 3 m2 07/04/2022 12:30 AM [facility] Blood BLOOD SPECIMEN / Unknown Venipuncture / Unknown 07/03/2022 11:56 PM CREDIT CARD SPECIALIST 07/04/2022 12:04 AM CREDIT CARD SPECIALIST Melquiades Burkett PA-C LAB - CHEM ISTRY ORDERABLES [facility] [address] [place] [address], [facility] [phone] * EKG 12-LEAD (07/03/2022 11:43 PM CREDIT CARD SPECIALIST) Only the most recent of2 resultswithin the time period is included. Ventricular Rate 63 BPM [facility] MUSE Atrial Rate 63 BPM [facility] MUSE P-R Interval 162 ms [facility] MUSE QRS Duration ms 78 ms [facility] MUSE Q-T Interval ms 408 ms [facility] MUSE QTC Calculation (Bezet) 417 ms SL MUSE Calculated P [place] 33 degrees SL MUSE Calculated R [place] -91 degrees SL MUSE Calculated T [place] 25 degrees [facility] MUSE Interpretation EKG NORMAL [...] , NEW Confirmed by AZ CARBAJAL MD ([id number]) on 07/04/2022 5:12:51 AM [facility] MUSE 07/03/2022 11:4 3 PM CREDIT CARD SPECIALIST 07/04/2022 5:12 AM CREDIT CARD SPECIALIST Melquiades Burkett PA-C ECG ORDERA BLES [facility] MUSE * CREATINE BLOOD (02/14/2016 12:19 PM CDT) Creatine 0.4 0.0 - 0.7 mg/dL [facility] Comment: This test was developed and its performance characteristics determined by [facility]. It has not been cleared or approved by the Food and Drug Administration. Blood specimen (specimen) BLOOD SPECIMEN / Unknown 02/14/2016 12:19 PM CDT 02/14/2016 12:47 PM CDT Narrative [facility] ([facility]) - 02/16/2016 5:10 PM CDT Performed at: [address] [place] [address] [id number] Digital Content Marketing Manager: Leoncio Vaughn MD, Phone: [phone] Bill Grace MD LAB - CHEMISTRY [facility] Performing Organization Address [facility] Co de Phone Number [facility] ([facility]) * (ABNORMAL) CREATININE BLOOD (02/14/2016 12:19 PM CDT) Creatinine 1.8(H) 0.6 - 1.2 mg/dL [facility] eGFR 49(L) >60 mL/min/1.73 m2 [facility] Blood specimen (specimen) BLOOD SPECIMEN / Unknown 02/14/2016 12:19 PM CDT 02/14/2016 2:25 PM CDT Bill Grace MD LAB - CHEMISTRY [facility] Performing Organization Address City/[facility]/ZIP Co de Phone Number [address] [phone] * (ABNORMAL) BASIC METABOLIC PANEL (CALCIUM TOTAL) (02/14/2016 6:06 AM CDT) Only the most recent of2 resultswithin the time period is included. BUN 20 7 - 26 mg/dL [facility] Creatinine 1.8(H) 0.6 - 1.2 mg/dL [facility] Sodium 140 136 - 145 mmol/L [facility] Potassium 3.5 3.5 - 4.5 mmol/L [facility] Chloride 111(H) 98 - 107 mmol/L [facility] CO2 23 22 - 29 mmol/L [facility] Glucose 97 70 - 115 mg/dL [facility] Calcium 8.1(L) 8.4 - 10.2 mg/dL [facility] Anion Gap 10 8 - 18 [facility] BUN/Creatinine Ratio 11 7 - 23 [facility] Osmolality Calculated 293 270 - 300 mOsm/kg [facility] eGFR 49(L) >60 mL/min/1.7 3 m2 [facility] Blood specimen (specimen) BLOOD SPECIMEN / Unknown 02/14/2016 6:06 AM CDT 02/14/2016 6:17 AM CDT Az Hall MD LAB - CHEMISTRY [place] Performing Organization Address [facility]/ZIP Co de Phone Number [address] [phone] * SODIUM URINE RANDOM (02/14/2016 1:36 AM CDT) Sodium Urine 202 Not Established mmol/L [facility] Urine specimen (specimen) URINE / Unknown 02/14/2016 1:36 AM CDT 02/14/2016 1:36 AM CDT Az Hall MD LAB - URINE CHEMISTR Y ORDERABLES Performing Organization Address City/[facility] Co de Phone Number [address] [phone] * CT HEAD WO CONTRAST (02/13/2016 7:51 [...] PM CDT) Troponin I 0.028 <0.032 ng/mL [facility] Blood specimen (specimen) BLOOD SPECIMEN / Unknown 02/13/2016 6:49 PM CDT 02/13/2016 7:00 PM CDT Az Hall MD LAB - CHEMISTRY [facility] Performing Organization Address [facility]/[place] [address], [facility] [phone] * CK + CKMB PANEL (02/13/2016 6:49 PM CDT) Pathologist [facility] CK Total 175 30 - 200 Units/L [facility] CK-MB 1.0 0.0 - 6.6 ng/mL [facility] Blood specimen (specimen) BLOOD SPECIMEN / Unknown 02/13/2016 6:49 PM CDT 02/13/2016 7:00 PM CDT Az Hall MD LAB - CHEMISTRY [facility] Performing Organization Address [facility] [place] [address], [facility] [phone] * ALCOHOL ETHYL BLOOD (02/13/2016 6:49 PM CDT) [facility] Interpretation Ethanol None Detected None Detected mg/dL [facility] Comment:Ethanol levels less than 10 mg/dL are resulted as None detected . Blood specimen (specimen) BLOOD SPECIMEN / Unknown 02/13/2016 6:49 PM CDT 02/13/2016 7:00 PM CDT Az Hall MD LAB - CHEMISTRY [facility] Performing Organization Address [facility]/State/[place] [address], [facility] [phone]
--- OUTSIDE RECORDS SUMMARY | 2024-06-20 18:27 | XMS_ITS | Clinical Summary ---
Author Organization [facility] Address [address] [place] [address] Care Team Providers Care Supervisor Underwriting Clerks Name Role Phone Alex Kohli MD Primary Care Provider [phone] Allergies Active Allergy Reactions Criticality Noted Date [...] 03/14/2022 Assessment & Plan (06/04/2022 4:38 PM HEAT TREAT TECHNICIAN): Chronic uncontrolled malia siciatic Start norco 5/ 325mg q8 hr prn #60 Refer to [facility] . Assessment & Plan (03/14/2022 2:11 PM CDT): Chronic and worsening Persistent malia leg paresthesia Intermittent weakness in legs Order mri l/s spine [facility] Give Kenalog 80 mg IM Hypersomnia [...] provided 2 pamphlets as written by the [employer] on sleeping better [...] Department Care Team Description 04/20/2024 10:05 AM HEAT TREAT TECHNICIAN Lab [facility] [address] [place] [id number] from Last 3 Months Immunizations Name Administration [...] How often do you attend chur or yarsani services? Never 01/28/2023 Do you belong to any clubs o r organizations such as spiritism groups, unions, fraternal or athletic groups, or [...] place to sleep or slept in a [facility]p (including now)? No 01/28/2023 Personal Safety Answer Date Recorded Have you ever been in or are you currently in a harmful physical or emotional relationship or is someone making you feel afraid or unsafe? Denies 04/30/2023 Sex and Gender Information Value Date Recorded Sex Assigned at Not on file Legal Sex Male 1:29 AM HEAT TREAT TECHNICIAN Gender Identity Not on file Sexual Orientation Not on file Obstetrics History Last Filed Vital Signs Vital Sign Reading Time Taken Comments Blood Pressure 133/103 06/20/2023 12:41 AM HEAT TREAT TECHNICIAN Pulse 69 06/20/2023 12:41 AM HEAT TREAT TECHNICIAN Temperature 36.7 C (98 F) 06/19/2023 8:38 PM HEAT TREAT TECHNICIAN Respiratory Rate 20 06/19/2023 8:38 PM HEAT TREAT TECHNICIAN Oxygen Saturation 98% 06/20/2023 12:41 AM HEAT TREAT TECHNICIAN Inhaled Oxygen Concentration - - Weight 83.7 kg (184 lb 8.4 oz) 04/16/2023 4:23 A M HEAT TREAT TECHNICIAN Height 165.1 cm (5' 5 ) 04/16/2023 4:23 AM HEAT TREAT TECHNICIAN Body Mass Index 30.71 04/16/2023 4:23 AM HEAT TREAT TECHNICIAN Plan of Treatment Health Maintenance Due Date [...] as needed Medical Devices Implanted Type Area Chief Cardiopulmonary Technologist Device Identifier Shelf Expiration Date Model / Serial / Lot Stent Stent N/A: Heart Procedures Procedure Name Priority Date/Time Associated Diagnosis Comments EGFR Routine 04/20/2024 10:30 AM HEAT TREAT TECHNICIAN DIFFERENTIAL AUTO Routine 04/20/2024 10: 30 AM HEAT TREAT TECHNICIAN PSA SCREEN Routine 04/20/2024 10:30 AM HEAT TREAT TECHNICIAN COMPREHENSIVE METABOLIC PANEL Routine 04/20/2024 10:30 AM HEAT TREAT TECHNICIAN LIPID PANEL Routine 04/20/2024 10:30 AM HEAT TREAT TECHNICIAN CBC WITH AUTO DIFFERENTIAL Routine 04/20/2024 10:30 AM HEAT TREAT TECHNICIAN COLONOSCOPY Routine 06/07/2022 from Last 3 Months or Most Recently Relevant to Health Maintenance Results * eGFR (04/20/2024 10:30 AM HEAT TREAT TECHNICIAN) Pathologist [facility] eGFR 63 >=60 mL/min/1. 73 m2 Comment: [...] reviewed 2021. Blood 04/20/2024 10:3 0 AM HEAT TREAT TECHNICIAN 04/20/2024 11:11 AM HEAT TREAT TECHNICIAN us Alex Kohli MD LAB BLOOD ORDERABLES Final Resu lt [facility] [id number] [facility] [place] [address] * Differential, auto (04/20/2024 10:30 AM HEAT TREAT TECHNICIAN) Pathologist [facility] Neutrophil abs 4.0 1.5 - 6.5 K/cumm Imm gran abs 0.0 0.0 - 0.1 K/cumm [facility] Lymphocyte abs 1.6 0.8 - 3.3 K/cumm [facility] Monocyte abs 0.7 0.2 - 0.8 K/cumm [facility] Eosinophil abs 0.2 0.0 - 0.5 K/cumm [facility] Basophil abs 0.1 0.0 - 0.1 K/cumm [facility] Neutrophil pct 60.9 % [facility] Comment: Interpretive Data Percent cell count reference ranges are not reported, since discordance with absolute values may lead to misinterpretation of CBC data. Current Interpretive Data was last revised on 2017. Imm gran pct 0.5 % [facility] Comment: Interpretive Data Percent cell count reference ranges are not reported, since discordance with absolute values may lead to misinterpretation of CBC data. Current Interpretive Data was last revised on 2017. Lymphocyte pct 24.2 % [facility] Comment: Interpretive Data Percent cell count reference ranges are not reported, since discordance with absolute values may lead to misinterpretation of CBC data. Current Interpretive Data was last revised on 2017. Monocyte pct 11.3 % [facility] Comment: Interpretive Data Percent cell count reference ranges are not reported, since discordance with absolute values may lead to misinterpretation of CBC data. Current Interpretive Data was last revised on 2017. Eosinophil pct 2.3 % [facility] Comment: Interpretive Data Percent cell count reference ranges are not reported, since discordance with absolute values may lead to misinterpretation of CBC data. Current Interpretive Data was last revised on 2017. Basophil pct 0.8 % [facility] Comment: Interpretive Data Percent cell count reference ranges are not reported, since discordance with absolute values may lead to misinterpretation of CBC data. Current Interpretive Data was last revised on 2017. Blood 04/20/2024 10:3 0 AM HEAT TREAT TECHNICIAN 04/20/2024 11:11 AM HEAT TREAT TECHNICIAN us Alex Kohli MD LAB BLOOD ORDERABLES Final Resu lt [facility] [id number] [facility] [place] [address] * PSA screen (04/20/2024 10:30 AM HEAT TREAT TECHNICIAN) PSA-Total 1.35 <=3.90 ng/mL Comment: Interpretive Data [...] revised 21. Blood 04/20/2024 10:3 0 AM HEAT TREAT TECHNICIAN 04/20/2024 11:11 AM HEAT TREAT TECHNICIAN Alex Kohli MD LAB BLOOD ORDERABLES Final Resu lt Performing Organization Address [facility] Co de Phone Number IRIS [address] [place] [address] * (ABNORMAL) CBC with auto differential (04/20/2024 10:30 AM HEAT TREAT TECHNICIAN) WBC 6.5 3.8 - 9.9 K/cumm Hgb 14.4 13.0 - 17.5 g/dL [facility] Hct 45.0 38.9 - 50.3 % [facility] Plt 222 150 - 400 K/cumm [facility] MPV 9.6 9.1 - 12.[address] [facility] RBC 4.74 4.30 - 5.80 M/cumm [facility] MCV 94.9 81.3 - 96.[address] [facility] MCH 30.4 27.1 - 33.[address] [facility] MCHC 32.0(L) 32.3 - 35.7 g/dL [facility] RDW CV 14.6 11.1 - 14.9 % [facility] RDW SD 51.2(H) 35.7 - 48.[address] [facility] NRBC abs 0.00 0.00 - 0.01 K/cumm [facility] Blood 04/20/2024 10:3 0 AM HEAT TREAT TECHNICIAN 04/20/2024 11:11 AM HEAT TREAT TECHNICIAN Alex Kohli MD LAB BLOOD ORDERABLES Final Resu lt Performing Organization Address [facility] Co de Phone Number IRIS [address] [place] [address] * Lipid panel (04/20/2024 10:30 AM HEAT TREAT TECHNICIAN) Cholesterol 111 30 - 199 mg/dL Comment: [...] revised on 2017. Chol/HDL ratio [address] [facility] Blood 04/20/2024 10:3 0 AM HEAT TREAT TECHNICIAN 04/20/2024 11:11 AM HEAT TREAT TECHNICIAN us Alex Kohli MD LAB BLOOD ORDERABLES Final Resu lt [facility] [id number] [facility] Department of Laboratories [place], [place] [id number] * (ABNORMAL) Comprehensive metabolic panel (04/20/2024 10:30 AM HEAT TREAT TECHNICIAN) Sodium 142 135 - 145 mmol/L Potassium, pl 4.5 3.3 - 4.9 mmol/L [facility] Chloride 111(H) 97 - 110 mmol/L [facility] CO2 25 22 - 32 mmol/L [facility] Anion gap 6 2 - 15 mmol/L [facility] BUN 13 6 - 25 mg/dL [facility] Creatinine 1.32(H) 0.80 - 1.30 mg/dL [facility] Glucose 97 70 - 199 mg/dL [facility] Comment: Interpretive Data Fasting glucose >/= 126 [...] Calcium 8.9 8.5 - 10.3 mg/dL [facility] Bilirubin, total 0.4 0.1 - 1.2 mg/dL [facility] Protein, pl 6.7 6.5 - 8.5 g/dL [facility] Albumin 3.9 3.5 - 5.0 g/dL [facility] Alk phos 145(H) 40 - 130 Units/L [facility] ALT 111(H) 7 - 55 Units/L [facility] AST 48 10 - 50 Units/L [facility] Blood 04/20/2024 10:3 0 AM HEAT TREAT TECHNICIAN 04/20/2024 11:11 AM HEAT TREAT TECHNICIAN Alex Kohli MD LAB BLOOD ORDERABLES Final Resu lt [facility] [address] [facility] Department [place] [address] * Colonoscopy (06/07/2022) Anatomical Region Laterality Modality Other Historical Provider ENDOSCOPY PROCEDURES Fela l Result from Last 3 Months or Most Recently Relevant to Health Maintenance Insurance MEDICARE IDPA MEDICARE IDPA IDOH MEDICARE [employer] [facility] COMPENSATION WORKERS COMPENSATION GENERIC COMPENSATION WORKERS COMPENSATION GENERIC COMPENSATION Advance Directives For more information, please contact: [phone] * Full Code (Latest Code Status on File) Date Activated Date Inactivated Comments 01/28/2023 6:23 AM 01/30/2023 7:18 PM Care Teams Supervisor Underwriting Clerks Relationship Specialty Start Date End Date Alex Kohli MD PCP - General Family Medicine 11/06/22
--- OUTSIDE RECORDS SUMMARY | 2024-06-20 18:27 | XMS_ITS | Encounter Summary ---
Author Organization [facility] Address [address] [place] [address] Care Team Providers Care Pipeliner Name Role Phone Alex Kohli MD Primary Care Provider [phone] Reason for Referral * Imaging (Emergency) - New Request Specialty Diagnoses / Procedures Referred By Bela rocha Referred To Contact RADIOLOGY Procedures CTA CHEST PE PROTOCOL Sheryl Nieto MD [address] [address] Phone: tel: fax: Referral ID Status Reason Start Date Expiration Date V isits Requested Visits Authorized [id number] New Request 06/19/2024 06/19/2025 1 1 D EQUIPMENT MECHANIC Reason for Visit * Reason Comments Chest Pain Encounter Details Date Type Department Care Team (Late st Contact Info) Description 06/19/2024 8:05 PM SOUND EQUIPMENT MECHANIC - 06/20/2024 12:41 AM SOUND EQUIPMENT MECHANIC Emergency [facility] [place] [address] Sheryl Nieto MD [address] [address] Chest Pain Discharge Disposition: Home or Self Care (Routine Discharge) Social History Tobacco Use Types Packs/Day Years Used Date Smoking Tobacco: Some Days Cigarettes Last attempted to quit: 2014 Cigars Smokeless Tobacco: Never Comments:uses an e cigarette with no nicotine Alcohol Use Standard Drinks/Week Comments No 0 (1 standard drink = 0.6 oz pur e alcohol) haven't drank since 2011 [facility] Utilities Answer Date Recorded In the [...] any time in the past [address] [facility], were you homeless or living in a prison (including now)? 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 Not on file Not on file Not on file Not on file Not on file Not on file Not on file documented as of this encounter Last Filed Vital Signs Vital Sign Reading Time Taken Comments Blood Pressure 138/80 06/19/2024 7:52 PM SOUND EQUIPMENT MECHANIC Pulse 62 06/19/2024 7:52 PM SOUND EQUIPMENT MECHANIC Temperature 37.2 C (99 F) 06/19/2024 7:52 PM SOUND EQUIPMENT MECHANIC Respiratory Rate 18 06/19/2024 7:52 PM SOUND EQUIPMENT MECHANIC Oxygen Saturation 98% 06/19/2024 7:55 PM SOUND EQUIPMENT MECHANIC Inhaled Oxygen Concentration - - Weight 84.8 kg (187 lb) 06/19/2024 7:52 PM SOUND EQUIPMENT MECHANIC Height 165.1 cm (5' 5 ) 06/19/2024 7:52 PM SOUND EQUIPMENT MECHANIC Body Mass Index 31.12 06/19/2024 7:52 PM SOUND EQUIPMENT MECHANIC documented in this encounter Functional Status * [...] * Shortness of Breath (Dyspnea) Discharge Instructions (Indian) documented in this encounter Medications at Time of Discharge acetaminophen (TYLENOL) 325 MG tablet Take 2 [...] (10 mg total) by mouth daily. 03/01/2023 melatonin 10 MG tablet Take 1 tablet (10 mg total) by mouth nightly as needed for Sleep. 30 tablet 06/20/2024 metoprolol succinate ER (TOPROL-XL) 100 MG 24 hr tablet Take 1 tablet (100 mg total) by mouth daily. pantoprazole EC (PROTONIX) 20 MG tablet Take 1 tablet (20 mg total) by mouth daily. polyethylene glycol (GLYCOLAX) packet Take 240 mLs (17 g total) by mouth 2 (two) times daily. Dissolve powder in 240 mL water 60 each 04/03/2024 predniSONE (DELTASONE) 20 MG tablet Take 2 tablets (40 mg total) by mouth daily for 5 days. 10 tablet 06/20/2024 06/25/2024 rosuvastatin 40 MG tablet Take 1 tablet [...] Chronic kidney disease CVA (cerebral vascular accident) ([facility]) 2012 no residue deficit DVT (deep venous thrombosis) ([facility]) right leg Essential hypertension Heart attack ([facility]) one stent Hyperlipidemia IBS (irritable bowel syndrome) PVD (peripheral vascular disease) ([facility]) Renal disorder Sleep apnea PAST SURGICAL HISTORY: [...] encounter of 06/19/24 ECG 12 lead Narrative [employer] Test Date: 2024-06-19 Pat Name: SOURAV NAVA Department: 41 Room: Gender: Male Data Assistant: : 1965 Requested By: SHERYL NIETO Order Number: [id number] Reading MD: Anh Griffin Measurements Intervals Anderson Rate: 61 P: 18 MT: 150 QRS: -86 QRSD: 85 T: 26 QT: 385 QTc: 390 Interpretive Statements SINUS RHYTHM LEFT AXIS DEVIATION [QRS AXIS < -30] POSSIBLE RIGHT VENTRICULAR CONDUCTION DELAY [RSR (QR) IN V1/V2] ANTEROSEPTAL MYOCARDIAL INFARCTION , OF INDETERMINATE AGE Compared to ECG 10/16/2023 18:44:13 Left-axis deviation now present Right-axis deviation no longer present Myocardial infarct finding still present D EQUIPMENT MECHANIC ECG [address] [facility] [address] [facility] Test Date: 2024-06-19 Pat Name: SOURAV NAVA Department: 41 Room: [facility] Gender: Male Data Assistant: [id number] : 1965 Requested By: SHERYL NIETO Order Number: [id number] Reading MD: Measurements Intervals Anderson Rate: 58 P: 25 MT: 165 QRS: -78 QRSD: 86 T: 10 [...] CHEST PE PROTOCOL Final Result by User, [email or web address] (06/20 10) [facility] [address] [place], [place] [address] EXAMINATION: CTA CHEST WITH CONTRAST, PULMONARY EMBOLISM [...] XR CHEST PORTABLE Final Result by User, [email or web address] (06/19 2042) [address] [address] Examination: XR CHEST PORTABLE Exam time: 06/19/2024 [...] Disposition: Discharge Sheryl Nieto MD 06/20/24 0250 D EQUIPMENT MECHANIC * Jessica Rm RN - 06/19/2024 7:49 [...] to pass out with coughing so hard D EQUIPMENT MECHANIC documented in this encounter Plan of Treatment Pending Results Name Type Priority Associated Diagnoses Date /Time ECG 12 lead EKG-NonRad STAT 06/19/2024 10 :01 PM SOUND EQUIPMENT MECHANIC documented as of this encounter Goals Goal Patient Goal Type Associated Problems Recent Progress Patient-Stated? Author Health - patient able to perform ADLs independently Lifestyle No Alayna Lang, RN documented as of this encounter Procedures Procedure Name Priority Date/Time Associated Diagnosis Comments CTA CHEST PE PROTOCOL STAT 06/19/2024 11:53 PM SOUND EQUIPMENT MECHANIC TROPONIN, QUANT STAT 06/19/2024 10:02 PM SOUND EQUIPMENT MECHANIC ECG 12-LEAD STAT 06/19/2024 10:01 PM SOUND EQUIPMENT MECHANIC Procedure Note - 06/19/2024 10:01 PM CSTThis note is in progress. [facility] [address] Test Date: 2024-06-19 Pat Name: SOURAV NAVA Department: 41 Room: [facility] Gender: Male Data Assistant: [id number] : 1965 Requested By: SHERYL NIETO Order Number: [id number] Yolanda MD: Measurements Intervals Anderson Rate: 58 P: 25 MT: 165 QRS: -78 QRSD: 86 T: 10 [...] CHEST PORTABLE STAT 06/19/2024 8:3 7 PM SOUND EQUIPMENT MECHANIC COMPREHENSIVE METABOLIC PANEL STAT 06/19/2024 8:01 PM SOUND EQUIPMENT MECHANIC CBC W/DIFF AUTOMATED STAT 06/19/2024 8:01 PM SOUND EQUIPMENT MECHANIC TROPONIN, QUANT STAT 06/19/2024 8:01 PM SOUND EQUIPMENT MECHANIC ECG 12-LEAD STAT 06/19/2024 7:52 PM SOUND EQUIPMENT MECHANIC documented in this encounter Results * CTA CHEST PE PROTOCOL (06/19/2024 11:53 PM SOUND EQUIPMENT MECHANIC) Anatomical Region Laterality Modality Chest Computed Tomogra phy 06/20/2024 12:0 6 AM SOUND EQUIPMENT MECHANIC Impressions 06/20/2024 12:10 AM SOUND EQUIPMENT MECHANIC IMPRESSION: Poor opacification of the pulmonary arteries. No large or central filling defects are seen. Referred By: Interpreted By: Elio Ramsay MD, 06/20/2024 12:06 AM Narrative 06/20/2024 12:10 AM SOUND EQUIPMENT MECHANIC [address] [address] EXAMINATION: CTA CHEST WITH CONTRAST, PULMONARY EMBOLISM [...] Procedure Note Elio Ramsay MD - 06/20/[address] [address] EXAMINATION: CTA CHEST WITH CONTRAST, PULMONARY EMBOLISM [...] t * TROPONIN, QUANT (06/19/2024 10:02 PM SOUND EQUIPMENT MECHANIC) TROPONIN I HIGH SENSITIVITY 18 <79 ng/L 06/19/2024 10:29 PM SOUND EQUIPMENT MECHANIC [facility] Comment: HIGH DOSES OF BIOTIN, TROPONIN-SPECIFIC AUTOANTIBODIES, AND ANTIBODY THERAPY CONTAINING HAMA MAY INTERFERE WITH THIS TEST RESULT. CORRELATION TO CLINICAL HISTORY AND PRESENTATION RECOMMENDED. 06/19/2024 10:0 2 PM SOUND EQUIPMENT MECHANIC Sheryl Nieto MD LABORATORY Final Resul t [facility] [address] [place] [address], [place] [phone] * XR CHEST PORTABLE (06/19/2024 8:37 PM SOUND EQUIPMENT MECHANIC) Anatomical Region Laterality Modality Chest Radiographic Shannan ging 06/19/2024 8:41 PM SOUND EQUIPMENT MECHANIC Impressions 06/19/2024 8:42 PM SOUND EQUIPMENT MECHANIC IMPRESSION: No radiographic evidence is seen to suggest acute cardiopulmonary abnormality. Referred By: Interpreted By: Louis Brown DO, 06/19/2024 8:41 PM Narrative 06/19/2024 8:42 PM SOUND EQUIPMENT MECHANIC [facility] [address] [place], [place] [address] Examination: XR CHEST PORTABLE Exam time: 06/19/2024 [...] Procedure Note Louis Brown DO - 06/19/2024 [facility] [address] [place], [place] [address] Examination: XR CHEST PORTABLE Exam time: 06/19/2024 [...] t * TROPONIN, QUANT (06/19/2024 8:01 PM SOUND EQUIPMENT MECHANIC) TROPONIN I HIGH SENSITIVITY 15 <79 ng/L 06/19/2024 8:35 PM SOUND EQUIPMENT MECHANIC [facility] Comment: HIGH DOSES OF BIOTIN, TROPONIN-SPECIFIC AUTOANTIBODIES, AND ANTIBODY THERAPY CONTAINING HAMA MAY INTERFERE WITH THIS TEST RESULT. CORRELATION TO CLINICAL HISTORY AND PRESENTATION RECOMMENDED. 06/19/2024 8:01 PM SOUND EQUIPMENT MECHANIC us Sheryl Nieto MD LABORATORY Final Resul t [facility] [address] [place] [address], [place] [phone] * (ABNORMAL) COMPREHENSIVE METABOLIC PANEL (06/19/2024 8:01 PM SOUND EQUIPMENT MECHANIC) [facility] GLUCOSE 79 70 - 99 MG/DL 06/19/2024 8:35 PM [facility] BUN 16 7 - 18 MG/DL 06/19/2024 8:35 PM [facility] CREATININE S/P/B 1.51(H) 0.7 - 1.3 MG/DL 06/19/2024 8:35 PM [facility] SODIUM S/P/B 143 136 - 145 MMOL/L 06/19/2024 8:35 PM [facility] POTASSIUM S/P/B 4.1 3.5 - 5.1 MMOL/L 06/19/2024 8:35 PM [facility] CHLORIDE S/P/B 114 97 - 115 MMOL/L 06/19/2024 8:35 PM [facility] CO2 22.8 21 - 32 MMOL/L 06/19/2024 8:35 PM [facility] CALCIUM S/P/B 9.0 8.5 - 10.1 MG/DL 06/19/2024 8:35 PM [facility] BILIRUBIN TOTAL S/P/B 0.3 0.2 - 1.2 MG/DL 06/19/2024 8:35 PM [facility] Comment: THIS ASSAY IS NOT RECOMMENDED FOR PATIENTS UNDERGOING TREATMENT WITH ELTROMBOPAG DUE TO THE POTENTIAL FOR FALSELY ELEVATED RESULTS. TOTAL PROTEIN S/P/B 7.2 6.4 - 8.2 G/DL 06/19/2024 8:35 PM [facility] ALBUMIN S/P/B 3.2(L) 3.4 - 5.0 G/DL 06/19/2024 8:35 PM [facility] AST 34 15 - 37 U/L 06/19/2024 8:35 PM SOUND EQUIPMENT MECHANIC [facility] ALT 78(H) 16 - 60 U/L 06/19/2024 8:35 PM [facility] ALKALINE PHOSPHATASE S/P/B 134 50 - 136 U/L 06/19/2024 8:35 PM [facility] ANION GAP 6.2 2 - 10 MMOL/L 06/19/2024 8:35 PM [facility] BUN CREATININE RATIO 10.6 6 - 26 06/19/2024 8:35 PM [facility] A/G RATIO 0.8(L) 1.0 - 2.0 RATIO 06/19/2024 8:35 PM [facility] GFR ESTIMATE 53(L) >90 ML/MIN/1.7 3 M2 06/19/2024 8:35 PM [facility] Comment: NOTE: eGFR is not calculated for patients <18 years of age or gender unknown. This is an estimated GFR calculation using the new CKD EPI creatinine equation without race and so does not require a correction factor for race. This estimated GFR should not be used for calculating drug doses. 06/19/2024 8:01 PM SOUND EQUIPMENT MECHANIC Sheryl Nieto MD LABORATORY Final Resul t [facility] [address] [place] [address], [place] [phone] * (ABNORMAL) CBC W/DIFF AUTOMATED (06/19/2024 8:01 PM SOUND EQUIPMENT MECHANIC) WBC 6.89 4.5 - 11.0 x10'3/uL 06/19/2024 8:20 PM [facility] RBC 4.67(L) 4.70 - 6.10 x10'6/uL 06/19/2024 8:20 PM [facility] HGB 14.0 14.0 - 18.0 G/DL 06/19/2024 8:20 PM [facility] HCT 41.7(L) 43.0 - 54.0 % 06/19/2024 8:20 PM [facility] MCV 89.3 80.0 - 94.0 FL 06/19/2024 8:20 PM [facility] MCH 30.0 27.0 - 31.0 PG 06/19/2024 8:20 PM [facility] MCHC 33.6 32.0 - 36.0 G/DL 06/19/2024 8:20 PM [facility] RDW 14.1 11.5 - 14.5 % 06/19/2024 8:20 PM [facility] PLT 251 130 - 400 x10'3/uL 06/19/2024 8:20 PM [facility] MPV 9.3 9.3 - 12.2 FL 06/19/2024 8:20 PM [facility] DIFFERENTIAL TYPE AUTOMATED DIFFERENTIAL 06/19/2024 8:20 PM [facility] NEUTROPHILS % 63.8 % 06/19/2024 8:20 PM [facility] LYMPHOCYTES % 20.9 % 06/19/2024 8:20 PM [facility] MONOCYTES % 11.9 % 06/19/2024 8:20 PM [facility] EOSINOPHILS 3.0 % 06/19/2024 8:20 PM [facility] BASOPHILS 0.3 % 06/19/2024 8:20 PM [facility] IMMATURE GRANS % 0.1 % 06/19/19 8:20 PM [facility] ABS. NEUTROPHILS 4.39 1.80 - 7.70 x10'3/uL 06/19/2024 8:20 PM SOUND EQUIPMENT MECHANIC [facility] ABS. LYMPHOCYTES 1.44 1.00 - 4.80 x10'3/uL 06/19/2024 8:20 PM SOUND EQUIPMENT MECHANIC [facility] ABS. MONOCYTES 0.82 0.30 - 0.82 x10'3/uL 06/19/2024 8:20 PM SOUND EQUIPMENT MECHANIC [facility] ABS. EOSINOPHILS 0.21 0.04 - 0.54 x10'3/uL 06/19/2024 8:20 PM SOUND EQUIPMENT MECHANIC [facility] ABS. BASOPHILS 0.02 0.01 - 0.08 x10'3/uL 06/19/2024 8:20 PM SOUND EQUIPMENT MECHANIC [facility] ABS. IMMATURE GRANULOCYTES 0.01 0.00 - 0.49 x10'3/uL 06/19/2024 8:20 PM SOUND EQUIPMENT MECHANIC [facility] 06/19/2024 8:01 PM SOUND EQUIPMENT MECHANIC Sheryl Nieto MD LABORATORY Final Resul t [facility] [address] [place] [address], * ECG 12 lead (06/19/2024 7:52 PM SOUND EQUIPMENT MECHANIC) 06/19/2024 7:52 PM SOUND EQUIPMENT MECHANIC Narrative [facility] ([facility]) RAD - 06/19/2024 8:21 PM SOUND EQUIPMENT MECHANIC [address] Test Date: 2024-06-19 Pat Name: SOURAV NAVA Department: 41 Room: Gender: Male Data Assistant: : 1965 Requested By: SHERYL Saez Number: [id number] Reading : Anh Griffin Measurements Intervals Anderson Rate: 61 P: 18 MT: 150 QRS: -86 QRSD: 85 T: 26 QT: 385 QTc: 390 Interpretive Statements SINUS RHYTHM LEFT AXIS DEVIATION [QRS AXIS < -30] POSSIBLE RIGHT VENTRICULAR CONDUCTION DELAY [RSR (QR) IN V1/V2] ANTEROSEPTAL MYOCARDIAL INFARCTION , OF INDETERMINATE AGE Compared to ECG 10/16/2023 18:44:13 Left-axis deviation now present Right-axis deviation no longer present Myocardial infarct finding still present D EQUIPMENT MECHANIC Procedure Note Anh Griffin MD - 06/19/[address] [facility] Test Date: 2024-06-19 Pat Name: SOURAV NAVA Department: 41 Room: Gender: Male Data Assistant: : 1965 Requested By: SHERYL NIETO Order Number: [id number] Reading MD: Anh Griffin Measurements Intervals Anderson Rate: 61 P: 18 MT: 150 QRS: -86 QRSD: 85 T: 26 QT: 385 QTc: 390 Interpretive Statements SINUS RHYTHM LEFT AXIS DEVIATION [QRS AXIS < -30] POSSIBLE RIGHT VENTRICULAR CONDUCTION DELAY [RSR (QR) IN V1/V2] ANTEROSEPTAL MYOCARDIAL INFARCTION , OF INDETERMINATE AGE Compared to ECG 10/16/2023 18:44:13 Left-axis deviation now present Right-axis deviation no longer present Myocardial infarct finding still present D EQUIPMENT MECHANIC us Sheryl Nieto MD ECG ORDERABLES Final Resul t [facility] documented in this encounter Visit Diagnoses Diagnosis [...] Sat06/19/24 at 2354 Given 06/19/2024 11:54 PM SOUND EQUIPMENT MECHANIC 80 mLs maalox plus-lidocaine viscous (GI [place]) 45 mL suspension Oral, Once, 1 dose, On Sat06/19/24 at 1999 Given 06/19/2024 11:15 PM SOUND EQUIPMENT MECHANIC pantoprazole (PROTONIX) injection 40 mg 40 mg, Intravenous, Once, 1 dose, On Sat06/19/24 at 1999, Reconstitute each 40 mg vial with 10 mL normal saline to a final concentration of 4 mg/mL. Administer intravenously over a period of a least 2 minutes. Given 06/19/2024 11:15 PM SOUND EQUIPMENT MECHANIC 40 mg documented in this encounter Active and Recently Administered Medications Times are shown in SOUND EQUIPMENT MECHANIC. Scheduled Medication Order 06/18/2024 06/19/2024 06/20/2024 aspirin [...] Total Score: 5 04/18/20 21 11:10 AM SOUND EQUIPMENT MECHANIC documented as of this encounter Care Teams Pipeliner Relationship Specialty Start Date End Date Alex Kohli MD PCP - General FAMILY PRACTICE 12/01/22 documented as of this encounter
--- OUTSIDE RECORDS SUMMARY | 2024-06-20 18:27 | XMS_ITS | Referral Summary ---
Author Organization [facility] Address [address] [place] [address] Care Team Providers Care Spinning Frame Cleaner Name Role Phone Alex Kohli MD Primary Care Provider Encounters Date Type Department Care Team Description 04/20/2024 10:05 AM ENERGY MANAGEMENT SPECIALIST Lab [facility] [address] [place] [id number] from Last 3 Months Allergies Active Allergy [...] 03/14/2022 Assessment & Plan (06/04/2022 4:38 PM ENERGY MANAGEMENT SPECIALIST): Chronic uncontrolled malia siciatic Start norco 5/ 325mg q8 hr prn #60 Refer to [facility] neurosurgical . Assessment & Plan (03/14/2022 2:11 PM CDT): Chronic and worsening Persistent malia leg paresthesia Intermittent weakness in legs Order mri l/s spine [facility] Give Kenalog 80 mg IM Hypersomnia [...] provided 2 pamphlets as written by the [employer] on sleeping better [...] How often do you attend chur or mandaen services? Never 01/28/2023 Do you belong to any clubs o r organizations such as sabianism groups, unions, fraternal or athletic groups, or [...] place to sleep or slept in a fci (including now)? No 01/28/2023 Personal Safety Answer Date Recorded Have you ever been in or are you currently in a harmful physical or emotional relationship or is someone making you feel afraid or unsafe? Denies 04/30/2023 Sex and Gender Information Value Date Recorded Sex Assigned at Not on file Legal Sex Male 1:29 AM ENERGY MANAGEMENT SPECIALIST Gender Identity Not on file Sexual Orientation Not on file Last Filed Vital Signs Vital Sign Reading Time Taken Comments Blood Pressure 133/103 06/20/2023 12:41 AM ENERGY MANAGEMENT SPECIALIST Pulse 69 06/20/2023 12:41 AM ENERGY MANAGEMENT SPECIALIST Temperature 36.7 C (98 F) 06/19/2023 8:38 PM ENERGY MANAGEMENT SPECIALIST Respiratory Rate 20 06/19/2023 8:38 PM ENERGY MANAGEMENT SPECIALIST Oxygen Saturation 98% 06/20/2023 12:41 AM ENERGY MANAGEMENT SPECIALIST Inhaled Oxygen Concentration - - Weight 83.7 kg (184 lb 8.4 oz) 04/16/2023 4:23 A M ENERGY MANAGEMENT SPECIALIST Height 165.1 cm (5' 5 ) 04/16/2023 4:23 AM ENERGY MANAGEMENT SPECIALIST Body Mass Index 30.71 04/16/2023 4:23 AM ENERGY MANAGEMENT SPECIALIST Plan of Treatment Not on file Goals [...] as needed Medical Devices Implanted Type Area Vp Revenue Cycle Device Identifier Shelf Expiration Date Model / Serial / Lot Stent Stent N/A: Heart Procedures Procedure Name Priority Date/Time Associated Diagnosis Comments EGFR Routine 04/20/2024 10:30 AM ENERGY MANAGEMENT SPECIALIST DIFFERENTIAL AUTO Routine 04/20/2024 10: 30 AM ENERGY MANAGEMENT SPECIALIST PSA SCREEN Routine 04/20/2024 10:30 AM ENERGY MANAGEMENT SPECIALIST COMPREHENSIVE METABOLIC PANEL Routine 04/20/2024 10:30 AM ENERGY MANAGEMENT SPECIALIST LIPID PANEL Routine 04/20/2024 10:30 AM ENERGY MANAGEMENT SPECIALIST CBC WITH AUTO DIFFERENTIAL Routine 04/20/2024 10:30 AM ENERGY MANAGEMENT SPECIALIST COLONOSCOPY Routine 06/07/2022 from Last 3 Months or Most Recently Relevant to Health Maintenance Results * eGFR (04/20/2024 10:30 AM ENERGY MANAGEMENT SPECIALIST) eGFR 63 >=60 mL/min/1. 73 m2 Comment: [...] reviewed 2021. Blood 04/20/2024 10:3 0 AM ENERGY MANAGEMENT SPECIALIST 04/20/2024 11:11 AM ENERGY MANAGEMENT SPECIALIST us Alex Kohli MD LAB BLOOD ORDERABLES Final Resu lt [facility] [address] Department [place] [address] * Differential, auto (04/20/2024 10:30 AM ENERGY MANAGEMENT SPECIALIST) Pathologist [facility] Neutrophil abs 4.0 1.5 - 6.5 K/cumm [...] on 2017. Blood 04/20/2024 10:3 0 AM ENERGY MANAGEMENT SPECIALIST 04/20/2024 11:11 AM ENERGY MANAGEMENT SPECIALIST us Alex Kohli MD LAB BLOOD ORDERABLES Final Resu lt [facility] [address] [place] [address] * PSA screen (04/20/2024 10:30 AM ENERGY MANAGEMENT SPECIALIST) PSA-Total 1.35 <=3.90 ng/mL Comment: Interpretive Data [...] revised 21. Blood 04/20/2024 10:3 0 AM ENERGY MANAGEMENT SPECIALIST 04/20/2024 11:11 AM ENERGY MANAGEMENT SPECIALIST Alex Kohli MD LAB BLOOD ORDERABLES Final Resu lt Performing Organization Address [facility] de Phone Number [facility] [address] [place] [address] * (ABNORMAL) CBC with auto differential (04/20/2024 10:30 AM ENERGY MANAGEMENT SPECIALIST) WBC 6.5 3.8 - 9.9 K/cumm Hgb [...] [facility] Blood 04/20/2024 10:3 0 AM ENERGY MANAGEMENT SPECIALIST 04/20/2024 11:11 AM ENERGY MANAGEMENT SPECIALIST Alex Kohli MD LAB BLOOD ORDERABLES Final Resu lt Performing Organization Address [facility] de Phone Number [facility] [address] [place] [address] * Lipid panel (04/20/2024 10:30 AM ENERGY MANAGEMENT SPECIALIST) Cholesterol 111 30 - 199 mg/dL Comment: [...] 2 [facility] Blood 04/20/2024 10:3 0 AM ENERGY MANAGEMENT SPECIALIST 04/20/2024 11:11 AM ENERGY MANAGEMENT SPECIALIST us Alex Kohli MD LAB BLOOD ORDERABLES Final Resu lt [facility] [address] Department [place] [address] * (ABNORMAL) Comprehensive metabolic panel (04/20/2024 10:30 AM ENERGY MANAGEMENT SPECIALIST) Sodium 142 135 - 145 mmol/L Potassium, [...] [facility] Blood 04/20/2024 10:3 0 AM ENERGY MANAGEMENT SPECIALIST 04/20/2024 11:11 AM ENERGY MANAGEMENT SPECIALIST Alex Kohli MD LAB BLOOD ORDERABLES Final Resu lt Performing Organization Address City/State/[facility] Co de Phone Number [facility] [address] Department [place] [address] * Colonoscopy (06/07/2022) Anatomical Region Laterality Modality Other Historical Provider ENDOSCOPY PROCEDURES Fela marques Result from Last 3 Months or Most Recently Relevant to Health Maintenance Insurance MEDICARE [facility] Address: [address] [place] [id number] [employer] MEDICARE [employer] MEDICARE SOLUTIONS [facility] WORKERS COMPENSATION GENERIC COMPENSATION WORKERS COMPENSATION GENERIC COMPENSATION WORKERS COMPENSATION GENERIC COMPENSATION Advance Directives For more information, please contact: [phone] * Full Code (Latest Code Status on File) Date Activated Date Inactivated Comments 01/28/2023 6:23 AM 01/30/2023 7:18 PM Care Teams Spinning Frame Cleaner Relationship Specialty Start Date End Date Alex Kohli MD PCP - General Family Medicine 11/06/22
--- OUTSIDE RECORDS SUMMARY | 2024-06-20 18:27 | XMS_ITS | Encounter Summary ---
Author Organization [facility] Address [address] [place] [address] Care Team Providers Care Oil Well Directional Surveyor Name Role Phone Alex Kohli MD Primary Care Provider [phone] Moy Constantino MD Unavailable UnavailMoy Haro MD Primary Care Provider Un available Alex Kohli MD Primary Care Provider [phone] None, Provider Primary Care Provider Unavaila Romaine RoseC Primary Care Provider [phone] Alex Kohli MD Primary Care Provider [phone] Encounter Details Date Type Department Care Team (Late st Contact Info) Description 02/13/2019 Hospital Follow-up Call [facility] [place] [address] Any Kam, Signal Repairer Social History Tobacco Use Types Packs/Day Years [...] Sex Assigned at Male 06/19/2024 8:28 PM SASH ASSEMBLER Legal Sex Male 10:42 PM CDT Gender Identity Not on file Sexual Orientation Straight 06/19/2024 8: 26 PM SASH ASSEMBLER 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 on file Not on file Not [...] documented as of this encounter Care Teams Oil Well Directional Surveyor Relationship Specialty Start Date End Date Alex Kohli MD PCP - General FAMILY PRACTICE 08/01/18 02/08/21 Moy Constantino MD PCP - Med Group - [facility] Attributed Provider 05/13/15 05/12/21 Moy Constantino MD PCP - General FAMILY PRACTICE 02/09/21 11/13/21 Alex Kohli MD PCP - General FAMILY PRACTICE 11/14/21 03/05/22 None, MD Emerson PCP - General UNKNOWN PHYSICIAN SPECIALTY 03/06/22 05/06/22 Romaine Salguero, ANTONIOC [address] [address] PCP - General PHYSICIAN PLANNING OFFICIAL 05/07/22 11/30/22 Alex Kohli MD [address] [address] PCP - General FAMILY PRACTICE 12/01/22 documented as of this encounter
[2024-06-20 19:02] LABS: Basophils Percent Auto 0.4 % (0.2-1.2); Eosinophils Absolute Auto 0.1 K/mm3 (0-0.3); Eosinophils Percent Auto 2.1 % (0-4.4); Hematocrit 39.7 % (42.0-52.0); Hemoglobin 13.3 g/dL (14.0-18.0); Immature Granulocyte Absolute 0.02 K/mm3 (0.00-0.031); Immature Granulocyte Percent A 0.3 % (0-0.5); Lymphocytes Absolute Auto 1.63 K/mm3 (0.9-3.2); Mean Corpuscular HGB Conc 33.5 g/dl (32-36); Mean Corpuscular Hemoglobin 29.9 pg (26-34); Mean Corpuscular Volume 89.2 fl (80-100); Mean Platelet Volume 9.1 fl (7.4-10.4); Monocytes Absolute Auto 0.8 K/mm3 (0.1-0.6); Monocytes Percent Auto 11.3 % (2.6-8.5); Neutrophils Absolute Auto 4.2 K/mm3 (1.3-6.7); Neutrophils Percent Auto 61.9 % (45.5-73.1); Platelet Count Result 224 k/mm3 (150-375); Red Blood Count 4.45 M/mm3 (4.6-6.20); Red Cell Distribution Width 13.8 % (11.5-14.5); White Blood Count 6.8 K/mm3 (4.5-10.0)
[2024-06-20 19:13] LABS: Prothrombin Time 13.6 Seconds (11.1-14.7)
[2024-06-20 19:15] LABS: Partial Thromboplastin Time 27.4 Seconds (22.3-36.8)
--- NOTE | 2024-06-20 19:18 | ED_ITS ---
HPI - SOB/Dyspnea General Chief Complaint: Shortness of Breath/Dyspnea Stated Complaint: needs a breathing treatment Time Seen by Provider: 06/20/24 18:08 Source: patient Mode of arrival: ambulatory Limitations: no limitations History of Present Illness HPI Narrative: Patient is a 58-year-old male, with PMH of CAD with stent in the early , who presents to the ED with report of shortness of breath. Patient reports having increased shortness breath over the last 1 week, particularly with laying flat or after he eats. States he feels his breathing improves when he stands up or walks around. Denies significant dyspnea with exertion. He was having some chest pain yesterday, but was seen at [facility] and had a negative workup, including 2 negative troponins. Patient denies any chest pain today. Does admit to sinus drainage, occasional cough, but denies fevers, pain or swelling in his lower extremities. Denies history of blood clots or CHF. Related Data Allergies Allergy/AdvReac Type Severity Reaction Status Date / Time ibuprofen Allergy Swelling Verified 06/20/24 17:44 nitroglycerin Allergy Swelling Verified 06/20/24 17:44 Review of Systems 2 Review of Systems: All systems reviewed & are unremarkable except as noted in HPI. All systems reviewed & are unremarkable except as noted in HPI and below PMFSH Past Medical History Medical History Peripheral arterial disease with history of revascularization Coronary artery disease Peripheral arterial disease Hyperlipidemia Hypertension Surgical History Surgical History History of coronary artery stent placement History of heart artery stent Social History Social History Smoking status: Never smoker Exam 2 Narrative: GENERAL: Well appearing, obese with BMI of 31.1, non-toxic, in no acute distress. HEAD: Normocephalic, atraumatic. RESPIRATORY: Airway patent, respirations nonlabored. Clear to auscultation bilaterally, no rales, rhonchi, wheezing. Lung sounds slightly coarse in bases. No focal rhonchi or wheezing. CARDIOVASCULAR: Regular rate and rhythm without murmurs, rubs, or gallops. Peripheral pulses intact. ABDOMINAL: Soft, no tenderness in abdomen, nondistended. Normoactive BS. MUSCULOSKELETAL: Moves all extremities. No gross deformities. No chest wall tenderness. No peripheral edema. No calf tenderness. SKIN: Warm, dry, normal color. NEURO: A&O X3. Speech clear. Cranial nerves II-XII grossly intact. Steady gait. No ataxic movements. PSYCHIATRIC: Appropriate mood and affect. Normal interaction. Course Vital Signs Vital signs: Vital Signs Temperature 98.3 F 06/20/24 17:42 Pulse Rate 62 06/20/24 17:42 Respiratory Rate 20 06/20/24 17:42 Blood Pressure 157/82 H 06/20/24 17:42 Pulse Oximetry 100 06/20/24 17:42 Oxygen Delivery Room Air 06/20/24 17:42 Temperature 98.4 F 06/20/24 22:42 Pulse Rate 59 L 06/20/24 22:42 Respiratory Rate 22 H 06/20/24 22:42 Blood Pressure 127/71 06/20/24 22:42 Pulse Oximetry 100 06/20/24 22:42 Oxygen Delivery Room Air 06/20/24 18:06 MDM - SOB/Dyspnea MDM Narrative Medical decision making narrative: Patient presented to ED with 1 week history of increased shortness of breath. Worse with laying flat and eating. Had a cardiac workup performed at an outside hospital yesterday which was unremarkable (two negative troponins). Patient is denying any chest pain today. Vital signs are stable upon arrival. Patient is in no acute distress. No respiratory distress. Oxygen stable on room air. EKG is without acute ischemic changes. Does show likely old infarcts. Patient does have previous history of SD with stent placement. Troponin today is again undetectable. BNP is minimally elevated to 218. Patient does not appear fluid overloaded. D-dimer is within normal range. Chest x-ray is clear. Viral swabs are negative. Remainder of basic laboratory studies are unremarkable. Patient was ambulated throughout the ED and no ambulatory hypoxia was noted. Oxygen saturation never dropped below 94%. Patient denied significant SOB. Discussed lab and imaging findings, overall reassuring workup with patient. Discussed possibility of acid reflux/indigestion causing symptoms related to eating. Patient is on protonix daily. Discussed possibility of viral URI/sinus issues/post nasal drip. Discussed management of such. Overall feel patient is safe for discharge home with close outpatient follow-up. Recommended that he follow-up with his primary care doctor for further evaluation. Discussed very strict return precautions. Patient voiced understanding. Feels comfortable w/ discharge home. Discharged in stable condition. Medical Records Attestation: I reviewed the patient's medical records. Lab Data Attestation: I reviewed the patient's lab results. 06/20/24 18:56 06/20/24 18:56 Labs: Lab Results 06/20/24 06/20/24 Range/Units 18:56 18:56 WBC 6.8 (4.5-10.0) K/mm3 RBC 4.45 L (4.6-6.20) M/mm3 Hgb 13.3 L (14.0-18.0) g/dL Hct 39.7 L (42.0-52.0) % MCV 89.2 (80-100) fl MCH 29.9 (26-34) pg MCHC 33.5 (32-36) g/dl RDW 13.8 (11.5-14.5) % Plt Count 224 (150-375) k/mm3 MPV 9.1 (7.4-10.4) fl Immature Gran % (Auto) 0.3 (0-0.5) % Neut % (Auto) 61.9 (45.5-73.1) % Lymph % (Auto) 24.0 (18.3-44.2) % [place] % (Auto) 11.3 H (2.6-8.5) % Eos % (Auto) 2.1 (0-4.4) % Baso % (Auto) 0.4 (0.2-1.2) % Lymph # (Auto) 1.63 (0.9-3.2) K/mm3 [place] # (Auto) 0.8 H (0.1-0.6) K/mm3 Eos # (Auto) 0.1 (0-0.3) K/mm3 Baso # (Auto) 0.0 (0.0-0.1) K/mm3 Abs Immat Gran (auto) 0.02 (0.00-0.031) K/mm3 Absolute Neuts (auto) 4.2 (1.3-6.7) K/mm3 Absolute Nucleated RBC 0.000 (0.0-0.012) K/mm3 Nucleated RBC % 0.0 (0.0-0.2) % PT 13.6 (11.1-14.7) Seconds INR 1.0 APTT 27.4 Cancelled (22.3-36.8) Seconds D-Dimer 0.34 (<0.48) ug/mL Sodium 137 (137-145) mmol/L Potassium 4.0 (3.4-5.0) mmol/L Chloride 108 H (98-107) mmol/L Carbon Dioxide 23 (22-30) mmol/L Anion Gap 6 (4-12) mmol/L BUN 15 (9-20) mg/dL Creatinine 1.22 (0.7-1.3) mg/dL Estim Creat Clear Calc 59 ml/min Estimated GFR > 60 (59 - ) Glucose 85 (65-110) mg/dL Calcium 8.8 (8.4-10.2) mg/dL Magnesium 2.0 (1.6-2.3) mg/dL Total Bilirubin 0.7 (0.2-1.3) mg/dL AST 35 (17-59) U/L ALT 69 H (6-50) U/L Alkaline Phosphatase 124 (38-126) U/L Troponin I < 0.012 (0.000-0.034) ng/mL NT-Pro-B Natriuret Pep 218 H (19.9-100) pg/mL Total Protein 7.0 (6.3-8.2) g/dL Albumin 3.9 (3.5-5.1) g/dL Influenza A (RT-PCR) Negative (Negative) Influenza B (RT-PCR) Negative (Negative) RSV (RT-PCR) Negative (Negative) SARS-CoV-2 RNA (RT-PCR) Negative (Negative) Imaging Data Attestation: I personally reviewed and interpreted this imaging study as follows: Radiologist's impression: ITS Impressions Chest X-Ray 06/20/24 19:24 IMPRESSION: No acute cardiopulmonary process. ECG Data EKG #1: Attestation: I personally reviewed and interpreted this ECG as follows: ECG completion date: 06/20/24 ECG completion time: 18:10 EKG Interpretation: bradycardia (55), sinus rhythm and non-specific ST changes Discharge Plan Discharge Clinical Impression: Shortness of breath Upper respiratory infection Qualifiers: URI type: unspecified URI Qualified Code(s): J06.9 - Acute upper respiratory infection, unspecified Patient Disposition: Home, Self-Care Condition: Stable Instructions: Antibiotic Form, Upper Respiratory Infection (ED), Indigestion (ED), Shortness of Breath (ED) Additional Instructions: Your workup here was reassuring. It is possible you may have an upper respiratory infection. Stay well-hydrated at home. Recommend electrolyte rich fluids, Gatorade, Pedialyte, body armor. Recommend Tylenol as needed for discomfort and/or fevers. Recommend [id number]-ujjvaal cough and cold medicines for symptom relief, Delsym, Mucinex, DayQuil, NyQuil, Sudafed, Robitussin, TheraFlu. Follow up with your primary care doctor for further evaluation. Return to the ED if you experience worsening or severe difficulty breathing, recurrent chest pain, coughing blood, pain or swelling in legs, persistent fevers, unable to keep down food or drink, severe pain, or any other symptoms of concern. Patient Language: Swedish Prescriptions: No Action tramadol-acetaminophen 37.5-325 mg tablet 1 tablet PO Q8H PRN (Reason: pain) Qty: 14 0RF Follow-up/Referrals: Seun,Alex Camarillo MD [Primary Care Provider] - Time of Disposition: 21:38
[2024-06-20 19:19] LABS: Alanine Aminotransferase 69 U/L (6-50); Albumin Level 3.9 g/dL (3.5-5.1); Alkaline Phosphatase 124 U/L (38-126); Anion Gap 6 mmol/L (4-12); Aspartate Amino Transferase 35 U/L (17-59); Bilirubin,Total 0.7 mg/dL (0.2-1.3); Blood Urea Nitrogen 15 mg/dL (9-20); Calcium 8.8 mg/dL (8.4-10.2); Carbon Dioxide 23 mmol/L (22-30); Chloride 108 mmol/L (98-107); Estimated CRCL calculation 59 ml/min; Estimated Glomerular Filt Rate > 60; Glucose 85 mg/dL (65-110); Sodium 137 mmol/L (137-145)
[2024-06-20 19:30] LABS: NT Pro B Type Natriuretic Pept 218 pg/mL (19.9-100); Troponin I < 0.012 ng/mL (0.000-0.034)
[2024-06-20 19:33] LABS: D Dimer 0.34 ug/mL (<0.48)
[2024-06-20 19:40] LABS: Influenza A QL RT-PCR Negative (Negative); Influenza B QL RT-PCR Negative (Negative); RSV RNA, RT-PCR Negative (Negative); SARS-CoV-2 RNA PCR Negative (Negative)
--- NOTE | 2024-06-20 20:26 | PC.NURSE ---
promotion writer asked to walk pt around the nurses station with the spo2 monitor. pt maintained 98-99% on RA until about 8-10 feet from his room. NEELIMA Lechuga and LOREN Ordaz aware of findings.
[2024-06-20] MEDS: BELLADONNA ALK/PHENOB ELIX 10 ML, MAG HYDROX/ALUMINUM HYD/SIMETH 30 ML, LIDOCAINE 2% VI... PO (21:42)
[2024-06-20 21:55] VITALS: BP 115/80; PULSE 57; RESP 21; O2SAT 99
[2024-06-20 22:42] VITALS: BP 127/71; PULSE 59; RESP 22; TEMP 36.9; O2SAT 100
== END 2024-06-20 22:45 | disposition home or self-care (01) ==
PROVIDERS: Emergency Provider Physician Assistant; PCP Family Medicine
DX: J06.9 Acute upper respiratory infection, unspecified (principal); Z20.822 Contact with and (suspected) exposure to COVID-19; I73.9 Peripheral vascular disease, unspecified; I10 Essential (primary) hypertension; I25.10 Atherosclerotic heart disease of native coronary artery without angina pectoris; E78.5 Hyperlipidemia, unspecified; Z95.5 Presence of coronary angioplasty implant and graft; R00.1 Bradycardia, unspecified; R94.31 Abnormal electrocardiogram [ECG] [EKG]
CPT/HCPCS: 36415; 71046; 80053; 83735; 83880; 84484; 85025; 85380; 85610; 85730; 87637; 93005; 99283; A9270